=== PATIENT | male | born 1935 | race Caucasian/White ===

== ENCOUNTER 2016-06-28 10:37 | Inpatient (IN) ==
[2016-06-28] MEDS ORDERED: IPRATROPIUM/ALBUTEROL 3 ML AMPUL.NEB NEB ONE ×2 (10:41→11:07)
--- NOTE | 2016-06-28 10:53 | Emergency Department Note ---
General Adult HPI - General Chief complaint: Fever Stated complaint: sob, fever Time Seen by Provider: 06/28/16 10:50 Source: patient Mode of arrival: ambulatory Limitations: no limitations - History of Present Illness HPI Narrative: This patient has had fever and cough last 2 days. He feels short of breath. This morning he started coughing up some blood. O2 sats were quite low. No chest pain nausea vomiting. Onset (ago): day(s) Location: chest - Related Data Home Medications Medication Instructions Recorded Confirmed Allopurinol [Zyloprim] 100 mg PO DAILY 03/16/15 06/14/16 Metoprolol Succinate [Toprol Xl] 50 mg PO DAILY 03/16/15 06/14/16 Oxazepam 15 mg PO BID 03/16/15 06/14/16 Prazosin [Minipress] 5 mg PO BID 03/16/15 06/14/16 Warfarin [Coumadin] 3 mg PO DAILY 03/16/15 06/14/16 omeprazole 20 mg capsule,delayed 20 mg PO QDAY cap 05/10/15 06/14/16 release vit C-vit O-[id number]-[id number]-omega 1 cap PO .QD 05/10/15 06/14/16 3 100 mg-15 unit-2 mg-100 mg capsule potassium chloride ER 10 mEq 10 meq PO DAILY tab 10/13/15 06/14/16 tablet,extended release(part/cryst) Previous Rx's Medication Instructions Recorded amlodipine 10 mg tablet 5 mg PO QHS #60 tab 09/15/15 furosemide 40 mg tablet 20 mg PO BID #90 tab 01/18/16 spironolactone 25 mg tablet 25 mg PO QDAY #90 tab 04/03/16 Allergies Allergy/AdvReac Type Severity Reaction Status Date / Time No Known Drug Allergies Allergy Verified 06/28/16 10:44 Review of Systems Constitutional: Reports: fever, chills Eyes: Denies: eye pain ENT ED: Denies: ear pain Cardiovascular: Denies: chest pain, palpitations Respiratory: Reports: cough, dyspnea Gastrointestinal: Denies: abdominal pain, nausea, vomiting Genitourinary: Denies: urgency, dysuria Musculoskeletal: Denies: back pain Integumentary: Denies: rash Neurological: Denies: headache Past Medical History - Past Medical History Medical history: Reports: atrial fibrillation, coronary artery disease, diabetes , GERD, hyperlipidemia, hypertension, renal disease, other (gout) Surgical history ED: Reports: cataract, knee replacement, tonsillectomy Psychiatric history: Reports: anxiety - Social History Alcohol use: Reports: None, Rarely Physical Exam - General Limitations: no limitations General appearance: alert, in no apparent distress - Head Head exam: atraumatic - Eye Eye exam: Present: normal appearance - ENT ENT exam: normal exam - Neck Neck exam: Present: normal inspection - Chest Chest inspection: Present: normal inspection - Respiratory Respiratory exam: Present: other (scattered rales and rhonchi) - Cardiovascular Cardiovascular exam: Present: irregular rhythm, normal heart sounds - Abdominal Exam Abdominal exam: Present: soft. Absent: distention, tenderness - Neurological Exam Neurological exam: Present: alert, oriented X3 - Psychiatric Psychiatric exam: Present: normal affect, normal mood - Skin Skin exam: Present: warm, dry Course Vital Signs Temperature 101.4 F H 06/28/16 10:39 Pulse Rate 99 H 06/28/16 10:39 Respiratory Rate 32 H 06/28/16 10:39 Blood Pressure 150/75 06/28/16 10:39 Pulse Oximetry (%) 89 L 06/28/16 10:39 Temperature 101.4 F H 06/28/16 10:39 Pulse Rate 74 06/28/16 11:52 Respiratory Rate 28 H 06/28/16 11:52 Blood Pressure 131/66 06/28/16 11:52 Pulse Oximetry (%) 90 06/28/16 11:52 Medical Decision Making - [facility] Narrative Medical decision making narrative: This patient has pneumonia with worrisome signs for sepsis. He has been cultured and given antibiotics including Levaquin and Rocephin. He'll be admitted the ICU by Dr. Williamson - Lab Data Lab results reviewed: Yes I reviewed the patient's lab results. Result diagrams: 06/28/16 10:35 06/28/16 10:35 Lab Results 06/28/16 06/28/16 06/28/16 Range/Units 10:35 10:35 10:35 WBC 25.4 H (4.5-11.0) K/mcL RBC 4.64 (4.50-5.90) M/mcL Hgb 15.2 (13.5-16.5) g/dL Hct 46.6 (41.0-55.0) % MCV 100.5 H (80.0-100.0) fL MCH 32.8 (26.0-34.0) pg MCHC 32.6 (31.0-36.0) g/dL RDW 14.5 (11.5-14.5) % Plt Count 77 L (140-440) K/mcL MPV 8.0 (7.4-10.4) fL Gran % 59.7 (38.0-78.0) % Lymph % (Auto) 23.8 (15.5-49.0) % [place] % (Auto) 16.0 H (1.0-12.0) % Eos % (Auto) 0.2 (0.0-7.0) % Baso % (Auto) 0.3 (0.0-2.0) % Gran # 15.2 H (1.8-8.0) K/mcL Lymph # 6.1 H (1.5-4.8) K/mcL [place] # 4.1 H (0.1-0.9) K/mcL Eos # 0.1 (0.0-0.7) K/mcL Baso # 0.1 (0.0-0.3) K/mcL VBG Lactic Acid 3.1 H (0.5-2.2) mmol/L Sodium 140 (133-145) mmol/L Potassium 4.2 (3.3-5.1) mmol/L Chloride 95 L (96-108) mmol/L Carbon Dioxide 22 (22-30) mmol/L Anion Gap 23.0 H (8-16) BUN 28 H (8-23) mg/dl Creatinine 1.5 H (0.7-1.2) mg/dl GFR Calculation 44 Glucose 145 H (70-105) mg/dL Calcium 9.1 (8.6-10.4) mg/dl Total Bilirubin 2.2 H (0.0-1.0) mg/dL AST 20 (0-37) U/l ALT 20 (0-40) U/l Alkaline Phosphatase 79 (39-117) U/L Troponin T (0-0.03) ng/ml Total Protein 7.6 (5.9-8.4) gm/dL Albumin 4.5 (3.2-5.2) gm/dL Globulin 3.1 (2.2-3.7) gm/dL Albumin/Globulin Ratio 1.5 (1.0-2.3) 06/28/16 Range/Units 10:43 WBC (4.5-11.0) K/mcL RBC (4.50-5.90) M/mcL Hgb (13.5-16.5) g/dL Hct (41.0-55.0) % MCV (80.0-100.0) fL MCH (26.0-34.0) pg MCHC (31.0-36.0) g/dL RDW (11.5-14.5) % Plt Count (140-440) K/mcL MPV (7.4-10.4) fL Gran % (38.0-78.0) % Lymph % (Auto) (15.5-49.0) % [place] % (Auto) (1.0-12.0) % Eos % (Auto) (0.0-7.0) % Baso % (Auto) (0.0-2.0) % Gran # (1.8-8.0) K/mcL Lymph # (1.5-4.8) K/mcL [place] # (0.1-0.9) K/mcL Eos # (0.0-0.7) K/mcL Baso # (0.0-0.3) K/mcL VBG Lactic Acid (0.5-2.2) mmol/L Sodium (133-145) mmol/L Potassium (3.3-5.1) mmol/L Chloride (96-108) mmol/L Carbon Dioxide (22-30) mmol/L Anion Gap (8-16) BUN (8-23) mg/dl Creatinine (0.7-1.2) mg/dl GFR Calculation Glucose (70-105) mg/dL Calcium (8.6-10.4) mg/dl Total Bilirubin (0.0-1.0) mg/dL AST (0-37) U/l ALT (0-40) U/l Alkaline Phosphatase (39-117) U/L Troponin T < 0.01 (0-0.03) ng/ml Total Protein (5.9-8.4) gm/dL Albumin (3.2-5.2) gm/dL Globulin (2.2-3.7) gm/dL Albumin/Globulin Ratio (1.0-2.3) - Radiology Data Radiology results reviewed: Yes I reviewed the patient's radiology results. ( chest x-ray is read as showing a right lower lobe infiltrate.) Disposition Clinical Impression: Community acquired pneumonia Disposition: Xfer As Inpt ([facility]) Condition: Fair Referrals: Suma Parker MD [Primary Care Provider] - Time of Disposition: 12:09
[2016-06-28] MEDS ORDERED: 0.9 % SODIUM CHLORIDE 1,000 ML IV SCH ×2 (11:00→13:27)
--- NOTE | 2016-06-28 11:07 | XRay Report ---
HISTORY: Reason for Exam:shortness of breath and cough FINDINGS: The heart is moderately enlarged and has increased in size since 07/14/14. There is no congestive heart failure or pleural effusion. A small alveolar infiltrate is developing medially in the right lung base. The lungs are otherwise clear. There may be a subpulmonic pleural effusion on the right side.. IMPRESSION: Right lower lobe pneumonia Worsening cardiomegaly Interpreted and Authenticated by: Victor Hugo Lee 06/28/16
[2016-06-28 11:12] LABS: Basophils # (Auto) 0.1 K/mcL (0.0-0.3); Basophils % (Auto) 0.3 % (0.0-2.0); Eosinophils # (Auto) 0.1 K/mcL (0.0-0.7); Eosinophils % (Auto) 0.2 % (0.0-7.0); Granulocytes % (Auto) 59.7 % (38.0-78.0); Lymphocytes # (Auto) 6.1 K/mcL (1.5-4.8); Lymphocytes % (Auto) 23.8 % (15.5-49.0); Mean Cell Volume 100.5 fL (80.0-100.0); Mean Corpuscular HGB Conc 32.6 g/dL (31.0-36.0); Mean Corpuscular Hemoglobin 32.8 pg (26.0-34.0); Monocytes # (Auto) 4.1 K/mcL (0.1-0.9); Platelet Count 77 K/mcL (140-440); RBC 4.64 M/mcL (4.50-5.90); Red Cell Distribution Width 14.5 % (11.5-14.5)
[2016-06-28] MEDS ORDERED: cefTRIAXone 1 GM in DEXTROSE 5% IN WATER 50 ML IV ONE (11:22)
[2016-06-28] MEDS ORDERED: LEVOFLOXACIN 500 MG/100 ML BAG IV ONE (11:22)
[2016-06-28] MEDS ORDERED: ACETAMINOPHEN 325 MG TABLET PO ONE (12:14)
--- NOTE | 2016-06-28 13:13 | Internal Med History&Physical ---
Medical - H&P: HPI Patient information: Note initiated : 06/28/16 at 1:09 pm Service Date, if different from initiated Date: [] Patient: Colt Flores 81 y/o M admitted on for SOB, Fever. Chief Complaint: [] History of present illness: Mr. Flores is a 81 year old male w3ho lives with his , presented to the ER after 1 day of cough, and hemoptysis. The patient last night had a bout of cough. He notes he is chr feeling weak, tired and fatigued. His cough came on yesterday evening. This AM when he woke up he started to have hemoptysis, He coughed up bloody sputum He denies any mixing of any other color with the sputum. He notes his cough is more deep now than before. He admits to feeling sick and may be feverish, but did not take a temperature. he presented to the ER with the above complaints. In the ER he was noted to be hypoxic, tachypenic and febrile. He had an x ray done which showed right basilar pneumonia. his wbc was 25K, elevated lactate, and needing 6L oxygen to maintain oxygen at 90% he was admitted to the hosptial for further management at bedside who also provided some history Review of systems: CONSTITUTIONAL: No weight loss, fever present , chr weakness and fatigue. HEENT: Eyes: No visual loss, blurred vision, double vision or yellow sclerae. Ears, Nose, Throat: No hearing loss, sneezing, congestion, runny nose or sore throat. SKIN: No rash or itching. CARDIOVASCULAR: No chest pain, chest pressure or chest discomfort. No palpitations or edema. RESPIRATORY: Present sob, cough and hemoptysis.. GASTROINTESTINAL: No nausea, vomiting or diarrhea or constipation. No abdominal pain or blood in stools No Trini. GENITOURINARY: Denies Burning on urination. Blood in urine, or foul smelling urine. Takes lasix for diuresis. NEUROLOGICAL: No headache, dizziness, syncope, paralysis, tremors, numbness or tingling in the extremities. No change in bowel or bladder control. MUSCULOSKELETAL: No muscle, back pain, joint pain or stiffness. HEMATOLOGIC: No bleeding or bruising. No enlarged nodes PSYCHIATRIC: No depression or anxiety. ENDOCRINOLOGIC: No reports of sweating, cold or heat intolerance. No polyuria or polydipsia. ALLERGIES: No hives, eczema or rhinitis. 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, stage II (mild) (Chronic) Melena (Chronic) Mixed hyperlipidemia (Chronic) Skin cancer (Chronic) Gout (Chronic) Myocardial infarction (Chronic) CAD (coronary artery disease) (Chronic) Diabetes mellitus, type II (Chronic) Hypercholesterolemia (Chronic) Anxiety (Chronic) Hypertension (Acute) Atrial fibrillation (Chronic) Proteinuria (Chronic) Epistaxis (Chronic) Encounter for removal of nasal packing (Chronic) Surgical history: Past Surgical History S/P tonsillectomy (Chronic) Family history: reviewed and not pertinent Medical - H&P: Meds Home Medications Medication Instructions Recorded Confirmed Type Allopurinol [Zyloprim] 100 mg PO DAILY 06/28/16 06/28/16 History Atorvastatin [Lipitor] 10 mg PO DAILY 06/28/16 06/28/16 History Furosemide [Lasix] 40 mg PO DAILY 06/28/16 06/28/16 History Hydrochlorothiazide [Oretic] 25 mg PO DAILY 06/28/16 06/28/16 History Losartan [Cozaar] 50 mg PO BID 06/28/16 06/28/16 History Metoprolol Succinate [Toprol Xl] 50 mg PO DAILY 06/28/16 06/28/16 History Metoprolol Tartrate [Lopressor] 50 mg PO DAILY 06/28/16 06/28/16 History Omeprazole 20 mg PO DAILY 06/28/16 06/28/16 History Oxazepam 15 mg PO BID 06/28/16 06/28/16 History Prazosin [Minipress] 5 mg PO BID 06/28/16 06/28/16 History Spironolactone, Micronized 25 mg PO DAILY 06/28/16 06/28/16 History [Spironolactone] Warfarin [Coumadin] 3 mg PO DAILY 06/28/16 06/28/16 History amLODIPine [Norvasc] 5 mg PO HS 06/28/16 06/28/16 History Allergies Allergy/AdvReac Type Severity Reaction Status Date / Time No Known Drug Allergies Allergy Verified 06/28/16 10:44 Medical - H&P: Exam - Constitutional Vitals: Temp Pulse Resp BP Pulse Ox 99.8 F H 84 18 136/76 90 06/28/16 12:23 06/28/16 12:26 06/28/16 12:26 06/28/16 12:26 06/28/16 12:26 Exam: GENERAL: The patient is a well-developed, well-nourished in no apparent distress. Is alert and oriented x3. obese VITAL SIGNS: Reviewed and as noted elsewhere. HEENT: Head is normocephalic and atraumatic. Extraocular muscles are intact. Pupils are equal, round, and reactive to light. Nares appeared normal. Mouth appears any without lesions. Mucous membranes are moist NECK: Normal to inspection, Supple, No lymphadenopathy or thyromegaly. LUNGS: Air entry equal on both sides, no wheezing but proloned exp phase noted, no crackles or rhonchi noted. No accessory muscles of respiration, but pt is tachypenic. HEART: Regular rate and rhythm irregular, S1 and S2 heard, no Gallop, S3 or Rub Noted, systolic ejection murmur lsbb ABDOMEN: Soft, nontender, and chronically distended. Positive bowel sounds. No hepatosplenomegaly was noted. EXTREMITIES: No cyanosis, clubbing, rash, lesions or edema. NEUROLOGIC: Cranial nerves II through XII are grossly intact. Motor and Sensory System Grossly Intact PSYCHIATRIC: Normal affect, Normal Mood. Appropriate Behavior. SKIN: No ulceration or wounds noted, No jaundice, No rash noted. Medical - H&P: Reslt - Labs CBC & Chem 7: 06/28/16 10:35 06/28/16 10:35 Labs: Short CBC 06/28/16 Range/Units 10:35 WBC 25.4 H (4.5-11.0) K/mcL Hgb 15.2 (13.5-16.5) g/dL Hct 46.6 (41.0-55.0) % Plt Count 77 L (140-440) K/mcL BMP 06/28/16 10:35 Sodium 140 Potassium 4.2 Chloride 95 L Carbon Dioxide 22 BUN 28 H Creatinine 1.5 H Glucose 145 H Calcium 9.1 Cardiac Enzymes 06/28/16 Range/Units 10:43 Troponin T < 0.01 (0-0.03) ng/ml Liver Function 06/28/16 Range/Units 10:35 Total Bilirubin 2.2 H (0.0-1.0) mg/dL AST 20 (0-37) U/l ALT 20 (0-40) U/l Alkaline Phosphatase 79 (39-117) U/L Albumin 4.5 (3.2-5.2) gm/dL - ABG Interpretation -: ABG interpreted by me Additional comments: hypoxia, on ABG, normal blood gas - EKG Data -: EKG Reviewed by Myself - EKG Data Prior EKG available for review: no EKG comments: 06/28/16 13:19 atrial fibrillation poor voltage poor r wave progression Old ant wall IN non specific st changes in ant lateral leads. 06/28/16 13:28 - Imaging and Cardiology Chest x-ray Status: image reviewed by me (Cardiomegaly, right basilar infiltrate. ) Medical - H&P: A/P - Narrative A/P Narrative: Community Acquired Pneumonia: Start on IV rocephin, IV zithromax, cultures sent , check influenza. Severe sepsis: elevated lactate, tachyphemia, borderline elevated HR. Hypoxia, Admit to ICU for close monitoring. SOFA score of 8, KAKE 16, mortality risk of 22%. IV hydration for now, recheck lactate in PM. Pericardial Effusion/ Cardiomegaly: Echo in past showed effusion, LVH, will repeat Echo today to evaluate effusion change. EKG suggestive of low voltate. Acute Hypoxic Respiratory failure: On Oxygen 6 L at present, Duonebs for now, Hiflo nasal canula for oxygenation. consider Bipap vs ventilation, pt is full code. Hemoptysis: Noted this am, bright red blood, likely from pna, check inr stat, hold coumadin for now, CT chest Thrombocytopenia: seems chr in nature. Atrial fibrillation: Rate controlled, resume home meds check INR HTN: Resume home medications, BP stable at this time. CAD: EKG shows old ant mi, no cp at this time, trop neg, monitor. DVT : Hep SQ, monitor INR Diet: cardiac diet. Code. Full code. Social History - Social History marital status: occupational status: retired - Tobacco smoking status: Never smoker - Alcohol alcohol intake frequency: 2+ drinks per day
[2016-06-28] MEDS ORDERED: DEXTROSE 50% 50 ML VIAL IV PRN (13:27)
[2016-06-28] MEDS ORDERED: HYDROmorphone 2 MG/ML SYRINGE IV PRN (13:27)
[2016-06-28] MEDS ORDERED: ONDANSETRON 4 MG/2 ML VIAL IV PRN (13:27)
[2016-06-28] MEDS ORDERED: NALOXONE HCL 0.4 MG/ML VIAL IV PRN (13:27)
[2016-06-28] MEDS ORDERED: AZITHROMYCIN 500 MG in DEXTROSE 5% IN WATER 250 ML IV ONE (13:27)
[2016-06-28] MEDS ORDERED: ACETAMINOPHEN 325 MG TABLET PO PRN (13:27)
[2016-06-28] MEDS: 0.9 % SODIUM CHLORIDE 1,000 ML IV SCH ×2 (13:35→20:19)
[2016-06-28] MEDS: cefTRIAXone 2 GM in DEXTROSE 5% IN WATER 50 ML IV SCH ×2 (13:51→14:41)
[2016-06-28] MEDS: 0.9 % SODIUM CHLORIDE 10 ML SYRINGE IV SCH ×2 (13:54→20:54)
[2016-06-28] MEDS: IPRATROPIUM 2.5 ML AMPUL.NEB NEB SCH ×2 (15:45→19:59)
--- NOTE | 2016-06-28 15:58 | Cat Scan Report ---
CLINICAL INFORMATION: Fever and right lower lobe infiltrate COMPARISON: None TECHNIQUE: 2.5 mm axial slices were obtained from the lung apices through the bases without intravenous contrast. Sagittal, coronal and axial reformatted images were processed and reviewed at bone, lung and soft tissue windows. 7 mm axial MIP images were also reconstructed. FINDINGS: There is a large densely consolidating alveolar infiltrate in the right lower lobe. There is a smaller infiltrate posteriorly medially in the left lower lobe. Multiple air bronchograms are present. There is no apparent endobronchial lesion. Subtle patchy alveolar opacities are present medially in the right middle lobe and above the minor fissure anteriorly in the right upper lobe. The lingula and left upper lobe are clear. There is a small layering right-sided pleural effusion. No left-sided effusion is present. There are few small scattered calcified pleural plaques, most apparent in the right lower thorax. Moderate size pericardial effusion is present. The underlying heart is upper limits of normal in size. There are densely calcified plaques in the coronary arteries. Few reactive lymph nodes are present in the mediastinum. IMPRESSION: Bilateral pneumonia with the greatest consolidation in the right lower lobe Moderate-sized pericardial effusion and small layering right-sided pleural effusion Interpreted and Authenticated by: Victor Hugo Lee 06/28/16
[2016-06-28] MEDS ORDERED: 0.9 % SODIUM CHLORIDE 10 ML SYRINGE IV PRN (16:03)
[2016-06-28] MEDS: INSULIN LISPRO 1 UNIT/0.01 ML UNIT SQ SCH ×2 (17:54→20:53)
--- NOTE | 2016-06-28 20:29 | Transfer of Care Summary ---
Transition of Care Summary Patient information: Note initiated : 06/28/16 at 8:28 pm Service Date, if different from initiated Date: [] Patient: Colt Flores 81 y/o M admitted on 06/28/16 for SOB, Fever. Chief Complaint: [] Hospital course: Mr. Flores is a 81 year old male who lives with his , presented to the ER after 1 day of cough, and hemoptysis. was at bedside who presented some of the history. The patient last night had a bout of cough. He notes he is chr feeling weak, tired and fatigued. His cough came on yesterday evening. This AM when he woke up he started to have hemoptysis, He coughed up bloody sputum. He notes his cough is more deep and productive today now than before. He admits to feeling sick and may be feverish, but did not take a temperature. he presented to the ER with the above complaints. In the ER he was noted to be hypoxic, tachypneic and febrile. He had an x ray done which showed right basilar pneumonia. his wbc was 25K, elevated lactate, and needing 6L oxygen to maintain oxygen at 90% he was admitted to the hospital for further management. INR checked was 2.3, Pt was started on rocepin and azithromycin for CAP management. PICC line placed. CT chest done for hemoptysis shows that he has humble pna, right > left, pericardial effusion. Patients X ray showed that his cardiomegaly had increased since his previous x rays. On further review the patient had pericardial effusions in the past. A Repeat Echocardiography was ordered to evaluate worsening cardiomegaly. The patients echo revealed that the patient has moderate to severe pericardial effusion with probable tamponade. I reviewed the findings with the paving rammer who agreed transfer to a higher center would be needed. Patient was discussed with Dr Rodriguez at [facility] , who reviewed the case and accepted the transfer, Pt will be transferred to hospitalist service under Dr Burrell. The plan of care was reviewed with patient and his daughter who was at bedside. - Pending Results Pending labs and procedures: [facility] 06/28/16 16:59: VBG Lactic Acid 1.6 06/28/16 16:38: Influenza A (Rapid) Presumed negative, Influenza B (Rapid) Presumed negative
--- NOTE | 2016-06-28 20:47 | Transfer Summary ---
Transfer Discharge Sum: Prov Patient information: Note initiated : 06/28/16 at 8:44 pm Service Date, if different from initiated Date: [] Patient: Colt Flores 81 y/o M admitted on 06/28/16 for SOB, Fever. Chief Complaint: [] Date of admission: 06/28/16 13:23 Discharge Date: 06/28/16 Primary care physician: [f_Reg Prim Care Provider] Attending physician on admission: Jus Williamson Receiving physician/facility: Dr Ashanti Bowling. Cardiology. Transfer Discharge Sum: Diag - Discharge Diagnosis (1) Nontraumatic cardiac tamponade Status: Acute (2) Pericardial effusion Status: Acute (3) Community acquired pneumonia Status: Acute Transfer Discharge Sum: Med - Medications Active and Home Medications: Home Medications Allopurinol [Zyloprim] 100 mg PO DAILY 06/28/16 [History Confirmed 06/28/16] Furosemide [Lasix] 40 mg PO DAILY 06/28/16 [History Confirmed 06/28/16] Metoprolol Succinate [Toprol Xl] 50 mg PO DAILY 06/28/16 [History Confirmed 08/09] Omeprazole 20 mg PO DAILY 06/28/16 [History Confirmed 06/28/16] Oxazepam 15 mg PO BID 06/28/16 [History Confirmed 06/28/16] Potassium Chloride [Klor-Con 10] 1 tab PO DAILY 06/28/16 [History Confirmed 08/09] Prazosin [Minipress] 5 mg PO BID 06/28/16 [History Confirmed 06/28/16] Spironolactone, Micronized [Spironolactone] 25 mg PO QHS 06/28/16 [History Confirmed 06/28/16] Vit A,C & E/Lutein/Minerals [Ocuvite] 1 tab PO DAILY 06/28/16 [History Confirmed 06/28/16] Warfarin [Coumadin] 3 mg PO DAILY 06/28/16 [History Confirmed 06/28/16] amLODIPine BESYLATE [Amlodipine Besylate] 5 mg PO QHS 06/28/16 [History Confirmed 06/28/16] Active Medications Acetaminophen (Tylenol) 650 mg PO Q4-6HP PRN PRN Reason: PAIN/FEVER > 101 Allopurinol (Zyloprim) 100 mg PO DAILY REFUGIO Atorvastatin Calcium (Lipitor) 10 mg PO DAILY [facility] Dextrose (Dextrose 50%) 0 ml IV UD PRN PRN Reason: Hypoglycemia Diagnostic Test (Pha) (Accu-Chek) 1 each FS ACHS [facility] Last Admin: 06/28/16 17:53 Dose: 1 each Heparin Sodium (Porcine) (Heparin Flush) 2 ml IV Q12 [facility] Hydromorphone HCl (Dilaudid) 0.5 mg IV Q2HP PRN PRN Reason: Pain Azithromycin 250 mg/ Dextrose 250 mls @ 250 mls/hr IV Q24H [facility] Stop: 07/02/16 09:59 Sodium Chloride (Sodium Chloride 0.9%) 1,000 mls @ 150 mls/hr IV .Q6H40M [facility] Stop: 06/29/16 09:26 Last Admin: 06/28/16 20:19 Dose: 150 mls/hr Ceftriaxone Sodium 2 gm/ (Dextrose) 50 mls @ 100 mls/hr IV DAILY [facility] Last Infusion: 06/28/16 14:41 Dose: Infused Insulin Human Lispro (Humalog) 0 unit SQ [facility] PRN Reason: Protocol Last Admin: 06/28/16 17:54 Dose: 1 unit Ipratropium [place] (Atrovent) 2.5 ml NEB Q4HRT [facility] Last Admin: 06/28/16 19:59 Dose: 2.5 ml Multivit/Ca Carb/B Cmplx/FA/Prenat (Diatx) 1 tab PO HS [facility] Naloxone HCl (Narcan) 0.1 mg IV Q2MIN PRN PRN Reason: Opiate Reversal Ondansetron HCl (Zofran) 4 mg IV Q4-6HP PRN PRN Reason: Nausea And Vomiting Oxazepam (Oxazepam) 15 mg PO BID [facility] Pantoprazole Sodium (Protonix) 40 mg PO QAMAC [facility] Sodium Chloride (Saline Flush) 10 ml IV Q8 [facility] Last Admin: 06/28/16 13:54 Dose: 10 ml Sodium Chloride (Saline Flush) 10 ml IV UD PRN PRN Reason: FLUSH Thiamine HCl (Vitamin B1) 100 mg PO HS [facility] Transfer Discharge Sum: Hosp Hospital course: Mr. Flores is a 81 year old male who lives with his , presented to the ER after 1 day of cough, and hemoptysis. was at bedside who presented some of the history. The patient last night had a bout of cough. He notes he is chr feeling weak, tired and fatigued. His cough came on yesterday evening. This AM when he woke up he started to have hemoptysis, He coughed up bloody sputum. He notes his cough is more deep and productive today now than before. He admits to feeling sick and may be feverish, but did not take a temperature. he presented to the ER with the above complaints. In the ER he was noted to be hypoxic, tachypneic and febrile. He had an x ray done which showed right basilar pneumonia. his wbc was 25K, elevated lactate, and needing 6L oxygen to maintain oxygen at 90% he was admitted to the hospital for further management. INR checked was 2.3, Pt was started on rocepin and azithromycin for CAP management. PICC line placed. CT chest done for hemoptysis shows that he has humble pna, right > left, pericardial effusion. Patients X ray showed that his cardiomegaly had increased since his previous x rays. On further review the patient had pericardial effusions in the past. A Repeat Echocardiography was ordered to evaluate worsening cardiomegaly. The patients echo revealed that the patient has moderate to severe pericardial effusion with probable tamponade. I reviewed the findings with the reporting consultant who agreed transfer to a higher center would be needed. Patient was discussed with Dr Rodriguez at [facility] , who reviewed the case and accepted the transfer, Pt will be transferred to hospitalist service under Dr Burrell. The plan of care was reviewed with patient and his daughter who was at bedside. - Time Spent with Patient Total time spent providing and/or coordinating transfer services: Greater than 30 minutes Transfer Discharge Sum: Exam - Constitutional Vitals: Vital Signs Temp Pulse Pulse Resp BP BP BP 06/28/16 20:22 06/28/16 20:12 71 20 06/28/16 20:00 99.5 F 22 123/71 06/28/16 19:00 22 113/59 06/28/16 18:28 20 06/28/16 18:00 25 H 118/73 06/28/16 17:00 88 22 116/72 06/28/16 16:00 98.9 F 23 114/76 06/28/16 15:25 06/28/16 15:15 87 26 H 06/28/16 15:00 22 111/67 06/28/16 14:00 24 109/68 06/28/16 13:34 99.3 F 20 119/71 06/28/16 13:27 99.8 F H 84 18 150/75 Pulse Ox 06/28/16 20:22 94 06/28/16 20:12 06/28/16 20:00 100 06/28/16 19:00 95 06/28/16 18:28 95 06/28/16 18:00 95 06/28/16 17:00 95 06/28/16 16:00 95 06/28/16 15:25 94 06/28/16 15:15 95 06/28/16 15:00 95 06/28/16 14:00 94 06/28/16 13:34 90 06/28/16 13:27 90 Intake and Output 06/28/16 06/28/16 06/28/16 05:59 13:59 21:59 Intake Total 1100 / 1100 1300 / 1300 Output Total 250 / 250 Balance 1100 / 1100 1050 / 1050 Intake: IV 1100 / 1100 1300 / 1300 Sodium Chloride 0.9% 1, 1000 / 1000 1000 / 1000 000 ml @ 150 mls/hr IV . Q6H40M [facility] Rx#:[id number] Zithromax 500 mg In 250 / 250 Dextrose 5% in Water 250 ml @ 250 mls/hr IV ONCE ONE Rx#:[id number] Rocephin 2 gm In Dextrose 50 / 50 5% in Water 50 ml @ 100 mls/hr IV DAILY [facility] Rx#: [id number] Oral 0 / 0 0 / 0 Output: Void Amount 250 / 250 Other: # Voids 0 # Bowel Movements 0 Weight 220 lb 220 lb 11.2 oz Patient Weight 06/29/16 05:59 Weight 220 lb 11.2 oz Additional comments: Constitutional; Afebrile, cooperative, alert, not in distress. Eyes- No icterus, , No periorbital swelling Ears- Ext ear normal, hearing normal to conversation. Neck- Midline trachea, supple Respiratory system: Air Entry decreased right base, no wheezing noted. CVS- Rate rhythm irregular, S1,S2 heard, no gallop, + pedal edema. Abdomen- Soft nontender abdomen, no organomegaly, no tenderness, no guarding or rigidity, obese abdomen ENDS DOWN CHECKER- AOOx3, moving all extremities, no gross focal deficit noted. Transfer Discharge Sum: Data Procedures and tests throughout hospitalization: Pending Orders 06/28/16 16:03 Heat Therapy Device Management DAILY Wound Care/Dressings PRN Wound Care/Dressings Q7D XR chest 1V portable Stat 0.9 % Sodium Chloride [Saline Flush] 10 ml IV UD PRN 06/28/16 21:00 Folic Acid/Vitamin B Comp W-C [Diatx] 1 tab PO HS Heparin Flush 2 ml IV Q12 Thiamine [Vitamin B1] 100 mg PO HS 06/29/16 04:00 Complete Blood Count DAILY Inpatient Panel DAILY Prothrombin Time INR DAILY 06/29/16 16:03 Wound Care/Dressings ONCE 06/30/16 04:00 Complete Blood Count DAILY Inpatient Panel DAILY Prothrombin Time INR DAILY 07/01/16 04:00 Complete Blood Count DAILY Inpatient Panel DAILY Prothrombin Time INR DAILY 07/02/16 04:00 Complete Blood Count DAILY Inpatient Panel DAILY Prothrombin Time INR DAILY 07/03/16 04:00 Complete Blood Count DAILY Inpatient Panel DAILY Prothrombin Time INR DAILY 07/04/16 04:00 Complete Blood Count DAILY Inpatient Panel DAILY Prothrombin Time INR DAILY 07/05/16 04:00 Complete Blood Count DAILY Inpatient Panel DAILY Prothrombin Time INR DAILY Transfer Discharge Sum: A/P - Problem Maintenance (1) Nontraumatic cardiac tamponade Status: Acute (2) Pericardial effusion Status: Acute (3) Community acquired pneumonia Status: Acute - Plan Overall status at transfer: patient is not back to baseline Disposition: [facility] Quality Measure Queries - VTE Deep Vein Thrombosis/Pulmonary Embolism Present on Admission: No
[2016-06-28] MEDS ORDERED: FOLIC ACID/VITAMIN B COMP W-C 1 TAB TABLET PO SCH (21:00)
[2016-06-28] MEDS ORDERED: amLODIPine 5 MG TABLET PO SCH (21:00)
[2016-06-28] MEDS ORDERED: HEPARIN 5,000 UNIT/ML VIAL SQ SCH (21:00)
[2016-06-28] MEDS ORDERED: THIAMINE 100 MG TABLET PO SCH (21:00)
[2016-06-28] MEDS ORDERED: OXAZEPAM 15 MG CAPSULE PO SCH (21:00)
[2016-06-28] MEDS ORDERED: LOSARTAN 50 MG TABLET PO SCH (21:00)
[2016-06-28] MEDS ORDERED: PRAZOSIN 1 MG CAPSULE PO SCH (21:00)
--- NOTE | 2016-06-29 06:57 | Echocardiogram Report ---
ECHOCARDIOGRAM: 2-D and M-mode echocardiography with cardiac Doppler and color flow imaging were performed with a [employer] Aplio MX. Indication is cardiomegaly and history of pericardial effusion. Both atria appeared moderately to severely enlarged. RV and LV cavity size appeared normal. LV wall thickness appeared moderately increased. Systolic performance appeared normal to vigorous. Estimated ejection fraction is 70%. Aortic root diameter appeared normal. The ascending aorta appeared mildly dilated, 3.9 cm diameter. The aortic valve appeared trileaflet and normal for age. There was no evidence for aortic stenosis or aortic regurgitation by Doppler interrogation. The mitral and tricuspid valves appeared unremarkable. Calcification involving the mitral annulus and aortic-mitral intervalvular fibrosa was appreciated. Doppler interrogation of LV inflow disclosed a monophasic spectrum dispersion pattern related to absent AV synchrony. Mitral regurgitation, probably mild (1+), was noted. Pulmonary venous interrogation disclosed ''d'' wave dominance indicating elevated pulmonary wedge pressure. The pulmonic valve showed absent ''a'' wave in the absence of AV synchrony. Pulmonary artery acceleration time was difficult to measure. There was no evidence for pulmonic stenosis. Pulmonic regurgitation and tricuspid regurgitation, both probably mild (1+), were noted. A circumferential echo free space was present. The space was moderate to large posteriorly, large laterally, small to moderate apically, small anteriorly, and moderate adjacent to the RA free wall. Presence of RV free wall presystolic indentation, early diastolic indentation and RA free wall presystolic indentation were difficult to assess due to absent AV synchrony. The IVC was dilated and did not vary with the respiratory cycle indicating raised CVP. Atrial fibrillation with a moderate to rapid response was present. CONCLUSION:Mild ascending aortic dilatation. Moderate concentric LVH with vigorous systolic performance. Focal calcification, mitral annulus and aortic-mitral intervalvular fibrosa, with mitral regurgitation, probably mild (1+), and moderate to severe LA enlargement. Moderate to severe RA enlargement. Moderate to large circumferential pericardial effusion/raised CVP. It is noted that presence of a moderate pericardial effusion was described in 12/08; today's findings are suggestive of tamponade, largely due to the size of the effusion. Findings were discussed with Hospitalist, Jus Williamson MD 06/28/16, 7:30 p.m. (See accompanying M-mode and Doppler reports for quantitation.) ECHOCARDIOGRAPHY M-MODE CALCULATIONS: HT: 65'' WT: 220 BSA: 2.06 m2 NORMALS AORTA: AORTIC ROOT 3.5-3.9 2.0-3.7 cm LEFT ATRIUM 4.3 1.9-4.0 cm MITRAL VALVE: EXCURSION 2.2 1.9-2.7 cm EPSS 0.4 <0.5 cm LT VENTRICLE: LVID (ED) 4.3 3.5-5.7 cm LVID (ES) 2.0 SEPTAL THICKNESS 1.4 0.6-1.1 cm SEPTAL EXCURSION 0.5 0.3-0.8 cm LVPW THICKNESS 1.2 0.6-1.1 cm LVPW EXCURSION 1.3 0.9-1.4 cm MINOR AXIS FS 5.3 25%-40% RT VENTRICLE: RVID (ED) 1.7 0.9-2.6 cm(up to 3cm if LLD) QUALITATIVE DOPPLER FLOW STUDIES MITRAL VALVE MR, probably mild (1+) AORTIC VALVE -- TRICUSPID VALVE TR, probably mild (1+) PULMONIC VALVE ID, probably mild (1+) QUANTITATIVE DOPPLER FLOW STUDIES SAMPLE SITES VELOCITIES PEAK PRESSURE VALVE AREA and/or VALVE WINDOW (PEAK,M/SEC) DROP (GRADIENT) PRESSURE HALF-TIME MV (Diastole) 1.8 -- -- MV (Systole) 5.0 -- -- AO (Diastole) -- -- -- AO (Systole) 1.7 -- -- TV (Systole) 2.8 -- -- PV (Systole) 1.0 -- -- PV (Diastole) 1.8 LWG:grace Job ID: [id number] Doc ID: [id number] Danial Crain MD
[2016-06-29] MEDS ORDERED: PANTOPRAZOLE 40 MG TABLET PO SCH (07:30)
--- NOTE | 2016-06-29 07:59 | XRay Report ---
HISTORY: Reason for Exam:PICC PLACEMENT FINDINGS: The PICC line has been placed to the right arm with the tip in the superior vena cava. There is no pneumothorax or widening of the mediastinum. There is a moderate size consolidating infiltrate in the right lower lobe and a subtle infiltrate behind the left heart border. The cardiac silhouette is enlarged. This is largely due to a pericardial effusion which is demonstrated on the preceding chest CT. A small subpulmonic pleural effusion remain stable. IMPRESSION: Well-positioned PICC line Right lower lobe pneumonia ICU was called with results Interpreted and Authenticated by: Victor Hugo Lee 06/29/16
[2016-06-29] MEDS ORDERED: AZITHROMYCIN 250 MG in DEXTROSE 5% IN WATER 250 ML IV SCH (09:00)
[2016-06-29] MEDS ORDERED: NON FORMULARY MEDICATION 1 DOSE MISCELL (Omeprazole [Omeprazole] 20 MG) PO SCH (09:00)
[2016-06-29] MEDS ORDERED: ALLOPURINOL 100 MG TABLET PO SCH (09:00)
[2016-06-29] MEDS ORDERED: METOPROLOL SUCCINATE 50 MG TAB.XL.24H PO SCH (09:00)
[2016-06-29] MEDS ORDERED: SPIRONOLACTONE 25 MG TABLET PO SCH (09:00)
[2016-06-29] MEDS ORDERED: ATORVASTATIN 20 MG TABLET PO SCH (09:00)
== END 2016-06-28 21:11 | disposition short-term general hospital (02) | DRG 871 ==
LOC: ED 10:37 → ICU 13:23
PROVIDERS: ADMIT Internal Medicine; ATTEND Internal Medicine

== ENCOUNTER 2018-04-19 07:57 | Inpatient (IN) ==
[2018-04-19] MEDS ORDERED: IOPAMIDOL 100 ML BOTTLE IV ONE (07:58)
--- NOTE | 2018-04-19 08:15 | Emergency Department Note ---
Neuro HPI - General Source: EMS Mode of arrival: EMS Limitations: no limitations - History of Present Illness On Anticoagulants: No <Artur Hamilton - Last Filed: 04/19/18 09:02> <Doug Herrera - Last Filed: 04/19/18 13:08> - General Chief Complaint: Neuro Symptoms/Deficit Stated Complaint: Fall, no injury. poss left sided weakness Time Seen by Provider: 04/19/18 08:13 - History of Present Illness HPI Narrative: 82 year old male last seen normal at 9pm last night presenting after sustaining reported mechanical fall, upon arrival, EMS personnel noticed left sided facial droop, upon arrival NIHSS of 4, with LUE weakness, left facial droop present. No expressive nor receptive aphasia. No areas of pain, no other symptoms present. (Artur Hamilton) - Related Data Home Medications: Home Medications Medication Instructions Recorded Confirmed Allopurinol [Zyloprim] 100 mg PO DAILY 06/28/16 02/05/18 Oxazepam 15 mg PO BID 06/28/16 02/05/18 Prazosin [Minipress] 5 mg PO BID 06/28/16 02/05/18 metoprolol succinate ER 50 mg 100 mg PO DAILY tab 06/26/17 02/05/18 tablet,extended release 24 hr cholecalciferol (vitamin D3) 1,000 4,000 unit PO QDAY cap 07/12/17 02/05/18 unit capsule potassium chloride ER 20 mEq 20 meq PO BID 07/12/17 02/05/18 tablet,extended release omeprazole 20 mg capsule,delayed 20 mg PO QDAY 02/05/18 02/05/18 release Previous Rx's Medication Instructions Recorded Cpap machine and accessories #1 ea 07/02/17 Heated Tubing for cpap machine #1 ea 07/02/17 furosemide 80 mg tablet 80 mg PO QDAY #90 tab 07/12/17 spironolactone 25 mg tablet 12.5 mg PO QAM #45 tab 03/25/18 Allergies/Adverse Reactions: Allergies Allergy/AdvReac Type Severity Reaction Status Date / Time No Known Drug Allergies Allergy Verified 04/19/18 07:59 Review of Systems All systems ED: reviewed and negative except as stated. <Artur Hamilton - Last Filed: 04/19/18 09:02> Past Medical History - Past Medical History Medical history: Reports: atrial fibrillation, coronary artery disease, DM, GERD, hyperlipidemia, hypertension, renal disease, other Psychiatric history: Reports: anxiety Surgical history ED: Reports: cataract, knee replacement, tonsillectomy - Social History smoking status: Former smoker Alcohol use: Reports: None, Rarely <Artur Hamilton - Last Filed: 04/19/18 09:02> Physical Exam Limitations: no limitations <Artur Hamilton - Last Filed: 04/19/18 09:02> Vital Signs Temperature 98.0 F 04/19/18 08:00 Pulse Rate 58 L 04/19/18 08:00 Respiratory Rate 18 04/19/18 08:00 Blood Pressure 175/89 04/19/18 08:00 Pulse Oximetry (%) 92 04/19/18 08:00 Temperature 98.0 F 04/19/18 08:00 Pulse Rate 50 L 04/19/18 12:09 Respiratory Rate 19 04/19/18 12:09 Blood Pressure 146/81 04/19/18 12:09 Pulse Oximetry (%) 97 04/19/18 12:09 Neuro Symptoms/Deficit - Lab Data Result diagrams: 04/19/18 08:19 04/19/18 08:19 - EKG Data EKG attestation: Yes I reviewed and interpreted this EKG. Rate: bradycardia Rhythm: A.Fib [place]/QRS: RBBB <Artur Hamilton - Last Filed: 04/19/18 09:02> - Lab Data Result diagrams: 04/19/18 08:19 04/19/18 08:19 <Doug Herrera - Last Filed: 04/19/18 13:08> - MDM Narrative Medical decision making narrative: CT and CTA were performed by Dr. Hamilton. MRI performed and shows a right 1 x 3 cm parietal CVA . stroke center called consulted felt no TPA because of the timing that he awoke with the symptoms. HE felt that we should give aspirin and a statin.. We did give hIM 325 ASA and a statin.. [place] neurologist contacted Dr. Luevano. [place] that if the carotid studies were okay that the patient could be kept at [facility]. He did recommend putting him on Plavix for the next 21 days dR BARRIENTOS Consulted and patient to be admitted to telemetry. (Doug Herrera) - Lab Data Lab Results 04/19/18 04/19/18 04/19/18 Range/Units 08:19 08:19 08:19 WBC 12.3 H (4.5-11.0) K/mcL RBC 3.86 L (4.50-5.90) M/mcL Hgb 13.0 L (13.5-16.5) g/dL Hct 38.9 L (41.0-55.0) % POC Hct 39.0 L (41.0-55.0) % MCV 100.6 H (80.0-100.0) fL MCH 33.8 (26.0-34.0) pg MCHC 33.6 (31.0-36.0) g/dL RDW 14.5 (11.5-14.5) % Plt Count 44 L* (140-440) K/mcL MPV 8.6 (7.4-10.4) fL Gran % 16.5 L (38.0-78.0) % Lymph % (Auto) 73.9 H (15.5-49.0) % [place] % (Auto) 9.3 (1.0-12.0) % Eos % (Auto) 0.1 (0.0-7.0) % Baso % (Auto) 0.2 (0.0-2.0) % Gran # 2.0 (1.8-8.0) K/mcL Lymph # (Auto) 9.1 H (1.5-4.8) K/mcL [place] # (Auto) 1.1 H (0.1-0.9) K/mcL Eos # (Auto) 0 (0.0-0.7) K/mcL Baso # (Auto) 0 (0.0-0.3) K/mcL POC PT 12.3 (11.9-14.5) sec POC INR 1.0 (0.9-1.2) APTT TNP VBG Lactic Acid (0.5-2.0) mmol/L POC Sodium 140 (133-145) mmol/L Sodium 140 (133-145) mmol/L POC Potassium 3.6 (3.3-5.1) mmol/L Potassium 3.7 (3.3-5.1) mmol/L POC Chloride 97 (96-108) mmol/L Chloride 97 (96-108) mmol/L Carbon Dioxide 28 (22-30) mmol/L POC Total CO2 28 (22-30) mmol/L Anion Gap 15.0 (8-16) POC BUN 29 H (8-23) mg/dl BUN 29 H (8-23) mg/dl Creatinine 1.3 H (0.7-1.2) mg/dl POC Creatinine 1.3 H (0.7-1.2) mg/dl GFR Calculation 52 Glucose 147 H (70-105) mg/dL POC Glucose 147 H (70-105) mg/dL Calcium 9.5 (8.6-10.4) mg/dl POC WB Ioniz Calcium 1.17 (1.16-1.32) mmol/L Total Bilirubin 1.5 H (0.0-1.0) mg/dL AST 20 (0-37) U/l ALT 24 (0-40) U/l Alkaline Phosphatase 77 (39-117) U/L Troponin T (0-0.03) ng/ml Total Protein 6.9 (5.9-8.4) gm/dL Albumin 4.3 (3.2-5.2) gm/dL Globulin 2.6 (2.2-3.7) gm/dL Albumin/Globulin Ratio 1.7 (1.0-2.3) Procalcitonin (<0.10) ng/mL Urine Color Urine Appearance Urine pH (5.0-9.0) Ur Specific [place] (1.000-1.035) Urine Protein (NEG) mg/dL Urine Glucose (UA) (NEG) mg/dL Urine Ketones (NEG) mg/dL Urine Occult Blood (<0.03) mg/dL Urine Nitrate (NEG) Urine Bilirubin (NEG) mg/dL Urine Urobilinogen (NEG) mg/dL Ur Leukocyte Esterase (NEG) /uL Urine RBC (0-1) /hpf Urine WBC (0-4) /hpf Ur Squamous Epith Cells (0-4) /hpf Urine Bacteria (0) /hpf Hyaline Casts (0-2) /lpf Ur Culture Indicated? 04/19/18 04/19/18 04/19/18 Range/Units 08:19 09:27 10:11 WBC (4.5-11.0) K/mcL RBC (4.50-5.90) M/mcL Hgb (13.5-16.5) g/dL Hct (41.0-55.0) % POC Hct (41.0-55.0) % MCV (80.0-100.0) fL MCH (26.0-34.0) pg MCHC (31.0-36.0) g/dL RDW (11.5-14.5) % Plt Count (140-440) K/mcL MPV (7.4-10.4) fL Gran % (38.0-78.0) % Lymph % (Auto) (15.5-49.0) % [place] % (Auto) (1.0-12.0) % Eos % (Auto) (0.0-7.0) % Baso % (Auto) (0.0-2.0) % Gran # (1.8-8.0) K/mcL Lymph # (Auto) (1.5-4.8) K/mcL [place] # (Auto) (0.1-0.9) K/mcL Eos # (Auto) (0.0-0.7) K/mcL Baso # (Auto) (0.0-0.3) K/mcL POC PT (11.9-14.5) sec POC INR (0.9-1.2) APTT 34 VBG Lactic Acid (0.5-2.0) mmol/L POC Sodium (133-145) mmol/L Sodium (133-145) mmol/L POC Potassium (3.3-5.1) mmol/L Potassium (3.3-5.1) mmol/L POC Chloride (96-108) mmol/L Chloride (96-108) mmol/L Carbon Dioxide (22-30) mmol/L POC Total CO2 (22-30) mmol/L Anion Gap (8-16) POC BUN (8-23) mg/dl BUN (8-23) mg/dl Creatinine (0.7-1.2) mg/dl POC Creatinine (0.7-1.2) mg/dl GFR Calculation Glucose (70-105) mg/dL POC Glucose (70-105) mg/dL Calcium (8.6-10.4) mg/dl POC WB Ioniz Calcium (1.16-1.32) mmol/L Total Bilirubin (0.0-1.0) mg/dL AST (0-37) U/l ALT (0-40) U/l Alkaline Phosphatase (39-117) U/L Troponin T 0.01 (0-0.03) ng/ml Total Protein (5.9-8.4) gm/dL Albumin (3.2-5.2) gm/dL Globulin (2.2-3.7) gm/dL Albumin/Globulin Ratio (1.0-2.3) Procalcitonin (<0.10) ng/mL Urine Color Yellow Urine Appearance Clear Urine pH 5.0 (5.0-9.0) Ur Specific [place] 1.044 H (1.000-1.035) Urine Protein 30 A (NEG) mg/dL Urine Glucose (UA) Negative (NEG) mg/dL Urine Ketones Neg (NEG) mg/dL Urine Occult Blood 0.03 A (<0.03) mg/dL Urine Nitrate Neg (NEG) Urine Bilirubin Neg (NEG) mg/dL Urine Urobilinogen 4.0 A (NEG) mg/dL Ur Leukocyte Esterase Neg (NEG) /uL Urine RBC 1 (0-1) /hpf Urine WBC 1 (0-4) /hpf Ur Squamous Epith Cells < 1 (0-4) /hpf Urine Bacteria 0 (0) /hpf Hyaline Casts 2 (0-2) /lpf Ur Culture Indicated? No 04/19/18 04/19/18 Range/Units 10:29 10:31 WBC (4.5-11.0) K/mcL RBC (4.50-5.90) M/mcL Hgb (13.5-16.5) g/dL Hct (41.0-55.0) % POC Hct (41.0-55.0) % MCV (80.0-100.0) fL MCH (26.0-34.0) pg MCHC (31.0-36.0) g/dL RDW (11.5-14.5) % Plt Count (140-440) K/mcL MPV (7.4-10.4) fL Gran % (38.0-78.0) % Lymph % (Auto) (15.5-49.0) % [place] % (Auto) (1.0-12.0) % Eos % (Auto) (0.0-7.0) % Baso % (Auto) (0.0-2.0) % Gran # (1.8-8.0) K/mcL Lymph # (Auto) (1.5-4.8) K/mcL [place] # (Auto) (0.1-0.9) K/mcL Eos # (Auto) (0.0-0.7) K/mcL Baso # (Auto) (0.0-0.3) K/mcL POC PT (11.9-14.5) sec POC INR (0.9-1.2) APTT VBG Lactic Acid 1.4 (0.5-2.0) mmol/L POC Sodium (133-145) mmol/L Sodium (133-145) mmol/L POC Potassium (3.3-5.1) mmol/L Potassium (3.3-5.1) mmol/L POC Chloride (96-108) mmol/L Chloride (96-108) mmol/L Carbon Dioxide (22-30) mmol/L POC Total CO2 (22-30) mmol/L Anion Gap (8-16) POC BUN (8-23) mg/dl BUN (8-23) mg/dl Creatinine (0.7-1.2) mg/dl POC Creatinine (0.7-1.2) mg/dl GFR Calculation Glucose (70-105) mg/dL POC Glucose (70-105) mg/dL Calcium (8.6-10.4) mg/dl POC WB Ioniz Calcium (1.16-1.32) mmol/L Total Bilirubin (0.0-1.0) mg/dL AST (0-37) U/l ALT (0-40) U/l Alkaline Phosphatase (39-117) U/L Troponin T (0-0.03) ng/ml Total Protein (5.9-8.4) gm/dL Albumin (3.2-5.2) gm/dL Globulin (2.2-3.7) gm/dL Albumin/Globulin Ratio (1.0-2.3) Procalcitonin < 0.05 (<0.10) ng/mL Urine Color Urine Appearance Urine pH (5.0-9.0) Ur Specific [place] (1.000-1.035) Urine Protein (NEG) mg/dL Urine Glucose (UA) (NEG) mg/dL Urine Ketones (NEG) mg/dL Urine Occult Blood (<0.03) mg/dL Urine Nitrate (NEG) Urine Bilirubin (NEG) mg/dL Urine Urobilinogen (NEG) mg/dL Ur Leukocyte Esterase (NEG) /uL Urine RBC (0-1) /hpf Urine WBC (0-4) /hpf Ur Squamous Epith Cells (0-4) /hpf Urine Bacteria (0) /hpf Hyaline Casts (0-2) /lpf Ur Culture Indicated? Disposition Pt seen by COVERAGE SPECIALIST RN/PA only: No <Artur Hamilton - Last Filed: 04/19/18 09:02> <Doug Herrera - Last Filed: 04/19/18 13:08> Clinical Impression: CVA (cerebral vascular accident) Qualifiers: Laterality of affected vessel: right Disposition: Xfer As Inpt ([facility]) Condition: Fair Referrals: Suma Parker MD [Primary Care Provider] -
--- NOTE | 2018-04-19 08:46 | Cat Scan Report ---
History: Acute stroke symptoms with left-sided weakness TECHNIQUE: The brain was imaged without contrast at 2.5 mm intervals. Radiation exposure was limited using dose reduction technology. FINDINGS: There is moderately severe diffuse white matter disease with patchy areas of decreased attenuation throughout the frontal and parietal lobes. No acute infarct is detected. There is no hemorrhage or mass effect. Patient has generalized cerebral atrophy above and below the tentorium with the greatest involvement around the sylvian fissures. The ventricles are prominent but proportionate to the atrophy. There is no abnormal extra-axial fluid collection. Mild bilateral ethmoid sinusitis is noted. IMPRESSION: Moderately severe diffuse white matter ischemia or degeneration predominantly involving the frontal and parietal lobes. No acute infarct is detected. Dr. Hamilton was called with the results Interpreted and Authenticated by: Victor Hugo Lee 04/19/18
[2018-04-19 09:12] LABS: Basophils # (Auto) 0 K/mcL (0.0-0.3); Basophils % (Auto) 0.2 % (0.0-2.0); Eosinophils # (Auto) 0 K/mcL (0.0-0.7); Eosinophils % (Auto) 0.1 % (0.0-7.0); Granulocytes % (Auto) 16.5 % (38.0-78.0); Lymphocytes # (Auto) 9.1 K/mcL (1.5-4.8); Lymphocytes % (Auto) 73.9 % (15.5-49.0); Mean Cell Volume 100.6 fL (80.0-100.0); Mean Corpuscular HGB Conc 33.6 g/dL (31.0-36.0); Monocytes # (Auto) 1.1 K/mcL (0.1-0.9); Monocytes % (Auto) 9.3 % (1.0-12.0); Platelet Count 44 K/mcL (140-440); RBC 3.86 M/mcL (4.50-5.90); Red Cell Distribution Width 14.5 % (11.5-14.5)
[2018-04-19 09:21] LABS: ALT/SGPT 24 U/l (0-40); Albumin 4.3 gm/dL (3.2-5.2); Albumin/Globulin Ratio 1.7 (1.0-2.3); Alkaline Phosphatase 77 U/L (39-117); Blood Urea Nitrogen 29 mg/dl (8-23)
--- NOTE | 2018-04-19 09:38 | Cat Scan Report ---
History: Acute stroke symptoms with left-sided weakness and recent fall TECHNIQUE: Intravenous nonionic contrast was injected. Arterial phase images were acquired from the root of the aorta to the top of the head. Sagittal, coronal and 3-D volume images were created of the head and neck. Radiation exposure was limited using dose reduction technology. FINDINGS: Only the top of the heart is within the field of view. There appears to be a moderate-sized pericardial effusion. Small layering right-sided pleural effusion is present. I have no prior study for comparison. Small amount of calcified plaque is present along the wall of the aortic arch. The great vessels arising from the aorta are normal in caliber. There is small amount of eccentric calcified plaque at the carotid bifurcations bilaterally. These are causing less than 20% stenoses. The internal and external carotids are otherwise normal. The vertebral arteries are normal and symmetric. There is moderate amount of calcified plaque in the cavernous portions of both internal carotids. At the level of the anterior clinoids are approximately 60% stenoses bilaterally. The supraclinoid internal carotids are normal. The anterior and middle cerebral arteries are normal. Posterior fossa circulation is normal. There are small patent anterior and posterior communicating arteries. No intracranial arterial occlusion is present. There is no aneurysm or vascular malformation. IMPRESSION: 60% stenoses in the distal cavernous portions of both internal carotids due to calcified plaque nonhemodynamically significant stenoses at the carotid bifurcations bilaterally Moderate size pericardial effusion Dr. Herrera was called with the results Interpreted and Authenticated by: Victor Hugo Lee 04/19/18
[2018-04-19 11:03] LABS: Appearance,Urine CLEAR; Bacteria,Urine 0 /hpf (0); Bilirubin,Urine NEG (NEG); Color,Urine YELLOW; Glucose,Urine (UA) NEGATIVE (NEG); Leukocyte Esterase,Urine NEG /uL (NEG); Protein,Urine 30 mg/dL (NEG); Specific Gravity,Urine 1.044 (1.000-1.035); Urine Blood 0.03 mg/dL (<0.03); Urine Hyaline Cast 2 /lpf (0-2); Urine RBC 1 /hpf (0-1); Urine Squamous Epithelial Cell < 1 /hpf (0-4); Urine WBC 1 /hpf (0-4)
--- NOTE | 2018-04-19 11:07 | Magnetic Resonance Report ---
CLINICAL INFORMATION: Acute stroke symptoms with left-sided weakness COMPARISON: Head CT on 04/19/18 TECHNIQUE: Stroke protocol was performed with sagittal T1, axial T2 and axial diffusion-weighted images. FINDINGS: There is an acute nonhemorrhagic infarct in the cortex and subcortical white matter in the right parietal lobe extending upward from the posterior aspect of the right sylvian fissure. It measures approximately 1.3 x 3.2 cm in size. There is no associated edema or mass effect. No other infarct is detected.. There is severe diffuse white matter disease seen throughout the centrum semiovale and salvador radiata throughout the frontal parietal occipital and posterior temporal lobes. No hemorrhage or mass are present. IMPRESSION: New nonhemorrhagic infarct in the right parietal lobe Dr. Herrera was called with results Interpreted and Authenticated by: Victor Hugo Lee 04/19/18
[2018-04-19] MEDS ORDERED: ASPIRIN 325 MG ENTERIC COATED TABLET PO ONE (11:23)
[2018-04-19] MEDS ORDERED: ATORVASTATIN 40 MG TABLET PO ONE (11:28)
[2018-04-19] MEDS ORDERED: ASPIRIN 81 MG TAB.CHEW CHEWED ONE (11:33)
[2018-04-19] MEDS ORDERED: CLOPIDOGREL 75 MG TABLET PO ONE (11:51)
--- NOTE | 2018-04-19 13:03 | Ultrasound Report ---
CLINICAL INFORMATION: Stroke COMPARISON: None. TECHNIQUE: Carotid arteries were imaged in sagittal and transverse planes using 5 mHz linear probe: Doppler, color, and 2D. FINDINGS: See worksheet by the technologist for velocities in PACS Please correlate with CTA CT Angiography or MRA MR Angiography if surgery is contemplated. Intimal thickening is present in both common carotids. There is some mixed plaque at the carotid bifurcations extending into the proximal internal and external carotids. Normal flow velocities are present throughout the common, internal and external carotids. There is antegrade flow in both vertebral arteries. IMPRESSION: Atherosclerotic disease in the carotid bifurcation bilaterally but without evidence of stenosis Interpreted and Authenticated by: Victor Hugo Lee 04/19/18
[2018-04-19] MEDS ORDERED: ONDANSETRON 4 MG/2 ML VIAL IV PRN ×3 (13:09→16:15)
[2018-04-19] MEDS ORDERED: 0.9 % SODIUM CHLORIDE 1,000 ML IV SCH (13:15)
--- NOTE | 2018-04-19 15:06 | Internal Med History&Physical ---
Medical - H&P: [facility] Patient information: Note initiated : 04/19/18 at 3:04 pm Service Date, if different from initiated Date: [] Patient: Colt Flores 82 y/o M admitted on for Fall, No Injury, Possible Left Sided Weakness. Chief Complaint: [] History of present illness: Mr. Flores is a 82 year old M presents to the hospital after becoming very weak and unsteady on his feet. When found by EMS he was found to have left facial droop and left upper extremity weakness by EMS. Patient was last seen n ormal last night at 9 PM. Patient reports that when he is getting up out of bed he had a hard time his arm was not working he was able to get up eventually but was unsteady on his feet and says went down, he says he did not fall he just felt very weak and was able to sort support himself as he was going down. 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 He has not been on any aspirin. He also had left facial droop and some subsequent slurring. No aphasia. He had CTA head/neck and subsequent MRI which showed a right parietal infarct 1x3 cm. Case was discussed with [place] neurologist who recommended carotid ultrasound and if that was unremarkable then to treat the patient medically locally. The ultrasound did not show any significant stenosis. Other recommendations from the neurologist were to start aspirin/statin and give Plavix for 21 days. EKG shows A. fib, chronic. Blood pressure elevated initially but has come down some on its own. Review of Systems: Pertinent positives as above. Denies headache/fever/ chills/nausea/vomiting/chest or abdominal pain/cough/dyspnea/diarrhea. Remaining 10 point review of systems reviewed negative Medical - H&P: [facility] Medical history: Medical History (Last Reviewed 02/05/18 @ 14:37 by Mauircio Foster MD) Pulmonary HTN (Chronic) COPD (chronic obstructive pulmonary disease) (Chronic) CKD (chronic kidney disease) stage 3, GFR 30-59 ml/min (Chronic) Benign hypertension with CKD (chronic kidney disease) stage III (Chronic) Secondary hyperparathyroidism of renal origin (Chronic) Localized edema due to fluid overload (Chronic) PATITO (obstructive sleep apnea) (Chronic) Hypoxemia (Chronic) Chronic anticoagulation (Chronic) Chronic idiopathic thrombocytopenic purpura (Chronic) Hypoxia (Chronic) Community acquired pneumonia (Acute) Nontraumatic cardiac tamponade (Acute) Pericardial effusion (Acute) Encounter for removal of nasal packing (Acute) Macular degeneration of right eye (Acute) Macular hemorrhage of right eye (Acute) Epistaxis (Chronic) Encounter for removal of nasal packing (Chronic) Hypertension (Acute) Anxiety (Chronic) Atrial fibrillation (Chronic) CAD (coronary artery disease) (Chronic) Diabetes mellitus, type II (Chronic) Gout (Chronic) Hypercholesterolemia (Chronic) Melena (Chronic) Mixed hyperlipidemia (Chronic) Myocardial infarction (Chronic) Proteinuria (Chronic) Skin cancer (Chronic) Sleep apnea (Chronic) Past Surgical History (Last Reviewed 02/05/18 @ 14:37 by Mauricio Foster MD) History of right knee surgery (Chronic ~12/2013) S/P tonsillectomy (Chronic) cataract, Family History (Last Reviewed 02/05/18 @ 14:37 by Mauricio Foster MD) Father Cerebral hemorrhage Mother Hypertension Brother Malignant neoplasm Sister Hypertension Social History (Last Updated 02/12/18 @ 11:12 by Kelsie Melton MD) -quit smoking 40yrs ago -nightly toddy -lives at home with Medical - H&P: Meds Home Medications Medication Instructions Recorded Confirmed Type Allopurinol [Zyloprim] 100 mg PO DAILY 06/28/16 04/19/18 History Oxazepam 15 mg PO BID 06/28/16 04/19/18 History Prazosin [Minipress] 5 mg PO BID 06/28/16 04/19/18 History metoprolol succinate ER 50 mg 100 mg PO DAILY tab 06/26/17 04/19/18 History tablet,extended release 24 hr Cpap machine and accessories #1 ea 07/02/17 01/16/18 Rx Heated Tubing for cpap machine #1 ea 07/02/17 01/16/18 Rx furosemide 80 mg tablet 80 mg PO QDAY #90 tab 07/12/17 04/19/18 Rx potassium chloride ER 20 mEq 20 meq PO BID 07/12/17 04/19/18 History tablet,extended release omeprazole 20 mg capsule,delayed 20 mg PO QDAY 02/05/18 04/19/18 History release spironolactone 25 mg tablet 12.5 mg PO QAM #45 tab 03/25/18 04/19/18 Rx Cholecalciferol (Vitamin D3) 2 cap PO DAILY 04/19/18 04/19/18 History [Vitamin D] Allergies Allergy/AdvReac Type Severity Reaction Status Date / Time No Known Drug Allergies Allergy Verified 04/19/18 07:59 Medical - H&P: Exam - Constitutional Vitals: Temp Pulse Resp BP Pulse Ox 98.0 F 46 L 16 146/78 97 04/19/18 08:00 04/19/18 14:57 04/19/18 14:57 04/19/18 14:47 04/19/18 14:57 Exam: General: Alert, Awake, No acute Distress Eyes/N/T: EOMI, PEERL, MM Head/Neck: neck supple, normocephalic atraumatic CV: , No murmurs, normal s1/s2 Pulm: Clear b/l, no wheezing/rhonchi/rales Abd: soft, nontender, +BS x4 Ext: no clubbing/cyanosis/edema Neuro: Alert, Skin: warm/dry Medical - H&P: Reslt - Labs CBC & Chem 7: 04/19/18 08:19 04/19/18 08:19 Labs: Short CBC 04/19/18 Range/Units 08:19 WBC 12.3 H (4.5-11.0) K/mcL Hgb 13.0 L (13.5-16.5) g/dL Hct 38.9 L (41.0-55.0) % Plt Count 44 L* (140-440) K/mcL BMP 04/19/18 08:19 Sodium 140 Potassium 3.7 Chloride 97 Carbon Dioxide 28 BUN 29 H Creatinine 1.3 H Glucose 147 H Calcium 9.5 Cardiac Enzymes 04/19/18 Range/Units 08:19 Troponin T 0.01 (0-0.03) ng/ml Liver Function 04/19/18 Range/Units 08:19 Total Bilirubin 1.5 H (0.0-1.0) mg/dL AST 20 (0-37) U/l ALT 24 (0-40) U/l Alkaline Phosphatase 77 (39-117) U/L Albumin 4.3 (3.2-5.2) gm/dL Urine 04/19/18 Range/Units 10:11 Urine Color Yellow Urine Appearance Clear Urine pH 5.0 (5.0-9.0) Ur Specific [place] 1.044 H (1.000-1.035) Urine Protein 30 A (NEG) mg/dL Urine Glucose (UA) Negative (NEG) mg/dL - Impressions MRI with right parietal infarct 1 x 3 cm. 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 Molina *DM: *CKD III (base Cr~1.3-1.4): *COPD (2L during day & 7.5@night) *PATITO on CPAP: *GERD *Anxiety * P: -IVF's -echo pending -case already also discussed with [facility] who recommended treating with aspirin and also Plavix for 21 days; but was not aware of the afib and ITP. Called back for recs and he deferred to Hematology for antiplatelet/anticoagulant therapy. Called Dr. Molina who recommended starting on aspirin and the patient may need anticoagulation but will need to treat the ITP first. Recommended high-dose dexamethasone 40mg daily for 4 days and then will follow up with Dr. Molina for possible Rituxan therapy. -Statin -permissive HTN -lipid panel -pt/ot/ST - -ppx: SCD(anticoag held for PLTS<50k)/pepcid
[2018-04-19] MEDS ORDERED: ACETAMINOPHEN 325 MG TABLET PO PRN (16:15)
[2018-04-19] MEDS ORDERED: METOCLOPRAMIDE 10 MG/2 ML VIAL IV PRN (16:15)
[2018-04-19] MEDS ORDERED: POTASSIUM CHLORIDE 40 MEQ in DEXTROSE 5% IN WATER 500 ML IV PRN (16:15)
[2018-04-19] MEDS ORDERED: DEXTROSE 50% 50 ML VIAL IV PRN (16:15)
[2018-04-19] MEDS ORDERED: MAGNESIUM SULFATE 2 GM/50 ML BAG IV PRN (16:15)
[2018-04-19] MEDS ORDERED: DEXTROSE 31 GM ORAL.SUSP PO PRN (16:15)
[2018-04-19] MEDS ORDERED: IPRATROPIUM/ALBUTEROL 3 ML AMPUL.NEB NEB PRN (16:15)
[2018-04-19] MEDS ORDERED: SENNOSIDES 1 TABLET PO PRN (16:15)
[2018-04-19] MEDS ORDERED: METOPROLOL TARTRATE 5 MG/5 ML VIAL IV PRN (16:15)
[2018-04-19] MEDS ORDERED: POTASSIUM CHLORIDE 20 MEQ TABLET PO PRN ×2 (16:15)
[2018-04-19] MEDS: POTASSIUM CHLORIDE 20 MEQ TABLET PO SCH (17:21)
[2018-04-19] MEDS: DEXAMETHASONE 4 MG TABLET PO SCH (17:22)
[2018-04-19 17:33] LABS: HDL Cholesterol 30 mg/dl (>40); LDL Cholesterol,Calculated 44 mg/dl (SEE CHART)
[2018-04-19] MEDS: INSULIN LISPRO 1 UNIT/0.01 ML UNIT SQ SCH ×2 (17:35→20:49)
[2018-04-19 18:12] LABS: Vitamin B12 1850 pg/ml (232-1245)
[2018-04-19] MEDS: ATORVASTATIN 20 MG TABLET PO SCH (20:49)
[2018-04-19] MEDS: DOCUSATE SODIUM 100 MG CAPSULE PO SCH (20:50)
[2018-04-19] MEDS: PRAZOSIN 1 MG CAPSULE PO SCH (20:50)
[2018-04-19] MEDS: 0.9 % SODIUM CHLORIDE 10 ML SYRINGE IV SCH (20:50)
[2018-04-19] MEDS: FAMOTIDINE 20 MG TABLET PO SCH (20:50)
[2018-04-19] MEDS ORDERED: OXAZEPAM 15 MG CAPSULE PO SCH (21:00)
[2018-04-20 05:40] LABS: ALT/SGPT 19 U/l (0-40); Albumin 3.9 gm/dL (3.2-5.2); Albumin/Globulin Ratio 1.6 (1.0-2.3); Alkaline Phosphatase 70 U/L (39-117); Bilirubin,Direct 0.5 mg/dL (0.0-0.3); Blood Urea Nitrogen 24 mg/dl (8-23); Gamma Glutamyl Transpeptidase 79 U/L (8-61); Uric Acid 7.4 mg/dL (2.5-8.0)
[2018-04-20] MEDS: 0.9 % SODIUM CHLORIDE 10 ML SYRINGE IV SCH ×3 (05:41→20:14)
[2018-04-20 05:55] LABS: Basophils # (Auto) 0 K/mcL (0.0-0.3); Basophils % (Auto) 0.2 % (0.0-2.0); Eosinophils # (Auto) 0.1 K/mcL (0.0-0.7); Eosinophils % (Auto) 0.3 % (0.0-7.0); Granulocytes % (Auto) 31.5 % (38.0-78.0); Lymphocytes # (Auto) 14.4 K/mcL (1.5-4.8); Lymphocytes % (Auto) 65.6 % (15.5-49.0); Mean Cell Volume 102.1 fL (80.0-100.0); Mean Corpuscular HGB Conc 34.5 g/dL (31.0-36.0); Monocytes # (Auto) 0.5 K/mcL (0.1-0.9); Monocytes % (Auto) 2.4 % (1.0-12.0); Platelet Count 42 K/mcL (140-440); RBC 3.65 M/mcL (4.50-5.90); Red Cell Distribution Width 15.1 % (11.5-14.5)
[2018-04-20] MEDS ORDERED: VANCOMYCIN PER PHARMACY IV SCH (07:28)
--- NOTE | 2018-04-20 07:31 | Internal Med Progress Note ---
Medical - PN: Subj Patient information: Note initiated : 04/20/18 at 7:23 am Service Date, if different from initiated Date: [] Patient: Colt Flores 82 y/o M admitted on 04/19/18 for Fall, No Injury, Possible Left Sided Weakness. Chief Complaint: [] Interval history: Mr. Flores is a 82 year old M presents to the hospital after becoming very weak and unsteady on his feet. When found by EMS he was found to have left facial droop and left upper extremity weakness by EMS. Patient was last seen no rmal last night at 9 PM. Patient reports that when he is getting up out of bed he had a hard time his arm was not working he was able to get up eventually but was unsteady on his feet and says went down, he says he did not fall he just felt very weak and was able to sort support himself as he was going down. 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 He has not been on any aspirin. He also had left facial droop and some subsequent slurring. No aphasia. He had CTA head/neck and subsequent MRI which showed a right parietal infarct 1x3 cm. Case was discussed with [place] neurologist who recommended carotid ultrasound and if that was unremarkable then to treat the patient medically locally. The ultrasound did not show any significant stenosis. Other recommendations from the neurologist were to start aspirin/statin and give Plavix for 21 days. EKG shows A. fib, chronic. Blood pressure elevated initially but has come down some on its own. 04/20 Got home CPAP and is able to sleep better. But no improvement in motor weakness of left upper extremity. In fact left upper extremity is weaker today, decreased sensations. Good left lower extremity function. Still has left facial droop. Seen by speech therapy and put on dysphagia diet. Does have baseline mild short shortness of breath. Review of Systems: denies headache/fever/chills/nausea/vomiting/chest or abdominal pain/cough/diarrhea. Otherwise see above. - Constitutional Vitals: Vital Signs Temp Pulse Resp BP Pulse Ox 98.0 F 86 18 143/82 93 04/20/18 04:01 04/19/18 15:31 04/20/18 04:01 04/20/18 04:01 04/20/18 04:45 Period Temp Pulse Resp BP Sys/Coreas Pulse Ox Last 24 Hr 98.0 F-99.2 F 40-86 15-23 123-185/59-109 90-100 Intake and Output 04/19/18 04/20/18 04/20/18 21:59 05:59 13:59 Intake Total 170 60 Output Total 400 Balance 170 -340 Weight 101.236 kg Intake & Output: Intake & Output 04/19/18 04/20/18 04/20/18 21:59 05:59 13:59 Intake Total 170 60 Output Total 400 Balance 170 -340 Weight 101.236 kg Intake: IV 170 Sodium Chloride 0.9% 1,000 ml @ 170 100 mls/hr IV .Q10H REFUGIO Rx#: [id number] Oral 60 Output: Urine Catheter Amount 400 Other: Urine Appearance Uretheral (Cervantes) Clear Urine Color Blood Tinged Light Xenia Uretheral (Cervantes) Dark Yellow Urine Odor Normal Stool Size Moderate Stool Color Brown Stool Consistency Soft # Bowel Movements 1 Exam: General: Alert, Awake, No acute Distress Eyes/N/T: EOMI, Head/Neck: neck supple, CV: irreg irreg, No murmurs, Pulm: Clear b/l, no wheezing/rhonchi/rales Abd: soft, nontender, +BS x4 Ext: no clubbing/cyanosis/edema Neuro: Alert, LUE monoparesis, decreased sensations to left hand, left facial droop with slurring Medical - PN: Obj Da - Labs CBC & Chem 7: 04/20/18 04:00 04/20/18 04:00 Labs: Abnormal Lab Results 04/20/18 04/20/18 04/19/18 04:00 04:00 16:34 WBC 22.0 H RBC 3.65 L Hgb 12.9 L Hct 37.3 L POC Hct MCV 102.1 H MCH 35.3 H RDW 15.1 H Plt Count 42 L* Gran % 31.5 L Lymph % (Auto) 65.6 H Lymph # (Auto) 14.4 H [place] # (Auto) POC BUN BUN 24 H Creatinine POC Creatinine Glucose 174 H POC Glucose Total Bilirubin 2.0 H Direct Bilirubin 0.5 H GGT 79 H HDL Cholesterol 30 L Vitamin B12 1850 H Ur Specific [place] Urine Protein Urine Occult Blood Urine Urobilinogen 04/19/18 04/19/18 04/19/18 10:11 08:19 08:19 WBC 12.3 H RBC 3.86 L Hgb 13.0 L Hct 38.9 L POC Hct 39.0 L MCV 100.6 H MCH RDW Plt Count 44 L* Gran % 16.5 L Lymph % (Auto) 73.9 H Lymph # (Auto) 9.1 H [place] # (Auto) 1.1 H POC BUN 29 H BUN 29 H Creatinine 1.3 H POC Creatinine 1.3 H Glucose 147 H POC Glucose 147 H Total Bilirubin 1.5 H Direct Bilirubin GGT HDL Cholesterol Vitamin B12 Ur Specific [place] 1.044 H Urine Protein 30 A Urine Occult Blood 0.03 A Urine Urobilinogen 4.0 A Meds: Medications Acetaminophen (Tylenol) 650 mg PO Q6HP PRN PRN Reason: PAIN/FEVER > 101 Albuterol/Ipratropium (Duoneb) 3 ml NEB Q4HP PRN PRN Reason: Shortness Of Breath Allopurinol (Zyloprim) 100 mg PO DAILY [facility] Aspirin (Aspirin) 81 mg PO DAILY [facility] Atorvastatin Calcium (Lipitor) 80 mg PO HS [facility] Last Admin: 04/19/18 20:49 Dose: 80 mg Documented by: Dexamethasone (Decadron) 40 mg PO DAILY [facility] Stop: 04/22/18 09:01 Last Admin: 04/19/18 17:22 Dose: 40 mg Documented by: Dextrose (Dextrose 50%) 0 ml IV UD PRN PRN Reason: Hypoglycemia Diagnostic Test (Pha) (Accu-Chek) 1 each FS ACHS [facility] Last Admin: 04/19/18 20:49 Dose: 1 each Documented by: Docusate Sodium (Colace) 100 mg PO BID [facility] Last Admin: 04/19/18 20:50 Dose: 100 mg Documented by: Famotidine (Pepcid) 20 mg PO BID [facility] Last Admin: 04/19/18 20:50 Dose: 20 mg Documented by: Furosemide (Lasix) 80 mg PO QDAY [facility] Glucose (Insta-Glucose) 15 gm PO PRN PRN PRN Reason: Hypoglycemia Potassium Chloride 40 meq/ (Dextrose) 520 mls @ 130 mls/hr IV ONCE PRN PRN Reason: Potassium < 3 Magnesium Sulfate (Magnesium Sulfate) 2 gm in 50 mls @ 50 mls/hr IV ONCE PRN PRN Reason: Magnesium </= 1.6 Insulin Human Lispro (Humalog) 0 unit SQ ACHS [facility]; Protocol Last Admin: 04/19/18 20:49 Dose: 2 unit Documented by: Metoclopramide HCl (Reglan) 10 mg IV Q6HP PRN PRN Reason: Nausea And Vomiting Metoprolol Succinate (Toprol Xl) 50 mg PO DAILY [facility] Metoprolol Tartrate (Lopressor) 5 mg IV Q2HP PRN PRN Reason: Tachyarrhythmias HR>110 Ondansetron HCl (Zofran) 4 mg IV Q4HP PRN PRN Reason: Nausea And Vomiting Oxazepam (Oxazepam) 15 mg PO BID [facility] Last Admin: 04/19/18 20:50 Dose: Not Given Documented by: Polyethylene Glycol (Miralax) 17 gm PO DAILYP PRN PRN Reason: Constipation [facility] Admin: 04/19/18 17:21 Dose: 20 meq Documented by: Potassium Chloride (Kdur) 40 meq PO ONCE PRN PRN Reason: Potssium is 3-3.5 Potassium Chloride (Kdur) 40 meq PO ONCE PRN PRN Reason: Potassium < 3 Prazosin HCl (Minipress) 5 mg PO BID [facility] Last Admin: 04/19/18 20:50 Dose: 5 mg Documented by: Senna (Senokot) 2 tab PO HSP PRN PRN Reason: Constipation Sodium Chloride (Saline Flush) 10 ml IV Q8 [facility] Last Admin: 04/20/18 05:41 Dose: 10 ml Documented by: Medical - PN: A/P - Time Spent With Patient Total time spent is greater than 50% in coordination of care (as documented) at patient's floor/unit and/or counseling patient: - Narrative A/P Narrative: A: *Acute CVA (right parietal lobe): w/LUE monoparesis/numbness/left facial droop *Chronic Afib: on BB, but has not been on ASA or Warfarin (was on in past, no bleeding events) because of ITP platelets of 40k) *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 Molina -42<44 *Leukocytosis: from high-dose steroids, PCT low/afebrile, no ba *HTN: home meds lasix 80 and toprol 100 *DM: *CKD III (base Cr~1.3-1.4): *COPD (2L during day & 7.5@night) *PATITO on CPAP: *GERD *Anxiety *GPC 03/29 bottles: likely contaminate, but awaiting final cx P: -neurochecks -echo pending -case already also discussed with [facility] who recommended treating with aspirin and also Plavix for 21 days; but was not aware of the afib and ITP. Called back for recs and he deferred to Hematology for a ntiplatelet/anticoagulant therapy. Called Dr. Molina who recommended ASA alone and the patient may need anticoagulation but will need to treat the ITP first. Recommended high-dose dexamethasone 40mg daily for 4 days and then will follow up with Dr. Molina for possible Rituxan therapy. -Statin -permissive HTN first 24hrs, restart home BB in AM -pt/ot/ST -vanco until return -ppx: SCD(anticoag held for PLTS<50k)/pepcid Medical - PN: Qual - Stroke Symptom Onset Unknown: No - VTE Deep Vein Thrombosis/Pulmonary Embolism Present on Admission: No
[2018-04-20] MEDS: INSULIN LISPRO 1 UNIT/0.01 ML UNIT SQ SCH ×4 (08:49→20:28)
[2018-04-20] MEDS: PRAZOSIN 1 MG CAPSULE PO SCH ×2 (08:51→20:15)
[2018-04-20] MEDS: ALLOPURINOL 100 MG TABLET PO SCH (08:52)
[2018-04-20] MEDS: FAMOTIDINE 20 MG TABLET PO SCH ×2 (08:52→20:15)
[2018-04-20] MEDS: FUROSEMIDE 80 MG TABLET PO SCH (08:52)
[2018-04-20] MEDS: DEXAMETHASONE 4 MG TABLET PO SCH (08:52)
[2018-04-20] MEDS: DOCUSATE SODIUM 100 MG CAPSULE PO SCH ×2 (08:52→20:15)
[2018-04-20] MEDS: ASPIRIN 81 MG TAB.CHEW PO SCH (08:52)
[2018-04-20] MEDS: POTASSIUM CHLORIDE 20 MEQ TABLET PO SCH ×2 (08:52→17:45)
[2018-04-20] MEDS: VANCOMYCIN 1,500 MG in 0.9 % SODIUM CHLORIDE 500 ML IV SCH ×2 (08:54→20:13)
[2018-04-20] MEDS ORDERED: OXAZEPAM 15 MG CAPSULE PO SCH (09:00)
[2018-04-20] MEDS ORDERED: METOPROLOL SUCCINATE 50 MG TAB.XL.24H PO SCH (09:00)
[2018-04-20] MEDS ORDERED: ATORVASTATIN 40 MG TABLET PO SCH (09:00)
[2018-04-20] MEDS: OXAZEPAM 15 MG CAPSULE PO SCH ×2 (09:44→20:23)
[2018-04-20 11:06] LABS: Anisocytosis 1+ (NONE SEEN); Lymphocytes % 70 % (15-49); Macrocytosis 1+ (NONE SEEN); Monocytes % (Manual) 4 % (1-12); Platelet Estimate MK DECR (NORMAL); RBC Morphology ABNORM (NORMAL); Segmented Neutrophils % 26 % (38-78); Smudge Cells 1+ (NONE SEEN)
[2018-04-20] MEDS ORDERED: ATORVASTATIN 40 MG TABLET PO ONE (11:28)
[2018-04-20] MEDS: ATORVASTATIN 20 MG TABLET PO SCH (20:15)
[2018-04-21] MEDS: 0.9 % SODIUM CHLORIDE 10 ML SYRINGE IV SCH ×3 (05:00→21:04)
[2018-04-21 05:36] LABS: Basophils # (Auto) 0.1 K/mcL (0.0-0.3); Basophils % (Auto) 0.2 % (0.0-2.0); Eosinophils # (Auto) 0 K/mcL (0.0-0.7); Eosinophils % (Auto) 0 % (0.0-7.0); Lymphocytes # (Auto) 16.9 K/mcL (1.5-4.8); Lymphocytes % (Auto) 47.1 % (15.5-49.0); Mean Corpuscular HGB Conc 33.9 g/dL (31.0-36.0); Monocytes # (Auto) 0.6 K/mcL (0.1-0.9); Monocytes % (Auto) 1.7 % (1.0-12.0); Platelet Count 53 K/mcL (140-440); RBC 3.67 M/mcL (4.50-5.90); Red Cell Distribution Width 15.6 % (11.5-14.5)
[2018-04-21 05:38] LABS: Blood Urea Nitrogen 25 mg/dl (8-23)
[2018-04-21] MEDS ORDERED: 0.9 % SODIUM CHLORIDE 1,000 ML IV SCH (07:15)
--- NOTE | 2018-04-21 07:17 | Internal Med Progress Note ---
Medical - PN: Subj Patient information: Note initiated : 04/21/18 at 7:02 am Service Date, if different from initiated Date: [] Patient: Colt Flores 82 y/o M admitted on 04/19/18 for Fall, No Injury, Possible Left Sided Weakness. Chief Complaint: [] Interval history: Mr. Flores is a 82 year old M presents to the hospital after becoming very weak and unsteady on his feet. When found by EMS he was found to have left facial droop and left upper extremity weakness by EMS. Patient was last seen no rmal last night at 9 PM. Patient reports that when he is getting up out of bed he had a hard time his arm was not working he was able to get up eventually but was unsteady on his feet and says went down, he says he did not fall he just felt very weak and was able to sort support himself as he was going down. 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 He has not been on any aspirin. He also had left facial droop and some subsequent slurring. No aphasia. He had CTA head/neck and subsequent MRI which showed a right parietal infarct 1x3 cm. Case was discussed with [facility] neurologist who recommended carotid ultrasound and if that was unremarkable then to treat the patient medically locally. The ultrasound did not show any significant stenosis. Other recommendations from the neurologist were to start aspirin/statin and give Plavix for 21 days. EKG shows A. fib, chronic. Blood pressure elevated initially but has come down some on its own. 04/20 Got home CPAP and is able to sleep better. But no improvement in motor weakness of left upper extremity. In fact left upper extremity is weaker today, decreased sensations. Good left lower extremity function. Still has left facial droop. Seen by speech therapy and put on dysphagia diet. Does have baseline mild short shortness of breath. 04/21 No overnight events, still significantly weak on the left side, no improvement in weakness. Patient with family in the room today and he seems to be in good spirits. No complaints of chest pain or shortness of breath, or cough. numbness left hand Review of Systems: denies headache/fever/chills/nausea/vomiting/chest or abdominal pain/cough/diarrhea. Otherwise see above. - Constitutional Vitals: Vital Signs Temp Pulse Resp BP Pulse Ox 99.8 F H 86 22 125/86 95 04/21/18 04:01 04/19/18 15:31 04/21/18 04:01 04/21/18 04:01 04/21/18 04:01 Period Temp Pulse Resp BP Sys/Coreas Pulse Ox Last 24 Hr 98.0 F-100.1 F 16-24 113-165/63-86 88-98 Intake and Output 04/20/18 04/21/18 04/21/18 21:59 05:59 13:59 Intake Total 110 Output Total 500 1600 Balance -390 -1600 Weight 101.015 kg Intake & Output: Intake & Output 04/20/18 04/21/18 04/21/18 21:59 05:59 13:59 Intake Total 110 Output Total 500 1600 Balance -390 -1600 Weight 101.015 kg Intake: Oral 110 Output: Urine Catheter Amount 1600 Void Amount 500 Other: Meal Lunch Percent of Meal Consumed 100% Feeding Ability Independent Urine Appearance Uretheral (Cervantes) Clear Urine Color Uretheral (Cervantes) Light Xenia Exam: General: Alert, Awake, No acute Distress Eyes/N/T: EOMI, Head/Neck: neck supple, CV: irreg irreg, No murmurs, Pulm: mildly diminished left side, no wheezing/rhonchi/rales Abd: soft, nontender, +BS x4 Ext: no clubbing/cyanosis/edema Neuro: Alert, left hemiparesis Arm>Leg, decreased sensations to left hand but improved from yesterday, left facial droop with slurring Medical - PN: Obj Da - Labs CBC & Chem 7: 04/21/18 04:00 04/21/18 04:00 Labs: Abnormal Lab Results 04/21/18 04/21/18 04/20/18 04:00 04:00 04:00 WBC 35.8 H* RBC 3.67 L Hgb 12.8 L Hct 37.8 L POC Hct MCV 103.0 H MCH 34.9 H RDW 15.6 H Plt Count 53 L Gran % Lymph % (Auto) Gran # 18.3 H Lymph # (Auto) 16.9 H Andrew # (Auto) Seg Neutrophils % 26 L Lymphocytes % 70 H WBC Morphology Abnorm A Smudge Cells 1+ A Platelet Estimate Mk decr A RBC Morphology Abnorm A Polychromasia Few A Anisocytosis 1+ A Macrocytosis 1+ A POC BUN BUN 25 H Creatinine 1.4 H POC Creatinine Glucose 175 H POC Glucose Total Bilirubin Direct Bilirubin GGT HDL Cholesterol Vitamin B12 Ur Specific Rush Urine Protein Urine Occult Blood Urine Urobilinogen 04/20/18 04/20/18 04/19/18 04:00 04:00 16:34 WBC 22.0 H RBC 3.65 L Hgb 12.9 L Hct 37.3 L POC Hct MCV 102.1 H MCH 35.3 H RDW 15.1 H Plt Count 42 L* Gran % 31.5 L Lymph % (Auto) 65.6 H Gran # Lymph # (Auto) 14.4 H Andrew # (Auto) Seg Neutrophils % Lymphocytes % WBC Morphology Smudge Cells Platelet Estimate RBC Morphology Polychromasia Anisocytosis Macrocytosis POC BUN BUN 24 H Creatinine POC Creatinine Glucose 174 H POC Glucose Total Bilirubin 2.0 H Direct Bilirubin 0.5 H GGT 79 H HDL Cholesterol 30 L Vitamin B12 1850 H Ur Specific Rush Urine Protein Urine Occult Blood Urine Urobilinogen 04/19/18 04/19/18 04/19/18 10:11 08:19 08:19 WBC 12.3 H RBC 3.86 L Hgb 13.0 L Hct 38.9 L POC Hct 39.0 L MCV 100.6 H MCH RDW Plt Count 44 L* Gran % 16.5 L Lymph % (Auto) 73.9 H Gran # Lymph # (Auto) 9.1 H Andrew # (Auto) 1.1 H Seg Neutrophils % Lymphocytes % WBC Morphology Smudge Cells Platelet Estimate RBC Morphology Polychromasia Anisocytosis Macrocytosis POC BUN 29 H BUN 29 H Creatinine 1.3 H POC Creatinine 1.3 H Glucose 147 H POC Glucose 147 H Total Bilirubin 1.5 H Direct Bilirubin GGT HDL Cholesterol Vitamin B12 Ur Specific Rush 1.044 H Urine Protein 30 A Urine Occult Blood 0.03 A Urine Urobilinogen 4.0 A Meds: Medications Acetaminophen (Tylenol) 650 mg PO Q6HP PRN PRN Reason: PAIN/FEVER > 101 Albuterol/Ipratropium (Duoneb) 3 ml NEB Q4HP PRN PRN Reason: Shortness Of Breath Allopurinol (Zyloprim) 100 mg PO DAILY REFUGIO Last Admin: 04/20/18 08:52 Dose: 100 mg Documented by: Aspirin (Aspirin) 81 mg PO DAILY [facility] Last Admin: 04/20/18 08:52 Dose: 81 mg Documented by: Atorvastatin Calcium (Lipitor) 80 mg PO HS [facility] Last Admin: 04/20/18 20:15 Dose: 80 mg Documented by: Dexamethasone (Decadron) 40 mg PO DAILY [facility] Stop: 04/22/18 09:01 Last Admin: 04/20/18 08:52 Dose: 40 mg Documented by: Dextrose (Dextrose 50%) 0 ml IV UD PRN PRN Reason: Hypoglycemia Diagnostic Test (Pha) (Accu-Chek) 1 each FS ACHS [facility] Last Admin: 04/20/18 20:16 Dose: 1 each Documented by: Docusate Sodium (Colace) 100 mg PO BID [facility] Last Admin: 04/20/18 20:15 Dose: 100 mg Documented by: Famotidine (Pepcid) 20 mg PO BID [facility] Last Admin: 04/20/18 20:15 Dose: 20 mg Documented by: Furosemide (Lasix) 80 mg PO QDAY [facility] Last Admin: 04/20/18 08:52 Dose: 80 mg Documented by: Glucose (Insta-Glucose) 15 gm PO PRN PRN PRN Reason: Hypoglycemia Potassium Chloride 40 meq/ (Dextrose) 520 mls @ 130 mls/hr IV ONCE PRN PRN Reason: Potassium < 3 Magnesium Sulfate (Magnesium Sulfate) 2 gm in 50 mls @ 50 mls/hr IV ONCE PRN PRN Reason: Magnesium </= 1.6 Vancomycin HCl 1,500 mg/ (Sodium Chloride) 500 mls @ 333.3 mls/hr IV Q12H [facility] Last Admin: 04/20/18 20:13 Dose: 333 mls/hr Documented by: Insulin Human Lispro (Humalog) 0 unit SQ ACHS [facility]; Protocol Last Admin: 04/20/18 20:28 Dose: 4 unit Documented by: Metoclopramide HCl (Reglan) 10 mg IV Q6HP PRN PRN Reason: Nausea And Vomiting Metoprolol Succinate (Toprol Xl) 50 mg PO DAILY [facility] Metoprolol Tartrate (Lopressor) 5 mg IV Q2HP PRN PRN Reason: Tachyarrhythmias HR>110 Ondansetron HCl (Zofran) 4 mg IV Q4HP PRN PRN Reason: Nausea And Vomiting Oxazepam 15 Mg (Capsule) 1 dose PO BID [facility] Last Admin: 04/20/18 20:23 Dose: 1 dose Documented by: Polyethylene Glycol (Miralax) 17 gm PO DAILYP PRN PRN Reason: Constipation Potassium Chloride (Kdur) 20 meq PO BIDCC [facility] Last Admin: 04/20/18 17:45 Dose: 20 meq Documented by: Potassium Chloride (Kdur) 40 meq PO ONCE PRN PRN Reason: Potssium is 3-3.5 Potassium Chloride (Kdur) 40 meq PO ONCE PRN PRN Reason: Potassium < 3 Prazosin HCl (Minipress) 5 mg PO BID [facility] Last Admin: 04/20/18 20:15 Dose: 5 mg Documented by: Senewa (Senokot) 2 tab PO HSP PRN PRN Reason: Constipation Sodium Chloride (Saline Flush) 10 ml IV Q8 [facility] Last Admin: 04/21/18 05:00 Dose: 10 ml Documented by: Vancomycin HCl (Vancomycin Per Pharmacy) 1 order IV [facility] [place] Medical - PN: A/P - Time Spent With Patient Total time spent is greater than 50% in coordination of care (as documented) at patient's floor/unit and/or counseling patient: - Narrative A/P Narrative: A: *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 Molina -53<42<44 *Leukocytosis: from high-dose steroids, PCT low/afebrile, no bandemia. But increasing and now Tmax 100.1, obtain CXR and recheck PCT -diff did show smudge cells, pending smear *HTN: home meds lasix 80 and toprol 100 *DM: *CKD III (base Cr~1.3-1.4): *COPD (2L during day & 7.5@night): *PATITO on CPAP: *GERD *Anxiety *GPC 03/29 bottles: likely contaminate, but awaiting final cx *Oropharyngeal dysphagia, Moderate P: -neurochecks -case discussed with [facility] who recommended treating with aspirin and also Plavix for 21 days; but was not aware of the afib and ITP. Called back for recs and he deferred to Hematology for antiplatelet/anticoagulant therapy. Called Dr. Molina who recommended ASA alone and the patient may need anticoagulation but will need to treat the ITP first. Recommended high-dose dexamethasone 40mg daily for 4 days and then will follow up with Dr. Molina for possible Rituxan therapy. -pending peripheral smear -f/u CT -urine lytes -Statin -permissive HTN first 24hrs, restart home BB in AM -pt/ot -ST eval and dysphagia diet -vanco until BC return -SSI -f/u echo outpt to monitor pericardial effusion -ppx: SCD(anticoag held for PLTS<50k)/pepcid Medical - PN: Qual - Stroke Symptom Onset Unknown: No - VTE Deep Vein Thrombosis/Pulmonary Embolism Present on Admission: No
[2018-04-21] MEDS: POTASSIUM CHLORIDE 20 MEQ TABLET PO SCH ×2 (07:50→17:16)
[2018-04-21] MEDS: INSULIN LISPRO 1 UNIT/0.01 ML UNIT SQ SCH ×4 (07:50→21:11)
[2018-04-21] MEDS: OXAZEPAM 15 MG CAPSULE PO SCH ×2 (08:21→21:02)
[2018-04-21] MEDS: ALLOPURINOL 100 MG TABLET PO SCH (08:21)
[2018-04-21] MEDS: FUROSEMIDE 80 MG TABLET PO SCH (08:21)
[2018-04-21] MEDS: FAMOTIDINE 20 MG TABLET PO SCH ×2 (08:21→21:03)
[2018-04-21] MEDS: DEXAMETHASONE 4 MG TABLET PO SCH (08:22)
[2018-04-21] MEDS: ASPIRIN 81 MG TAB.CHEW PO SCH (08:22)
[2018-04-21] MEDS: DOCUSATE SODIUM 100 MG CAPSULE PO SCH ×2 (08:22→21:03)
[2018-04-21] MEDS: PRAZOSIN 1 MG CAPSULE PO SCH ×2 (08:42→21:03)
[2018-04-21] MEDS ORDERED: METOPROLOL SUCCINATE 50 MG TAB.XL.24H PO SCH ×2 (09:00)
--- NOTE | 2018-04-21 09:59 | XRay Report ---
HISTORY: Fell, fever and possible aspiration FINDINGS: There is a subtle alveolar opacity along the right heart border. This is a chronic or recurrent finding which was also present on 04/23/2017 and 09/13/2017. A thin linear band of discoid atelectasis is seen above the left upper heart border. No new region of pulmonary consolidation are developed. The heart remains moderate to severely enlarged. There is no pleural effusion. No rib lesion is seen. IMPRESSION: Small chronic or recurrent vague opacity medially at the right lung base. This is unlikely due to pulmonary contusion. This could be chronic inflammation or recurrent pneumonia. This is less likely an asymmetric distribution of mild congestive heart failure. Interpreted and Authenticated by: Victor Hugo Lee 04/21/18
[2018-04-21 10:01] LABS: Appearance,Urine CLEAR; Bacteria,Urine 0 /hpf (0); Bilirubin,Urine NEG (NEG); Color,Urine YELLOW; Glucose,Urine (UA) NEGATIVE (NEG); Leukocyte Esterase,Urine 75 /uL (NEG); Mucus,Urine FEW /hpf (0); Protein,Urine 30 mg/dL (NEG); Specific Gravity,Urine 1.019 (1.000-1.035); Urine Amorphous Crystals FEW /hpf (0); Urine Blood >=1.0 mg/dL (<0.03); Urine Hyaline Cast 12 /lpf (0-2); Urine RBC 63 /hpf (0-1); Urine Squamous Epithelial Cell < 1 /hpf (0-4); Urine Transitional Epi Cells < 1 /hpf (0-2); Urine WBC 11 /hpf (0-4)
--- NOTE | 2018-04-21 10:06 | Cat Scan Report ---
History: Worsening stroke symptoms TECHNIQUE: The brain was imaged without contrast at 2.5 mm intervals. The radiation exposure was limited using dose reduction technology. FINDINGS: The infarct in the right frontoparietal boundary is evolving and has lower attenuation now than it did on the prior CT done on 04/19/18. There is no significant edema or mass effect. It measures approximately 2 x 3 cm in size. There is no associated hemorrhage. No new infarct is detected. Patient has underlying generalized white matter ischemia or degeneration throughout the frontal and parietal lobes. There is cerebral atrophy and mild ventricular dilatation due to loss of brain parenchyma. No subdural or epidural fluid collection have developed. IMPRESSION: Evolving infarct at the right frontoparietal boundary Interpreted and Authenticated by: Victor Hugo Lee 04/21/18
[2018-04-21] MEDS: VANCOMYCIN 1,500 MG in 0.9 % SODIUM CHLORIDE 500 ML IV SCH ×2 (10:22→20:51)
[2018-04-21] MEDS: cefTRIAXone 1 GM VIAL IV SCH (11:09)
--- NOTE | 2018-04-21 13:50 | Ultrasound Report ---
History: Acute superimposed upon chronic kidney disease. FINDINGS: The right kidney measures 5.2 x 5.4 x 11.8 cm and the left measures 5.6 x 5.8 x 11.8 cm. The parenchyma both kidneys is echogenic due to chronic medical renal disease. Laterally in the middle third of the right kidney there is a cortical lesion. Is hypoechoic and measures 1.4 x 1.6 x 1.6 cm. Has indistinct borders and there is faint disc shadowing. Doppler shows no blood flow. No corresponding abnormality was seen on the prior ultrasound done on 05/10/17. No mass or cyst are seen in the left kidney. There is no kidney stone or hydronephrosis in either kidney. The urinary bladder is decompressed by Cervantes catheter. Therefore we are unable to evaluate for flow of urine through either ureter into the bladder. IMPRESSION: Echogenic kidneys bilaterally due to chronic medical renal disease. There is no evidence of urinary tract obstruction. Hypoechoic mass in the middle third of the right kidney. This has developed since one year ago. This could be a complex cyst or solid neoplasm. Since the patient has kidney disease and should not receive intravenous iodinated contrast, and upper abdominal MRI without contrast is recommended for further evaluation. Interpreted and Authenticated by: Victor Hugo Lee 04/21/18
[2018-04-21] MEDS ORDERED: [UNRECOGNIZED DRUG - OTHER] SCH (16:00)
[2018-04-21] MEDS ORDERED: [UNRECOGNIZED DRUG - OTHER] SCH (16:00)
[2018-04-21] MEDS: ATORVASTATIN 20 MG TABLET PO SCH (21:03)
[2018-04-21] MEDS: POLYETHYLENE GLYCOL 3350 17 GM PACKET PO PRN (22:10)
[2018-04-22 05:40] LABS: Mean Cell Volume 104.2 fL (80.0-100.0); Mean Corpuscular HGB Conc 33.5 g/dL (31.0-36.0); Platelet Count 57 K/mcL (140-440); RBC 3.59 M/mcL (4.50-5.90); Red Cell Distribution Width 15.5 % (11.5-14.5)
[2018-04-22] MEDS: 0.9 % SODIUM CHLORIDE 10 ML SYRINGE IV SCH ×3 (05:53→13:15)
[2018-04-22 05:55] LABS: ALT/SGPT 16 U/l (0-40); Albumin 3.8 gm/dL (3.2-5.2); Albumin/Globulin Ratio 1.6 (1.0-2.3); Alkaline Phosphatase 62 U/L (39-117); Bilirubin,Direct 0.4 mg/dL (0.0-0.3); Blood Urea Nitrogen 28 mg/dl (8-23); Gamma Glutamyl Transpeptidase 74 U/L (8-61); Uric Acid 8.1 mg/dL (2.5-8.0)
[2018-04-22 06:44] LABS: Lymphocytes % 59 % (15-49); Macrocytosis 1+ (NONE SEEN); Monocytes % (Manual) 1 % (1-12); Platelet Estimate DECREASED (NORMAL); RBC Morphology ABNORM (NORMAL); Segmented Neutrophils % 40 % (38-78); Smudge Cells 1+ (NONE SEEN)
[2018-04-22] MEDS ORDERED: 0.9 % SODIUM CHLORIDE 250 ML IV STA (07:07)
[2018-04-22] MEDS ORDERED: ENOXAPARIN 40 MG/0.4 ML SYRINGE SQ ONE (07:09)
--- NOTE | 2018-04-22 07:10 | Internal Med Progress Note ---
Medical - PN: Subj Patient information: Note initiated : 04/22/18 at 7:01 am Service Date, if different from initiated Date: [] Patient: Colt Flores 82 y/o M admitted on 04/19/18 for Fall, No Injury, Possible Left Sided Weakness. Chief Complaint: [] Interval history: Mr. Flores is a 82 year old M presents to the hospital after becoming very weak and unsteady on his feet. When found by EMS he was found to have left facial droop and left upper extremity weakness by EMS. Patient was last seen no rmal last night at 9 PM. Patient reports that when he is getting up out of bed he had a hard time his arm was not working he was able to get up eventually but was unsteady on his feet and says went down, he says he did not fall he just felt very weak and was able to sort support himself as he was going down. 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 He has not been on any aspirin. He also had left facial droop and some subsequent slurring. No aphasia. He had CTA head/neck and subsequent MRI which showed a right parietal infarct 1x3 cm. Case was discussed with [place] neurologist who recommended carotid ultrasound and if that was unremarkable then to treat the patient medically locally. The ultrasound did not show any significant stenosis. Other recommendations from the neurologist were to start aspirin/statin and give Plavix for 21 days. EKG shows A. fib, chronic. Blood pressure elevated initially but has come down some on its own. 04/20 Got home CPAP and is able to sleep better. But no improvement in motor weakness of left upper extremity. In fact left upper extremity is weaker today, decreased sensations. Good left lower extremity function. Still has left facial droop. Seen by speech therapy and put on dysphagia diet. Does have baseline mild short shortness of breath. 04/21 No overnight events, still significantly weak on the left side, no improvement in weakness. Patient with family in the room today and he seems to be in good spirits. No complaints of chest pain or shortness of breath, or cough. numbness left hand 04/22 Still very weak left leg left arm, decreased sensations in the left arm about the same as yesterday. He does feel like his appetite is improving. He did cough after dinner last night. Review of Systems: denies headache/fever/chills/nausea/vomiting/chest or abdominal pain/cough/diarrhea. Otherwise see above. - Constitutional Vitals: Vital Signs Temp Pulse Resp BP Pulse Ox 98.8 F 69 20 140/83 94 04/22/18 04:01 04/21/18 19:55 04/22/18 04:01 04/22/18 04:01 04/22/18 04:01 Period Temp Pulse Resp BP Sys/Coreas Pulse Ox Last 24 Hr 98.8 F-99.8 F 69 18-24 132-175/66-131 93-98 Intake and Output 04/21/18 04/22/18 04/22/18 21:59 05:59 13:59 Intake Total 240 200 Output Total 1050 1975 Balance -810 -1775 Weight 100.698 kg Intake & Output: Intake & Output 04/21/18 04/22/18 04/22/18 21:59 05:59 13:59 Intake Total 240 200 Output Total 1050 1975 Balance -810 -1775 Weight 100.698 kg Intake: Oral 240 200 Output: Urine Catheter Amount 1050 1974 Other: Meal Dinner Percent of Meal Consumed 75% Feeding Ability Assist with Tray Set Up Urine Appearance Clear Uretheral (Cervantes) Clear Urine Color Light Xenia Uretheral (Cervantes) Light Xenia Urine Odor Normal Exam: General: Alert, Awake, No acute Distress Eyes/N/T: EOMI, Head/Neck: neck supple, CV: irreg irreg, No murmurs, Pulm: mildly diminished left side, no wheezing/rhonchi/rales Abd: soft, nontender, +BS x4 Ext: no clubbing/cyanosis/edema Neuro: Alert, left hemiparesis Arm>Leg, decreased sensations to left hand similar to yesterday, left facial droop with slurring Medical - PN: Obj Da - Labs CBC & Chem 7: 04/22/18 04:00 04/22/18 04:00 Labs: Abnormal Lab Results 04/22/18 04/22/18 04/21/18 04:00 04:00 08:59 WBC 33.7 H* RBC 3.59 L Hgb 12.5 L Hct 37.4 L POC Hct MCV 104.2 H MCH 34.9 H RDW 15.5 H Plt Count 57 L Gran % Lymph % (Auto) Gran # Lymph # (Auto) [place] # (Auto) Seg Neutrophils % Lymphocytes % 59 H WBC Morphology Abnorm A Smudge Cells 1+ A Platelet Estimate Decreased A RBC Morphology Abnorm A Polychromasia 1+ A Anisocytosis Macrocytosis 1+ A PT INR POC BUN BUN 28 H Creatinine POC Creatinine Glucose 170 H POC Glucose Uric Acid 8.1 H Calcium 8.5 L Total Bilirubin 1.3 H Direct Bilirubin 0.4 H GGT 74 H HDL Cholesterol Vitamin B12 Ur Specific [place] Urine Protein 30 A Urine Occult Blood >=1.0 A Urine Urobilinogen 2.0 A Ur Leukocyte Esterase 75 A Urine RBC 63 H Urine WBC 11 H Amorphous Crystals Few A Hyaline Casts 12 H 04/21/18 04/21/18 04/21/18 07:51 04:00 04:00 WBC 35.8 H* RBC 3.67 L Hgb 12.8 L Hct 37.8 L POC Hct MCV 103.0 H MCH 34.9 H RDW 15.6 H Plt Count 53 L Gran % Lymph % (Auto) Gran # 18.3 H Lymph # (Auto) 16.9 H [place] # (Auto) Seg Neutrophils % Lymphocytes % WBC Morphology Smudge Cells Platelet Estimate RBC Morphology Polychromasia Anisocytosis Macrocytosis PT 16.2 H INR 1.3 H POC BUN BUN 25 H Creatinine 1.4 H POC Creatinine Glucose 175 H POC Glucose Uric Acid Calcium Total Bilirubin Direct Bilirubin GGT HDL Cholesterol Vitamin B12 Ur Specific [place] Urine Protein Urine Occult Blood Urine Urobilinogen Ur Leukocyte Esterase Urine RBC Urine WBC Amorphous Crystals Hyaline Casts 04/20/18 04/20/18 04/20/18 04:00 04:00 04:00 WBC 22.0 H RBC 3.65 L Hgb 12.9 L Hct 37.3 L POC Hct MCV 102.1 H MCH 35.3 H RDW 15.1 H Plt Count 42 L* Gran % 31.5 L Lymph % (Auto) 65.6 H Gran # Lymph # (Auto) 14.4 H [place] # (Auto) Seg Neutrophils % 26 L Lymphocytes % 70 H WBC Morphology Abnorm A Smudge Cells 1+ A Platelet Estimate Mk decr A RBC Morphology Abnorm A Polychromasia Few A Anisocytosis 1+ A Macrocytosis 1+ A PT INR POC BUN BUN 24 H Creatinine POC Creatinine Glucose 174 H POC Glucose Uric Acid Calcium Total Bilirubin 2.0 H Direct Bilirubin 0.5 H GGT 79 H HDL Cholesterol Vitamin B12 Ur Specific [place] Urine Protein Urine Occult Blood Urine Urobilinogen Ur Leukocyte Esterase Urine RBC Urine WBC Amorphous Crystals Hyaline Casts 04/19/18 04/19/18 04/19/18 16:34 10:11 08:19 WBC RBC Hgb Hct POC Hct 39.0 L MCV MCH RDW Plt Count Gran % Lymph % (Auto) Gran # Lymph # (Auto) [place] # (Auto) Seg Neutrophils % Lymphocytes % WBC Morphology Smudge Cells Platelet Estimate RBC Morphology Polychromasia Anisocytosis Macrocytosis PT INR POC BUN 29 H BUN 29 H Creatinine 1.3 H POC Creatinine 1.3 H Glucose 147 H POC Glucose 147 H Uric Acid Calcium Total Bilirubin 1.5 H Direct Bilirubin GGT HDL Cholesterol 30 L Vitamin B12 1850 H Ur Specific [place] 1.044 H Urine Protein 30 A Urine Occult Blood 0.03 A Urine Urobilinogen 4.0 A Ur Leukocyte Esterase Urine RBC Urine WBC Amorphous Crystals Hyaline Casts 04/19/18 08:19 WBC 12.3 H RBC 3.86 L Hgb 13.0 L Hct 38.9 L POC Hct MCV 100.6 H MCH RDW Plt Count 44 L* Gran % 16.5 L Lymph % (Auto) 73.9 H Gran # Lymph # (Auto) 9.1 H [place] # (Auto) 1.1 H Seg Neutrophils % Lymphocytes % WBC Morphology Smudge Cells Platelet Estimate RBC Morphology Polychromasia Anisocytosis Macrocytosis PT INR POC BUN BUN Creatinine POC Creatinine Glucose POC Glucose Uric Acid Calcium Total Bilirubin Direct Bilirubin GGT HDL Cholesterol Vitamin B12 Ur Specific [place] Urine Protein Urine Occult Blood Urine Urobilinogen Ur Leukocyte Esterase Urine RBC Urine WBC Amorphous Crystals Hyaline Casts Meds: Medications Acetaminophen (Tylenol) 650 mg PO Q6HP PRN PRN Reason: PAIN/FEVER > 101 Albuterol/Ipratropium (Duoneb) 3 ml NEB Q4HP PRN PRN Reason: Shortness Of Breath Allopurinol (Zyloprim) 100 mg PO DAILY [facility] Last Admin: 04/21/18 08:21 Dose: 100 mg Documented by: Aspirin (Aspirin) 81 mg PO DAILY [facility] Last Admin: 04/21/18 08:22 Dose: 81 mg Documented by: Atorvastatin Calcium (Lipitor) 80 mg PO HS [facility] Last Admin: 04/21/18 21:03 Dose: 80 mg Documented by: Ceftriaxone Sodium (Rocephin) 1 gm IV DAILY [facility] Last Admin: 04/21/18 11:09 Dose: 1 gm Documented by: Dexamethasone (Decadron) 40 mg PO DAILY [facility] Stop: 04/22/18 09:01 Last Admin: 04/21/18 08:22 Dose: 40 mg Documented by: Dextrose (Dextrose 50%) 0 ml IV UD PRN PRN Reason: Hypoglycemia Diagnostic Test (Pha) (Accu-Chek) 1 each FS ACHS [facility] Last Admin: 04/21/18 21:05 Dose: 1 each Documented by: Docusate Sodium (Colace) 100 mg PO BID [facility] Last Admin: 04/21/18 21:03 Dose: 100 mg Documented by: Famotidine (Pepcid) 20 mg PO BID [facility] Last Admin: 04/21/18 21:03 Dose: 20 mg Documented by: Furosemide (Lasix) 80 mg PO QDAY [facility] Last Admin: 04/21/18 08:21 Dose: 80 mg Documented by: Glucose (Insta-Glucose) 15 gm PO PRN PRN PRN Reason: Hypoglycemia Potassium Chloride 40 meq/ (Dextrose) 520 mls @ 130 mls/hr IV ONCE PRN PRN Reason: Potassium < 3 Magnesium Sulfate (Magnesium Sulfate) 2 gm in 50 mls @ 50 mls/hr IV ONCE PRN PRN Reason: Magnesium </= 1.6 Vancomycin HCl 1,500 mg/ (Sodium Chloride) 500 mls @ 333.3 mls/hr IV Q12H [facility] Last Admin: 04/21/18 20:51 Dose: 333 mls/hr Documented by: Insulin Human Lispro (Humalog) 0 unit SQ ACHS [facility]; Protocol Last Admin: 04/21/18 21:11 Dose: 4 unit Documented by: Metoclopramide HCl (Reglan) 10 mg IV Q6HP PRN PRN Reason: Nausea And Vomiting Metoprolol Succinate (Toprol Xl) 50 mg PO DAILY [facility] Metoprolol Tartrate (Lopressor) 5 mg IV Q2HP PRN PRN Reason: Tachyarrhythmias HR>110 Ondansetron HCl (Zofran) 4 mg IV Q4HP PRN PRN Reason: Nausea And Vomiting Oxazepam 15 Mg (Capsule) 1 dose PO BID [facility] Last Admin: 04/21/18 21:02 Dose: 1 dose Documented by: Polyethylene Glycol (Miralax) 17 gm PO DAILYP PRN PRN Reason: Constipation Last Admin: 04/21/18 22:10 Dose: 17 gm Documented by: Potassium Chloride (Kdur) 20 meq PO BIDCC [facility] Last Admin: 04/21/18 17:16 Dose: 20 meq Documented by: Potassium Chloride (Kdur) 40 meq PO ONCE PRN PRN Reason: Potssium is 3-3.5 Potassium Chloride (Kdur) 40 meq PO ONCE PRN PRN Reason: Potassium < 3 Prazosin HCl (Minipress) 5 mg PO BID [facility] Last Admin: 04/21/18 21:03 Dose: 5 mg Documented by: Senna (Senokot) 2 tab PO HSP PRN PRN Reason: Constipation Sodium Chloride (Saline Flush) 10 ml IV Q8 [facility] Last Admin: 04/22/18 05:53 Dose: 10 ml Documented by: Vancomycin HCl (Vancomycin Per Pharmacy) 1 order IV UD [facility] Vitamin D (Vitamin D3) 4,000 unit PO DAILY [facility] Medical - PN: A/P - Time Spent With Patient Total time spent is greater than 50% in coordination of care (as documented) at patient's floor/unit and/or counseling patient: - Narrative A/P Narrative: A: *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 Molina -57<53<42<44 *Leukocytosis: from high-dose steroids, PCT low/afebrile, no bandemia. -diff did show smudge cells but not on peripheral smear *h/o CHF: stable *HTN: home meds lasix 80 and toprol 100 *DM: *CKD III (base Cr~1.3-1.4): *COPD (2L during day & 7.5@night): *PATITO on CPAP: *GERD *Anxiety *GPC 03/29 bottles: likely contaminate, but awaiting final cx *Oropharyngeal dysphagia, Moderate: P: -neurochecks -case discussed with [facility] neurologist who recommended treating with aspirin and also Plavix for 21 days; but was not aware of the afib and ITP. Called back for recs and he deferred to Hematology for antiplatelet/anticoagulant therapy. Called Dr. Molina who recommended ASA alone and the patient may need anticoagulation but will need to treat the ITP first. Recommended high-dose dexamethasone 40mg daily for 4 days and then will follow up with Dr. Molina for possible Rituxan therapy. -pending peripheral smear -Statin -permissive HTN first 24hrs, restart home BB at lower dose and increase, home lasix held today -pt/ot -ST eval and dysphagia diet -vanco until BC return -SSI -f/u echo outpt regarding pericardial effusion -ppx: SCD(anticoag held for PLTS<50k, lovenox x1 today 40mg)/pepcid Medical - PN: Qual - Stroke Symptom Onset Unknown: No - VTE Deep Vein Thrombosis/Pulmonary Embolism Present on Admission: No
[2018-04-22] MEDS: INSULIN LISPRO 1 UNIT/0.01 ML UNIT SQ SCH ×4 (07:49→21:19)
[2018-04-22] MEDS: POTASSIUM CHLORIDE 20 MEQ TABLET PO SCH ×2 (07:49→17:03)
[2018-04-22] MEDS: PRAZOSIN 1 MG CAPSULE PO SCH ×2 (08:44→20:50)
[2018-04-22] MEDS: OXAZEPAM 15 MG CAPSULE PO SCH ×2 (08:44→20:49)
[2018-04-22] MEDS: cefTRIAXone 1 GM VIAL IV SCH (08:44)
[2018-04-22] MEDS: FAMOTIDINE 20 MG TABLET PO SCH ×2 (08:45→20:50)
[2018-04-22] MEDS: DOCUSATE SODIUM 100 MG CAPSULE PO SCH ×2 (08:45→20:50)
[2018-04-22] MEDS: ASPIRIN 81 MG TAB.CHEW PO SCH (08:45)
[2018-04-22] MEDS: VITAMIN D3 1,000 UNIT TABLET PO SCH (08:45)
[2018-04-22] MEDS: METOPROLOL SUCCINATE 50 MG TAB.XL.24H PO SCH (08:46)
[2018-04-22] MEDS: ALLOPURINOL 100 MG TABLET PO SCH (08:46)
[2018-04-22] MEDS: DEXAMETHASONE 4 MG TABLET PO SCH (08:53)
[2018-04-22] MEDS: POLYETHYLENE GLYCOL 3350 17 GM PACKET PO PRN (09:29)
[2018-04-22] MEDS: ATORVASTATIN 20 MG TABLET PO SCH (20:50)
[2018-04-23] MEDS: 0.9 % SODIUM CHLORIDE 10 ML SYRINGE IV SCH ×4 (00:08→20:42)
[2018-04-23 06:02] LABS: Basophils # (Auto) 0 K/mcL (0.0-0.3); Basophils % (Auto) 0.1 % (0.0-2.0); Eosinophils # (Auto) 0 K/mcL (0.0-0.7); Eosinophils % (Auto) 0 % (0.0-7.0); Lymphocytes # (Auto) 16.7 K/mcL (1.5-4.8); Lymphocytes % (Auto) 63.2 % (15.5-49.0); Mean Cell Volume 103.5 fL (80.0-100.0); Mean Corpuscular HGB Conc 33.3 g/dL (31.0-36.0); Monocytes # (Auto) 0.7 K/mcL (0.1-0.9); Monocytes % (Auto) 2.7 % (1.0-12.0); Platelet Count 53 K/mcL (140-440); RBC 3.36 M/mcL (4.50-5.90); Red Cell Distribution Width 15.1 % (11.5-14.5)
[2018-04-23 06:10] LABS: Vancomycin,Random 13.7 ug/mL
[2018-04-23 06:11] LABS: Blood Urea Nitrogen 33 mg/dl (8-23)
[2018-04-23] MEDS: INSULIN LISPRO 1 UNIT/0.01 ML UNIT SQ SCH ×4 (06:54→20:44)
[2018-04-23] MEDS: DOCUSATE SODIUM 100 MG CAPSULE PO SCH ×2 (08:32→20:40)
[2018-04-23] MEDS: FAMOTIDINE 20 MG TABLET PO SCH ×2 (08:32→20:40)
[2018-04-23] MEDS: ASPIRIN 81 MG TAB.CHEW PO SCH (08:32)
[2018-04-23] MEDS: VITAMIN D3 1,000 UNIT TABLET PO SCH (08:32)
[2018-04-23] MEDS: POTASSIUM CHLORIDE 20 MEQ TABLET PO SCH ×2 (08:32→16:58)
[2018-04-23] MEDS: cefTRIAXone 1 GM VIAL IV SCH (08:32)
[2018-04-23] MEDS: ALLOPURINOL 100 MG TABLET PO SCH (08:32)
[2018-04-23] MEDS: FUROSEMIDE 80 MG TABLET PO SCH (08:32)
[2018-04-23] MEDS: METOPROLOL SUCCINATE 50 MG TAB.XL.24H PO SCH (08:42)
[2018-04-23] MEDS: OXAZEPAM 15 MG CAPSULE PO SCH ×2 (08:44→20:40)
[2018-04-23] MEDS: VANCOMYCIN 1,500 MG in 0.9 % SODIUM CHLORIDE 500 ML IV SCH (08:45)
[2018-04-23] MEDS: PRAZOSIN 1 MG CAPSULE PO SCH ×2 (10:01→20:39)
--- NOTE | 2018-04-23 11:48 | Internal Med Progress Note ---
Medical - PN: Subj Patient information: Note initiated : 04/23/18 at 11:44 am Service Date, if different from initiated Date: [] Patient: Colt Flores 82 y/o M admitted on 04/19/18 for Fall, No Injury, Possible Left Sided Weakness. Chief Complaint: [] Interval history: Mr. Flores is a 82 year old M presents to the hospital after becoming very weak and unsteady on his feet. When found by EMS he was found to have left facial droop and left upper extremity weakness by EMS. Patient was last seen n ormal last night at 9 PM. Patient reports that when he is getting up out of bed he had a hard time his arm was not working he was able to get up eventually but was unsteady on his feet and says went down, he says he did not fall he just felt very weak and was able to sort support himself as he was going down. 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 He has not been on any aspirin. He also had left facial droop and some subsequent slurring. No aphasia. He had CTA head/neck and subsequent MRI which showed a right parietal infarct 1x3 cm. Case was discussed with [place] neurologist who recommended carotid ultrasound and if that was unremarkable then to treat the patient medically locally. The ultrasound did not show any significant stenosis. Other recommendations from the neurologist were to start aspirin/statin and give Plavix for 21 days. EKG shows A. fib, chronic. Blood pressure elevated initially but has come down some on its own. 04/20 Got home CPAP and is able to sleep better. But no improvement in motor weakness of left upper extremity. In fact left upper extremity is weaker today, decreased sensations. Good left lower extremity function. Still has left facial droop. Seen by speech therapy and put on dysphagia diet. Does have baseline mild short shortness of breath. 04/21 No overnight events, still significantly weak on the left side, no improvement in weakness. Patient with family in the room today and he seems to be in good spirits. No complaints of chest pain or shortness of breath, or cough. numbness left hand 04/22 Still very weak left leg left arm, decreased sensations in the left arm about the same as yesterday. He does feel like his appetite is improving. He did cough after dinner last night. 04/23-patient doing well. Overnight bradycardia with heart rate in mid 20s. No additional concerns per staff. No fever or chills. Minimal improvement in left lower extremity plantar and dorsiflexion grade 2 strength with grade 0 strength left upper extremity. Persistent facial droop. Ongoing rehab. Systolics around 160. Possible transfer to SNF in 24 hours. Lower metoprolol dose to 12.5 twice daily due to bradycardia . - Constitutional Vitals: Vital Signs Temp Pulse Resp BP Pulse Ox 98.4 F 69 20 164/111 98 04/23/18 08:01 04/21/18 19:55 04/23/18 00:01 04/23/18 08:01 04/23/18 08:22 Period Temp Pulse Resp BP Sys/Coreas Pulse Ox Last 24 Hr 98.4 F-100.0 F 16-20 107-164/57-111 93-100 Intake and Output 04/22/18 04/23/18 04/23/18 21:59 05:59 13:59 Intake Total 200 100 Output Total 475 600 Balance -275 -500 Weight 223 lb 6.4 oz Intake & Output: Intake & Output 04/22/18 04/23/18 04/23/18 21:59 05:59 13:59 Intake Total 200 100 Output Total 475 600 Balance -275 -500 Weight 223 lb 6.4 oz Intake: Oral 200 100 Output: Urine Catheter Amount 475 600 Other: Meal Lunch Percent of Meal Consumed 50% Urine Appearance Clear Uretheral (Cervantes) Clear Clear Urine Color Bright Yellow Uretheral (Cervantes) Dark [place] Light [place] Urine Odor Normal General appearance: no acute distress Exam: Persistent left hemiparesis with grade 2 strength left lower extremity, grade 0 left upper extremity No anxiety Telemetry bradycardia in the 20s overnight Nonlabored breathing Nondistended abdomen Medical - PN: Obj Da - Labs CBC & Chem 7: 04/23/18 04:45 04/23/18 04:45 Labs: Abnormal Lab Results 04/23/18 04/23/18 04/22/18 04:45 04:45 07:57 WBC 26.5 H RBC 3.36 L Hgb 11.6 L Hct 34.8 L MCV 103.5 H MCH 34.5 H RDW 15.1 H Plt Count 53 L Gran % 34.0 L Lymph % (Auto) 63.2 H Gran # 9.0 H Lymph # (Auto) 16.7 H Lymphocytes % WBC Morphology Smudge Cells Platelet Estimate RBC Morphology Polychromasia Macrocytosis PT INR Sodium 149 H Chloride 110 H BUN 33 H Creatinine Glucose 151 H Uric Acid Calcium 7.9 L Total Bilirubin Direct Bilirubin GGT Urine Protein Urine Occult Blood Urine Urobilinogen Ur Leukocyte Esterase Urine RBC Urine WBC Amorphous Crystals Hyaline Casts Vancomycin Trough 28.9 H* 04/22/18 04/22/18 04/21/18 04:00 04:00 08:59 WBC 33.7 H* RBC 3.59 L Hgb 12.5 L Hct 37.4 L MCV 104.2 H MCH 34.9 H RDW 15.5 H Plt Count 57 L Gran % Lymph % (Auto) Gran # Lymph # (Auto) Lymphocytes % 59 H WBC Morphology Abnorm A Smudge Cells 1+ A Platelet Estimate Decreased A RBC Morphology Abnorm A Polychromasia 1+ A Macrocytosis 1+ A PT INR Sodium Chloride BUN 28 H Creatinine Glucose 170 H Uric Acid 8.1 H Calcium 8.5 L Total Bilirubin 1.3 H Direct Bilirubin 0.4 H GGT 74 H Urine Protein 30 A Urine Occult Blood >=1.0 A Urine Urobilinogen 2.0 A Ur Leukocyte Esterase 75 A Urine RBC 63 H Urine WBC 11 H Amorphous Crystals Few A Hyaline Casts 12 H Vancomycin Trough 04/21/18 04/21/18 04/21/18 07:51 04:00 04:00 WBC 35.8 H* RBC 3.67 L Hgb 12.8 L Hct 37.8 L MCV 103.0 H MCH 34.9 H RDW 15.6 H Plt Count 53 L Gran % Lymph % (Auto) Gran # 18.3 H Lymph # (Auto) 16.9 H Lymphocytes % WBC Morphology Smudge Cells Platelet Estimate RBC Morphology Polychromasia Macrocytosis PT 16.2 H INR 1.3 H Sodium Chloride BUN 25 H Creatinine 1.4 H Glucose 175 H Uric Acid Calcium Total Bilirubin Direct Bilirubin GGT Urine Protein Urine Occult Blood Urine Urobilinogen Ur Leukocyte Esterase Urine RBC Urine WBC Amorphous Crystals Hyaline Casts Vancomycin Trough Meds: Medications Acetaminophen (Tylenol) 650 mg PO Q6HP PRN PRN Reason: PAIN/FEVER > 101 Albuterol/Ipratropium (Duoneb) 3 ml NEB Q4HP PRN PRN Reason: Shortness Of Breath Allopurinol (Zyloprim) 100 mg PO DAILY [facility] Last Admin: 04/23/18 08:32 Dose: 100 mg Documented by: Aspirin (Aspirin) 81 mg PO DAILY [facility] Last Admin: 04/23/18 08:32 Dose: 81 mg Documented by: Atorvastatin Calcium (Lipitor) 80 mg PO HS [facility] Last Admin: 04/22/18 20:50 Dose: 80 mg Documented by: Ceftriaxone Sodium (Rocephin) 1 gm IV DAILY [facility] Last Admin: 04/23/18 08:32 Dose: 1 gm Documented by: Dextrose (Dextrose 50%) 0 ml IV UD PRN PRN Reason: Hypoglycemia Diagnostic Test (Pha) (Accu-Chek) 1 each FS ACHS [facility] Last Admin: 04/23/18 11:42 Dose: 1 each Documented by: Docusate Sodium (Colace) 100 mg PO BID [facility] Last Admin: 04/23/18 08:32 Dose: 100 mg Documented by: Famotidine (Pepcid) 20 mg PO BID [facility] Last Admin: 04/23/18 08:32 Dose: 20 mg Documented by: Furosemide (Lasix) 80 mg PO QDAY [facility] Last Admin: 04/23/18 08:32 Dose: 80 mg Documented by: Glucose (Insta-Glucose) 15 gm PO PRN PRN PRN Reason: Hypoglycemia Potassium Chloride 40 meq/ (Dextrose) 520 mls @ 130 mls/hr IV ONCE PRN PRN Reason: Potassium < 3 Magnesium Sulfate (Magnesium Sulfate) 2 gm in 50 mls @ 50 mls/hr IV ONCE PRN PRN Reason: Magnesium </= 1.6 Vancomycin HCl 1,500 mg/ (Sodium Chloride) 500 mls @ 333.3 mls/hr IV Q24H [facility] Last Admin: 04/23/18 08:45 Dose: 333.3 mls/hr Documented by: Insulin Human Lispro (Humalog) 0 unit SQ ACHS [facility]; Protocol Last Admin: 04/23/18 06:54 Dose: Not Given Documented by: Metoclopramide HCl (Reglan) 10 mg IV Q6HP PRN PRN Reason: Nausea And Vomiting Metoprolol Succinate (Toprol Xl) 50 mg PO DAILY [facility] Last Admin: 04/23/18 08:42 Dose: Not Given Documented by: Metoprolol Tartrate (Lopressor) 5 mg IV Q2HP PRN PRN Reason: Tachyarrhythmias HR>110 Ondansetron HCl (Zofran) 4 mg IV Q4HP PRN PRN Reason: Nausea And Vomiting Oxazepam 15 Mg (Capsule) 1 dose PO BID [facility] Last Admin: 04/23/18 08:44 Dose: 1 dose Documented by: Polyethylene Glycol (Miralax) 17 gm PO DAILYP PRN PRN Reason: Constipation Last Admin: 04/22/18 09:29 Dose: 17 gm Documented by: Potassium Chloride (Kdur) 20 meq PO BIDCC [facility] Last Admin: 04/23/18 08:32 Dose: 20 meq Documented by: Potassium Chloride (Kdur) 40 meq PO ONCE PRN PRN Reason: Potssium is 3-3.5 Potassium Chloride (Kdur) 40 meq PO ONCE PRN PRN Reason: Potassium < 3 Prazosin HCl (Minipress) 5 mg PO BID [facility] Last Admin: 04/23/18 10:01 Dose: 5 mg Documented by: Senna (Senokot) 2 tab PO HSP PRN PRN Reason: Constipation Sodium Chloride (Saline Flush) 10 ml IV Q8 [facility] Last Admin: 04/23/18 05:35 Dose: 10 ml Documented by: Vancomycin HCl (Vancomycin Per Pharmacy) 1 order IV UD [facility] Vitamin D (Vitamin D3) 4,000 unit PO DAILY [facility] Last Admin: 04/23/18 08:32 Dose: 4,000 unit Documented by: Medical - PN: A/P - Time Spent With Patient Total time spent is greater than 50% in coordination of care (as documented) at patient's floor/unit and/or counseling patient: 25 - 35 minutes (1) CVA (cerebral vascular accident) Status: Acute Assessment and plan: * 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 Echo unremarkable, no thrombus * Chronic atrial fibrillation continue beta-mary at lower dose due to bradycardia overnight. Has not been on anticoagulation or aspirin due to thrombocytopenia and high risk bleeding * History of ITP platelets around baseline~50 * History of CHF currently stable * History of hypertension continue low-dose metoprolol due to bradycardia * CKD stage III at baseline * History of COPD on 2 L oxygen day/7 at night * History of gout on allopurinol * History of hypertension continue prazosin/spironolactone/metoprolol * Full code * Prophylaxis SCDs Plan * Lower beta-mary dose in light of bradycardia * continue aggressive post stroke rehab * Pre-existing medical condition management as above * Discharge planning likely SNF in 24 hours Current Visit: Yes Medical - PN: Qual - Stroke Symptom Onset Unknown: No - VTE Deep Vein Thrombosis/Pulmonary Embolism Present on Admission: No
[2018-04-23] MEDS: ATORVASTATIN 20 MG TABLET PO SCH (20:39)
[2018-04-23] MEDS: METOPROLOL TARTRATE 25 MG TABLET PO SCH (23:39)
[2018-04-24 05:49] LABS: ALT/SGPT 36 U/l (0-40); Albumin 3.5 gm/dL (3.2-5.2); Albumin/Globulin Ratio 1.6 (1.0-2.3); Alkaline Phosphatase 57 U/L (39-117); Bilirubin,Direct 0.3 mg/dL (0.0-0.3); Blood Urea Nitrogen 31 mg/dl (8-23); Gamma Glutamyl Transpeptidase 73 U/L (8-61); Uric Acid 7.7 mg/dL (2.5-8.0)
[2018-04-24 06:11] LABS: Basophils # (Auto) 0 K/mcL (0.0-0.3); Basophils % (Auto) 0.2 % (0.0-2.0); Eosinophils # (Auto) 0 K/mcL (0.0-0.7); Eosinophils % (Auto) 0.1 % (0.0-7.0); Granulocytes % (Auto) 30.1 % (38.0-78.0); Lymphocytes # (Auto) 13.7 K/mcL (1.5-4.8); Lymphocytes % (Auto) 61.7 % (15.5-49.0); Mean Cell Volume 104.6 fL (80.0-100.0); Mean Corpuscular HGB Conc 34.9 g/dL (31.0-36.0); Monocytes # (Auto) 1.7 K/mcL (0.1-0.9); Monocytes % (Auto) 7.9 % (1.0-12.0); Platelet Count 47 K/mcL (140-440); RBC 3.47 M/mcL (4.50-5.90); Red Cell Distribution Width 15.2 % (11.5-14.5)
[2018-04-24] MEDS: 0.9 % SODIUM CHLORIDE 10 ML SYRINGE IV SCH (06:47)
[2018-04-24] MEDS ORDERED: OMEPRAZOLE 20 MG CAPSULE PO SCH (07:30)
[2018-04-24] MEDS ORDERED: SPIRONOLACTONE 25 MG TABLET PO SCH (09:00)
[2018-04-24] MEDS: INSULIN LISPRO 1 UNIT/0.01 ML UNIT SQ SCH ×2 (09:13→12:04)
[2018-04-24] MEDS: VITAMIN D3 1,000 UNIT TABLET PO SCH (09:14)
[2018-04-24] MEDS: METOPROLOL TARTRATE 25 MG TABLET PO SCH (09:16)
[2018-04-24] MEDS: DOCUSATE SODIUM 100 MG CAPSULE PO SCH (09:16)
[2018-04-24] MEDS: ASPIRIN 81 MG TAB.CHEW PO SCH (09:17)
[2018-04-24] MEDS: FUROSEMIDE 80 MG TABLET PO SCH (09:17)
[2018-04-24] MEDS: ALLOPURINOL 100 MG TABLET PO SCH (09:18)
[2018-04-24] MEDS: POTASSIUM CHLORIDE 20 MEQ TABLET PO SCH (09:18)
[2018-04-24] MEDS: FAMOTIDINE 20 MG TABLET PO SCH (09:18)
[2018-04-24] MEDS: PRAZOSIN 1 MG CAPSULE PO SCH (09:19)
[2018-04-24] MEDS: cefTRIAXone 1 GM VIAL IV SCH (09:19)
[2018-04-24] MEDS: VANCOMYCIN 1,500 MG in 0.9 % SODIUM CHLORIDE 500 ML IV SCH (09:20)
[2018-04-24] MEDS: OXAZEPAM 15 MG CAPSULE PO SCH (09:25)
--- NOTE | 2018-04-24 09:25 | Discharge Summary ---
Medical - DS: Prov Patient information: Note initiated : 04/24/18 at 9:22 am Service Date, if different from initiated Date: [] Patient: Colt Flores 82 y/o M admitted on 04/19/18 for Fall, No Injury, Possible Left Sided Weakness. Chief Complaint: [] Date of admission: 04/19/18 15:01 Discharge date: 04/24/18 Primary care physician: Suma Parker Consults: 04/19/18 Consult to Physician [CONS] Stat Comment: Consulting Provider: Gary Burrell Reason For Exam: Physician to Consult Medical - DS: Meds - Discharge Medications Prescriptions: Aspirin 81 mg PO DAILY #60 tab.chew Atorvastatin [Lipitor] 80 mg PO HS #60 tablet Active and Home Medications: Home Medications Allopurinol [Zyloprim] 100 mg PO DAILY 06/28/16 [History Confirmed 04/19/18 Last Taken Unknown] Oxazepam 15 mg PO BID 06/28/16 [History Confirmed 04/19/18 Last Taken Unknown] Prazosin [Minipress] 5 mg PO BID 06/28/16 [History Confirmed 04/19/18 Last Taken Unknown] metoprolol succinate ER 50 mg tablet,extended release 24 hr 50 mg PO DAILY tab 06/26/17 [History Confirmed 04/23/18 Last Taken Unknown] furosemide 80 mg tablet 80 mg PO QDAY #90 tab 07/12/17 [Rx Confirmed 04/19/18 Last Taken Unknown] potassium chloride ER 20 mEq tablet,extended release 20 meq PO DAILY 07/12/17 [History Confirmed 04/23/18 Last Taken Unknown] omeprazole 20 mg capsule,delayed release 20 mg PO QDAY 02/05/18 [History Confirmed 04/19/18 Last Taken Unknown] spironolactone 25 mg tablet 12.5 mg PO QAM #45 tab 03/25/18 [Rx Confirmed 04/19/18 Last Taken Unknown] Cholecalciferol (Vitamin D3) [Vitamin D3] 2 cap PO DAILY 04/19/18 [History Confirmed 04/19/18 Last Taken Unknown] Aspirin 81 mg PO DAILY #60 tab.chew 04/24/18 [Rx Last Taken Unknown] Atorvastatin [Lipitor] 80 mg PO HS #60 tablet 04/24/18 [Rx Last Taken Unknown] Medical - DS: Hosp Hospital course: Discharge diagnosis * 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 Echo unremarkable, no thrombus. Continue aspirin 81/statin 80 as per hematology recommendation in light of history of ITP and high risk bleed. Follow-up with neurology in 1 week * Chronic atrial fibrillation continue beta-mary at lower dose due to bradycardia overnight. 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 Follow-up with Dr. Sandhu in 1 week * History of CHF currently stable * History of hypertension continue low-dose metoprolol due to bradycardia * CKD stage III at baseline * History of COPD on 2 L oxygen day/7 at night * History of gout on allopurinol * History of hypertension continue prazosin/spironolactone/metoprolol Brief hospital course Mr. Flores is a 82 year old M presents to the hospital after becoming very weak and unsteady on his feet. When found by EMS he was found to have left facial droop and left upper extremity weakness by EMS. Patient was last seen normal last night at 9 PM. Patient reports that when he is getting up out of bed he had a hard time his arm was not working he was able to get up eventually but was unsteady on his feet an d says went down, he says he did not fall he just felt very weak and was able to sort support himself as he was going down. 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 He has not been on any aspirin. He also had left facial droop and some subsequent slurring. No aphasia. He had CTA head/neck and subsequent MRI which showed a right parietal infarct 1x3 cm. Case was discussed with [place] neurologist who recommended carotid ultrasound and if that was unremarkable then to treat the patient medically locally. The ultrasound did not show any significant stenosis. Other recommendations from the neurologist were to start aspirin/statin and give Plavix for 21 days. EKG shows A. fib, chronic. Blood pressure elevated initially but has come down some on its own. 04/20 Got home CPAP and is able to sleep better. But no improvement in motor weakness of left upper extremity. In fact left upper extremity is weaker today, decreased sensations. Good left lower extremity function. Still has left facial droop. Seen by speech therapy and put on dysphagia diet. Does have baseline mild short shortness of breath. 04/21 No overnight events, still significantly weak on the left side, no improvement in weakness. Patient with family in the room today and he seems to be in good spirits. No complaints of chest pain or shortness of breath, or cough. numbness left hand 04/22 Still very weak left leg left arm, decreased sensations in the left arm about the same as yesterday. He does feel like his appetite is improving. He did cough after dinner last night. 04/23-patient doing well. Overnight bradycardia with heart rate in mid 20s. No additional concerns per staff. No fever or chills. Minimal improvement in left lower extremity plantar and dorsiflexion grade 2 strength with grade 0 strength left upper extremity. Persistent facial droop. Ongoing rehab. Systolics around 160. Possible transfer to SNF in 24 hours. Lower metoprolol dose to 12.5 twice daily due to bradycardia . 04/24-patient transferring to SNF for continued post stroke rehab. Continue aspirin 81 mg/statin as per hematology recommendations in light of ITP. Patient will follow up with Dr. Robison hematology in 1 week along with neurology in 1 week. Continue aggressive post stroke rehab/PT OT [facility]. Reviewed the side effects of antiplatelet treatment including life-threatening bleeds. Detailed discharge instructions as below Discharge diagnosis: . - Time Spent with Patient Total time spent providing and/or coordinating discharge services: Greater than 30 minutes Medical - DS: Exam - Constitutional Vitals: Vital Signs Temp Pulse Resp BP Pulse Ox 04/24/18 05:03 91 04/24/18 04:01 98.6 F 107/69 99 04/24/18 00:47 148/69 100 04/24/18 00:06 161/94 100 04/24/18 00:01 167/80 100 04/23/18 21:25 98 04/23/18 21:23 98 04/23/18 20:01 98.8 F 18 153/81 98 04/23/18 18:23 150/86 04/23/18 16:01 99.0 F 18 137/70 93 04/23/18 16:00 99.4 F H 41 L 18 137/70 98 04/23/18 12:07 97 04/23/18 12:01 97.8 F 16 134/74 97 Intake and Output 04/23/18 04/24/18 04/24/18 21:59 05:59 13:59 Intake Total 460 200 240 Output Total 1747 1450 350 Balance -1465 -1250 -110 Intake: Oral 460 200 240 Output: Urine Catheter Amount 9990 1456 350 Other: Meal Dinner Breakfast Percent of Meal Consumed 75% 90% Feeding Ability Assist with Tray Set Up Urine Appearance Clear Uretheral (Cervantes) Clear Urine Color Bright Yellow Uretheral (Cervantes) Light Xenia Urine Odor Normal Weight 221 lb 12.8 oz Medical - DS: Data Labs on day of discharge: Labs from last 24 hours 04/24/18 04/24/18 03:50 03:50 WBC 22.2 H RBC 3.47 L Hgb 12.6 L Hct 36.3 L MCV 104.6 H MCH 36.5 H MCHC 34.9 RDW 15.2 H Plt Count 47 L* MPV 9.0 Gran % 30.1 L Lymph % (Auto) 61.7 H [place] % (Auto) 7.9 Eos % (Auto) 0.1 Baso % (Auto) 0.2 Gran # 6.7 Lymph # (Auto) 13.7 H [place] # (Auto) 1.7 H Eos # (Auto) 0 Baso # (Auto) 0 Sodium 148 H Potassium 4.0 Chloride 103 Carbon Dioxide 33 H Anion Gap 12.0 BUN 31 H Creatinine 1.2 GFR Calculation 57 Glucose 112 H Uric Acid 7.7 Calcium 8.6 Phosphorus 3.8 Magnesium 2.1 Total Bilirubin 1.3 H Direct Bilirubin 0.3 GGT 73 H AST 31 ALT 36 Alkaline Phosphatase 57 Lactate Dehydrogenase 243 Total Protein 5.7 L Albumin 3.5 Globulin 2.2 Albumin/Globulin Ratio 1.6 Triglycerides 78 Preliminary micro results at discharge 04/21/18 04:10 Blood Culture - Preliminary Blood 04/21/18 04:00 Blood Culture - Preliminary Blood 04/19/18 10:24 Blood Culture - Preliminary Blood 04/19/18 10:17 Blood Culture - Preliminary Blood Gram positive cocci Medical - DS: A/P - Patient/Caregiver Discharge Instructions Activity: as per physical therapy, increase activity as tolerated Diet: Consistent Carbohydrate Additional Instructions: follow up with Dr. Molina for possible Rituxan therapy F/u Neurology in 1 week continue ASA and statin Follow-up PCP in 5 days I recommend SNF physician to check CBC BMP as a posthospital follow-up in 1 week. Continue aggressive bowel regimen to prevent constipation Continue fall precautions Continue aggressive PT OT evaluation and treatment at SNF. ST eval and treatment if indicated All meals on chair sitting upright at 90 degrees to prevent aspiration Return to ER if worsening fever chills shortness of breath, bleeding, neuro changes Review risk and side effect profile of medications including ASA. Side effect may include mild to severe reaction including life threatning bleed and even which can be prevented by close follow-up with PCP and monitoring for side effects Continue CC diet and activity as advised Discussed importance of medication adherence Please review medication list with patient prior to discharge Please schedule follow-up with PCP/Providers prior to discharge and provide printouts Portions of this chart may have been created with [employer] voice recognition software. Occasional wrong-word or ?sound-like? substitutions may have occurred due to the inherent limitations of voice recognition software. Please read the chart carefully and recognize, using context, where the substitutions have occurred. CC- PCP Prescriptions: Aspirin 81 mg PO DAILY #60 tab.chew Atorvastatin [Lipitor] 80 mg PO HS #60 tablet - Follow up Plan Follow up with: Suma Parker MD [Primary Care Provider] - Disposition: Xfer SNF Prognosis: Fair Rehab Potential: Fair I certify that the patient requires SNF services: Yes Overall status at discharge: patient is not back to baseline Medical - DS: Qual - VTE Deep Vein Thrombosis/Pulmonary Embolism Present on Admission: No
== END 2018-04-24 14:15 | DRG 65 ==
LOC: ED 07:57 → ICU 15:01
PROVIDERS: ADMIT Internal Medicine; ATTEND Internal Medicine

== ENCOUNTER 2018-07-02 13:18 | Inpatient (IN) ==
[2018-07-02] MEDS ORDERED: IPRATROPIUM/ALBUTEROL 3 ML AMPUL.NEB NEB ONE (13:38)
[2018-07-02] MEDS ORDERED: ALBUTEROL SULFATE 2.5 MG/3 ML NEBULIZER NEB ONE (13:39)
[2018-07-02] MEDS ORDERED: MAGNESIUM SULFATE 2 GM/50 ML BAG IV ONE (13:58)
[2018-07-02] MEDS ORDERED: FUROSEMIDE 40 MG/4 ML VIAL IV ONE (13:58)
[2018-07-02] MEDS ORDERED: methylPREDNISolone SOD SUCC 125 MG/2 ML VIAL IV ONE (13:59)
[2018-07-02] MEDS ORDERED: PIPERACILLIN SODIUM/TAZOBACTAM 3.375 GM in DEXTROSE 5% IN WATER 50 ML IV ONE (14:02)
[2018-07-02 14:48] LABS: ALT/SGPT 16 U/l (0-40); Albumin 3.9 gm/dL (3.2-5.2); Albumin/Globulin Ratio 1.8 (1.0-2.3); Alkaline Phosphatase 105 U/L (39-117); Blood Urea Nitrogen 41 mg/dl (8-23)
--- NOTE | 2018-07-02 15:03 | XRay Report ---
CLINICAL INFORMATION: dyspnea COMPARISON: 04/21/2018 FINDINGS: Moderate cardiomegaly is unchanged. Mediastinum is unremarkable. Pulmonary vessels are slightly distended but there is no edema. Small right basilar infiltrate superimposed on scarring has developed IMPRESSION: Borderline CHF or volume overload Small right basilar infiltrate Interpreted and Authenticated by: Artur Price 07/02/18
--- NOTE | 2018-07-02 15:25 | Emergency Department Note ---
SOB HPI - General Chief Complaint: Shortness of Breath/Dyspnea Stated Complaint: shortness of breath Time Seen by Provider: 07/02/18 13:46 Source: patient Mode of arrival: wheelchair Limitations: no limitations - History of Present Illness 83-year-old male was brought in for difficulty breathing over at [facility]. Apparently he has had a stroke earlier this year and so was sent to [facility] after his hospital stay. He also has had a recent episode of bronchitis and has been on antibiotics. He denies fever but has been on 2 L of oxygen [id number]. No nausea or vomiting just worsening trouble breathing. He is on a CPAP for obstructive sleep apnea He has known CHF with preserved systolic function but pulmonary hypertension and right-sided heart failure. Echocardiogram 04/20/2018 - Related Data Home Medications Medication Instructions Recorded Confirmed Allopurinol [Zyloprim] 100 mg PO DAILY 06/28/16 07/02/18 Oxazepam 15 mg PO BID 06/28/16 07/02/18 Prazosin [Minipress] 2 mg PO BID 06/28/16 07/02/18 metoprolol succinate ER 50 mg 50 mg PO DAILY tab 06/26/17 07/02/18 tablet,extended release 24 hr potassium chloride ER 20 mEq 20 meq PO DAILY 07/12/17 07/02/18 tablet,extended release omeprazole 20 mg capsule,delayed 20 mg PO QDAY 02/05/18 07/02/18 release Cholecalciferol (Vitamin D3) 2 cap PO DAILY 04/19/18 07/02/18 [Vitamin D3] Atorvastatin [Lipitor] 40 mg PO HS 07/02/18 07/02/18 Bisacodyl [Dulcolax] 10 mg NM DAILYP PRN 07/02/18 07/02/18 Insulin Aspart [Novolog] See Protocol SQ PRN PRN 07/02/18 07/02/18 Ipratropium/Albuterol [Duoneb] 3 ml NEB Q4HP PRN 07/02/18 07/02/18 Oseltamivir Phosphate [Tamiflu] 75 mg PO DAILY 07/02/18 07/02/18 Previous Rx's Medication Instructions Recorded furosemide 80 mg tablet 80 mg PO QDAY #90 tab 07/12/17 spironolactone 25 mg tablet 12.5 mg PO QAM #45 tab 03/25/18 Aspirin 81 mg PO DAILY #60 tab.chew 04/24/18 Allergies Allergy/AdvReac Type Severity Reaction Status Date / Time No Known Drug Allergies Allergy Verified 07/02/18 13:21 Review of Systems All systems ED: reviewed and negative except as stated. Past Medical History - Past Medical History Attestation: Yes: The following information was validated with the patient. Medical history: Reports: atrial fibrillation, CHF, coronary artery disease, DM, GERD, hyperlipidemia, hypertension, renal disease, other (Obstructive sleep apnea) Psychiatric history: Reports: anxiety Surgical history ED: Reports: cataract, knee replacement, tonsillectomy - Social History smoking status: Former smoker Alcohol use: Reports: None, Rarely Physical Exam Normocephalic atraumatic. Conjunctive are clear sclerae nonicteric. No nasal discharge or congestion but he is wearing nasal cannula oxygen. Oropharynx is with dry buccal mucosa. Posterior pharynx is clear. Neck is supple without lymphadenopathy thyromegaly or carotid bruit. Heart is somewhat bradycardic without murmur. Lungs with audible wheezing even without a stethoscope. He is got rhonchi wheezing in all lung mcneill on auscultation with some significant pursed lip breathing. Significant increased work of breathing. Abdomen is soft nontender nondistended. He is wearing CARYN hose bilaterally for pedal edema. Alert oriented able to answer questions Limitations: no limitations Course Vital Signs Respiratory Rate 21 07/02/18 13:42 Blood Pressure 115/67 07/02/18 13:42 Temperature 98.1 F 07/03/18 04:01 Pulse Rate 36 L 07/03/18 04:01 Respiratory Rate 18 07/03/18 04:01 Blood Pressure 119/71 07/03/18 04:01 Pulse Oximetry (%) 98 07/03/18 04:01 Shortness of Breath/Dyspnea - Lab Data Lab results reviewed: Yes I reviewed the patient's lab results. Result diagrams: 07/03/18 04:02 07/03/18 04:02 Lab Results 07/02/18 07/02/18 07/02/18 Range/Units 13:53 13:53 13:54 WBC TNP RBC TNP Hgb TNP Hct TNP MCV TNP MCH TNP MCHC TNP RDW TNP Plt Count TNP MPV TNP Gran % (38.0-78.0) % Lymph % (Auto) (15.5-49.0) % [place] % (Auto) (1.0-12.0) % Eos % (Auto) (0.0-7.0) % Baso % (Auto) (0.0-2.0) % Gran # (1.8-8.0) K/mcL Lymph # (Auto) (1.5-4.8) K/mcL [place] # (Auto) (0.1-0.9) K/mcL Eos # (Auto) (0.0-0.7) K/mcL Baso # (Auto) (0.0-0.3) K/mcL VBG Lactic Acid 1.3 (0.5-2.0) mmol/L Sodium 141 (133-145) mmol/L Potassium 4.1 (3.3-5.1) mmol/L Chloride 98 (96-108) mmol/L Carbon Dioxide 32 H (22-30) mmol/L Anion Gap 11.0 (8-16) BUN 41 H (8-23) mg/dl Creatinine 1.2 (0.7-1.2) mg/dl GFR Calculation 56 Glucose 191 H (70-105) mg/dL Calcium 8.9 (8.6-10.4) mg/dl Total Bilirubin 1.4 H (0.0-1.0) mg/dL AST 14 (0-37) U/l ALT 16 (0-40) U/l Alkaline Phosphatase 105 (39-117) U/L Troponin T (0-0.03) ng/ml NT-Pro-B Natriuret Pep (0-450) pg/ml Total Protein 6.1 (5.9-8.4) gm/dL Albumin 3.9 (3.2-5.2) gm/dL Globulin 2.2 (2.2-3.7) gm/dL Albumin/Globulin Ratio 1.8 (1.0-2.3) 07/02/18 07/02/18 07/02/18 Range/Units 13:54 14:01 14:41 WBC 23.1 H RBC 3.18 L Hgb 11.2 L Hct 33.0 L MCV 103.6 H MCH 35.3 H MCHC 34.1 RDW 15.1 H Plt Count 51 L MPV 10.1 Gran % 32.5 L (38.0-78.0) % Lymph % (Auto) 59.0 H (15.5-49.0) % [place] % (Auto) 8.2 (1.0-12.0) % Eos % (Auto) 0.1 (0.0-7.0) % Baso % (Auto) 0.2 (0.0-2.0) % Gran # 7.5 (1.8-8.0) K/mcL Lymph # (Auto) 13.6 H (1.5-4.8) K/mcL [place] # (Auto) 1.9 H (0.1-0.9) K/mcL Eos # (Auto) 0 (0.0-0.7) K/mcL Baso # (Auto) 0 (0.0-0.3) K/mcL VBG Lactic Acid (0.5-2.0) mmol/L Sodium (133-145) mmol/L Potassium (3.3-5.1) mmol/L Chloride (96-108) mmol/L Carbon Dioxide (22-30) mmol/L Anion Gap (8-16) BUN (8-23) mg/dl Creatinine (0.7-1.2) mg/dl GFR Calculation Glucose (70-105) mg/dL Calcium (8.6-10.4) mg/dl Total Bilirubin (0.0-1.0) mg/dL AST (0-37) U/l ALT (0-40) U/l Alkaline Phosphatase (39-117) U/L Troponin T < 0.01 (0-0.03) ng/ml NT-Pro-B Natriuret Pep 1993.0 H (0-450) pg/ml Total Protein (5.9-8.4) gm/dL Albumin (3.2-5.2) gm/dL Globulin (2.2-3.7) gm/dL Albumin/Globulin Ratio (1.0-2.3) Normal urine [id number] dipstick with specific gravity 1.005 - Radiology Data Radiology results reviewed: Yes I reviewed the patient's radiology results. Chest x-ray shows right lower lobe pneumonia - EKG Data EKG attestation: Yes I reviewed and interpreted this EKG. EKG results narrative: EKG shows sinus rhythm bradycardia with a rate of 43 right bundle branch block with 1 PVC otherwise no change when compared with 04/19/2018 Disposition Pt seen by TECHNICIAN [employer]/PA only: No Clinical Impression: Congestive heart failure Qualifiers: Heart failure type: unspecified Heart failure chronicity: acute on chronic Qualified Code(s): I50.9 - Heart failure, unspecified Right lower lobe pneumonia Qualifiers: Pneumonia type: due to unspecified organism Qualified Code(s): J18.1 - Lobar pneumonia, unspecified organism Summary: After initial interview and exam labs are ordered. Patient is given an albuterol treatment without significant relief. Chest x-ray shows right lower lobe pneumonia so blood cultures done and start on Zosyn. Also seen is evidence of CHF so we will give him some Lasix as well. He also has history of COPD so Solu-Medrol as well He continued to have trouble breathing was given a dose of magnesium as well to hopefully relax the smooth muscles around his lungs. It was felt that he continued to have increased work of breathing that he would need to be admitted. So I discussed case with Dr. Braga our hospitalist. He agreed to bring the patient in for further care and evaluation Disposition: Xfer As Inpt ([facility]) Condition: Serious
[2018-07-02 16:07] LABS: Basophils # (Auto) 0 K/mcL (0.0-0.3); Basophils % (Auto) 0.2 % (0.0-2.0); Eosinophils # (Auto) 0 K/mcL (0.0-0.7); Eosinophils % (Auto) 0.1 % (0.0-7.0); Granulocytes % (Auto) 32.5 % (38.0-78.0); Lymphocytes # (Auto) 13.6 K/mcL (1.5-4.8); Mean Cell Volume 103.6 fL (80.0-100.0); Mean Corpuscular HGB Conc 34.1 g/dL (31.0-36.0); Monocytes # (Auto) 1.9 K/mcL (0.1-0.9); Monocytes % (Auto) 8.2 % (1.0-12.0); Platelet Count 51 K/mcL (140-440); RBC 3.18 M/mcL (4.50-5.90); Red Cell Distribution Width 15.1 % (11.5-14.5)
--- NOTE | 2018-07-02 16:54 | Internal Med History&Physical ---
Medical - H&P: [facility] Patient information: Note initiated : 07/02/18 at 4:47 pm Service Date, if different from initiated Date: [] Patient: Colt Flores 83 y/o M admitted on for SOB . Chief Complaint: [] Chief complaint: sob History of present illness: Mr. Flores is a 83 year old M with history of ITP and recent right parietal CVA undergoing rehabilitation at SNF who presents with worsening shortness of breath that has progressed overthe last 5 days. Symptoms have dramatically worsened in the last 24 hours. Patient has become extremely labored, wheezing unable to perform activities of daily living. He was subsequently referred to [facility] ER. He presents along with his . He endorses to associated yellow productive sputum. He endorses loss of appetite and also endorses to orthopnea. Initial workup was consistent with COPD exacerbation secondary to right basilar pneumonia along with CHF on chest imaging. Hospitalist service was consulted At the time of evaluation patient is accompanied with his . He was able to answer most of the questions. He denies fevers shaking chills, drenching sweats, headache photophobia, diarrhea dysuria. Patient has been exposed to sick contact at the care center however is up-to-date on vaccines status Review of systems 10 point review of system was performed and is negative except for discussed above Medical - H&P: PMH Medical history: Pulmonary HTN (Chronic) COPD (chronic obstructive pulmonary disease) (Chronic) CKD (chronic kidney disease) stage 3, GFR 30-59 ml/min (Chronic) Benign hypertension with CKD (chronic kidney disease) stage III (Chronic) Secondary hyperparathyroidism of renal origin (Chronic) Localized edema due to fluid overload (Chronic) PATITO (obstructive sleep apnea) (Chronic) Hypoxemia (Chronic) Chronic anticoagulation (Chronic) Chronic idiopathic thrombocytopenic purpura (Chronic) Hypoxia (Chronic) Community acquired pneumonia (Acute) Nontraumatic cardiac tamponade (Acute) Pericardial effusion (Acute) Encounter for removal of nasal packing (Acute) Macular degeneration of right eye (Acute) Macular hemorrhage of right eye (Acute) Epistaxis (Chronic) Encounter for removal of nasal packing (Chronic) Hypertension (Acute) Anxiety (Chronic) Atrial fibrillation (Chronic) CAD (coronary artery disease) (Chronic) Diabetes mellitus, type II (Chronic) Gout (Chronic) Hypercholesterolemia (Chronic) Melena (Chronic) Mixed hyperlipidemia (Chronic) Myocardial infarction (Chronic) Proteinuria (Chronic) Skin cancer (Chronic) Sleep apnea (Chronic) Past Surgical History History of right knee surgery (Chronic ~12/2013) S/P tonsillectomy (Chronic) cataract, Family History Father Cerebral hemorrhage Mother Hypertension Brother Malignant neoplasm Sister Hypertension Social History -quit smoking 40yrs ago -nightly toddy -lives at home with Medical - H&P: Meds Home Medications Medication Instructions Recorded Confirmed Type Allopurinol [Zyloprim] 100 mg PO DAILY 06/28/16 07/02/18 History Oxazepam 15 mg PO BID 06/28/16 07/02/18 History Prazosin [Minipress] 2 mg PO BID 06/28/16 07/02/18 History metoprolol succinate ER 50 mg 50 mg PO DAILY tab 06/26/17 07/02/18 History tablet,extended release 24 hr furosemide 80 mg tablet 80 mg PO QDAY #90 tab 07/12/17 07/02/18 Rx potassium chloride ER 20 mEq 20 meq PO QAMCC 07/12/17 07/03/18 History tablet,extended release omeprazole 20 mg capsule,delayed 20 mg PO QDAY 02/05/18 07/02/18 History release spironolactone 25 mg tablet 12.5 mg PO QAM #45 tab 03/25/18 07/02/18 Rx Cholecalciferol (Vitamin D3) 4,000 units PO DAILY 04/19/18 07/03/18 History [Vitamin D3] Atorvastatin [Lipitor] 40 mg PO HS 07/02/18 07/02/18 History Bisacodyl [Dulcolax] 10 mg MI DAILYP PRN 07/02/18 07/02/18 History Insulin Aspart [Novolog] See Protocol SQ PRN PRN 07/02/18 07/02/18 History Ipratropium/Albuterol [Duoneb] 3 ml NEB Q4HP PRN 07/02/18 07/02/18 History Oseltamivir Phosphate [Tamiflu] 75 mg PO DAILY 07/02/18 07/02/18 History Aspirin 81 mg PO Q48@0900 07/03/18 07/03/18 History Ketorolac Tromethamine [Acular] 1 drp OU DAILY 07/03/18 07/03/18 History Allergies Allergy/AdvReac Type Severity Reaction Status Date / Time No Known Drug Allergies Allergy Verified 07/02/18 13:21 Medical - H&P: Exam - Constitutional Vitals: Pulse Resp BP Pulse Ox 55 L 19 137/65 95 07/02/18 16:31 07/02/18 16:16 07/02/18 16:31 07/02/18 16:31 General appearance: no acute distress Exam: Alert and oriented eye movements symmetric Oral cavity dry No eardischarge No lymphadenopathy S1-S2 irregular rhythm Diminished breath sounds bases Abdomen soft nontender Lower extremity no cyanosis clubbing or joint swelling Skin no suspicious lesion Psych alert cooperative but anxious Neuro left-sided persistent weakness with grade 0 strength left upper extremity Medical - H&P: Reslt - Labs CBC & Chem 7: 07/03/18 04:02 07/03/18 04:02 Labs: Short CBC 07/02/18 07/02/18 Range/Units 13:54 14:41 WBC TNP 23.1 H Hgb TNP 11.2 L Hct TNP 33.0 L Plt Count TNP 51 L BMP 07/02/18 13:53 Sodium 141 Potassium 4.1 Chloride 98 Carbon Dioxide 32 H BUN 41 H Creatinine 1.2 Glucose 191 H Calcium 8.9 Cardiac Enzymes 07/02/18 Range/Units 13:54 Troponin T < 0.01 (0-0.03) ng/ml Liver Function 07/02/18 Range/Units 13:53 Total Bilirubin 1.4 H (0.0-1.0) mg/dL AST 14 (0-37) U/l ALT 16 (0-40) U/l Alkaline Phosphatase 105 (39-117) U/L Albumin 3.9 (3.2-5.2) gm/dL Medical - H&P: A/P (1) Right lower lobe pneumonia Current visit: Yes Status: Acute * Right lower lobe pneumonia on imaging-antibiotic coverage/interval chest imaging/strep pneumo/mycoplasma serology. * COPD exacerbation secondary to above-noninvasive ventilation if indicated. Continue bronchodilators/steroids/pulmonary toilet * Hypoxic respiratory failure continue supplemental oxygen * Acute congestive heart failure-start diuresis. Reviewed echocardiogram from March with normal LVEF but moderate pulmonary hypertension. Patient follows up with Dr. Mehta at [facility]. 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 Residual deficits. Continue aspirin/statin/rehabilitation * Chronic atrial fibrillation -continue beta-mary. * History of ITP platelets remains around baseline~50 * Leukocytosis-secondary pneumonia versus chronic elevation. Continue monitoring * History of hypertension -on metoprolol/prazosin/spironolactone * CKD stage III at baseline. Creatinine 1.2 * History of PATITO on CPAP * History of gout on allopurinol * History of hypertension continue prazosin/spironolactone/metoprolol * Full code Plan * Antibiotic coverage * Inpatient admission in light of pneumonia severity index or 100 * COPD exacerbation management per guidelines * Aggressive PT OT/dietary support * Noninvasive ventilation if worsening shortness of breath * Pre-existing medical condition management on home meds
[2018-07-02] MEDS ORDERED: ACETAMINOPHEN 1,000 MG/100 ML BOTTLE IV PRN (17:43)
[2018-07-02] MEDS ORDERED: POTASSIUM CHLORIDE 20 MEQ PACKET PO PRN (17:43)
[2018-07-02] MEDS ORDERED: MAGNESIUM HYDROXIDE 30 ML ORAL.SUSP PO PRN (17:43)
[2018-07-02] MEDS ORDERED: ONDANSETRON 4 MG/2 ML VIAL IV PRN (17:43)
[2018-07-02] MEDS ORDERED: MAGNESIUM SULFATE 2 GM/50 ML BAG IV PRN (17:43)
[2018-07-02] MEDS ORDERED: ACETAMINOPHEN 325 MG TABLET PO PRN (17:43)
[2018-07-02] MEDS: LEVOFLOXACIN 750 MG/150 ML BAG IV SCH (18:11)
[2018-07-02] MEDS: cefTRIAXone 2 GM in DEXTROSE 5% IN WATER 50 ML IV SCH (18:11)
[2018-07-02 19:07] LABS: C-Reactive Protein < 0.3 mg/dl (0.0-0.8)
[2018-07-02] MEDS: IPRATROPIUM/ALBUTEROL 3 ML AMPUL.NEB NEB SCH ×2 (19:07→22:48)
[2018-07-02] MEDS ORDERED: DEXTROSE 50% 50 ML VIAL IV PRN (20:16)
[2018-07-02] MEDS ORDERED: DEXTROSE 31 GM ORAL.SUSP PO PRN (20:16)
[2018-07-02] MEDS ORDERED: OXAZEPAM 15 MG CAPSULE PO SCH (21:00)
[2018-07-02] MEDS ORDERED: HEPARIN 5,000 UNIT/ML VIAL SQ SCH (21:00)
[2018-07-02] MEDS: methylPREDNISolone SOD SUCC 125 MG/2 ML VIAL IV SCH (21:20)
[2018-07-02] MEDS: 0.9 % SODIUM CHLORIDE 10 ML SYRINGE IV SCH (21:20)
[2018-07-02] MEDS: DOCUSATE SODIUM 100 MG CAPSULE PO SCH (21:22)
[2018-07-02] MEDS: SENNOSIDES/DOCUSATE SODIUM 1 TAB TABLET PO SCH (21:22)
[2018-07-02] MEDS: INSULIN LISPRO 1 UNIT/0.01 ML UNIT SQ SCH (21:36)
[2018-07-02] MEDS: LORazepam 0.5 MG TABLET PO SCH (21:54)
[2018-07-03] MEDS: IPRATROPIUM/ALBUTEROL 3 ML AMPUL.NEB NEB SCH ×4 (03:10→19:33)
[2018-07-03] MEDS: 0.9 % SODIUM CHLORIDE 10 ML SYRINGE IV SCH ×3 (05:09→20:34)
[2018-07-03 06:21] LABS: Mean Cell Volume 105.6 fL (80.0-100.0); Mean Corpuscular HGB Conc 34.6 g/dL (31.0-36.0); Platelet Count 52 K/mcL (140-440); RBC 2.92 M/mcL (4.50-5.90); Red Cell Distribution Width 14.8 % (11.5-14.5)
[2018-07-03 06:59] LABS: Band Neutrophils % 1 % (0-10); Lymphocytes % 55 % (15-49); Macrocytosis 2+ (NONE SEEN); Platelet Estimate DECREASED (NORMAL); RBC Morphology ABNORM (NORMAL); Segmented Neutrophils % 44 % (38-78); Smudge Cells FEW (NONE SEEN)
[2018-07-03 07:24] LABS: ALT/SGPT 17 U/l (0-40); Albumin 3.4 gm/dL (3.2-5.2); Albumin/Globulin Ratio 1.4 (1.0-2.3); Alkaline Phosphatase 100 U/L (39-117); Bilirubin,Direct 0.3 mg/dL (0.0-0.3); Blood Urea Nitrogen 42 mg/dl (8-23); Gamma Glutamyl Transpeptidase 37 U/L (8-61); Uric Acid 7.1 mg/dL (2.5-8.0)
[2018-07-03] MEDS ORDERED: FUROSEMIDE 40 MG/4 ML VIAL IV SCH (08:00)
[2018-07-03] MEDS: INSULIN LISPRO 1 UNIT/0.01 ML UNIT SQ SCH ×4 (08:02→20:54)
[2018-07-03] MEDS ORDERED: IPRATROPIUM/ALBUTEROL 3 ML AMPUL.NEB NEB PRN (08:18)
[2018-07-03] MEDS ORDERED: BISACODYL 10 MG SUPP.RECT PR PRN (08:18)
[2018-07-03] MEDS: LORazepam 0.5 MG TABLET PO SCH ×2 (08:37→20:25)
[2018-07-03] MEDS: DOCUSATE SODIUM 100 MG CAPSULE PO SCH ×2 (08:38→20:35)
[2018-07-03] MEDS: METOPROLOL SUCCINATE 50 MG TAB.XL.24H PO SCH (08:38)
[2018-07-03] MEDS: MULTIVIT,THER IRON,CA,FA & MIN 1 TABLET PO SCH (08:38)
[2018-07-03] MEDS: SPIRONOLACTONE 25 MG TABLET PO SCH (08:38)
[2018-07-03] MEDS: ALLOPURINOL 100 MG TABLET PO SCH (08:38)
[2018-07-03] MEDS: ASPIRIN 81 MG TAB.CHEW PO SCH (08:38)
[2018-07-03] MEDS: VITAMIN D3 1,000 UNIT TABLET PO SCH (08:41)
[2018-07-03] MEDS: methylPREDNISolone SOD SUCC 125 MG/2 ML VIAL IV SCH ×2 (08:42→20:33)
[2018-07-03] MEDS: PRAZOSIN 1 MG CAPSULE PO SCH ×2 (08:42→20:23)
[2018-07-03] MEDS: OSELTAMIVIR PHOSPHATE 75 MG CAPSULE PO SCH (08:42)
[2018-07-03] MEDS: FUROSEMIDE 80 MG TABLET PO SCH (10:34)
[2018-07-03] MEDS: OMEPRAZOLE 20 MG CAPSULE PO SCH (10:34)
--- NOTE | 2018-07-03 10:35 | Internal Med Progress Note ---
Medical - PN: Subj Patient information: Note initiated : 07/03/18 at 10:33 am Service Date, if different from initiated Date: [] Patient: Colt Flores 83 y/o M admitted on 07/02/18 for SOB . Chief Complaint: [] Interval history: Mr. Flores is a 83 year old M with history of ITP and recent right kate etal CVA undergoing rehabilitation at SNF who presents with worsening shortness of breath that has progressed overthe last 5 days. Symptoms have dramatically worsened in the last 24 hours. Patient has become extremely labored, wheezing unable to perform activities of daily living. He was subsequently referred to [facility]. He presents along with his . He endorses to associated yellow productive sputum. He endorses loss of appetite and also endorses to orthopnea. Initial workup was consistent with COPD exacerbation secondary to right basilar pneumonia along with CHF on chest imaging. Hospitalist service was consulted At the time of evaluation patient is accompanied with his . He was able to answer most of the questions. He denies fevers shaking chills, drenching sweats, headache photophobia, diarrhea dysuria. Patient has been exposed to sick contact at the care center however is up-to-date on vaccines status 07/03-patient doing better this morning. Improved wheezing. Overnight every 8 hours and BiPAP. Currently on 2 L oxygen. White count 25,000 with lymphocyte predominance. Platelets at 52. Pro-calcitonin negative. DC Rocephin. Continue pulmonary toilet/rehabilitation - Constitutional Vitals: Vital Signs Temp Pulse Resp BP Pulse Ox 98.1 F 55 L 20 119/71 94 07/03/18 04:01 07/03/18 07:49 07/03/18 07:49 07/03/18 04:01 07/03/18 07:49 Period Temp Pulse Resp BP Sys/Coreas Pulse Ox Last 24 Hr 97.7 F-98.9 F 25-114 16-25 105-160/50-81 91-100 Intake and Output 07/02/18 07/03/18 07/03/18 21:59 05:59 13:59 Intake Total 540 360 Output Total 2400 825 Balance -1860 -465 Weight 205 lb 4.8 oz Intake & Output: Intake & Output 07/02/18 07/03/18 07/03/18 21:59 05:59 13:59 Intake Total 540 360 Output Total 2400 825 Balance -1860 -465 Weight 205 lb 4.8 oz Intake: IV 300 Zosyn 3.375 gm In Dextrose 5% 50 in Water 50 ml @ 100 mls/hr IV ONCE ONE Rx#:[id number] Rocephin 2 gm In Dextrose 5% in 50 Water 50 ml @ 100 mls/hr IV Q24H [facility] Rx#:[id number] Oral 240 360 Output: Urine Catheter Amount 2400 825 Other: Meal Dinner Percent of Meal Consumed 100% Feeding Ability Assist with Tray Set Up Urine Appearance Uretheral (Cervantes) Clear Urine Color Straw Uretheral (Cervantes) Pale Urine Odor Normal General appearance: no acute distress Exam: Alert oriented Expiratory rhonchi but minimally labored breathing improved since previous day Atrial fibrillation irregular rhythm Nondistended abdomen Medical - PN: Obj Da - Labs CBC & Chem 7: 07/03/18 04:02 07/03/18 04:02 Labs: Abnormal Lab Results 07/03/18 07/03/18 07/02/18 04:02 04:02 14:41 WBC 25.4 H 23.1 H RBC 2.92 L 3.18 L Hgb 10.7 L 11.2 L Hct 30.8 L 33.0 L MCV 105.6 H 103.6 H MCH 36.6 H 35.3 H RDW 14.8 H 15.1 H Plt Count 52 L 51 L Gran % 32.5 L Lymph % (Auto) 59.0 H Lymph # (Auto) 13.6 H [place] # (Auto) 1.9 H Lymphocytes % 55 H Nucleated RBCs 1 H WBC Morphology Abnorm A Smudge Cells Few A Platelet Estimate Decreased A RBC Morphology Abnorm A Macrocytosis 2+ A Carbon Dioxide BUN 42 H Glucose 249 H Calcium 8.5 L Total Bilirubin 1.2 H NT-Pro-B Natriuret Pep Total Protein 5.8 L 07/02/18 07/02/18 14:01 13:53 WBC RBC Hgb Hct MCV MCH RDW Plt Count Gran % Lymph % (Auto) Lymph # (Auto) [place] # (Auto) Lymphocytes % Nucleated RBCs WBC Morphology Smudge Cells Platelet Estimate RBC Morphology Macrocytosis Carbon Dioxide 32 H BUN 41 H Glucose 191 H Calcium Total Bilirubin 1.4 H NT-Pro-B Natriuret Pep 1993.0 H Total Protein Meds: Medications Acetaminophen (Tylenol) 650 mg PO Q4-6HP PRN PRN Reason: PAIN/FEVER > 101 Albuterol/Ipratropium (Duoneb) 3 ml NEB Q4HRT [facility] Last Admin: 07/03/18 07:26 Dose: 3 ml Documented by: Albuterol/Ipratropium (Duoneb) 3 ml NEB Q4HP PRN PRN Reason: Bronchospasm Allopurinol (Zyloprim) 100 mg PO DAILY [facility] Last Admin: 07/03/18 08:38 Dose: 100 mg Documented by: Aspirin (Aspirin) 81 mg PO DAILY [facility] Last Admin: 07/03/18 08:38 Dose: 81 mg Documented by: Atorvastatin Calcium (Lipitor) 40 mg PO HS [facility] Bisacodyl (Dulcolax) 10 mg LA DAILYP PRN PRN Reason: Constipation Dextrose (Dextrose 50%) 0 ml IV UD PRN PRN Reason: Hypoglycemia Diagnostic Test (Pha) (Accu-Chek) 1 each FS ACHS [facility] Last Admin: 07/03/18 08:01 Dose: 1 each Documented by: Docusate Sodium (Colace) 100 mg PO BID [facility] Last Admin: 07/03/18 08:38 Dose: 100 mg Documented by: Furosemide (Lasix) 40 mg IV BIDD [facility] Last Admin: 07/03/18 08:04 Dose: 40 mg Documented by: Furosemide (Lasix) 80 mg PO QDAY [facility] Glucose (Insta-Glucose) 15 gm PO PRN PRN PRN Reason: Hypoglycemia Ceftriaxone Sodium 2 gm/ (Dextrose) 50 mls @ 100 mls/hr IV Q24H [facility] Last Infusion: 07/02/18 18:59 Dose: Infused Documented by: Levofloxacin (Levaquin) 750 mg in 150 mls @ 100 mls/hr IV Q24H [facility] Last Infusion: 07/02/18 19:41 Dose: Infused Documented by: Magnesium Sulfate (Magnesium Sulfate) 2 gm in 50 mls @ 50 mls/hr IV UD PRN PRN Reason: MG = or < 1.7 Acetaminophen (Ofirmev) 1,000 mg in 100 mls @ 200 mls/hr IV Q6HP PRN PRN Reason: PAIN/FEVER > 101 Insulin Human Lispro (Humalog) 0 unit SQ [facility]; Protocol Last Admin: 07/03/18 08:02 Dose: 6 unit Documented by: Iron Carb/Multivit/Nautical Instrument Mechanic/Folic Acid (Multivitamin W/Minerals) 1 tab PO DAILY [facility] Last Admin: 07/03/18 08:38 Dose: 1 tab Documented by: Lorazepam (Ativan) 0.5 mg PO BID [facility] Last Admin: 07/03/18 08:37 Dose: 0.5 mg Documented by: Magnesium Hydroxide (Milk Of Magnesia) 30 ml PO HSP PRN PRN Reason: Constipation Methylprednisolone Sodium Succinate (Solu-Medrol) 60 mg IV Q12 [facility] Last Admin: 07/03/18 08:42 Dose: 60 mg Documented by: Metoprolol Succinate (Toprol Xl) 50 mg PO DAILY [facility] Last Admin: 07/03/18 08:38 Dose: 50 mg Documented by: Mupirocin (Bactroban Oint 2%) 1 dose NARES BID REFUGIO Omeprazole (Prilosec) 20 mg PO QAMAC [facility] Ondansetron HCl (Zofran) 4 mg IV Q4-6HP PRN PRN Reason: Nausea And Vomiting Oseltamivir Phosphate (Tamiflu) 75 mg PO DAILY [facility] Last Admin: 07/03/18 08:42 Dose: 75 mg Documented by: Oxazepam (Oxazepam) 15 mg PO BID [facility] Potassium Chloride (Klor-Con) 40 meq PO DAILYP PRN PRN Reason: K+ < 3.5 Potassium Chloride (Kdur) 20 meq PO QAMCC [facility] Prazosin HCl (Minipress) 2 mg PO BID [facility] Last Admin: 07/03/18 08:42 Dose: 2 mg Documented by: Senna/Docusate Sodium (Senna Plus Tablet) 1 tab PO HS [facility] Last Admin: 07/02/18 21:22 Dose: Not Given Documented by: Sodium Chloride (Saline Flush) 10 ml IV Q8 [facility] Last Admin: 07/03/18 05:09 Dose: 10 ml Documented by: Spironolactone (Aldactone) 12.5 mg PO QAM [facility] Last Admin: 07/03/18 08:38 Dose: 12.5 mg Documented by: Vitamin D (Vitamin D3) 2,000 unit PO DAILY [facility] Last Admin: 07/03/18 08:41 Dose: 2,000 unit Documented by: Medical - PN: A/P - Time Spent With Patient Total time spent is greater than 50% in coordination of care (as documented) at patient's floor/unit and/or counseling patient: 25 - 35 minutes (1) Right lower lobe pneumonia Status: Acute Assessment and plan: * COPD exacerbation secondary to above-clinically improved on steroids. Co ntinue bronchodilators and pulmonary toilet. * Hypoxic respiratory failure -clinically improved on noninvasive ventilation. Anticipate middle oxygen * Right lower lobe pneumonia on imaging-however pro-calcitonin negative. Normal white count. DC Rocephin. Negative mycoplasma serology * History of CHF-continue diuresis. Reviewed echocardiogram from March with normal LVEF but moderate pulmonary hypertension. Patient follows up with Dr. Mehta at [facility]. 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 Residual deficits. Continue aspirin/statin/rehabilitation * Chronic atrial fibrillation -continue beta-mary. * History of ITP platelets remains around baseline~50 * Leukocytosis-secondary pneumonia versus chronic elevation. Continue monitoring * History of hypertension -on metoprolol/prazosin/spironolactone * CKD stage III at baseline. Creatinine 1.2 * History of PATITO on CPAP * History of gout on allopurinol * History of hypertension continue prazosin/spironolactone/metoprolol * Full code Plan * DC Rocephin * Continue bronchodilators/steroids and transition to oral steroids in 24 hour * Noninvasive ventilation * PT OT/nutrition support * Pre-existing medical condition management on home meds * Discharge planning to SNF likely in 24-72 hours Current Visit: Yes Medical - PN: Qual - Stroke Symptom Onset Unknown: No - VTE Deep Vein Thrombosis/Pulmonary Embolism Present on Admission: No
[2018-07-03] MEDS: LEVOFLOXACIN 750 MG/150 ML BAG IV SCH (10:37)
[2018-07-03] MEDS: POTASSIUM CHLORIDE 20 MEQ TABLET PO SCH (10:39)
[2018-07-03] MEDS: MUPIROCIN OINT 2% 22GM NARES SCH ×2 (10:40→20:29)
[2018-07-03] MEDS: OXAZEPAM 15 MG CAPSULE PO SCH ×2 (10:40→20:35)
[2018-07-03] MEDS: cefTRIAXone 2 GM in DEXTROSE 5% IN WATER 50 ML IV SCH (11:11)
[2018-07-03] MEDS: SENNOSIDES/DOCUSATE SODIUM 1 TAB TABLET PO SCH (20:34)
[2018-07-03] MEDS ORDERED: ATORVASTATIN 20 MG TABLET PO SCH (21:00)
[2018-07-04] MEDS: IPRATROPIUM/ALBUTEROL 3 ML AMPUL.NEB NEB SCH ×4 (00:14→19:46)
[2018-07-04 05:43] LABS: ALT/SGPT 16 U/l (0-40); Albumin 3.4 gm/dL (3.2-5.2); Albumin/Globulin Ratio 1.5 (1.0-2.3); Alkaline Phosphatase 93 U/L (39-117); Bilirubin,Direct 0.4 mg/dL (0.0-0.3); Blood Urea Nitrogen 44 mg/dl (8-23); Gamma Glutamyl Transpeptidase 35 U/L (8-61); Uric Acid 7.4 mg/dL (2.5-8.0)
[2018-07-04 05:51] LABS: Mean Cell Volume 106.8 fL (80.0-100.0); Mean Corpuscular HGB Conc 34.7 g/dL (31.0-36.0); Platelet Count 61 K/mcL (140-440); RBC 2.94 M/mcL (4.50-5.90)
[2018-07-04] MEDS: 0.9 % SODIUM CHLORIDE 10 ML SYRINGE IV SCH ×4 (06:41→21:20)
[2018-07-04 06:55] LABS: Band Neutrophils % 1 % (0-10); Lymphocytes % 62 % (15-49); Macrocytosis 2+ (NONE SEEN); Platelet Estimate DECREASED (NORMAL); RBC Morphology ABNORM (NORMAL); Segmented Neutrophils % 37 % (38-78)
[2018-07-04] MEDS: OMEPRAZOLE 20 MG CAPSULE PO SCH (07:26)
[2018-07-04] MEDS: INSULIN LISPRO 1 UNIT/0.01 ML UNIT SQ SCH ×4 (08:40→21:16)
[2018-07-04] MEDS ORDERED: LEVOFLOXACIN 750 MG/150 ML BAG IV SCH (09:00)
[2018-07-04] MEDS: methylPREDNISolone SOD SUCC 125 MG/2 ML VIAL IV SCH (09:02)
[2018-07-04] MEDS: POTASSIUM CHLORIDE 20 MEQ TABLET PO SCH (09:02)
[2018-07-04] MEDS: PRAZOSIN 1 MG CAPSULE PO SCH (09:03)
[2018-07-04] MEDS: METOPROLOL SUCCINATE 50 MG TAB.XL.24H PO SCH (09:03)
[2018-07-04] MEDS: VITAMIN D3 1,000 UNIT TABLET PO SCH (09:03)
[2018-07-04] MEDS: MUPIROCIN OINT 2% 22GM NARES SCH ×2 (09:03→21:15)
[2018-07-04] MEDS: SPIRONOLACTONE 25 MG TABLET PO SCH (09:03)
[2018-07-04] MEDS: OSELTAMIVIR PHOSPHATE 75 MG CAPSULE PO SCH (09:04)
[2018-07-04] MEDS: ASPIRIN 81 MG TAB.CHEW PO SCH (09:04)
[2018-07-04] MEDS: FUROSEMIDE 80 MG TABLET PO SCH (09:04)
[2018-07-04] MEDS: OXAZEPAM 15 MG CAPSULE PO SCH ×2 (09:04→21:17)
[2018-07-04] MEDS: ALLOPURINOL 100 MG TABLET PO SCH (09:04)
[2018-07-04] MEDS: MULTIVIT,THER IRON,CA,FA & MIN 1 TABLET PO SCH (09:04)
[2018-07-04] MEDS: DOCUSATE SODIUM 100 MG CAPSULE PO SCH ×2 (09:04→21:15)
[2018-07-04] MEDS: LORazepam 0.5 MG TABLET PO SCH ×2 (09:04→21:15)
[2018-07-04] MEDS ORDERED: IPRATROPIUM/ALBUTEROL 3 ML AMPUL.NEB NEB PRN (09:44)
[2018-07-04] MEDS ORDERED: MAGNESIUM HYDROXIDE 30 ML ORAL.SUSP PO PRN (09:44)
[2018-07-04] MEDS ORDERED: ACETAMINOPHEN 1,000 MG/100 ML BOTTLE IV PRN (09:44)
[2018-07-04] MEDS ORDERED: ONDANSETRON 4 MG/2 ML VIAL IV PRN (09:44)
[2018-07-04] MEDS ORDERED: DEXTROSE 31 GM ORAL.SUSP PO PRN (09:44)
[2018-07-04] MEDS ORDERED: DEXTROSE 50% 50 ML VIAL IV PRN (09:44)
[2018-07-04] MEDS ORDERED: ACETAMINOPHEN 325 MG TABLET PO PRN (09:44)
[2018-07-04] MEDS ORDERED: MAGNESIUM SULFATE 2 GM/50 ML BAG IV PRN (09:44)
[2018-07-04] MEDS ORDERED: BISACODYL 10 MG SUPP.RECT PR PRN (09:44)
[2018-07-04] MEDS ORDERED: POTASSIUM CHLORIDE 20 MEQ PACKET PO PRN (09:44)
--- NOTE | 2018-07-04 10:41 | Internal Med Progress Note ---
Medical - PN: Subj Patient information: Note initiated : 07/04/18 at 10:38 am Service Date, if different from initiated Date: [] Patient: Colt Flores 83 y/o M admitted on 07/02/18 for SOB . Chief Complaint: [] Interval history: Mr. Flores is a 83 year old M with history of ITP and recent right kate etal CVA undergoing rehabilitation at SNF who presents with worsening shortness of breath that has progressed overthe last 5 days. Symptoms have dramatically worsened in the last 24 hours. Patient has become extremely labored, wheezing unable to perform activities of daily living. He was subsequently referred to [facility]. He presents along with his . He endorses to associated yellow productive sputum. He endorses loss of appetite and also endorses to orthopnea. Initial workup was consistent with COPD exacerbation secondary to right basilar pneumonia along with CHF on chest imaging. Hospitalist service was consulted At the time of evaluation patient is accompanied with his . He was able to answer most of the questions. He denies fevers shaking chills, drenching sweats, headache photophobia, diarrhea dysuria. Patient has been exposed to sick contact at the care center however is up-to-date on vaccines status 07/03-patient doing better this morning. Improved wheezing. Overnight every 8 hours and BiPAP. Currently on 2 L oxygen. White count 25,000 with lymphocyte predominance. Platelets at 52. Pro-calcitonin negative. DC Rocephin. Continue pulmonary toilet/rehabilitation 07/04- doing well. Improved dyspnea. Transition to oral steroids. Possible discharge in 24 hours on an additional 5 days steroids. Ongoing PT OT. Using CPAP at night. - Constitutional Vitals: Vital Signs Temp Pulse Resp BP Pulse Ox 98.9 F 58 L 18 135/74 96 07/04/18 07:45 07/04/18 07:56 07/04/18 07:56 07/04/18 07:45 07/04/18 07:45 Period Temp Pulse Resp BP Sys/Coreas Pulse Ox Last 24 Hr 97.9 F-99.0 F 48-82 18-20 112-135/55-77 92-100 Intake and Output 07/03/18 07/04/18 07/04/18 21:59 05:59 13:59 Intake Total 220 360 Output Total 1450 1050 225 Balance -1230 -690 -225 Weight 204 lb 9.6 oz Intake & Output: Intake & Output 07/03/18 07/04/18 07/04/18 21:59 05:59 13:59 Intake Total 220 360 Output Total 1450 1050 225 Balance -1230 -690 -225 Weight 204 lb 9.6 oz Intake: Oral 220 360 Output: Urine Catheter Amount 1450 1050 225 Other: Meal Dinner Percent of Meal Consumed 100% Feeding Ability Assist with Tray Set Up Urine Appearance Uretheral (Cervantes) Clear Urine Color Dark Xenia Light Xenia Uretheral (Cervantes) Dark Yellow General appearance: no acute distress, obese Exam: Alert oriented Nonlabored breathing Nondistended abdomen No telemetry events No anxiety Medical - PN: Obj Da - Labs CBC & Chem 7: 07/04/18 04:15 07/04/18 04:15 Labs: Abnormal Lab Results 07/04/18 07/04/18 07/03/18 04:15 04:15 04:02 WBC 25.0 H RBC 2.94 L Hgb 10.9 L Hct 31.4 L MCV 106.8 H MCH 37.1 H RDW 15.0 H Plt Count 61 L Gran % Lymph % (Auto) Lymph # (Auto) [place] # (Auto) Seg Neutrophils % 37 L Lymphocytes % 62 H Nucleated RBCs 1 H WBC Morphology Smudge Cells Platelet Estimate Decreased A RBC Morphology Abnorm A Macrocytosis 2+ A Carbon Dioxide BUN 44 H 42 H Glucose 243 H 249 H Calcium 8.5 L Total Bilirubin 1.5 H 1.2 H Direct Bilirubin 0.4 H NT-Pro-B Natriuret Pep Total Protein 5.7 L 5.8 L 07/03/18 07/02/18 07/02/18 04:02 14:41 14:01 WBC 25.4 H 23.1 H RBC 2.92 L 3.18 L Hgb 10.7 L 11.2 L Hct 30.8 L 33.0 L MCV 105.6 H 103.6 H MCH 36.6 H 35.3 H RDW 14.8 H 15.1 H Plt Count 52 L 51 L Gran % 32.5 L Lymph % (Auto) 59.0 H Lymph # (Auto) 13.6 H [place] # (Auto) 1.9 H Seg Neutrophils % Lymphocytes % 55 H Nucleated RBCs 1 H WBC Morphology Abnorm A Smudge Cells Few A Platelet Estimate Decreased A RBC Morphology Abnorm A Macrocytosis 2+ A Carbon Dioxide BUN Glucose Calcium Total Bilirubin Direct Bilirubin NT-Pro-B Natriuret Pep 1993.0 H Total Protein 07/02/18 13:53 WBC RBC Hgb Hct MCV MCH RDW Plt Count Gran % Lymph % (Auto) Lymph # (Auto) [place] # (Auto) Seg Neutrophils % Lymphocytes % Nucleated RBCs WBC Morphology Smudge Cells Platelet Estimate RBC Morphology Macrocytosis Carbon Dioxide 32 H BUN 41 H Glucose 191 H Calcium Total Bilirubin 1.4 H Direct Bilirubin NT-Pro-B Natriuret Pep Total Protein Meds: Medications Acetaminophen (Tylenol) 650 mg PO Q4-6HP PRN PRN Reason: PAIN/FEVER > 101 Albuterol/Ipratropium (Duoneb) 3 ml NEB Q4HP PRN PRN Reason: Bronchospasm Albuterol/Ipratropium (Duoneb) 3 ml NEB Q6HRT [facility] Allopurinol (Zyloprim) 100 mg PO DAILY [facility] Aspirin (Aspirin) 81 mg PO DAILY [facility] Atorvastatin Calcium (Lipitor) 40 mg PO HS [facility] Bisacodyl (Dulcolax) 10 mg DE DAILYP PRN PRN Reason: Constipation Dextrose (Dextrose 50%) 0 ml IV UD PRN PRN Reason: Hypoglycemia Diagnostic Test (Pha) (Accu-Chek) 1 each FS ACHS [facility] Docusate Sodium (Colace) 100 mg PO BID [facility] Furosemide (Lasix) 80 mg PO QDAY [facility] Glucose (Insta-Glucose) 15 gm PO PRN PRN PRN Reason: Hypoglycemia Levofloxacin (Levaquin) 750 mg in 150 mls @ 100 mls/hr IV Q24H [facility] Magnesium Sulfate (Magnesium Sulfate) 2 gm in 50 mls @ 50 mls/hr IV UD PRN PRN Reason: MG = or < 1.7 Acetaminophen (Ofirmev) 1,000 mg in 100 mls @ 200 mls/hr IV Q6HP PRN PRN Reason: PAIN/FEVER > 101 Insulin Human Lispro (Humalog) 0 unit SQ ACHS [facility]; Protocol Iron Carb/Multivit/[place]/Folic Acid (Multivitamin W/Minerals) 1 tab PO DAILY [facility] Lorazepam (Ativan) 0.5 mg PO BID [facility] Magnesium Hydroxide (Milk Of Magnesia) 30 ml PO HSP PRN PRN Reason: Constipation Metoprolol Succinate (Toprol Xl) [address] [facility] Mupirocin (Bactroban Oint 2%) [address] [facility] Omeprazole (Prilosec) [address] [facility] Ondansetron HCl (Zofran) 4 mg IV Q4-6HP PRN PRN Reason: Nausea And Vomiting Oseltamivir Phosphate (Tamiflu) [address] [facility] Stop: 07/06/18 09:01 Oxazepam (Oxazepam) [address] [facility] Potassium Chloride (Klor-Con) 40 meq PO DAILYP PRN PRN Reason: K+ < 3.5 Potassium Ch[facility] ([facility]ur) [facility] Prazosin HCl (Minipress) [address] [facility] Prednisone (Prednisone) [facility] Senna/Docusate Sodium (Senna Plus Tablet) [address] [facility] Sodium Chloride (Saline Flush) [address] [facility] Spironolactone (Aldactone) 12.[address] [facility] Vitamin D (Vitamin D3) 2,[address] [facility] Medical - PN: A/P - Time Spent With Patient Total time spent is greater than 50% in coordination of care (as documented) at patient's floor/unit and/or counseling patient: 25 - 35 minutes (1) Right lower lobe pneumonia Status: Acute Assessment and plan: * COPD exacerbation secondary to above-clinically improved on steroids/bronchodilators. Transition to oral steroid * Hypoxic respiratory failure - Continue supplemental oxygen * Right lower lobe pneumonia on imaging-however pro-calcitonin negative. Normal white count. DC Rocephin. Negative mycoplasma serology. Continue atypical coverage * History of CHF-currently well compensated. Continue diuresis/metoprolol/spironolactone. Reviewed echocardiogram from March with normal LVEF but moderate pulmonary hypertension. Patient follows up with Dr. Mehta at [place] [facility]. 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 Residual deficits. Continue aspirin/statin/rehabilitation * Chronic atrial fibrillation -continue beta-mary. * History of ITP platelets remains around baseline~50 * Leukocytosis-secondary pneumonia versus chronic elevation. Continue monitoring * History of hypertension -on metoprolol/prazosin/spironolactone * CKD stage III at baseline. Creatinine 1.2 * History of PATITO on CPAP * History of gout on allopurinol * History of hypertension continue prazosin/spironolactone/metoprolol * Full code Plan * Switch to oral steroids * PT OT/nutrition support * CPAP/supplemental oxygen * Pre-existing medical condition management on home meds * Possible discharge in 24 hours Current Visit: Yes Medical - PN: Qual - Stroke Symptom Onset Unknown: No - VTE Deep Vein Thrombosis/Pulmonary Embolism Present on Admission: No
--- NOTE | 2018-07-04 16:41 | XRay Report ---
HISTORY: Stroke and aspiration FINDINGS: Swallowing function study was performed with patient sitting upright, scanning in a lateral projection. The patient performed multiple sequential swallows of thin liquid barium. There is normal oral and pharyngeal motility without evidence of aspiration. There is no pooling in the vallecula nor piriform sinuses. The patient was given a cracker containing barium paste. There was a delayed oral phase involving chewing and swallowing the cracker. This required a spoonful of barium coated applesauce to propel the cracker into the throat. Two minutes and 27 seconds of fluoroscopy time was used. IMPRESSION: Normal exam Interpreted and Authenticated by: Victor Hugo Lee 07/04/18
[2018-07-04] MEDS: SENNOSIDES/DOCUSATE SODIUM 1 TAB TABLET PO SCH (21:14)
[2018-07-04] MEDS: ATORVASTATIN 20 MG TABLET PO SCH (21:15)
[2018-07-05] MEDS: PRAZOSIN 1 MG CAPSULE PO SCH ×2 (00:36→09:11)
[2018-07-05] MEDS: IPRATROPIUM/ALBUTEROL 3 ML AMPUL.NEB NEB SCH ×4 (01:10→19:36)
[2018-07-05] MEDS: 0.9 % SODIUM CHLORIDE 10 ML SYRINGE IV SCH ×3 (05:58→21:20)
[2018-07-05 06:45] LABS: ALT/SGPT 16 U/l (0-40); Albumin 3.3 gm/dL (3.2-5.2); Albumin/Globulin Ratio 1.4 (1.0-2.3); Alkaline Phosphatase 86 U/L (39-117); Bilirubin,Direct 0.3 mg/dL (0.0-0.3); Blood Urea Nitrogen 47 mg/dl (8-23); Gamma Glutamyl Transpeptidase 32 U/L (8-61); Mean Cell Volume 107.4 fL (80.0-100.0); Mean Corpuscular HGB Conc 34.3 g/dL (31.0-36.0); Platelet Count 71 K/mcL (140-440); RBC 3.01 M/mcL (4.50-5.90); Red Cell Distribution Width 14.9 % (11.5-14.5); Uric Acid 8.6 mg/dL (2.5-8.0)
[2018-07-05] MEDS: OMEPRAZOLE 20 MG CAPSULE PO SCH (07:10)
[2018-07-05] MEDS: INSULIN LISPRO 1 UNIT/0.01 ML UNIT SQ SCH ×4 (07:38→21:20)
[2018-07-05 08:23] LABS: Lymphocytes % 58 % (15-49); Macrocytosis 2+ (NONE SEEN); Monocytes % (Manual) 7 % (1-12); Platelet Estimate DECREASED (NORMAL); RBC Morphology ABNORM (NORMAL); Segmented Neutrophils % 35 % (38-78); Smudge Cells FEW (NONE SEEN)
[2018-07-05] MEDS ORDERED: LEVOFLOXACIN 750 MG/150 ML BAG IV SCH (09:00)
[2018-07-05] MEDS: METOPROLOL SUCCINATE 50 MG TAB.XL.24H PO SCH (09:08)
[2018-07-05] MEDS: DOCUSATE SODIUM 100 MG CAPSULE PO SCH ×2 (09:09→21:00)
[2018-07-05] MEDS: SPIRONOLACTONE 25 MG TABLET PO SCH (09:09)
[2018-07-05] MEDS: MULTIVIT,THER IRON,CA,FA & MIN 1 TABLET PO SCH (09:09)
[2018-07-05] MEDS: FUROSEMIDE 80 MG TABLET PO SCH (09:10)
[2018-07-05] MEDS: POTASSIUM CHLORIDE 20 MEQ TABLET PO SCH (09:12)
[2018-07-05] MEDS: ASPIRIN 81 MG TAB.CHEW PO SCH (09:12)
[2018-07-05] MEDS: VITAMIN D3 1,000 UNIT TABLET PO SCH (09:13)
[2018-07-05] MEDS: ALLOPURINOL 100 MG TABLET PO SCH (09:13)
[2018-07-05] MEDS: predniSONE 20 MG TABLET PO SCH (09:13)
[2018-07-05] MEDS: OSELTAMIVIR PHOSPHATE 75 MG CAPSULE PO SCH (09:14)
[2018-07-05] MEDS: LORazepam 0.5 MG TABLET PO SCH ×2 (09:14→20:59)
[2018-07-05] MEDS: MUPIROCIN OINT 2% 22GM NARES SCH ×2 (09:14→21:21)
[2018-07-05] MEDS: OXAZEPAM 15 MG CAPSULE PO SCH ×2 (09:17→21:26)
--- NOTE | 2018-07-05 10:45 | Internal Med Progress Note ---
Medical - PN: Subj Patient information: Note initiated : 07/05/18 at 10:42 am Service Date, if different from initiated Date: [] Patient: Colt Flores 83 y/o M admitted on 07/02/18 for SOB . Chief Complaint: [] Interval history: Mr. Flores is a 83 year old M with history of ITP and recent right kate etal CVA undergoing rehabilitation at SNF who presents with worsening shortness of breath that has progressed overthe last 5 days. Symptoms have dramatically worsened in the last 24 hours. Patient has become extremely labored, wheezing unable to perform activities of daily living. He was subsequently referred to [facility]. He presents along with his . He endorses to associated yellow productive sputum. He endorses loss of appetite and also endorses to orthopnea. Initial workup was consistent with COPD exacerbation secondary to right basilar pneumonia along with CHF on chest imaging. Hospitalist service was consulted At the time of evaluation patient is accompanied with his . He was able to answer most of the questions. He denies fevers shaking chills, drenching sweats, headache photophobia, diarrhea dysuria. Patient has been exposed to sick contact at the care center however is up-to-date on vaccines status 07/03-patient doing better this morning. Improved wheezing. Overnight every 8 hours and BiPAP. Currently on 2 L oxygen. White count 25,000 with lymphocyte predominance. Platelets at 52. Pro-calcitonin negative. DC Rocephin. Continue pulmonary toilet/rehabilitation 07/04- doing well. Improved dyspnea. Transition to oral steroids. Possible discharge in 24 hours on an additional 5 days steroids. Ongoing PT OT. Using CPAP at night. 07/05- Patient diuresing well. However still feels short of breath. Anticipate discharge in 24 hours if continues to improve. No overnight fever chills nausea vomiting. Ongoing physical therapy for recent CVA/deconditioning. - Constitutional Vitals: Vital Signs Temp Pulse Resp BP Pulse Ox 97 F 57 L 1 L 132/64 96 07/05/18 07:00 07/05/18 07:30 07/05/18 07:30 07/05/18 07:00 07/05/18 07:00 Period Temp Pulse Resp BP Sys/Coreas Pulse Ox Last 24 Hr 97 F-98.4 F 51-60 1-24 113-132/46-67 94-98 Intake and Output 07/04/18 07/05/18 07/05/18 21:59 05:59 13:59 Intake Total 150 450 880 Output Total 1050 450 Balance -900 0 880 Weight 203 lb 6.4 oz Intake & Output: Intake & Output 07/04/18 07/05/18 07/05/18 21:59 05:59 13:59 Intake Total 150 450 880 Output Total 1050 450 Balance -900 0 880 Weight 203 lb 6.4 oz Intake: Oral 150 450 880 Output: Urine Catheter Amount 1050 450 Other: Meal Dinner Breakfast Percent of Meal Consumed 75% 100% Feeding Ability Assist with Tray Set Up Assist with Tray Set Up Urine Appearance Uretheral (Cervantes) Clear Urine Color Light Xenia Uretheral (Cervantes) Light Xenia Urine Odor Normal Uretheral (Cervantes) Normal General appearance: no acute distress Exam: On nasal cannula oxygen Foleys draining clear urine Diminished breath sounds bases with crackles improved since previous day No lymphedema Anxiety Irregular rhythm Medical - PN: Obj Da - Labs CBC & Chem 7: 07/06/18 04:43 07/06/18 04:43 Labs: Abnormal Lab Results 07/05/18 07/05/18 07/04/18 04:41 04:41 04:15 WBC 20.2 H RBC 3.01 L Hgb 11.1 L Hct 32.3 L MCV 107.4 H MCH 36.8 H RDW 14.9 H Plt Count 71 L Gran % Lymph % (Auto) Lymph # (Auto) [place] # (Auto) Seg Neutrophils % 35 L Lymphocytes % 58 H Nucleated RBCs WBC Morphology Abnorm A Smudge Cells Few A Platelet Estimate Decreased A RBC Morphology Abnorm A Macrocytosis 2+ A Carbon Dioxide BUN 47 H 44 H Glucose 164 H 243 H Uric Acid 8.6 H Calcium Total Bilirubin 1.6 H 1.5 H Direct Bilirubin 0.4 H NT-Pro-B Natriuret Pep Total Protein 5.7 L 5.7 L 07/04/18 07/03/18 07/03/18 04:15 04:02 04:02 WBC 25.0 H 25.4 H RBC 2.94 L 2.92 L Hgb 10.9 L 10.7 L Hct 31.4 L 30.8 L MCV 106.8 H 105.6 H MCH 37.1 H 36.6 H RDW 15.0 H 14.8 H Plt Count 61 L 52 L Gran % Lymph % (Auto) Lymph # (Auto) [place] # (Auto) Seg Neutrophils % 37 L Lymphocytes % 62 H 55 H Nucleated RBCs 1 H 1 H WBC Morphology Abnorm A Smudge Cells Few A Platelet Estimate Decreased A Decreased A RBC Morphology Abnorm A Abnorm A Macrocytosis 2+ A 2+ A Carbon Dioxide BUN 42 H Glucose 249 H Uric Acid Calcium 8.5 L Total Bilirubin 1.2 H Direct Bilirubin NT-Pro-B Natriuret Pep Total Protein 5.8 L 07/02/18 07/02/18 07/02/18 14:41 14:01 13:53 WBC 23.1 H RBC 3.18 L Hgb 11.2 L Hct 33.0 L MCV 103.6 H MCH 35.3 H RDW 15.1 H Plt Count 51 L Gran % 32.5 L Lymph % (Auto) 59.0 H Lymph # (Auto) 13.6 H [place] # (Auto) 1.9 H Seg Neutrophils % Lymphocytes % Nucleated RBCs WBC Morphology Smudge Cells Platelet Estimate RBC Morphology Macrocytosis Carbon Dioxide 32 H BUN 41 H Glucose 191 H Uric Acid Calcium Total Bilirubin 1.4 H Direct Bilirubin NT-Pro-B Natriuret Pep 1993.0 H Total Protein Meds: Medications Acetaminophen (Tylenol) 650 mg PO Q4-6HP PRN PRN Reason: PAIN/FEVER > 101 Albuterol/Ipratropium (Duoneb) 3 ml NEB Q4HP PRN PRN Reason: Bronchospasm Albuterol/Ipratropium (Duoneb) 3 ml NEB Q6HRT [facility] Last Admin: 07/05/18 07:30 Dose: 3 ml Documented by: Allopurinol (Zyloprim) 100 mg PO DAILY [facility] Last Admin: 07/05/18 09:13 Dose: 100 mg Documented by: Aspirin (Aspirin) 81 mg PO DAILY [facility] Last Admin: 07/05/18 09:12 Dose: 81 mg Documented by: Atorvastatin Calcium (Lipitor) 40 mg PO HS [facility] Last Admin: 07/04/18 21:15 Dose: 40 mg Documented by: Bisacodyl (Dulcolax) 10 mg SC DAILYP PRN PRN Reason: Constipation Dextrose (Dextrose 50%) 0 ml IV UD PRN PRN Reason: Hypoglycemia Diagnostic Test (Pha) (Accu-Chek) 1 each FS ACHS [facility] Last Admin: 07/05/18 07:11 Dose: 1 each Documented by: Docusate Sodium (Colace) 100 mg PO BID [facility] Last Admin: 07/05/18 09:09 Dose: 100 mg Documented by: Furosemide (Lasix) 80 mg PO QDAY [facility] Last Admin: 07/05/18 09:10 Dose: 80 mg Documented by: Glucose (Insta-Glucose) 15 gm PO PRN PRN PRN Reason: Hypoglycemia Levofloxacin (Levaquin) 750 mg in 150 mls @ 100 mls/hr IV Q24H [facility] Last Admin: 07/05/18 09:15 Dose: 100 mls/hr Documented by: Magnesium Sulfate (Magnesium Sulfate) 2 gm in 50 mls @ 50 mls/hr IV UD PRN PRN Reason: MG = or < 1.7 Acetaminophen (Ofirmev) 1,000 mg in 100 mls @ 200 mls/hr IV Q6HP PRN PRN Reason: PAIN/FEVER > 101 Insulin Human Lispro (Humalog) 0 unit SQ [facility]; Protocol Last Admin: 07/05/18 07:38 Dose: 2 units Documented by: Iron Carb/Multivit/Pump Installation [employer] Servicer/Folic Acid (Multivitamin W/Minerals) 1 tab PO DAILY [facility] Last Admin: 07/05/18 09:09 Dose: 1 tab Documented by: Lorazepam (Ativan) 0.5 mg PO BID [facility] Last Admin: 07/05/18 09:14 Dose: 0.5 mg Documented by: Magnesium Hydroxide (Milk Of Magnesia) 30 ml PO HSP PRN PRN Reason: Constipation Metoprolol Succinate (Toprol Xl) 50 mg PO DAILY [facility] Last Admin: 07/05/18 09:08 Dose: 50 mg Documented by: Mupirocin (Bactroban Oint 2%) 1 dose NARES BID [facility] Last Admin: 07/05/18 09:14 Dose: 1 dose Documented by: Omeprazole (Prilosec) 20 mg PO QAMAC [facility] Last Admin: 07/05/18 07:10 Dose: 20 mg Documented by: Ondansetron HCl (Zofran) 4 mg IV Q4-6HP PRN PRN Reason: Nausea And Vomiting Oseltamivir Phosphate (Tamiflu) 75 mg PO DAILY [facility] Stop: 07/06/18 09:01 Last Admin: 07/05/18 09:14 Dose: 75 mg Documented by: Oxazepam (Oxazepam) 15 mg PO BID [facility] Last Admin: 07/05/18 09:17 Dose: Not Given Documented by: Potassium Chloride (Klor-Con) 40 meq PO DAILYP PRN PRN Reason: K+ < 3.5 Potassium Chloride (Kdur) 20 meq PO [facility] Last Admin: 07/05/18 09:12 Dose: 20 meq Documented by: Prazosin HCl (Minipress) 2 mg PO BID [facility] Last Admin: 07/05/18 09:11 Dose: 2 mg Documented by: Prednisone (Prednisone) 40 mg PO [facility] Last Admin: 07/05/18 09:13 Dose: 40 mg Documented by: Senna/Docusate Sodium (Senna Plus Tablet) 1 tab PO HS [facility] Last Admin: 07/04/18 21:14 Dose: 1 tab Documented by: Sodium Chloride (Saline Flush) 10 ml IV Q8 [facility] Last Admin: 07/05/18 05:58 Dose: Not Given Documented by: Spironolactone (Aldactone) 12.5 mg PO QAM [facility] Last Admin: 07/05/18 09:09 Dose: 12.5 mg Documented by: Vitamin D (Vitamin D3) 2,000 unit PO DAILY [facility] Last Admin: 07/05/18 09:13 Dose: 2,000 unit Documented by: Medical - PN: A/P - Time Spent With Patient Total time spent is greater than 50% in coordination of care (as documented) at patient's floor/unit and/or counseling patient: 25 - 35 minutes (1) Right lower lobe pneumonia Status: Acute Assessment and plan: * Right lower lobe pneumonia on imaging-Staph aureus on culture, clinical improvement noted. Continue Vancomycin /levaquin for atypical coverage * Diastolic heart failure now resolved on imaging. Continue metoprolol/spironolactone. Reviewed echocardiogram from March with normal LVEF but moderate pulmonary hypertension. Patient follows up with Dr. Mehta at [place] [facility]. * COPD exacerbation secondary to above-clinically resolved on steroids/bronchodilators. Continue prednisone for additional 3 days * Hypoxic respiratory failure -secondary to combination of pneumonia/CHF/COPD exacerbation. 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 Residual deficits. Continue aspirin/statin/rehabilitation. ST eval/barium swallow ongoing * Chronic atrial fibrillation -continue beta-mary. Not a candidate for full dose anticoagulation in light of thrombocytopenia. On aspirin 81 * History of ITP platelets remains around baseline~50 * Leukocytosis-lymphocytic predominance , follows up with oncology. Question CLL/MDS(chronic elevation ) * History of hypertension -on metoprolol/prazosin/spironolactone * CKD stage III at baseline. Creatinine baseline 1.2 * History of PATITO on CPAP * History of gout on allopurinol * History of hypertension continue prazosin/spironolactone/metoprolol * Full code Plan * Continue prednisone for additional 3 days * Antibiotics for additional 4 days * PT OT/nutrition support * CPAP at night * Pre-existing medical condition management on home meds * Anticipate discharge Sunday to SNF Current Visit: Yes Medical - PN: Qual - Stroke Symptom Onset Unknown: No - VTE Deep Vein Thrombosis/Pulmonary Embolism Present on Admission: No
[2018-07-05] MEDS ORDERED: VANCOMYCIN PER PHARMACY IV SCH (13:14)
[2018-07-05] MEDS: VANCOMYCIN 1,500 MG in 0.9 % SODIUM CHLORIDE 500 ML IV SCH (14:48)
[2018-07-05] MEDS: ATORVASTATIN 20 MG TABLET PO SCH (21:00)
[2018-07-05] MEDS: SENNOSIDES/DOCUSATE SODIUM 1 TAB TABLET PO SCH (21:00)
[2018-07-06] MEDS: IPRATROPIUM/ALBUTEROL 3 ML AMPUL.NEB NEB SCH ×4 (01:11→19:54)
[2018-07-06] MEDS: PRAZOSIN 1 MG CAPSULE PO SCH ×3 (01:12→21:29)
[2018-07-06] MEDS: 0.9 % SODIUM CHLORIDE 10 ML SYRINGE IV SCH ×2 (04:30→12:11)
[2018-07-06 05:57] LABS: Mean Cell Volume 106.5 fL (80.0-100.0); Mean Corpuscular HGB Conc 34.3 g/dL (31.0-36.0); Platelet Count 65 K/mcL (140-440); RBC 3.08 M/mcL (4.50-5.90); Red Cell Distribution Width 15.1 % (11.5-14.5)
[2018-07-06 06:11] LABS: ALT/SGPT 18 U/l (0-40); Albumin 3.4 gm/dL (3.2-5.2); Albumin/Globulin Ratio 1.5 (1.0-2.3); Alkaline Phosphatase 83 U/L (39-117); Bilirubin,Direct 0.4 mg/dL (0.0-0.3); Blood Urea Nitrogen 44 mg/dl (8-23); Gamma Glutamyl Transpeptidase 34 U/L (8-61); Uric Acid 8.2 mg/dL (2.5-8.0)
[2018-07-06 06:44] LABS: Anisocytosis FEW (NONE SEEN); Lymphocytes % 56 % (15-49); Macrocytosis 2+ (NONE SEEN); Monocytes % (Manual) 9 % (1-12); Platelet Estimate DECREASED (NORMAL); RBC Morphology ABNORM (NORMAL); Segmented Neutrophils % 35 % (38-78); Smudge Cells FEW (NONE SEEN)
[2018-07-06] MEDS: INSULIN LISPRO 1 UNIT/0.01 ML UNIT SQ SCH ×4 (07:16→21:31)
[2018-07-06] MEDS: SPIRONOLACTONE 25 MG TABLET PO SCH (08:26)
[2018-07-06] MEDS: DOCUSATE SODIUM 100 MG CAPSULE PO SCH ×2 (08:27→21:30)
[2018-07-06] MEDS: predniSONE 20 MG TABLET PO SCH (08:27)
[2018-07-06] MEDS: ALLOPURINOL 100 MG TABLET PO SCH (08:27)
[2018-07-06] MEDS: OMEPRAZOLE 20 MG CAPSULE PO SCH (08:27)
[2018-07-06] MEDS: FUROSEMIDE 80 MG TABLET PO SCH (08:27)
[2018-07-06] MEDS: METOPROLOL SUCCINATE 50 MG TAB.XL.24H PO SCH (08:27)
[2018-07-06] MEDS: VITAMIN D3 1,000 UNIT TABLET PO SCH (08:27)
[2018-07-06] MEDS: OSELTAMIVIR PHOSPHATE 75 MG CAPSULE PO SCH (08:27)
[2018-07-06] MEDS: ASPIRIN 81 MG TAB.CHEW PO SCH (08:28)
[2018-07-06] MEDS: MULTIVIT,THER IRON,CA,FA & MIN 1 TABLET PO SCH (08:28)
[2018-07-06] MEDS: OXAZEPAM 15 MG CAPSULE PO SCH (08:28)
[2018-07-06] MEDS: POTASSIUM CHLORIDE 20 MEQ TABLET PO SCH (08:28)
[2018-07-06] MEDS: MUPIROCIN OINT 2% 22GM NARES SCH (08:28)
[2018-07-06] MEDS: LORazepam 0.5 MG TABLET PO SCH ×2 (08:28→21:30)
[2018-07-06] MEDS: VANCOMYCIN 1,500 MG in 0.9 % SODIUM CHLORIDE 500 ML IV SCH (08:28)
[2018-07-06] MEDS: LEVOFLOXACIN 750 MG/150 ML BAG IV SCH (10:39)
--- NOTE | 2018-07-06 12:33 | Internal Med Progress Note ---
Medical - PN: Subj Patient information: Note initiated : 07/06/18 at 12:31 pm Service Date, if different from initiated Date: [] Patient: Colt Flores 83 y/o M admitted on 07/02/18 for SOB . Chief Complaint: [] Interval history: Mr. Flores is a 83 year old M with history of ITP and recent right kate etal CVA undergoing rehabilitation at SNF who presents with worsening shortness of breath that has progressed overthe last 5 days. Symptoms have dramatically worsened in the last 24 hours. Patient has become extremely labored, wheezing unable to perform activities of daily living. He was subsequently referred to [facility]. He presents along with his . He endorses to associated yellow productive sputum. He endorses loss of appetite and also endorses to orthopnea. Initial workup was consistent with COPD exacerbation secondary to right basilar pneumonia along with CHF on chest imaging. Hospitalist service was consulted At the time of evaluation patient is accompanied with his . He was able to answer most of the questions. He denies fevers shaking chills, drenching sweats, headache photophobia, diarrhea dysuria. Patient has been exposed to sick contact at the care center however is up-to-date on vaccines status 07/03-patient doing better this morning. Improved wheezing. Overnight every 8 hours and BiPAP. Currently on 2 L oxygen. White count 25,000 with lymphocyte predominance. Platelets at 52. Pro-calcitonin negative. DC Rocephin. Continue pulmonary toilet/rehabilitation 07/04- doing well. Improved dyspnea. Transition to oral steroids. Possible discharge in 24 hours on an additional 5 days steroids. Ongoing PT OT. Using CPAP at night. 07/05- Patient diuresing well. However still feels short of breath. Anticipate discharge in 24 hours if continues to improve. No overnight fever chills nausea vomiting. Ongoing physical therapy for recent CVA/deconditioning. 07/07 - Constitutional Vitals: Vital Signs Temp Pulse Resp BP Pulse Ox 97.7 F 55 L 16 112/60 96 07/06/18 06:54 07/06/18 07:28 07/06/18 07:28 07/06/18 06:54 07/06/18 07:27 Period Temp Pulse Resp BP Sys/Coreas Pulse Ox Last 24 Hr 96.9 F-98.2 F 48-81 16-20 112-138/60-73 94-98 Intake and Output 07/05/18 07/06/18 07/06/18 21:59 05:59 13:59 Intake Total 600 300 480 Output Total 306 500 Balance 294 300 -20 Weight 93.44 kg Intake & Output: Intake & Output 07/05/18 07/06/18 07/06/18 21:59 05:59 13:59 Intake Total 600 300 480 Output Total 306 500 Balance 294 300 -20 Weight 93.44 kg Intake: IV 500 Vancomycin 1,500 mg In Sodium 500 Chloride 0.9% 500 ml @ 333.3 mls/hr IV DAILY [facility] Rx#: [id number] Oral 100 300 480 Output: Void Amount 300 500 # of times incontinent of urine 6 Other: Meal Lunch Percent of Meal Consumed 75% Feeding Ability Assist with Tray Set Up Urine Appearance Clear Clear Urine Color Pale Pale Dark Yellow Urine Odor Normal Normal Strong # Voids 2 1 # Bowel Movements 0 # of times incontinent of 2 Bowels Exam: General: Alert, Awake, No acute Distress Eyes/N/T: EOMI, Head/Neck: neck supple, CV: RRR, No murmurs, Pulm: Abd: soft, nontender, +BS x4 Ext: no clubbing/cyanosis/edema Neuro: Alert, no focal deficits, moves all extremities, Skin: warm/dry Medical - PN: Obj Da - Labs CBC & Chem 7: 07/06/18 04:43 07/06/18 04:43 Labs: Abnormal Lab Results 07/06/18 07/06/18 07/05/18 04:43 04:43 04:41 WBC 17.5 H RBC 3.08 L Hgb 11.3 L Hct 32.8 L MCV 106.5 H MCH 36.6 H RDW 15.1 H Plt Count 65 L Seg Neutrophils % 35 L Lymphocytes % 56 H Nucleated RBCs WBC Morphology Abnorm A Smudge Cells Few A Platelet Estimate Decreased A RBC Morphology Abnorm A Polychromasia Few A Anisocytosis Few A Macrocytosis 2+ A Carbon Dioxide 31 H BUN 44 H 47 H Creatinine 1.3 H Glucose 171 H 164 H Uric Acid 8.2 H 8.6 H Total Bilirubin 1.9 H 1.6 H Direct Bilirubin 0.4 H Total Protein 5.7 L 5.7 L 0407/04/18 07/04/18 04:41 04:15 04:15 WBC 20.2 H 25.0 H RBC 3.01 L 2.94 L Hgb 11.1 L 10.9 L Hct 32.3 L 31.4 L MCV 107.4 H 106.8 H MCH 36.8 H 37.1 H RDW 14.9 H 15.0 H Plt Count 71 L 61 L Seg Neutrophils % 35 L 37 L Lymphocytes % 58 H 62 H Nucleated RBCs 1 H WBC Morphology Abnorm A Smudge Cells Few A Platelet Estimate Decreased A Decreased A RBC Morphology Abnorm A Abnorm A Polychromasia Anisocytosis Macrocytosis 2+ A 2+ A Carbon Dioxide BUN 44 H Creatinine Glucose 243 H Uric Acid Total Bilirubin 1.5 H Direct Bilirubin 0.4 H Total Protein 5.7 L Meds: Medications Acetaminophen (Tylenol) 650 mg PO Q4-6HP PRN PRN Reason: PAIN/FEVER > 101 Albuterol/Ipratropium (Duoneb) 3 ml NEB Q4HP PRN PRN Reason: Bronchospasm Albuterol/Ipratropium (Duoneb) 3 ml NEB Q6HRT [facility] Last Admin: 07/06/18 07:16 Dose: 3 ml Documented by: Allopurinol (Zyloprim) 100 mg PO DAILY [facility] Last Admin: 07/06/18 08:27 Dose: 100 mg Documented by: Aspirin (Aspirin) 81 mg PO DAILY [facility] Last Admin: 07/06/18 08:28 Dose: 81 mg Documented by: Atorvastatin Calcium (Lipitor) 40 mg PO HS [facility] Last Admin: 07/05/18 21:00 Dose: 40 mg Documented by: Bisacodyl (Dulcolax) 10 mg MA DAILYP PRN PRN Reason: Constipation Dextrose (Dextrose 50%) 0 ml IV UD PRN PRN Reason: Hypoglycemia Diagnostic Test (Pha) (Accu-Chek) 1 each FS ACHS [facility] Last Admin: 07/06/18 11:28 Dose: 1 each Documented by: Docusate Sodium (Colace) 100 mg PO BID [facility] Last Admin: 07/06/18 08:27 Dose: 100 mg Documented by: Furosemide (Lasix) 80 mg PO QDAY [facility] Last Admin: 07/06/18 08:27 Dose: 80 mg Documented by: Glucose (Insta-Glucose) 15 gm PO PRN PRN PRN Reason: Hypoglycemia Magnesium Sulfate (Magnesium Sulfate) 2 gm in 50 mls @ 50 mls/hr IV UD PRN PRN Reason: MG = or < 1.7 Acetaminophen (Ofirmev) 1,000 mg in 100 mls @ 200 mls/hr IV Q6HP PRN PRN Reason: PAIN/FEVER > 101 Vancomycin HCl 1,500 mg/ (Sodium Chloride) 500 mls @ 333.3 mls/hr IV DAILY [facility] Last Admin: 07/06/18 08:28 Dose: 333.3 mls/hr Documented by: Levofloxacin (Levaquin) 750 mg in 150 mls @ 100 mls/hr IV Q24H [facility] Last Admin: 07/06/18 10:39 Dose: 100 mls/hr Documented by: Insulin Human Lispro (Humalog) 0 unit SQ ACHS [facility]; Protocol Last Admin: 07/06/18 11:35 Dose: 6 units Documented by: Iron Carb/Multivit/[place]/Folic Acid (Multivitamin W/Minerals) 1 tab PO DAILY [facility] Last Admin: 07/06/18 08:28 Dose: 1 tab Documented by: Lorazepam (Ativan) 0.5 mg PO BID [facility] Last Admin: 07/06/18 08:28 Dose: 0.5 mg Documented by: Magnesium Hydroxide (Milk Of Magnesia) 30 ml PO HSP PRN PRN Reason: Constipation Metoprolol Succinate (Toprol Xl) 50 mg PO DAILY [facility] Last Admin: 07/06/18 08:27 Dose: 50 mg Documented by: Mupirocin (Bactroban Oint 2%) 1 dose NARES BID [facility] Last Admin: 07/06/18 08:28 Dose: 1 dose Documented by: Omeprazole (Prilosec) 20 mg PO QAMAC [facility] Last Admin: 07/06/18 08:27 Dose: 20 mg Documented by: Ondansetron HCl (Zofran) 4 mg IV Q4-6HP PRN PRN Reason: Nausea And Vomiting Oxazepam (Oxazepam) 15 mg PO BID [facility] Last Admin: 07/06/18 08:28 Dose: Not Given Documented by: Potassium Chloride (Klor-Con) 40 meq PO DAILYP PRN PRN Reason: K+ < 3.5 Potassium Chloride (Kdur) 20 meq PO QAMCC [facility] Last Admin: 07/06/18 08:28 Dose: 20 meq Documented by: Prazosin HCl (Minipress) 2 mg PO BID [facility] Last Admin: 07/06/18 08:27 Dose: 2 mg Documented by: Prednisone (Prednisone) 40 mg PO [facility] Last Admin: 07/06/18 08:27 Dose: 40 mg Documented by: Senna/Docusate Sodium (Senna Plus Tablet) 1 tab PO HS [facility] Last Admin: 07/05/18 21:00 Dose: 1 tab Documented by: Sodium Chloride (Saline Flush) 10 ml IV Q8 [facility] Last Admin: 07/06/18 12:11 Dose: 10 ml Documented by: Spironolactone (Aldactone) 12.5 mg PO QAM [facility] Last Admin: 07/06/18 08:26 Dose: 12.5 mg Documented by: Vancomycin HCl (Vancomycin Per Pharmacy) 1 order IV UD [facility]; Protocol Vitamin D (Vitamin D3) 2,000 unit PO DAILY [facility] Last Admin: 07/06/18 08:27 Dose: 2,000 unit Documented by: Medical - PN: A/P - Time Spent With Patient Total time spent is greater than 50% in coordination of care (as documented) at patient's floor/unit and/or counseling patient: - Narrative A/P Narrative: A: *RLL PNA: *Diastolic CHF: Resolving. -Reviewed echocardiogram from March with normal LVEF but moderate pulmonary hypertension. -Patient follows up with Dr. Mehta at [place] [facility]. *AECOPD: secondary to above-clinically resolved on steroids/bronchodilators. *Hypoxic respiratory failure: secondary to combination of pneumonia/CHF/COPD exacerbation. - *Recent Rt parietal lobe ischemic CVA w/Left hemiparesis residual deficits: *Oropharyngeal dysphagia, Moderate: *Chronic atrial fibrillation: *History of ITP platelets remains around baseline~50: follows with Dr. Molina *Leukocytosis: lymphocytic predominance , follows up with oncology. Question CLL/MDS(chronic elevation ) *HTN: -on metoprolol/prazosin/spironolactone *CKD III: at baseline. *History of PATITO on CPAP *History of gout on allopurinol *DM *GERD Plan: -Vanco/Zosyn -Continue prednisone for additional 3 days -Antibiotics for additional 4 days -Continue metoprolol/spironolactone -Continue supplemental oxygen/pulmonary toilet and breathing treatments -Continue aspirin/statin/rehabilitation. - ST eval/barium swallow ongoing -continue BB, Not a candidate for full dose anticoagulation in light of thrombocytopenia. On aspirin 81 -PT OT/nutrition support -CPAP at night -f/u with hematology -Anticipate discharge Sunday to SNF -ppx: SCD Full code Medical - PN: Qual - Stroke Symptom Onset Unknown: No - VTE Deep Vein Thrombosis/Pulmonary Embolism Present on Admission: No
--- NOTE | 2018-07-06 19:56 | Internal Med Progress Note ---
Medical - PN: Subj Patient information: Note initiated : 07/06/18 at 7:53 pm Service Date, if different from initiated Date: [] Patient: Colt Flores 83 y/o M admitted on 07/02/18 for SOB . Chief Complaint: [] Interval history: Mr. Flores is a 83 year old M with history of ITP and recent right parie manuel CVA undergoing rehabilitation at SNF who presents with worsening shortness of breath that has progressed overthe last 5 days. Symptoms have dramatically worsened in the last 24 hours. Patient has become extremely labored, wheezing unable to perform activities of daily living. He was subsequently referred to [facility]. He presents along with his . He endorses to associated yellow productive sputum. He endorses loss of appetite and also endorses to orthopnea. Initial workup was consistent with COPD exacerbation secondary to right basilar pneumonia along with CHF on chest imaging. Hospitalist service was consulted At the time of evaluation patient is accompanied with his . He was able to answer most of the questions. He denies fevers shaking chills, drenching sweats, headache photophobia, diarrhea dysuria. Patient has been exposed to sick contact at the care center however is up-to-date on vaccines status 07/03-patient doing better this morning. Improved wheezing. Overnight every 8 hours and BiPAP. Currently on 2 L oxygen. White count 25,000 with lymphocyte predominance. Platelets at 52. Pro-calcitonin negative. DC Rocephin. Continue pulmonary toilet/rehabilitation 07/04- doing well. Improved dyspnea. Transition to oral steroids. Possible discharge in 24 hours on an additional 5 days steroids. Ongoing PT OT. Using CPAP at night. 07/05- Patient diuresing well. However still feels short of breath. Anticipate discharge in 24 hours if continues to improve. No overnight fever chills nausea vomiting. Ongoing physical therapy for recent CVA/deconditioning. 07/06- Pt doing well, On Vanco for MRSA PNA. Anticipate discharge to SNF in 48-72 hours, Afebrile. On 2 L O2. Continuing PT/OT. - Constitutional Vitals: Vital Signs Temp Pulse Resp BP Pulse Ox 98.6 F 56 L 20 111/56 93 07/06/18 15:22 07/06/18 13:17 07/06/18 15:22 07/06/18 15:22 07/06/18 15:22 Period Temp Pulse Resp BP Sys/Coreas Pulse Ox Last 24 Hr 97.2 F-98.6 F 48-81 16-20 111-134/56-73 93-98 Intake and Output 07/06/18 07/06/18 07/06/18 05:59 13:59 21:59 Intake Total 300 480 400 Output Total 501 476 Balance Intake & Output: Intake & Output 07/06/18 07/06/18 07/06/18 05:59 13:59 21:59 Intake Total 300 480 400 Output Total 501 476 Balance 300 Intake: Oral 300 480 400 Output: Void Amount 500 475 # of times incontinent of urine 1 1 Other: Meal Lunch Percent of Meal Consumed 75% Feeding Ability Assist with Tray Set Up Urine Appearance Clear Urine Color Pale Dark Yellow Urine Odor Normal Strong # Voids 1 1 # Bowel Movements 0 # of times incontinent of 2 Bowels General appearance: no acute distress Exam: Alert and oriented Non laored breathing Diminished BS bases Abd Soft Medical - PN: Obj Da - Labs CBC & Chem 7: 07/06/18 04:43 07/06/18 04:43 Labs: Abnormal Lab Results 07/06/18 07/06/18 07/05/18 04:43 04:43 04:41 WBC 17.5 H RBC 3.08 L Hgb 11.3 L Hct 32.8 L MCV 106.5 H MCH 36.6 H RDW 15.1 H Plt Count 65 L Seg Neutrophils % 35 L Lymphocytes % 56 H Nucleated RBCs WBC Morphology Abnorm A Smudge Cells Few A Platelet Estimate Decreased A RBC Morphology Abnorm A Polychromasia Few A Anisocytosis Few A Macrocytosis 2+ A Carbon Dioxide 31 H BUN 44 H 47 H Creatinine 1.3 H Glucose 171 H 164 H Uric Acid 8.2 H 8.6 H Total Bilirubin 1.9 H 1.6 H Direct Bilirubin 0.4 H Total Protein 5.7 L 5.7 L 07/05/18 07/04/18 07/04/18 04:41 04:15 04:15 WBC 20.2 H 25.0 H RBC 3.01 L 2.94 L Hgb 11.1 L 10.9 L Hct 32.3 L 31.4 L MCV 107.4 H 106.8 H MCH 36.8 H 37.1 H RDW 14.9 H 15.0 H Plt Count 71 L 61 L Seg Neutrophils % 35 L 37 L Lymphocytes % 58 H 62 H Nucleated RBCs 1 H WBC Morphology Abnorm A Smudge Cells Few A Platelet Estimate Decreased A Decreased A RBC Morphology Abnorm A Abnorm A Polychromasia Anisocytosis Macrocytosis 2+ A 2+ A Carbon Dioxide BUN 44 H Creatinine Glucose 243 H Uric Acid Total Bilirubin 1.5 H Direct Bilirubin 0.4 H Total Protein 5.7 L Meds: Medications Acetaminophen (Tylenol) 650 mg PO Q4-6HP PRN PRN Reason: PAIN/FEVER > 101 Albuterol/Ipratropium (Duoneb) 3 ml NEB Q4HP PRN PRN Reason: Bronchospasm Albuterol/Ipratropium (Duoneb) 3 ml NEB Q6HRT [facility] Last Admin: 07/06/18 13:17 Dose: 3 ml Documented by: Allopurinol (Zyloprim) 100 mg PO DAILY [facility] Last Admin: 07/06/18 08:27 Dose: 100 mg Documented by: Aspirin (Aspirin) 81 mg PO DAILY [facility] Last Admin: 07/06/18 08:28 Dose: 81 mg Documented by: Atorvastatin Calcium (Lipitor) 40 mg PO HS [facility] Last Admin: 07/05/18 21:00 Dose: 40 mg Documented by: Bisacodyl (Dulcolax) 10 mg CO DAILYP PRN PRN Reason: Constipation Dextrose (Dextrose 50%) 0 ml IV UD PRN PRN Reason: Hypoglycemia Diagnostic Test (Pha) (Accu-Chek) 1 each FS ACHS [facility] Last Admin: 07/06/18 16:58 Dose: 1 each Documented by: Docusate Sodium (Colace) 100 mg PO BID [facility] Last Admin: 07/06/18 08:27 Dose: 100 mg Documented by: Furosemide (Lasix) 80 mg PO QDAY [facility] Last Admin: 07/06/18 08:27 Dose: 80 mg Documented by: Glucose (Insta-Glucose) 15 gm PO PRN PRN PRN Reason: Hypoglycemia Magnesium Sulfate (Magnesium Sulfate) 2 gm in 50 mls @ 50 mls/hr IV UD PRN PRN Reason: MG = or < 1.7 Acetaminophen (Ofirmev) 1,000 mg in 100 mls @ 200 mls/hr IV Q6HP PRN PRN Reason: PAIN/FEVER > 101 Vancomycin HCl 1,500 mg/ (Sodium Chloride) 500 mls @ 333.3 mls/hr IV DAILY [facility] Last Admin: 07/06/18 08:28 Dose: 333.3 mls/hr Documented by: Levofloxacin (Levaquin) 750 mg in 150 mls @ 100 mls/hr IV Q24H [facility] Last Admin: 07/06/18 10:39 Dose: 100 mls/hr Documented by: Insulin Human Lispro (Humalog) 0 unit SQ ACHS [facility]; Protocol Last Admin: 07/06/18 16:59 Dose: 6 units Documented by: Iron Carb/Multivit/[place]/Folic Acid (Multivitamin W/Minerals) 1 tab PO DAILY [facility] Last Admin: 07/06/18 08:28 Dose: 1 tab Documented by: Lorazepam (Ativan) 0.5 mg PO BID [facility] Last Admin: 07/06/18 08:28 Dose: 0.5 mg Documented by: Magnesium Hydroxide (Milk Of Magnesia) 30 ml PO HSP PRN PRN Reason: Constipation Metoprolol Succinate (Toprol Xl) 50 mg PO DAILY [facility] Last Admin: 07/06/18 08:27 Dose: 50 mg Documented by: Mupirocin (Bactroban Oint 2%) 1 dose NARES BID [facility] Last Admin: 07/06/18 08:28 Dose: 1 dose Documented by: [facility]) [facility] Admin: 07/06/18 08:27 Dose: 20 mg Documented by: Ondansetron HCl (Zofran) 4 mg IV Q4-6HP PRN PRN Reason: Nausea And Vomiting Oxazepam (Oxazepam) 15 mg PO BID [facility] Last Admin: 07/06/18 08:28 Dose: Not Given Documented by: Potassium Chloride (Klor-Con) 40 meq PO DAILYP PRN PRN Reason: K+ < 3.5 Potassium Chloride (Kdur) 20 meq PO [facility] Last Admin: 07/06/18 08:28 Dose: 20 meq Documented by: Prazosin HCl (Minipress) 2 mg PO BID [facility] Last Admin: 07/06/18 08:27 Dose: 2 mg Documented by: Prednisone (Prednisone) 40 mg PO [facility] Last Admin: 07/06/18 08:27 Dose: 40 mg Documented by: Senna/Docusate Sodium (Senna Plus Tablet) 1 tab PO HS [facility] Last Admin: 07/05/18 21:00 Dose: 1 tab Documented by: Sodium Chloride (Saline Flush) 10 ml IV Q8 [facility] Last Admin: 07/06/18 12:11 Dose: 10 ml Documented by: Spironolactone (Aldactone) 12.5 mg PO QAM [facility] Last Admin: 07/06/18 08:26 Dose: 12.5 mg Documented by: Vancomycin HCl (Vancomycin Per Pharmacy) 1 order IV UD [facility]; Protocol Vitamin D (Vitamin D3) 2,000 unit PO DAILY [facility] Last Admin: 07/06/18 08:27 Dose: 2,000 unit Documented by: Medical - PN: A/P - Time Spent With Patient Total time spent is greater than 50% in coordination of care (as documented) at patient's floor/unit and/or counseling patient: 25 - 35 minutes (1) Right lower lobe pneumonia Status: Acute Assessment and plan: * Right lower lobe pneumonia MRSA on culture- clinical improvement noted. Continue Vancomycin /levaquin for atypical coverage * Diastolic heart failure now resolved on imaging. Continue metoprolol/spironol actone. Reviewed echocardiogram from March with normal LVEF but moderate pulmonary hypertension. Patient follows up with Dr. Mehta at [place] [facility]. * COPD exacerbation secondary to above-clinically resolved on steroids/bronchodilators. Continue prednisone for additional 2 days * Hypoxic respiratory failure -secondary to combination of pneumonia/CHF/COPD exacerbation. 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 Residual deficits. Continue aspirin/statin/rehabilitation. ST eval/barium swallow carley oing * Chronic atrial fibrillation -continue beta-mary. Not a candidate for full dose anticoagulation in light of thrombocytopenia. On aspirin 81 * History of ITP platelets remains around baseline~50 * Leukocytosis-lymphocytic predominance , follows up with oncology. Question CLL/MDS(chronic elevation ) * History of hypertension -on metoprolol/prazosin/spironolactone * CKD stage III at baseline. 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
[2018-07-06] MEDS: ATORVASTATIN 20 MG TABLET PO SCH (21:29)
[2018-07-06] MEDS: SENNOSIDES/DOCUSATE SODIUM 1 TAB TABLET PO SCH (21:30)
[2018-07-07] MEDS: IPRATROPIUM/ALBUTEROL 3 ML AMPUL.NEB NEB SCH ×4 (01:19→18:56)
[2018-07-07] MEDS: MUPIROCIN OINT 2% 22GM NARES SCH ×3 (01:20→21:00)
[2018-07-07] MEDS: 0.9 % SODIUM CHLORIDE 10 ML SYRINGE IV SCH ×4 (01:20→21:06)
[2018-07-07] MEDS: OXAZEPAM 15 MG CAPSULE PO SCH ×3 (01:20→21:06)
[2018-07-07 06:27] LABS: Mean Cell Volume 106.9 fL (80.0-100.0); Mean Corpuscular HGB Conc 35.5 g/dL (31.0-36.0); Platelet Count 57 K/mcL (140-440); RBC 2.95 M/mcL (4.50-5.90); Red Cell Distribution Width 14.7 % (11.5-14.5)
[2018-07-07 06:45] LABS: ALT/SGPT 19 U/l (0-40); Albumin 3.4 gm/dL (3.2-5.2); Albumin/Globulin Ratio 1.6 (1.0-2.3); Alkaline Phosphatase 76 U/L (39-117); Bilirubin,Direct 0.3 mg/dL (0.0-0.3); Blood Urea Nitrogen 41 mg/dl (8-23); Gamma Glutamyl Transpeptidase 31 U/L (8-61); Uric Acid 7.4 mg/dL (2.5-8.0)
--- NOTE | 2018-07-07 07:15 | Internal Med Progress Note ---
Medical - PN: Subj Patient information: Note initiated : 07/07/18 at 7:10 am Service Date, if different from initiated Date: [] Patient: Colt Flores 83 y/o M admitted on 07/02/18 for SOB . Chief Complaint: [] Interval history: Mr. Flores is a 83 year old M with history of ITP and recent right parie manuel CVA undergoing rehabilitation at SNF who presents with worsening shortness of breath that has progressed overthe last 5 days. Symptoms have dramatically worsened in the last 24 hours. Patient has become extremely labored, wheezing unable to perform activities of daily living. He was subsequently referred to [facility]. He presents along with his . He endorses to associated yellow productive sputum. He endorses loss of appetite and also endorses to orthopnea. Initial workup was consistent with COPD exacerbation secondary to right basilar pneumonia along with CHF on chest imaging. Hospitalist service was consulted At the time of evaluation patient is accompanied with his . He was able to answer most of the questions. He denies fevers shaking chills, drenching sweats, headache photophobia, diarrhea dysuria. Patient has been exposed to sick contact at the care center however is up-to-date on vaccines status 07/03-patient doing better this morning. Improved wheezing. Overnight every 8 hours and BiPAP. Currently on 2 L oxygen. White count 25,000 with lymphocyte predominance. Platelets at 52. Pro-calcitonin negative. DC Rocephin. Continue pulmonary toilet/rehabilitation 07/04- doing well. Improved dyspnea. Transition to oral steroids. Possible discharge in 24 hours on an additional 5 days steroids. Ongoing PT OT. Using CPAP at night. 07/05- Patient diuresing well. However still feels short of breath. Anticipate discharge in 24 hours if continues to improve. No overnight fever chills nausea vomiting. Ongoing physical therapy for recent CVA/deconditioning. 07/07 Continues to diurese well. Denies any current shortness of breath. Feels much better than when he first came in. Does not complain of cough. No chest pain. On home level of oxygen and actually satting higher than he needs. Review of Systems: denies headache/fever/chills/nausea/vomiting/chest or abdominal pain/diarrhea. Otherwise see above. - Constitutional Vitals: Vital Signs Temp Pulse Resp BP Pulse Ox 97.5 F 59 L 16 134/73 98 07/07/18 04:00 07/07/18 07:01 07/07/18 07:01 07/07/18 04:00 07/07/18 07:01 Period Temp Pulse Resp BP Sys/Coreas Pulse Ox Last 24 Hr 96.4 F-98.6 F 52-65 16-20 100-134/56-73 93-99 Intake and Output 07/06/18 07/07/18 07/07/18 21:59 05:59 13:59 Intake Total 400 150 Output Total 476 351 Balance -76 -201 Weight 90.718 kg Intake & Output: Intake & Output 07/06/18 07/07/18 07/07/18 21:59 05:59 13:59 Intake Total 400 150 Output Total 476 351 Balance -76 -201 Weight 90.718 kg Intake: Oral 400 150 Output: Void Amount 475 350 # of times incontinent of urine 1 1 Other: Urine Appearance Clear Urine Color Bright Yellow Pale Urine Odor Normal Normal # Voids 1 Exam: General: Alert, Awake, No acute Distress Eyes/N/T: EOMI, Head/Neck: neck supple, CV: irreg, No murmurs, Pulm: Mild bilateral rhonchi, slightly diminished at bases, nonlabored Abd: soft, nontender, +BS x4 Ext: no clubbing/cyanosis/edema Neuro: Alert, residual left hemiparesis from previous stroke Skin: warm/dry Medical - PN: Obj Da - Labs CBC & Chem 7: 07/07/18 04:43 07/07/18 04:43 Labs: Abnormal Lab Results 07/07/18 07/07/18 07/06/18 04:43 04:43 04:43 WBC 14.8 H RBC 2.95 L Hgb 11.2 L Hct 31.5 L MCV 106.9 H MCH 37.9 H RDW 14.7 H Plt Count 57 L Seg Neutrophils % Lymphocytes % WBC Morphology Smudge Cells Platelet Estimate RBC Morphology Polychromasia Anisocytosis Macrocytosis Carbon Dioxide 31 H BUN 41 H 44 H Creatinine 1.3 H Glucose 160 H 171 H Uric Acid 8.2 H Calcium 8.5 L Total Bilirubin 1.7 H 1.9 H Direct Bilirubin 0.4 H Lactate Dehydrogenase 260 H Total Protein 5.5 L 5.7 L Globulin 2.1 L 07/06/18 07/05/18 07/05/18 04:43 04:41 04:41 WBC 17.5 H 20.2 H RBC 3.08 L 3.01 L Hgb 11.3 L 11.1 L Hct 32.8 L 32.3 L MCV 106.5 H 107.4 H MCH 36.6 H 36.8 H RDW 15.1 H 14.9 H Plt Count 65 L 71 L Seg Neutrophils % 35 L 35 L Lymphocytes % 56 H 58 H WBC Morphology Abnorm A Abnorm A Smudge Cells Few A Few A Platelet Estimate Decreased A Decreased A RBC Morphology Abnorm A Abnorm A Polychromasia Few A Anisocytosis Few A Macrocytosis 2+ A 2+ A Carbon Dioxide BUN 47 H Creatinine Glucose 164 H Uric Acid 8.6 H Calcium Total Bilirubin 1.6 H Direct Bilirubin Lactate Dehydrogenase Total Protein 5.7 L Globulin Meds: Medications Acetaminophen (Tylenol) 650 mg PO Q4-6HP PRN PRN Reason: PAIN/FEVER > 101 Albuterol/Ipratropium (Duoneb) 3 ml NEB Q4HP PRN PRN Reason: Bronchospasm Albuterol/Ipratropium (Duoneb) 3 ml NEB Q6HRT [facility] Last Admin: 07/07/18 06:51 Dose: 3 ml Documented by: Allopurinol (Zyloprim) 100 mg PO DAILY [facility] Last Admin: 07/06/18 08:27 Dose: 100 mg Documented by: Aspirin (Aspirin) 81 mg PO DAILY [facility] Last Admin: 07/06/18 08:28 Dose: 81 mg Documented by: Atorvastatin Calcium (Lipitor) 40 mg PO HS [facility] Last Admin: 07/06/18 21:29 Dose: 40 mg Documented by: Bisacodyl (Dulcolax) 10 mg AK DAILYP PRN PRN Reason: Constipation Dextrose (Dextrose 50%) 0 ml IV UD PRN PRN Reason: Hypoglycemia Diagnostic Test (Pha) (Accu-Chek) 1 each FS ACHS [facility] Last Admin: 07/06/18 21:30 Dose: 1 each Documented by: Docusate Sodium (Colace) 100 mg PO BID [facility] Last Admin: 07/06/18 21:30 Dose: 100 mg Documented by: Furosemide (Lasix) 80 mg PO QDAY [facility] Last Admin: 07/06/18 08:27 Dose: 80 mg Documented by: Glucose (Insta-Glucose) 15 gm PO PRN PRN PRN Reason: Hypoglycemia Magnesium Sulfate (Magnesium Sulfate) 2 gm in 50 mls @ 50 mls/hr IV UD PRN PRN Reason: MG = or < 1.7 Acetaminophen (Ofirmev) 1,000 mg in 100 mls @ 200 mls/hr IV Q6HP PRN PRN Reason: PAIN/FEVER > 101 Vancomycin HCl 1,500 mg/ (Sodium Chloride) 500 mls @ 333.3 mls/hr IV DAILY [facility] Last Admin: 07/06/18 08:28 Dose: 333.3 mls/hr Documented by: Levofloxacin (Levaquin) 750 mg in 150 mls @ 100 mls/hr IV Q24H [facility] Last Admin: 07/06/18 10:39 Dose: 100 mls/hr Documented by: Insulin Human Lispro (Humalog) 0 unit SQ ACHS [facility]; Protocol Last Admin: 07/06/18 21:31 Dose: 8 units Documented by: Iron Carb/Multivit/Manager Advanced/Folic Acid (Multivitamin W/Minerals) 1 tab PO DAILY [facility] Last Admin: 07/06/18 08:28 Dose: 1 tab Documented by: Lorazepam (Ativan) 0.5 mg PO BID [facility] Last Admin: 07/06/18 21:30 Dose: 0.5 mg Documented by: Magnesium Hydroxide (Milk Of Magnesia) 30 ml PO HSP PRN PRN Reason: Constipation Metoprolol Succinate (Toprol Xl) 50 mg PO DAILY [facility] Last Admin: 07/06/18 08:27 Dose: 50 mg Documented by: Mupirocin (Bactroban Oint 2%) 1 dose NARES BID [facility] Last Admin: 07/07/18 01:20 Dose: 1 dose Documented by: Omeprazole (Prilosec) 20 mg PO QAMAC [facility] Last Admin: 07/06/18 08:27 Dose: 20 mg Documented by: Ondansetron HCl (Zofran) 4 mg IV Q4-6HP PRN PRN Reason: Nausea And Vomiting Oxazepam (Oxazepam) 15 mg PO BID [facility] Last Admin: 07/07/18 01:20 Dose: Not Given Documented by: Potassium Chloride (Klor-Con) 40 meq PO DAILYP PRN PRN Reason: K+ < 3.5 [facility] Admin: 07/06/18 08:28 Dose: 20 meq Documented by: Prazosin HCl (Minipress) 2 mg PO BID [facility] Last Admin: 07/06/18 21:29 Dose: 2 mg Documented by: Prednisone (Prednisone) 40 mg PO [facility] Last Admin: 07/06/18 08:27 Dose: 40 mg Documented by: Senna/Docusate Sodium (Senna Plus Tablet) 1 tab PO HS [facility] Last Admin: 07/06/18 21:30 Dose: 1 tab Documented by: Sodium Chloride (Saline Flush) 10 ml IV Q8 [facility] Last Admin: 07/07/18 05:39 Dose: Not Given Documented by: [facility]) [facility] Last Admin: 07/06/18 08:26 Dose: 12.5 mg Documented by: Vancomycin HCl (Vancomycin Per Pharmacy) 1 order IV UD [facility]; Protocol Vitamin D (Vitamin D3) 2,000 unit PO DAILY [facility] Last Admin: 07/06/18 08:27 Dose: 2,000 unit Documented by: Medical - PN: A/P - Time Spent With Patient Total time spent is greater than 50% in coordination of care (as documented) at patient's floor/unit and/or counseling patient: - Narrative A/P Narrative: A: *RLL PNA (MRSA): *Diastolic CHF: Resolving -Reviewed echocardiogram from March with normal LVEF but moderate pulmonary hypertension. -Patient follows up with Dr. Mehta at [facility]. *AECOPD: secondary to above-clinically resolved on steroids/bronchodilators. *Hypoxic respiratory failure: secondary to combination of pneumonia/CHF/COPD exacerbation. -now on home O2 requirement, but actually satting higher than he needs to be, will decrease O2 *Recent Rt parietal lobe ischemic CVA w/Left hemiparesis residual deficits: *Oropharyngeal dysphagia, Moderate: *Chronic atrial fibrillation: *History of ITP platelets remains around baseline~50: follows with Dr. Molina *Leukocytosis: lymphocytic predominance , follows up with oncology. Question CLL/MDS(chronic elevation ) *HTN: -on metoprolol/prazosin/spironolactone *CKD III: at baseline. *History of PATITO on CPAP *History of gout on allopurinol *DM *GERD Plan: -Vanco/levaquin -home lasix and aldactone -Continue metoprolol, Not a candidate for full dose anticoagulation in light of thrombocytopenia. On aspirin 81 -Continue supplemental oxygen/pulmonary toilet and breathing treatments -Continue aspirin/statin/rehabilitation. - ST eval/barium swallow ongoing -PT OT/nutrition support -CPAP at night -f/u with hematology -Anticipate discharge Sunday to SNF -ppx: SCD Full code Medical - PN: Qual - Stroke Symptom Onset Unknown: No - VTE Deep Vein Thrombosis/Pulmonary Embolism Present on Admission: No
[2018-07-07] MEDS: INSULIN LISPRO 1 UNIT/0.01 ML UNIT SQ SCH ×4 (07:52→21:10)
[2018-07-07] MEDS: POTASSIUM CHLORIDE 20 MEQ TABLET PO SCH (07:53)
[2018-07-07] MEDS: ASPIRIN 81 MG TAB.CHEW PO SCH (07:53)
[2018-07-07] MEDS: PRAZOSIN 1 MG CAPSULE PO SCH ×2 (07:53→20:57)
[2018-07-07] MEDS: SPIRONOLACTONE 25 MG TABLET PO SCH (07:53)
[2018-07-07] MEDS: predniSONE 20 MG TABLET PO SCH (07:54)
[2018-07-07] MEDS: MULTIVIT,THER IRON,CA,FA & MIN 1 TABLET PO SCH (07:54)
[2018-07-07] MEDS: OMEPRAZOLE 20 MG CAPSULE PO SCH (07:54)
[2018-07-07] MEDS: DOCUSATE SODIUM 100 MG CAPSULE PO SCH ×2 (07:54→20:57)
[2018-07-07] MEDS: VITAMIN D3 1,000 UNIT TABLET PO SCH (07:54)
[2018-07-07] MEDS: LORazepam 0.5 MG TABLET PO SCH ×2 (07:54→20:57)
[2018-07-07] MEDS: METOPROLOL SUCCINATE 50 MG TAB.XL.24H PO SCH (07:54)
[2018-07-07] MEDS: FUROSEMIDE 80 MG TABLET PO SCH (07:54)
[2018-07-07] MEDS: ALLOPURINOL 100 MG TABLET PO SCH (07:54)
[2018-07-07 08:07] LABS: Lymphocytes % 53 % (15-49); Macrocytosis 2+ (NONE SEEN); Monocytes % (Manual) 7 % (1-12); Platelet Estimate DECREASED (NORMAL); RBC Morphology ABNORM (NORMAL); Segmented Neutrophils % 40 % (38-78); Smudge Cells FEW (NONE SEEN)
[2018-07-07] MEDS ORDERED: ENOXAPARIN 40 MG/0.4 ML SYRINGE SQ ONE (08:30)
[2018-07-07] MEDS: LEVOFLOXACIN 750 MG/150 ML BAG IV SCH (09:01)
[2018-07-07] MEDS: VANCOMYCIN 1,500 MG in 0.9 % SODIUM CHLORIDE 500 ML IV SCH (09:50)
--- NOTE | 2018-07-07 10:43 | Discharge Summary ---
Medical - DS: Prov Patient information: Note initiated : 07/07/18 at 10:35 am Service Date, if different from initiated Date: [] Patient: Colt Flores 83 y/o M admitted on 07/02/18 for SOB . Chief Complaint: [] Date of admission: 07/02/18 17:27 Discharge date: 07/08/18 Primary care physician: Agustin Jiménez Consults: 07/02/18 Consult to Physician [CONS] Stat Comment: Consulting Provider: Salinas Teran Reason For Exam: Physician to Consult Medical - DS: Meds - Discharge Medications Prescriptions: Linezolid [Zyvox] 600 mg PO Q12 #4 tab Active and Home Medications: Home Medications Allopurinol [Zyloprim] 100 mg PO DAILY 06/28/16 [History Confirmed 07/02/18 Last Taken Unknown] Oxazepam 15 mg PO BID 06/28/16 [History Confirmed 07/02/18 Last Taken Unknown] Prazosin [Minipress] 2 mg PO BID 06/28/16 [History Confirmed 07/02/18 Last Taken Unknown] metoprolol succinate ER 50 mg tablet,extended release 24 hr 50 mg PO DAILY tab 06/26/17 [History Confirmed 07/02/18 Last Taken Unknown] furosemide 80 mg tablet 80 mg PO QDAY #90 tab 07/12/17 [Rx Confirmed 07/02/18 Last Taken Unknown] potassium chloride ER 20 mEq tablet,extended release 20 meq PO QAMCC 07/12/17 [History Confirmed 07/03/18 Last Taken Unknown] omeprazole 20 mg capsule,delayed release 20 mg PO QDAY 02/05/18 [History Confirmed 07/02/18 Last Taken Unknown] spironolactone 25 mg tablet 12.5 mg PO QAM #45 tab 03/25/18 [Rx Confirmed 07/02/18 Last Taken Unknown] Cholecalciferol (Vitamin D3) [Vitamin D3] 4,000 units PO DAILY 04/19/18 [History Confirmed 07/03/18 Last Taken Unknown] Atorvastatin [Lipitor] 40 mg PO HS 07/02/18 [History Confirmed 07/02/18 Last Taken Unknown] Bisacodyl [Dulcolax] 10 mg AL DAILYP PRN 07/02/18 [History Confirmed 07/02/18 Last Taken Unknown] Insulin Aspart [Novolog] See Protocol SQ PRN PRN 07/02/18 [History Confirmed 07/02/18 Last Taken Unknown] Ipratropium/Albuterol [Duoneb] 3 ml NEB Q4HP PRN 07/02/18 [History Confirmed 12/12 Last Taken Unknown] Oseltamivir Phosphate [Tamiflu] 75 mg PO DAILY 07/02/18 [History Confirmed 07/02/18 Last Taken Unknown] Aspirin 81 mg PO Q48@0900 07/03/18 [History Confirmed 07/03/18 Last Taken Unknown] Ketorolac Tromethamine [Acular] 1 drp OU DAILY 07/03/18 [History Confirmed 07/03/18 Last Taken Unknown] Medical - DS: Hosp Hospital course: Mr. Flores is a 83 year old M Mr. Flores is a 83 year old M with history of ITP and recent right parietal CVA undergoing rehabilitation at [facility] who presents with worsening shortness of breath that has progressed overthe last 5 days. Symptoms have dramatically worsened in the last 24 hours. Patient has become extremely labored, wheezing unable to perform activities of daily living. He was subsequently referred to [facility]. He presents along with his . He endorses to associated yellow productive sputum. He endorses loss of appetite and also endorses to orthopnea. Initial workup was consistent with COPD exacerbation secondary to right basilar pneumonia along with CHF on chest imaging. Hospitalist service was consulted At the time of evaluation patient is accompanied with his . He was able to answer most of the questions. He denies fevers shaking chills, drenching sweats, headache photophobia, diarrhea dysuria. Patient has been exposed to sick contact at the care center however is up-to-date on vaccines status 07/03-patient doing better this morning. Improved wheezing. Overnight every 8 hours and BiPAP. Currently on 2 L oxygen. White count 25,000 with lymphocyte predominance. Platelets at 52. Pro-calcitonin negative. DC Rocephin. Continue pulmonary toilet/rehabilitation 07/04- doing well. Improved dyspnea. Transition to oral steroids. Possible discharge in 24 hours on an additional 5 days steroids. Ongoing PT OT. Using CPAP at night. 07/05- Patient diuresing well. However still feels short of breath. Anticipate discharge in 24 hours if continues to improve. No overnight fever chills nausea vomiting. Ongoing physical therapy for recent CVA/deconditioning. 07/07 Continues to diurese well. Denies any current shortness of breath. Feels much better than when he first came in. Does not complain of cough. No chest pain. On home level of oxygen and actually satting higher than he needs. 07/08 Needs to feel better. Stable for discharge Discharge diagnosis: MRSA pneumonia diastolic CHF COPD hypoxic respiratory failure Secondary discharge diagnosis: Chronic A. fib, ITP, leukocytosis, hypertension chronic kidney disease obstructive sleep apnea - Time Spent with Patient Total time spent providing and/or coordinating discharge services: Greater than 30 minutes Medical - DS: Exam - Constitutional Vitals: Vital Signs Temp Pulse Pulse Pulse Resp BP Pulse Ox 07/07/18 07:28 97.6 F 16 112/76 97 07/07/18 07:01 59 L 16 98 07/07/18 04:00 97.5 F 52 L 16 134/73 99 07/07/18 01:15 54 L 18 07/06/18 23:41 96.4 F L 58 L 20 100/58 96 07/06/18 20:00 97.7 F 65 16 113/67 95 07/06/18 19:55 62 18 07/06/18 15:22 98.6 F 20 111/56 93 07/06/18 13:17 56 L 18 07/06/18 12:00 98.0 F 16 115/69 97 Intake and Output 07/06/18 07/07/18 07/07/18 21:59 05:59 13:59 Intake Total 400 150 640 Output Total 476 351 226 Balance -76 -201 414 Intake: Oral 400 150 640 Output: Void Amount 475 350 225 # of times incontinent of urine 1 1 1 Other: Meal Breakfast Percent of Meal Consumed 100% Feeding Ability Assist with Tray Set Up Urine Appearance Clear Clear Urine Color Bright Yellow Pale Dark Yellow Urine Odor Normal Normal Normal # Voids 1 Weight 90.718 kg Medical - DS: Data Labs on day of discharge: Labs from last 24 hours 07/07/18 07/07/18 07/07/18 07:51 04:43 04:43 WBC 14.8 H RBC 2.95 L Hgb 11.2 L Hct 31.5 L MCV 106.9 H MCH 37.9 H MCHC 35.5 RDW 14.7 H Plt Count 57 L MPV 9.5 Total Counted 100 Seg Neutrophils % 40 Band Neutrophils % Not Reportable Lymphocytes % 53 H Monocytes % (Manual) 7 WBC Morphology Abnorm A Smudge Cells Few A Platelet Estimate Decreased A RBC Morphology Abnorm A Macrocytosis 2+ A Sodium 138 Potassium 3.8 Chloride 101 Carbon Dioxide 28 Anion Gap 9.0 BUN 41 H Creatinine 1.1 GFR Calculation 63 Glucose 160 H Uric Acid 7.4 Calcium 8.5 L Phosphorus 3.1 Magnesium 2.1 Total Bilirubin 1.7 H Direct Bilirubin 0.3 GGT 31 AST 17 ALT 19 Alkaline Phosphatase 76 Lactate Dehydrogenase 260 H Total Protein 5.5 L Albumin 3.4 Globulin 2.1 L Albumin/Globulin Ratio 1.6 Triglycerides 75 Vancomycin Trough 11.4 Preliminary micro results at discharge 07/02/18 14:41 Blood Culture - Preliminary Blood 07/02/18 14:22 Blood Culture - Preliminary Blood Medical - DS: A/P - Patient/Caregiver Discharge Instructions Activity: as per physical therapy Diet: Dysphagia Mech Alter Additional Instructions: Referral to see DR. MOLINA in 1-2 weeks for chronic leukocytosis, underlying ITP. Prescriptions: Linezolid [Zyvox] 600 mg PO Q12 #4 tab - Follow up Plan Follow up with: Agustin Jiménez MD [Primary Care Provider] - (Please call/schedule hospital follow up appointment.) Yandel Mehta [Physician] - (Call to re-schedule his appointment at Discharge) Chaz Molina MD [Physician] - Disposition: Xfer SNF Prognosis: Fair Rehab Potential: Fair I certify that the patient requires SNF services: Yes Overall status at discharge: patient is progressing back to baseline Medical - DS: Qual - VTE Deep Vein Thrombosis/Pulmonary Embolism Present on Admission: No
[2018-07-07] MEDS: SENNOSIDES/DOCUSATE SODIUM 1 TAB TABLET PO SCH (20:56)
[2018-07-07] MEDS: ATORVASTATIN 20 MG TABLET PO SCH (20:56)
[2018-07-08] MEDS: IPRATROPIUM/ALBUTEROL 3 ML AMPUL.NEB NEB SCH ×2 (02:47→07:15)
[2018-07-08] MEDS: 0.9 % SODIUM CHLORIDE 10 ML SYRINGE IV SCH (08:40)
[2018-07-08] MEDS: MUPIROCIN OINT 2% 22GM NARES SCH (08:40)
[2018-07-08] MEDS: INSULIN LISPRO 1 UNIT/0.01 ML UNIT SQ SCH ×2 (08:40→11:56)
[2018-07-08] MEDS: SPIRONOLACTONE 25 MG TABLET PO SCH (08:41)
[2018-07-08] MEDS: ALLOPURINOL 100 MG TABLET PO SCH (08:41)
[2018-07-08] MEDS: PRAZOSIN 1 MG CAPSULE PO SCH (08:42)
[2018-07-08] MEDS: predniSONE 20 MG TABLET PO SCH (08:42)
[2018-07-08] MEDS: POTASSIUM CHLORIDE 20 MEQ TABLET PO SCH (08:42)
[2018-07-08] MEDS: VITAMIN D3 1,000 UNIT TABLET PO SCH (08:42)
[2018-07-08] MEDS: OMEPRAZOLE 20 MG CAPSULE PO SCH (08:42)
[2018-07-08] MEDS: LORazepam 0.5 MG TABLET PO SCH (08:42)
[2018-07-08] MEDS: ASPIRIN 81 MG TAB.CHEW PO SCH (08:43)
[2018-07-08] MEDS: METOPROLOL SUCCINATE 50 MG TAB.XL.24H PO SCH (08:43)
[2018-07-08] MEDS: OXAZEPAM 15 MG CAPSULE PO SCH (08:43)
[2018-07-08] MEDS: LEVOFLOXACIN 750 MG/150 ML BAG IV SCH (08:43)
[2018-07-08] MEDS: FUROSEMIDE 80 MG TABLET PO SCH (08:43)
[2018-07-08] MEDS: DOCUSATE SODIUM 100 MG CAPSULE PO SCH (08:43)
[2018-07-08] MEDS: MULTIVIT,THER IRON,CA,FA & MIN 1 TABLET PO SCH (08:43)
[2018-07-08] MEDS: VANCOMYCIN 1,500 MG in 0.9 % SODIUM CHLORIDE 500 ML IV SCH (08:43)
[2018-07-08] MEDS ORDERED: LINEZOLID 600 MG TABLET PO SCH (09:00)
[2018-07-08] MEDS ORDERED: VANCOMYCIN 1,500 MG in 0.9 % SODIUM CHLORIDE 500 ML IV ONE (11:15)
== END 2018-07-08 13:10 | DRG 190 ==
LOC: ED 13:18 → ICU 17:27 → MEDSUR 07-04 11:45
PROVIDERS: ADMIT Internal Medicine; ATTEND Internal Medicine

== ENCOUNTER 2019-05-09 09:45 | Inpatient (IN) ==
[2019-05-09] MEDS ORDERED: 0.9 % SODIUM CHLORIDE 500 ML IV ONE ×2 (11:03→13:49)
[2019-05-09 11:04] LABS: Basophils # (Auto) 0.01 K/mcL (0.00-0.30); Basophils % (Auto) 0.1 % (0.0-2.0); Eosinophils # (Auto) 0 K/mcL (0.00-0.70); Eosinophils % (Auto) 0 % (0.0-7.0); Granulocytes % (Auto) 73.4 % (38.0-78.0); Hematocrit 34.4 % (40.1-51.0); Hemoglobin 11.9 g/dL (13.7-17.5); Lymphocytes # (Auto) 0.33 K/mcL (1.50-4.80); Lymphocytes % (Auto) 3.7 % (15.5-49.0); Mean Cell Volume 97.7 fL (80.0-100.0); Mean Corpuscular HGB Conc 34.6 g/dL (31.0-36.0); Mean Platelet Volume 11.5 fL (7.4-10.4); Monocytes # (Auto) 2.04 K/mcL (0.10-0.90); Monocytes % (Auto) 22.8 % (1.0-12.0); Platelet Count 28 K/mcL (140-440); RBC 3.52 M/mcL (4.63-6.08); Red Cell Distribution Width 14.7 % (11.5-14.5); WBC 8.9 K/mcL (4.50-11.00)
--- NOTE | 2019-05-09 11:05 | Emergency Department Note ---
Weakness HPI - General Chief complaint: Weakness Stated complaint: Weakness, fever Time Seen by Provider: 05/09/19 10:34 Source: EMS Mode of arrival: EMS Limitations: no limitations - History of Present Illness HPI Narrative: 83-year-old male patient brought into the emergency department via ambulance with chief complaint of feeling weak, unsteady, shaky, nauseated. Patient was seen in a local emergency department on 05/05 by a colleague and diagnosed both constipation and urinary retention. During that visit he was constipated and provided enema that allowed him to have a large loose stool. Unfortunate was unable to urinate so Cervantes catheter was placed. Patient was evaluated by urology SPORTS MEDICINE MASSEUR yesterday (05/09) and had the Cervantes catheter removed. He was diagnosed with urinary retention. He was noted to have an erosion to his meatus. He was started on doxycycline for UTI associated with urethritis and a history of MRSA. Since that visit he has been able to void scant amount of urine. He denies any gross hematuria with the exception of once they took the catheter out x1. He does not feel he is emptying his bladder completely. His urine stream has decreased. He was in the shower this morning and developed the other above-mentioned symptoms of unsteadiness and nausea. This is what prompted him to come into the emergency department for evaluation today. Upon arrival patient is afebrile but slightly tachypneic at a rate of 24 didier ths/min. He continues to complain of weakness and shakiness. He denies overt fever, sweats, chills. He denies shortness of breath. He denies retrosternal chest pain or palpitations. He denies considerable abdominal pain. He denies ongoing nausea, vomiting, diarrhea, or constipation. He denies dysuria. He denies hematemesis or hematochezia. 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 - Related Data Home Medications Medication Instructions Recorded Confirmed Allopurinol [Zyloprim] 100 mg PO DAILY 06/28/16 05/08/19 Oxazepam 15 mg PO BID 06/28/16 05/08/19 potassium chloride 20 mEq 20 meq PO QAMCC 07/12/17 05/08/19 tablet,extended release Cholecalciferol (Vitamin D3) 4,000 units PO DAILY 04/19/18 05/08/19 [Vitamin D3] Ketorolac Tromethamine [Acular] 1 drp OU DAILY 07/03/18 05/08/19 spironolactone 25 mg tablet 25 mg PO QAM tab 12/02/18 05/08/19 atorvastatin 20 mg tablet 20 mg PO QDAY 05/08/19 05/08/19 prazosin 5 mg capsule 5 mg PO BID cap 05/08/19 05/08/19 Previous Rx's Medication Instructions Recorded furosemide 80 mg tablet 80 mg PO QDAY #90 tab 07/12/17 Data download from cpap #1 ea 08/07/18 doxycycline hyclate 100 mg capsule 100 mg PO BID #28 cap 05/08/19 Allergies Allergy/AdvReac Type Severity Reaction Status Date / Time No Known Drug Allergies Allergy Verified 05/09/19 09:46 Review of Systems All systems ED: reviewed and negative except as stated. Past Medical History - Past Medical History Medical history: Reports: atrial fibrillation, CHF, CAD (coronary artery disease), DM, GERD, hyperlipidemia, hypertension, renal disease, other Psychiatric history: Reports: anxiety Surgical history ED: Reports: cataract, knee replacement, tonsillectomy - Social History smoking status: Former smoker Alcohol use: Reports: Rarely Drug use: Reports: none Physical Exam Limitations: no limitations General appearance: alert, in no apparent distress, other (Well-developed, well- nourished, chronically ill-appearing 83-year-old male patient laying supine on the emergency room gurney in obvious discomfort. He is tachypneic but afebrile with normal blood pressure and heart rate.) Head: atraumatic, normocephalic Eye: Present: normal appearance, PERRL, EOMI. Absent: scleral icterus, conjunctival injection ENT: Present: normal oropharynx, mucous membranes dry, other (Well healed, large skin defect to the tip of the nose where the skin cancer was removed.). Absent: nasal congestion Neck: Present: trachea midline. Absent: lymphadenopathy, thyromegaly Chest: Present: symmetric chest wall rise Respiratory: Present: respiratory distress (Tachypnea with a rate of 24 breaths/min.), decreased breath sounds. Absent: rales/crackles (Decreased breath sounds at the base of the mid chest bilateral), wheezes, stridor, accessory muscle use, prolonged expiratory phase Cardiovascular: Present: regular rate, irregular rhythm. Absent: systolic murmur, diastolic murmur Abdominal: Present: soft. Absent: distention, tenderness, guarding, rebound, r igidity, organomegaly, mass Rectal: Present: deferred (Patient unable to roll over position for the exam.) : Absent: normal inspection (Uncircumcised male patient had considerable difficulty trying to retract the foreskin. Was retracted I was able to see a erosion to the meatus with both purulent drainage as well as leakage of urine. Foul smell was noted on exam.), testicular tenderness, urethral discharge, circumcised Extremities: Present: normal inspection, normal capillary refill, pedal edema (Bilateral +2 pitting edema extending up to mid calf .). Absent: full ROM (No range of motion to the left upper and lower extremity secondary to CVA), tenderness Neurological: Present: alert, oriented X3 Psychiatric: Present: normal affect, normal mood Skin: Present: warm, dry, pallor Course Course Narrative: Patient was brought into the emergency department and a history and physical exam was performed. Saline lock was established and laboratory studies were drawn. Portable chest x-ray was ordered and reviewed. Urologist requested no catheter be performed on the the patient due to the erosion to his penis. Clean-catch urine sample will be ordered and reviewed. Normal saline was started at 500 mL bolus. A review of his laboratory studies show the following: RBC 3.52, hemoglobin 9.9, hematocrit 34.4, RDW 14.7, platelets 28, MPV 11.5. CMP chloride 95, glucose 23, total bilirubin 1.6, all others normal limits. Troponin 0.03 (this is within his reference range of the last year). Lactic acid 1.3. Urinalysis is pending. Upon reevaluation patient is sitting upright in the emergency room gurney still uncomfortable. He is complaining of worsening thirst. He was given sips of cool water to drink. Repeat normal saline 500 mL bolus was started. I discussed all the data with the patient and his family. At this time we are going to repeat his chemistry panel and his troponin in 2 hours. Repeat troponin decreased slightly to 0.02. Repeat chemistry panel showing hematocrit 32, creatinine 1.3, glucose 27, ionized calcium 1.09. During further evaluation patient became febrile at 101.5. This was rechecked 15 minutes later after uncovering him and it still remained at 101. With this in mind patient was given Tylenol 650 mg p.o. I reached out to the hospitalist (Dr. Braga) about the patient's need for admission. We discussed the case at length. At this time he recommended blood cultures and 2 g Rocephin IV. Due to complicated UTI, patient is going to be admitted to the hospital under the care of Dr. Braga. I discussed this with the family who is also in agreement. Patient was initially found to be hypotensive with blood pressure 96/21. The blood pressure cuff was re-situated and repeat blood pressure was obtained at 114/69. Normal saline was started at 1000 mL bolus. Patient maintained his mentation and with the low blood pressures. At this time his blood pressure stabilized. He is going to be admitted as mentioned to the hospital. Vital Signs Temperature 98.1 F 05/09/19 09:46 Pulse Rate 87 05/09/19 09:46 Respiratory Rate 16 05/09/19 09:46 Blood Pressure 151/80 05/09/19 09:46 Pulse Oximetry (%) 96 05/09/19 09:46 Temperature 101.1 F H 05/09/19 17:32 Pulse Rate 72 05/09/19 17:48 Respiratory Rate 22 05/09/19 17:48 Blood Pressure 114/69 05/09/19 17:48 Pulse Oximetry (%) 99 05/09/19 17:48 Weakness - Lab Data Lab results reviewed: Yes I reviewed the patient's lab results. Result diagrams: 05/09/19 10:23 05/09/19 10:23 Lab Results 05/09/19 05/09/19 05/09/19 Range/Units 10:23 10:23 10:23 WBC 8.9 (4.50-11.00) K/mcL RBC 3.52 L (4.63-6.08) M/mcL Hgb 11.9 L (13.7-17.5) g/dL Hct 34.4 L (40.1-51.0) % POC Hct (41.0-55.0) % MCV 97.7 (80.0-100.0) fL MCH 33.8 (26.0-34.0) pg MCHC 34.6 (31.0-36.0) g/dL RDW 14.7 H (11.5-14.5) % Plt Count 28 L* (140-440) K/mcL MPV 11.5 H (7.4-10.4) fL Gran % 73.4 (38.0-78.0) % Lymph % (Auto) 3.7 L (15.5-49.0) % [place] % (Auto) 22.8 H (1.0-12.0) % Eos % (Auto) 0 (0.0-7.0) % Baso % (Auto) 0.1 (0.0-2.0) % Gran # 6.55 (1.80-8.00) K/mcL Lymph # (Auto) 0.33 L (1.50-4.80) K/mcL [place] # (Auto) 2.04 H (0.10-0.90) K/mcL Eos # (Auto) 0 (0.00-0.70) K/mcL Baso # (Auto) 0.01 (0.00-0.30) K/mcL VBG Lactic Acid (0.5-2.0) mmol/L POC Sodium (133-145) mmol/L Sodium 137 (133-145) mmol/L POC Potassium (3.3-5.1) mmol/L Potassium 3.9 (3.3-5.1) mmol/L POC Chloride (96-108) mmol/L Chloride 95 L (96-108) mmol/L Carbon Dioxide 27 (22-30) mmol/L POC Total CO2 (22-30) mmol/L Anion Gap 15.0 (8-16) POC BUN (8-23) mg/dl BUN 21 (8-23) mg/dl Creatinine 1.2 (0.7-1.2) mg/dl POC Creatinine (0.7-1.2) mg/dl GFR Calculation 56 Glucose 183 H (70-105) mg/dL POC Glucose (70-105) mg/dL Calcium 8.9 (8.6-10.4) mg/dl POC WB Ioniz Calcium (1.16-1.32) mmol/L Total Bilirubin 1.6 H (0.0-1.0) mg/dL AST 12 (0-37) U/l ALT 9 (0-40) U/l Alkaline Phosphatase 114 (39-117) U/L Troponin T 0.03 (0-0.03) ng/ml Total Protein 6.1 (5.9-8.4) gm/dL Albumin 3.6 (3.2-5.2) gm/dL Globulin 2.5 (2.2-3.7) gm/dL Albumin/Globulin Ratio 1.4 (1.0-2.3) Urine Color Urine Appearance Urine pH (5.0-9.0) Ur Specific [place] (1.000-1.035) Urine Protein (NEG) mg/dL Urine Glucose (UA) (NEG) mg/dL Urine Ketones (NEG) mg/dL Urine Occult Blood (<0.03) mg/dL Urine Nitrate (NEG) Urine Bilirubin (NEG) mg/dL Urine Urobilinogen (NEG) mg/dL Ur Leukocyte Esterase (NEG) /uL Urine RBC (0-1) /hpf Urine WBC (0-4) /hpf Ur Squamous Epith Cells (0-4) /hpf Ur Transition Epith Cell (0-2) /hpf Urine Bacteria (0) /hpf Hyaline Casts (0-2) /lpf Urine Mucus (0) /hpf Ur Culture Indicated? 05/09/19 05/09/19 05/09/19 Range/Units 11:20 13:30 14:59 WBC (4.50-11.00) K/mcL RBC (4.63-6.08) M/mcL Hgb (13.7-17.5) g/dL Hct (40.1-51.0) % POC Hct (41.0-55.0) % MCV (80.0-100.0) fL MCH (26.0-34.0) pg MCHC (31.0-36.0) g/dL RDW (11.5-14.5) % Plt Count (140-440) K/mcL MPV (7.4-10.4) fL Gran % (38.0-78.0) % Lymph % (Auto) (15.5-49.0) % [place] % (Auto) (1.0-12.0) % Eos % (Auto) (0.0-7.0) % Baso % (Auto) (0.0-2.0) % Gran # (1.80-8.00) K/mcL Lymph # (Auto) (1.50-4.80) K/mcL [place] # (Auto) (0.10-0.90) K/mcL Eos # (Auto) (0.00-0.70) K/mcL Baso # (Auto) (0.00-0.30) K/mcL VBG Lactic Acid 1.3 (0.5-2.0) mmol/L POC Sodium (133-145) mmol/L Sodium (133-145) mmol/L POC Potassium (3.3-5.1) mmol/L Potassium (3.3-5.1) mmol/L POC Chloride (96-108) mmol/L Chloride (96-108) mmol/L Carbon Dioxide (22-30) mmol/L POC Total CO2 (22-30) mmol/L Anion Gap (8-16) POC BUN (8-23) mg/dl BUN (8-23) mg/dl Creatinine (0.7-1.2) mg/dl POC Creatinine (0.7-1.2) mg/dl GFR Calculation Glucose (70-105) mg/dL POC Glucose (70-105) mg/dL Calcium (8.6-10.4) mg/dl POC WB Ioniz Calcium (1.16-1.32) mmol/L Total Bilirubin (0.0-1.0) mg/dL AST (0-37) U/l ALT (0-40) U/l Alkaline Phosphatase (39-117) U/L Troponin T 0.02 (0-0.03) ng/ml Total Protein (5.9-8.4) gm/dL Albumin (3.2-5.2) gm/dL Globulin (2.2-3.7) gm/dL Albumin/Globulin Ratio (1.0-2.3) Urine Color Yellow Urine Appearance Cloudy Urine pH 6.0 (5.0-9.0) Ur Specific [place] 1.015 (1.000-1.035) Urine Protein 100 A (NEG) mg/dL Urine Glucose (UA) Negative (NEG) mg/dL Urine Ketones Neg (NEG) mg/dL Urine Occult Blood >=1.0 A (<0.03) mg/dL Urine Nitrate Neg (NEG) Urine Bilirubin Neg (NEG) mg/dL Urine Urobilinogen Neg (NEG) mg/dL Ur Leukocyte Esterase 500 A (NEG) /uL Urine RBC > 182 H (0-1) /hpf Urine WBC > 182 H (0-4) /hpf Ur Squamous Epith Cells 0 (0-4) /hpf Ur Transition Epith Cell 1 (0-2) /hpf Urine Bacteria 0 (0) /hpf Hyaline Casts 3 H (0-2) /lpf Urine Mucus Few (0) /hpf Ur Culture Indicated? Yes 05/09/19 Range/Units 14:59 WBC (4.50-11.00) K/mcL RBC (4.63-6.08) M/mcL Hgb (13.7-17.5) g/dL Hct (40.1-51.0) % POC Hct 32.0 L (41.0-55.0) % MCV (80.0-100.0) fL MCH (26.0-34.0) pg MCHC (31.0-36.0) g/dL RDW (11.5-14.5) % Plt Count (140-440) K/mcL MPV (7.4-10.4) fL Gran % (38.0-78.0) % Lymph % (Auto) (15.5-49.0) % [place] % (Auto) (1.0-12.0) % Eos % (Auto) (0.0-7.0) % Baso % (Auto) (0.0-2.0) % Gran # (1.80-8.00) K/mcL Lymph # (Auto) (1.50-4.80) K/mcL [place] # (Auto) (0.10-0.90) K/mcL Eos # (Auto) (0.00-0.70) K/mcL Baso # (Auto) (0.00-0.30) K/mcL VBG Lactic Acid (0.5-2.0) mmol/L POC Sodium 135 (133-145) mmol/L Sodium (133-145) mmol/L POC Potassium 3.7 (3.3-5.1) mmol/L Potassium (3.3-5.1) mmol/L POC Chloride 97 (96-108) mmol/L Chloride (96-108) mmol/L Carbon Dioxide (22-30) mmol/L POC Total CO2 27 (22-30) mmol/L Anion Gap (8-16) POC BUN 20 (8-23) mg/dl BUN (8-23) mg/dl Creatinine (0.7-1.2) mg/dl POC Creatinine 1.3 H (0.7-1.2) mg/dl GFR Calculation Glucose (70-105) mg/dL POC Glucose 187 H (70-105) mg/dL Calcium (8.6-10.4) mg/dl POC WB Ioniz Calcium 1.09 L (1.16-1.32) mmol/L Total Bilirubin (0.0-1.0) mg/dL AST (0-37) U/l ALT (0-40) U/l Alkaline Phosphatase (39-117) U/L Troponin T (0-0.03) ng/ml Total Protein (5.9-8.4) gm/dL Albumin (3.2-5.2) gm/dL Globulin (2.2-3.7) gm/dL Albumin/Globulin Ratio (1.0-2.3) Urine Color Urine Appearance Urine pH (5.0-9.0) Ur Specific [place] (1.000-1.035) Urine Protein (NEG) mg/dL Urine Glucose (UA) (NEG) mg/dL Urine Ketones (NEG) mg/dL Urine Occult Blood (<0.03) mg/dL Urine Nitrate (NEG) Urine Bilirubin (NEG) mg/dL Urine Urobilinogen (NEG) mg/dL Ur Leukocyte Esterase (NEG) /uL Urine RBC (0-1) /hpf Urine WBC (0-4) /hpf Ur Squamous Epith Cells (0-4) /hpf Ur Transition Epith Cell (0-2) /hpf Urine Bacteria (0) /hpf Hyaline Casts (0-2) /lpf Urine Mucus (0) /hpf Ur Culture Indicated? - Radiology Data Radiology results reviewed: Yes I reviewed the patient's radiology results. Ordering Physician: Jhonathan Hennessy PA-C Date of Service: 05/09/19 Procedure(s): XR chest 1V portable Accession Number(s): [id number] CLINICAL INFORMATION:Fever. Weakness. Dizziness. TECHNIQUE: AP portable semiupright chest x-ray COMPARISON: Previous chest x-rays dated 01/09/2019 and 12/31/2018 FINDINGS:Marked cardiomegaly. Patient has a history of pericardial effusion. Cardiomegaly is essentially unchanged since 01/09/2019. Pulmonary vascularity is within normal limits. No pulmonary edema or pulmonary congestion. No focal pulmonary parenchymal infiltrate or mass. IMPRESSION: 1. Cardiomegaly. No evidence for pulmonary congestion or pulmonary edema 2. No focal pulmonary infiltrate 3. No significant interval change Interpreted and Authenticated by: Artur Cole 05/09/19 - EKG Data EKG attestation: Yes I reviewed and interpreted this EKG., Yes There are no EKG findings of acute coronary syndrome Disposition Pt seen by SPORTS MEDICINE MASSEUR/PA only: Yes Clinical Impression: Complicated UTI (urinary tract infection), Ulcer of penis, Thrombocytopenia Disposition: Xfer As Inpt ([facility] Condition: Fair Additional Instructions: Patient is going to be admitted to the hospital under the care of the hospitalist (Dr. Braga). All further treatment decisions and modalities will be carried out by the hospitalist. Referrals: Suma Parker MD [Primary Care Provider] -
[2019-05-09 11:18] LABS: ALT/SGPT 9 U/l (0-40); AST/SGOT 12 U/l (0-37); Albumin 3.6 gm/dL (3.2-5.2); Albumin/Globulin Ratio 1.4 (1.0-2.3); Alkaline Phosphatase 114 U/L (39-117); Bilirubin,Total 1.6 mg/dL (0.0-1.0); Blood Urea Nitrogen 21 mg/dl (8-23); Calcium 8.9 mg/dl (8.6-10.4); Carbon Dioxide 27 mmol/L (22-30); Globulin 2.5 gm/dL (2.2-3.7); Glomerular Filtration Rate 56; Glucose 183 mg/dL (70-105)
[2019-05-09 11:19] LABS: Chloride 95 mmol/L (96-108)
--- NOTE | 2019-05-09 11:27 | XRay Report ---
CLINICAL INFORMATION:Fever. Weakness. Dizziness. TECHNIQUE: AP portable semiupright chest x-ray COMPARISON: Previous chest x-rays dated 01/09/2019 and 12/31/2018 FINDINGS:Marked cardiomegaly. Patient has a history of pericardial effusion. Cardiomegaly is essentially unchanged since 01/09/2019. Pulmonary vascularity is within normal limits. No pulmonary edema or pulmonary congestion. No focal pulmonary parenchymal infiltrate or mass. IMPRESSION: 1. Cardiomegaly. No evidence for pulmonary congestion or pulmonary edema 2. No focal pulmonary infiltrate 3. No significant interval change Interpreted and Authenticated by: Artur Cole 05/09/19
[2019-05-09 14:37] LABS: Appearance,Urine CLOUDY; Bacteria,Urine 0 /hpf (0); Bilirubin,Urine NEG (NEG); Color,Urine YELLOW; Culture Indicated,Urine YES; Glucose,Urine (UA) NEGATIVE (NEG); Ketones,Urine NEG (NEG); Leukocyte Esterase,Urine 500 /uL (NEG); Mucus,Urine FEW /hpf (0); Nitrate,Urine NEG (NEG); Protein,Urine 100 mg/dL (NEG); Specific Gravity,Urine 1.015 (1.000-1.035); Urine Blood >=1.0 mg/dL (<0.03); Urine Hyaline Cast 3 /lpf (0-2); Urine RBC > 182 /hpf (0-1); Urine Squamous Epithelial Cell 0 /hpf (0-4); Urine Transitional Epi Cells 1 /hpf (0-2); Urine WBC > 182 /hpf (0-4); Urobilinogen,Urine NEG (NEG)
[2019-05-09 15:13] LABS: POC Blood Urea Nitrogen 20 mg/dl (8-23); POC CO2 27 mmol/L (22-30); POC Calcium, Ionized 1.09 mmol/L (1.16-1.32); POC Chloride 97 mmol/L (96-108); POC Creatinine 1.3 mg/dl (0.7-1.2); POC Glucose, Random 187 mg/dL (70-105); POC Potassium 3.7 mmol/L (3.3-5.1); POC Sodium 135 mmol/L (133-145)
[2019-05-09] MEDS ORDERED: ACETAMINOPHEN 325 MG TABLET PO ONE (17:02)
[2019-05-09] MEDS ORDERED: 0.9 % SODIUM CHLORIDE 1,000 ML IV ONE ×2 (17:40→20:05)
[2019-05-09] MEDS ORDERED: cefTRIAXone 2 GM in DEXTROSE 5% IN WATER 50 ML IV ONE (17:41)
--- NOTE | 2019-05-09 18:22 | Internal Med History&Physical ---
Medical - H&P: [facility] Patient information: Note initiated : 05/09/19 at 6:16 pm Service Date, if different from initiated Date: [] Patient: Colt Flores 83 y/o M admitted on for Weakness, Fever. Chief Complaint: [] Chief complaint: Weakness History of present illness: Mr. Flores is a 83 year old M with a history of right parietal CVA with left hemiparesis who lives at home along with his . Patient presents to the ER after he became very unsteady and weak, became nauseated while at shower. Symptoms have been progressing over the last couple of days. He was recently at the hospital with constipation where he was found to have bladder obstruction causing retained urine and associated constipation. subsequently a catheter was placed that led to his improvement in bowel symptoms. Following discharge from the ER he was evaluated by urology and catheter was discontinued few days ago however over the last couple of days he has noted increasing weakness, fever and becoming unsteady and a gradual decline in functional status. With worsening symptoms he presents to the ER. Initial work-up was consistent with sepsis with hypotension. Cultures revealed Pseudomonas on urine. Patient was started antibiotics and subsequently hospital service was consulted At the time evaluation patient is alert and respond to commands. He was able to endorse history as above. He denies shaking chills but endorses to fever weakness myalgia nausea and being very unsteady. He has residual deficits from previous CVA and uses a pull at home along with motor scooter to get around. He also follows up with Dr. Mercado porcelain enamel sprayer for thrombocytopenia. Review of systems A 10 point review system was performed and is negative except was possible Medical - H&P: PMH Medical history: Pulmonary HTN (Chronic) COPD (chronic obstructive pulmonary disease) (Chronic) CKD (chronic kidney disease) stage 3, GFR 30-59 ml/min (Chronic) Benign hypertension with CKD (chronic kidney disease) stage III (Chronic) Secondary hyperparathyroidism of renal origin (Chronic) Localized edema due to fluid overload (Chronic) PATITO (obstructive sleep apnea) (Chronic) Hypoxemia (Chronic) Chronic anticoagulation (Chronic) Chronic idiopathic thrombocytopenic purpura (Chronic) Hypoxia (Chronic) Community acquired pneumonia (Acute) Nontraumatic cardiac tamponade (Acute) Pericardial effusion (Acute) Encounter for removal of nasal packing (Acute) Macular degeneration of right eye (Acute) Macular hemorrhage of right eye (Acute) Epistaxis (Chronic) Encounter for removal of nasal packing (Chronic) Hypertension (Acute) Anxiety (Chronic) Atrial fibrillation (Chronic) CAD (coronary artery disease) (Chronic) Diabetes mellitus, type II (Chronic) Gout (Chronic) Hypercholesterolemia (Chronic) Melena (Chronic) Mixed hyperlipidemia (Chronic) Myocardial infarction (Chronic) Proteinuria (Chronic) Skin cancer (Chronic) Sleep apnea (Chronic) Past Surgical History History of right knee surgery (Chronic ~12/2013) S/P tonsillectomy (Chronic) cataract, Family History Father Cerebral hemorrhage Mother Hypertension Brother Malignant neoplasm Sister Hypertension Social History -quit smoking 40yrs ago -nightly toddy -lives at home with Medical - H&P: Meds Home Medications Medication Instructions Recorded Confirmed Type Allopurinol [Zyloprim] 100 mg PO HS 06/28/16 05/09/19 History Oxazepam 15 mg PO QDAY 06/28/16 05/09/19 History furosemide 80 mg tablet 80 mg PO QDAY #90 tab 07/12/17 05/09/19 Rx potassium chloride 20 mEq 20 meq PO QAMCC 07/12/17 05/09/19 History tablet,extended release Cholecalciferol (Vitamin D3) 4,000 units PO DAILY 04/19/18 05/09/19 History [Vitamin D3] Ketorolac Tromethamine [Acular] 1 drp OU DAILY 07/03/18 05/09/19 History spironolactone 25 mg tablet 12.5 mg PO QAM tab 12/02/18 05/09/19 History doxycycline hyclate 100 mg capsule 100 mg PO BID #28 cap 05/08/19 05/09/19 Rx prazosin 5 mg capsule 5 mg PO BID cap 05/08/19 05/09/19 History Atorvastatin [Lipitor] 20 mg PO HS 05/09/19 05/09/19 History Ipratropium/Albuterol Sulfate 2 puff INH BID 05/09/19 05/09/19 History [Combivent] Allergies Allergy/AdvReac Type Severity Reaction Status Date / Time No Known Drug Allergies Allergy Verified 05/09/19 09:46 Medical - H&P: Exam - Constitutional Vitals: Temp Pulse Resp BP Pulse Ox 101.1 F H 72 22 114/69 99 05/09/19 17:32 05/09/19 17:48 05/09/19 17:48 05/09/19 17:48 05/09/19 17:48 General appearance: moderate distress Exam: Alert and respond to commands eye movements symmetric Asymmetric face with minimal left-sided droop Oral cavity dry No ear or nose discharge No JVD S1-S2 irregular rhythm, ESM grade 1 Diminished breath sounds bases Abdomen soft nontender Lower extremity no cyanosis clubbing or joint swelling, Skin no suspicious lesion Psych alert cooperative but anxious Neuro left-sided paresis with grade 0 strength left upper extremity Medical - H&P: Reslt - Labs CBC & Chem 7: 05/10/19 05:29 05/10/19 05:29 Labs: Short CBC 05/09/19 Range/Units 10:23 WBC 8.9 (4.50-11.00) K/mcL Hgb 11.9 L (13.7-17.5) g/dL Hct 34.4 L (40.1-51.0) % Plt Count 28 L* (140-440) K/mcL BMP 05/09/19 10:23 Sodium 137 Potassium 3.9 Chloride 95 L Carbon Dioxide 27 BUN 21 Creatinine 1.2 Glucose 183 H Calcium 8.9 Cardiac Enzymes 05/09/19 05/09/19 Range/Units 10:23 14:59 Troponin T 0.03 0.02 (0-0.03) ng/ml Liver Function 05/09/19 Range/Units 10:23 Total Bilirubin 1.6 H (0.0-1.0) mg/dL AST 12 (0-37) U/l ALT 9 (0-40) U/l Alkaline Phosphatase 114 (39-117) U/L Albumin 3.6 (3.2-5.2) gm/dL Urine 05/09/19 Range/Units 13:30 Urine Color Yellow Urine Appearance Cloudy Urine pH 6.0 (5.0-9.0) Ur Specific [place] 1.015 (1.000-1.035) Urine Protein 100 A (NEG) mg/dL Urine Glucose (UA) Negative (NEG) mg/dL Medical - H&P: A/P (1) Complicated UTI (urinary tract infection) Current visit: Yes Status: Acute * Complicated Pseudomonas UTI-antibiotic coverage/de-escalate based on sensi tivities. Rule out obstructive uropathy with renal ultrasound. Pancultures * Severe sepsis with hypotension continue crystalloid/antibiotics and management per guidelines. Initiate pressors if indicated * History of CHF-Echocardiogram 2019 normal EF with moderate PA HTN. Follows up with Dr. Mehta at [facility]. 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 Continue statin. Not on anticoagulation or antiplatelets due to thrombocytopenia. Continue physical therapy * Chronic atrial fibrillation -currently rate controlled . * History of ITP/thrombocytopenia chronic. Platelets 28 baseline around 50. Follows up with hematology at [place] * History of hypertension -on restart home meds once systolics improved and sepsis resolves * CKD stage III at baseline. GFR around 40 * History of PATITO continue CPAP at home settings * History of gout continue allopurinol * Full code * DVT prophylaxis SCDs Plan * Start antipseudomonal coverage * Inpatient admission in light of early sepsis/weakness and endorgan dysfunction * Renal ultrasound * Aggressive PT OT/dietary support * Pre-existing medical condition management on home meds
[2019-05-09] MEDS ORDERED: guaiFENesin/CODEINE 10 ML UDC PO PRN (19:13)
[2019-05-09] MEDS ORDERED: ACETAMINOPHEN 650 MG/65 ML BOTTLE IV PRN (19:13)
[2019-05-09] MEDS ORDERED: BISACODYL 10 MG SUPP.RECT PR PRN (19:13)
[2019-05-09] MEDS ORDERED: MAGNESIUM SULFATE 2 GM/50 ML BAG IV PRN (19:13)
[2019-05-09] MEDS ORDERED: POLYETHYLENE GLYCOL 3350 17 GM PACKET PO PRN (19:13)
[2019-05-09] MEDS ORDERED: ONDANSETRON 4 MG ODT TABLET SL PRN (19:13)
[2019-05-09] MEDS ORDERED: ACETAMINOPHEN 325 MG TABLET PO PRN (19:13)
[2019-05-09] MEDS ORDERED: POTASSIUM CHLORIDE 20 MEQ PACKET PO PRN (19:13)
[2019-05-09] MEDS ORDERED: ONDANSETRON 4 MG/2 ML VIAL IV PRN (19:13)
[2019-05-09] MEDS ORDERED: NOREPINEPHRINE BITARTRATE 4 MG/4 ML VIAL IV ONE (20:13)
[2019-05-09] MEDS: NOREPINEPHRINE BITARTRATE 16 MG in 0.9 % SODIUM CHLORIDE 234 ML IV SCH (20:46)
[2019-05-09] MEDS: 0.9 % SODIUM CHLORIDE 250 ML IV SCH (20:48)
[2019-05-09] MEDS ORDERED: MELATONIN 3 MG TABLET PO PRN (21:00)
[2019-05-09] MEDS: 0.9 % SODIUM CHLORIDE 1,000 ML IV SCH (21:03)
[2019-05-09] MEDS: DOCUSATE SODIUM 100 MG CAPSULE PO SCH (21:05)
[2019-05-09] MEDS: SENNOSIDES/DOCUSATE SODIUM 1 TAB TABLET PO SCH (21:05)
[2019-05-09] MEDS: 0.9 % SODIUM CHLORIDE 10 ML SYRINGE IV SCH (21:06)
[2019-05-10] MEDS: 0.9 % SODIUM CHLORIDE 10 ML SYRINGE IV SCH ×3 (05:56→20:57)
[2019-05-10 06:43] LABS: ALT/SGPT 9 U/l (0-40); AST/SGOT 12 U/l (0-37); Albumin 3.3 gm/dL (3.2-5.2); Albumin/Globulin Ratio 1.4 (1.0-2.3); Alkaline Phosphatase 111 U/L (39-117); Bilirubin,Direct 0.4 mg/dL (0.0-0.3); Bilirubin,Total 1.3 mg/dL (0.0-1.0); Blood Urea Nitrogen 20 mg/dl (8-23); Chloride 100 mmol/L (96-108); Globulin 2.3 gm/dL (2.2-3.7); Glomerular Filtration Rate 56; Glucose 221 mg/dL (70-105); Lactate Dehydrogenase 259 U/L (94-250); Phosphorous 3.6 mg/dL (2.7-4.5); Triglycerides 88 mg/dl (<150); Uric Acid 7.6 mg/dL (2.5-8.0)
[2019-05-10 06:44] LABS: Carbon Dioxide 19 mmol/L (22-30)
[2019-05-10 06:59] LABS: Lymphocytes % 1 % (15-49); Monocytes % (Manual) 16 % (1-12); Platelet Estimate MK DECR (NORMAL); RBC Morphology NORMAL (NORMAL); Segmented Neutrophils % 83 % (38-78)
[2019-05-10 07:02] LABS: Hematocrit 34.3 % (40.1-51.0); Hemoglobin 11.9 g/dL (13.7-17.5); Mean Corpuscular HGB Conc 34.7 g/dL (31.0-36.0); Platelet Count 39 K/mcL (140-440); Red Cell Distribution Width 15.1 % (11.5-14.5); WBC 43.9 K/mcL (4.50-11.00)
[2019-05-10] MEDS: 0.9 % SODIUM CHLORIDE 250 ML IV SCH ×2 (08:50→21:09)
[2019-05-10] MEDS: MUPIROCIN OINT 2% 22GM NARES SCH ×2 (08:50→20:56)
[2019-05-10] MEDS: MULTIVIT,THER IRON,CA,FA & MIN 1 TABLET PO SCH (08:51)
[2019-05-10] MEDS: DOCUSATE SODIUM 100 MG CAPSULE PO SCH ×2 (08:51→20:57)
[2019-05-10] MEDS ORDERED: cefTRIAXone 2 GM in DEXTROSE 5% IN WATER 50 ML IV SCH (09:00)
--- NOTE | 2019-05-10 10:03 | Internal Med Progress Note ---
Medical - PN: Subj Patient information: Note initiated : 05/10/19 at 9:59 am Service Date, if different from initiated Date: [] Patient: Colt Flores 83 y/o M admitted on 05/09/19 for Weakness, Fever. Chief Complaint: [] Interval history: Mr. Flores is a 83 year old M with a history of right parietal CVA with left hemiparesis who lives at home along with his . Patient presents to the ER after he became very unsteady and weak, became nauseated while at shower. Symptoms have been progressing over the last couple of days. He was recently at the hospital with constipation where he was found to have bladder obstruction causing retained urine and associated constipation. subsequently a catheter was placed that led to his improvement in bowel symptoms. Following discharge from the ER he was evaluated by urology and catheter was discontinued few days ago however over the last couple of days he has noted increasing weakness, fever and becoming unsteady and a gradual decline in functional status. With worsening symptoms he presents to the ER. Initial work-up was consistent with sepsis with hypotension. Cultures revealed Pseudomonas on urine. Patient was started antibiotics and subsequently hospital service was consulted At the time evaluation patient is alert and respond to commands. He was able to endorse history as above. He denies shaking chills but endorses to fever weakness myalgia nausea and being very unsteady. He has residual deficits from previous CVA and uses a pull at home along with motor scooter to get around. He also follows up with Dr. Mercado bar host/hostess for thrombocytopenia. 05/10-patient in septic shock. Continue vasopressors to keep map at goal. White count in excess of 40,000. Leukemoid reaction. High risk mortality. No family at bedside. Renal function stable with creatinine 1.2. Continue cefepime and de-escalate based on sensitivities. Map at goal. T-max 101.6. No other concerns expressed with nursing staff - Constitutional Vitals: Vital Signs Temp Pulse Resp BP Pulse Ox 98.9 F 81 13 109/76 98 05/10/19 08:02 05/10/19 09:29 05/10/19 09:29 05/10/19 09:02 05/10/19 09:29 Period Temp Pulse Resp BP Sys/Coreas Pulse Ox Last 24 Hr 98.9 F-101.6 F 59-149 13-40 54-140/21-107 90-100 Intake and Output 05/09/19 05/10/19 05/10/19 21:59 05:59 13:59 Intake Total 1002 2165 241 Output Total 97 Balance 1002 2068 241 Weight 200 lb 6.4 oz Intake & Output: Intake & Output 05/09/19 05/10/19 05/10/19 21:59 05:59 13:59 Intake Total 1002 2165 241 Output Total 97 Balance 1002 8 241 Weight 200 lb 6.4 [place] [address] 241 Sodium Chloride 0.9% 1,000 ml @ 2000 Wide Open IV [facility] Rx#: [id number] Sodium Chloride 0.9% 250 ml @ 241 20 mls/hr IV .[id number] [facility] Rx#: [id number] Sodium Chloride 0.9% 500 ml @ 1000 Wide Open IV [facility] Rx#: [id number] Levophed 16 mg In Sodium 2 50 Chloride 0.9% 234 ml @ 10 MCG/ MIN 9.375 mls/hr IV Q24H [facility] Rx #:[id number] Rocephin 2 gm In Dextrose 5% in 50 Water 50 ml @ 100 mls/hr IV ONCE ONE Rx#:[id number] Oral 0 Output: Void Amount 95 # of times incontinent of urine 2 Other: Urine Appearance Clear Urine Color Bright Yellow Dark Yellow Light Xenia General appearance: no acute distress Exam: Alert and respond to commands Nonlabored breathing Residual left-sided hemiparesis No anxiety Nondistended abdomen Medical - PN: Obj Da - Labs CBC & Chem 7: 05/10/19 05:29 05/10/19 05:29 Labs: Abnormal Lab Results 05/10/19 05/10/19 05/09/19 05:29 05:29 14:59 WBC 43.9 H* RBC 3.50 L Hgb 11.9 L Hct 34.3 L POC Hct 32.0 L RDW 15.1 H Plt Count 39 L* MPV 13.0 H Lymph % (Auto) Harper % (Auto) Lymph # (Auto) Harper # (Auto) Seg Neutrophils % 83 H Lymphocytes % 1 L Monocytes % (Manual) 16 H Platelet Estimate Mk decr A Chloride Carbon Dioxide 19 L Anion Gap 17.0 H POC Creatinine 1.3 H Glucose 221 H POC Glucose 187 H Calcium 8.0 L POC WB Ioniz Calcium 1.09 L Magnesium 1.4 L Total Bilirubin 1.3 H Direct Bilirubin 0.4 H Lactate Dehydrogenase 259 H Total Protein 5.6 L Urine Protein Urine Occult Blood Ur Leukocyte Esterase Urine RBC Urine WBC Hyaline Casts 05/09/19 05/09/19 05/09/19 13:30 10:23 10:23 WBC RBC 3.52 L Hgb 11.9 L Hct 34.4 L POC Hct RDW 14.7 H Plt Count 28 L* MPV 11.5 H Lymph % (Auto) 3.7 L Harper % (Auto) 22.8 H Lymph # (Auto) 0.33 L Harper # (Auto) 2.04 H Seg Neutrophils % Lymphocytes % Monocytes % (Manual) Platelet Estimate Chloride 95 L Carbon Dioxide Anion Gap POC Creatinine Glucose 183 H POC Glucose Calcium POC WB Ioniz Calcium Magnesium Total Bilirubin 1.6 H Direct Bilirubin Lactate Dehydrogenase Total Protein Urine Protein 100 A Urine Occult Blood >=1.0 A Ur Leukocyte Esterase 500 A Urine RBC > 182 H Urine WBC > 182 H Hyaline Casts 3 H Meds: Medications Acetaminophen (Tylenol) 650 mg PO Q4-6HP PRN; Protocol PRN Reason: Per Pain Protocol/Fever > 101 Bisacodyl (Dulcolax) 10 mg GA Q2-3DAYS PRN PRN Reason: Constipation Cefepime HCl (Maxipime) 2 gm IV Q12H [facility]; Protocol Docusate Sodium (Colace) 100 mg PO BID [facility] Last Admin: 05/10/19 08:51 Dose: 100 mg Documented by: Guaifenesin/Codeine Phosphate (Robitussin Ac) 10 ml PO Q4HP PRN PRN Reason: Cough Sodium Chloride (Sodium Chloride 0.9%) 1,000 mls @ 50 mls/hr IV .Q20H [facility] Stop: 05/12/19 07:12 Last Admin: 05/09/19 21:03 Dose: 50 mls/hr Documented by: Acetaminophen (Ofirmev) 650 mg in 65 mls @ 130 mls/hr IV Q6HP PRN; Protocol PRN Reason: Per Pain Protocol/Fever > 101 Last Infusion: 05/10/19 01:22 Dose: Infused Documented by: Magnesium Sulfate (Magnesium Sulfate) 2 gm in 50 mls @ 50 mls/hr IV UD PRN PRN Reason: MG = or < 1.7 Last Admin: 05/10/19 08:50 Dose: 50 mls/hr Documented by: Norepinephrine Bitartrate 16 (mg/ Sodium Chloride) 250 mls @ 9.375 mls/hr IV Q24H [facility]; Protocol Last Titration: 05/10/19 01:32 Dose: 10 mcg/min, 9.375 mls/hr Documented by: Sodium Chloride (Sodium Chloride 0.9%) 250 mls @ 20 mls/hr IV .[id number] [facility] Last Admin: 05/10/19 08:50 Dose: 20 mls/hr Documented by: Iron Carb/Multivit/[place]/Folic Acid (Multivitamin W/Minerals) 1 tab PO DAILY [facility] Last Admin: 05/10/19 08:51 Dose: 1 tab Documented by: Melatonin (Melatonin 3mg Tablet) 3 mg PO HSP PRN PRN Reason: Insomnia Mupirocin (Bactroban Oint 2%) 1 dose NARES BID [facility] Last Admin: 05/10/19 08:50 Dose: 1 dose Documented by: Ondansetron HCl (Zofran Odt) 4 mg SL Q4-6HP PRN; Protocol PRN Reason: Nausea And Vomiting Ondansetron HCl (Zofran) 4 mg IV Q4-6HP PRN; Protocol PRN Reason: Nausea And Vomiting Polyethylene Glycol (Miralax) 17 gm PO DAILYP PRN PRN Reason: Constipation Potassium Chloride (Klor-Con) 40 meq PO DAILYP PRN PRN Reason: K+ < 3.5 Senna/Docusate Sodium (Senna Plus Tablet) 1 tab PO HS [facility] Last Admin: 05/09/19 21:05 Dose: Not Given Documented by: Sodium Chloride (Saline Flush) 10 ml IV Q8 [facility] Last Admin: 05/10/19 05:56 Dose: 10 ml Documented by: Medical - PN: A/P - Time Spent With Patient Total time spent is greater than 50% in coordination of care (as documented) at patient's floor/unit and/or counseling patient: Greater than 35 minutes (Critical care time) (1) Complicated UTI (urinary tract infection) Status: Acute Assessment and plan: * Complicated Pseudomonas UTI-continue cefepime and de-escalate based on sensitivities. * Septic shock - continue vasopressors/crystalloids/antibiotics and management per guidelines. Initiate pressors if indicated * History of CHF-Echocardiogram 2018 normal EF with moderate PA HTN. Follows up with Dr. Mehta at [place] [facility]. 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 Continue statin. Not on anticoagulation or antiplatelets due to thrombocytopenia. Continue phy sical therapy * Chronic atrial fibrillation -currently rate controlled . * History of ITP/thrombocytopenia chronic. Platelets around baseline. Follows up with hematology at [place] * History of hypertension -medication on hold in light of septic shock * CKD stage III at baseline. GFR around 40. Continue monitoring for endorgan dysfunction * History of PATITO continue CPAP at home settings * History of gout continue allopurinol * Full code * DVT prophylaxis SCDs Plan * Continue antibiotic coverage and de-escalate based on sensitivities * Awaiting ultrasound * Aggressive PT OT * nutrition support * Continue ICU care, [place] 2 score 16 Current Visit: Yes Medical - PN: Qual - VTE Deep Vein Thrombosis/Pulmonary Embolism Present on Admission: No
[2019-05-10] MEDS: CEFEPIME 2 GM VIAL IV SCH ×2 (10:28→21:04)
[2019-05-10 10:33] LABS: Hematocrit 35.3 % (40.1-51.0); Hemoglobin 11.9 g/dL (13.7-17.5); Mean Cell Volume 97.2 fL (80.0-100.0); Mean Corpuscular HGB Conc 33.7 g/dL (31.0-36.0); Mean Platelet Volume 12.5 fL (7.4-10.4); Platelet Count 41 K/mcL (140-440); RBC 3.63 M/mcL (4.63-6.08); Red Cell Distribution Width 14.9 % (11.5-14.5); WBC 41.4 K/mcL (4.50-11.00)
[2019-05-10 10:36] LABS: Basophils # (Auto) 0.08 K/mcL (0.00-0.30); Basophils % (Auto) 0.2 % (0.0-2.0); Eosinophils # (Auto) 0 K/mcL (0.00-0.70); Eosinophils % (Auto) 0 % (0.0-7.0); Granulocytes % (Auto) 80.4 % (38.0-78.0); Lymphocytes # (Auto) 0.83 K/mcL (1.50-4.80); Monocytes % (Auto) 17.4 % (1.0-12.0)
--- NOTE | 2019-05-10 15:55 | Ultrasound Report ---
CLINICAL INFORMATION: Renal failure. Possible obstructive uropathy TECHNIQUE: Grayscale and color flow Doppler spectral imaging COMPARISON: Previous renal ultrasound dated 11/05/2018, 05/10/2017, 06/14/2015.. Previous MRI dated 05/08/2018 FINDINGS: Right kidney measures 11.8 x 5.8 x 5.5 cm. There is no hydronephrosis. No obstructing or nonobstructing calculi. Cortex is echogenic consistent with medical renal disease. There is a mid pole hypoechoic abnormality which measures 15 x 13 x 12 mm. This is not completely characterized. There appear to be septations. This has increased in size since 2016. MRI scan demonstrated a hypointense abnormality which measured 10 mm maximally. This may be a cyst but neoplasm is not excluded. Pre and post contrast enhanced CT scan or continued ultrasound follow-up recommended. Left kidney measures 11.9 x 5.9 x 5.2 cm. Left kidney is suboptimally evaluated. There is no hydronephrosis. No solid or cystic mass. No detectable calculi. Left renal cortex is echogenic. Bladder volume measured 266 mL. Patient was unable to void. Bilateral ureteral jets are present. Bladder wall appears trabeculated. IMPRESSION: 1. No hydronephrosis 2. Echogenic cortex bilaterally consistent with medical renal disease 3. 15 mm hypoechoic abnormality in the right kidney. This has increased in size since 2016. Etiology and significance are not certain. Follow-up ultrasound or renal CT scan recommended. Interpreted and Authenticated by: Artur Cole 05/10/19
[2019-05-10] MEDS: ATORVASTATIN 20 MG TABLET PO SCH (20:54)
[2019-05-10] MEDS: KETOROLAC TROMETHAMINE 3 ML DROPS OP SCH (20:55)
[2019-05-10] MEDS: SENNOSIDES/DOCUSATE SODIUM 1 TAB TABLET PO SCH (20:58)
[2019-05-10] MEDS: NOREPINEPHRINE BITARTRATE 16 MG in 0.9 % SODIUM CHLORIDE 234 ML IV SCH (20:58)
[2019-05-10] MEDS: IPRATROPIUM/ALBUTEROL SULFATE 1 PUFF INHALER INH SCH (20:58)
[2019-05-10] MEDS: ALLOPURINOL 100 MG TABLET PO SCH (20:58)
[2019-05-10] MEDS: OXAZEPAM 15 MG CAPSULE PO SCH (23:07)
[2019-05-10] MEDS: 0.9 % SODIUM CHLORIDE 1,000 ML IV SCH (23:07)
[2019-05-11] MEDS: 0.9 % SODIUM CHLORIDE 10 ML SYRINGE IV SCH ×3 (05:57→20:31)
[2019-05-11 06:50] LABS: Hematocrit 33.6 % (40.1-51.0); Hemoglobin 11.3 g/dL (13.7-17.5); Mean Cell Volume 100.3 fL (80.0-100.0); Mean Corpuscular HGB Conc 33.6 g/dL (31.0-36.0); Mean Platelet Volume 12.2 fL (7.4-10.4); Platelet Count 56 K/mcL (140-440); RBC 3.35 M/mcL (4.63-6.08); WBC 22.3 K/mcL (4.50-11.00)
[2019-05-11 07:07] LABS: ALT/SGPT 9 U/l (0-40); AST/SGOT 17 U/l (0-37); Albumin/Globulin Ratio 1.3 (1.0-2.3); Alkaline Phosphatase 97 U/L (39-117); Blood Urea Nitrogen 24 mg/dl (8-23); Calcium 8.2 mg/dl (8.6-10.4); Carbon Dioxide 21 mmol/L (22-30); Chloride 100 mmol/L (96-108); Globulin 2.4 gm/dL (2.2-3.7); Glomerular Filtration Rate 63; Glucose 174 mg/dL (70-105); Lactate Dehydrogenase 288 U/L (94-250); Triglycerides 98 mg/dl (<150); Uric Acid 7.3 mg/dL (2.5-8.0)
[2019-05-11 07:08] LABS: Bilirubin,Direct 0.2 mg/dL (0.0-0.3); Phosphorous 2.4 mg/dL (2.7-4.5)
[2019-05-11 08:04] LABS: Band Neutrophils % 1 % (0-10); Lymphocytes % 2 % (15-49); Monocytes % (Manual) 15 % (1-12); Myelocytes % 1 % (0-0); Platelet Estimate DECREASED (NORMAL); RBC Morphology NORMAL (NORMAL); Segmented Neutrophils % 81 % (38-78)
[2019-05-11] MEDS ORDERED: OXAZEPAM 15 MG CAPSULE PO SCH (09:00)
[2019-05-11] MEDS: KETOROLAC TROMETHAMINE 3 ML DROPS OP SCH (09:44)
[2019-05-11] MEDS: POTASSIUM CHLORIDE 20 MEQ TABLET PO SCH (09:44)
[2019-05-11] MEDS: CEFEPIME 2 GM VIAL IV SCH (09:44)
[2019-05-11] MEDS: MUPIROCIN OINT 2% 22GM NARES SCH ×2 (09:44→20:29)
[2019-05-11] MEDS: MULTIVIT,THER IRON,CA,FA & MIN 1 TABLET PO SCH (09:44)
[2019-05-11] MEDS: DOCUSATE SODIUM 100 MG CAPSULE PO SCH ×2 (09:44→20:30)
[2019-05-11] MEDS: IPRATROPIUM/ALBUTEROL SULFATE 1 PUFF INHALER INH SCH ×2 (09:58→20:30)
--- NOTE | 2019-05-11 10:54 | Internal Med Progress Note ---
Medical - PN: Subj Patient information: Note initiated : 05/11/19 at 10:52 am Service Date, if different from initiated Date: [] Patient: Colt Flores 83 y/o M admitted on 05/09/19 for Weakness, Fever. Chief Complaint: [] Interval history: Mr. Flores is a 83 year old M with a history of right parietal CVA with left hemiparesis who lives at home along with his . Patient presents to the ER after he became very unsteady and weak, became nauseated while at shower. Symptoms have been progressing over the last couple of days. He was recently at the hospital with constipation where he was found to have bladder obstruction causing retained urine and associated constipation. subsequently a catheter was placed that led to his improvement in bowel symptoms. Following discharge from the ER he was evaluated by urology and catheter was discontinued few days ago however over the last couple of days he has noted increasing weakness, fever and becoming unsteady and a gradual decline in functional status. With worsening symptoms he presents to the ER. Initial work-up was consistent with sepsis with hypotension. Cultures revealed Pseudomonas on urine. Patient was started antibiotics and subsequently hospital service was consulted At the time evaluation patient is alert and respond to commands. He was able to endorse history as above. He denies shaking chills but endorses to fever weakness myalgia nausea and being very unsteady. He has residual deficits from previous CVA and uses a pull at home along with motor scooter to get around. He also follows up with Dr. Mercado cellar worker for thrombocytopenia. 05/10-patient in septic shock. Continue vasopressors to keep map at goal. White count in excess of 40,000. Leukemoid reaction. High risk mortality. No family at bedside. Renal function stable with creatinine 1.2. Continue cefepime and de-escalate based on sensitivities. Map at goal. T-max 101.6. No other concerns expressed with nursing staff 05/11-patient clinically improving. White count down to 22,000. On vasopressors. Critically ill. T-max 101.6. Had a visit with family yesterday and discussed clinical findings/labs/prognosis. Attempting to wean pressors. Continue antibiotic coverage. Pansensitive Pseudomonas on culture. De-escalate to Levaquin today. Creatinine at 1.1. - Constitutional Vitals: Vital Signs Temp Pulse Resp BP Pulse Ox 98.6 F 77 27 H 105/93 99 05/11/19 00:01 05/11/19 06:01 05/11/19 04:01 05/11/19 06:01 05/11/19 06:01 Period Temp Pulse Resp BP Sys/Coreas Pulse Ox Last 24 Hr 98.4 F-98.7 F 57-95 16-30 64-164/34-137 93-100 Intake and Output 05/10/19 05/11/19 05/11/19 21:59 05:59 13:59 Intake Total 428 396 Output Total 6 2 Balance 422 394 Weight 201 lb 3.2 oz Intake & Output: Intake & Output 05/10/19 05/11/19 05/11/19 21:59 05:59 13:59 Intake Total 428 396 Output Total 6 2 Balance 422 394 Weight 201 lb 3.2 oz Intake: IV 428 76 Sodium Chloride 0.9% 250 ml @ 246 20 mls/hr IV .[id number] [facility] Rx#: [id number] Levophed 16 mg In Sodium 182 76 Chloride 0.9% 234 ml @ 10 MCG/ MIN 9.375 mls/hr IV Q24H [facility] Rx #:[id number] Oral 320 Output: # of times incontinent of urine 6 2 Other: # Bowel Movements 4 # of times incontinent of 4 Bowels General appearance: no acute distress Exam: Alert oriented Nonlabored breathing Left-sided No telemetry events Medical - PN: Obj Da - Labs CBC & Chem 7: 05/11/19 04:50 05/11/19 04:50 Labs: Abnormal Lab Results 05/11/19 05/11/19 05/10/19 04:50 04:50 09:50 WBC 22.3 H 41.4 H* RBC 3.35 L 3.63 L Hgb 11.3 L 11.9 L Hct 33.6 L 35.3 L POC Hct MCV 100.3 H RDW 15.0 H 14.9 H Plt Count 56 L 41 L* MPV 12.2 H 12.5 H Gran % 80.4 H Lymph % (Auto) 2.0 L Maries % (Auto) 17.4 H Gran # 33.28 H Lymph # (Auto) 0.83 L Maries # (Auto) 7.20 H Seg Neutrophils % 81 H Lymphocytes % 2 L Monocytes % (Manual) 15 H Myelocytes % 1 H Platelet Estimate Decreased A Chloride Carbon Dioxide 21 L Anion Gap BUN 24 H POC Creatinine Glucose 174 H POC Glucose Calcium 8.2 L POC WB Ioniz Calcium Phosphorus 2.4 L Magnesium Total Bilirubin Direct Bilirubin Lactate Dehydrogenase 288 H Total Protein 5.4 L Albumin 3.0 L Urine Protein Urine Occult Blood Ur Leukocyte Esterase Urine RBC Urine WBC Hyaline Casts 05/10/19 05/10/19 05/09/19 05:29 05:29 14:59 WBC 43.9 H* RBC 3.50 L Hgb 11.9 L Hct 34.3 L POC Hct 32.0 L MCV RDW 15.1 H Plt Count 39 L* MPV 13.0 H Gran % Lymph % (Auto) Maries % (Auto) Gran # Lymph # (Auto) Maries # (Auto) Seg Neutrophils % 83 H Lymphocytes % 1 L Monocytes % (Manual) 16 H Myelocytes % Platelet Estimate Mk decr A Chloride Carbon Dioxide 19 L Anion Gap 17.0 H BUN POC Creatinine 1.3 H Glucose 221 H POC Glucose 187 H Calcium 8.0 L POC WB Ioniz Calcium 1.09 L Phosphorus Magnesium 1.4 L Total Bilirubin 1.3 H Direct Bilirubin 0.4 H Lactate Dehydrogenase 259 H Total Protein 5.6 L Albumin Urine Protein Urine Occult Blood Ur Leukocyte Esterase Urine RBC Urine WBC Hyaline Casts 05/09/19 05/09/19 05/09/19 13:30 10:23 10:23 WBC RBC 3.52 L Hgb 11.9 L Hct 34.4 L POC Hct MCV RDW 14.7 H Plt Count 28 L* MPV 11.5 H Gran % Lymph % (Auto) 3.7 L Maries % (Auto) 22.8 H Gran # Lymph # (Auto) 0.33 L Maries # (Auto) 2.04 H Seg Neutrophils % Lymphocytes % Monocytes % (Manual) Myelocytes % Platelet Estimate Chloride 95 L Carbon Dioxide Anion Gap BUN POC Creatinine Glucose 183 H POC Glucose Calcium POC WB Ioniz Calcium Phosphorus Magnesium Total Bilirubin 1.6 H Direct Bilirubin Lactate Dehydrogenase Total Protein Albumin Urine Protein 100 A Urine Occult Blood >=1.0 A Ur Leukocyte Esterase 500 A Urine RBC > 182 H Urine WBC > 182 H Hyaline Casts 3 H Meds: Medications Acetaminophen (Tylenol) 650 mg PO Q4-6HP PRN; Protocol PRN Reason: Per Pain Protocol/Fever > 101 Albuterol/Ipratropium (Combivent) 2 puff INH BID [facility] Last Admin: 05/10/19 20:58 Dose: Not Given Documented by: Allopurinol (Zyloprim) 100 mg PO HS [facility] Last Admin: 05/10/19 20:58 Dose: 100 mg Documented by: Atorvastatin Calcium (Lipitor) 20 mg PO HS [facility] Last Admin: 05/10/19 20:54 Dose: 20 mg Documented by: Bisacodyl (Dulcolax) 10 mg AK Q2-3DAYS PRN PRN Reason: Constipation Cefepime HCl (Maxipime) 2 gm IV Q12H [facility]; Protocol Last Admin: 05/11/19 09:44 Dose: 2 gm Documented by: Docusate Sodium (Colace) 100 mg PO BID [facility] Last Admin: 05/11/19 09:44 Dose: Not Given Documented by: Guaifenesin/Codeine Phosphate (Robitussin Ac) 10 ml PO Q4HP PRN PRN Reason: Cough Acetaminophen (Ofirmev) 650 mg in 65 mls @ 130 mls/hr IV Q6HP PRN; Protocol PRN Reason: Per Pain Protocol/Fever > 101 Last Infusion: 05/10/19 01:22 Dose: Infused Documented by: Magnesium Sulfate (Magnesium Sulfate) 2 gm in 50 mls @ 50 mls/hr IV UD PRN PRN Reason: MG = or < 1.7 Last Infusion: 05/10/19 09:50 Dose: Infused Documented by: Norepinephrine Bitartrate 16 (mg/ Sodium Chloride) 250 mls @ 9.375 mls/hr IV Q24H [facility]; Protocol Last Titration: 05/11/19 05:03 Dose: 8 mcg/min, 7.5 mls/hr Documented by: Sodium Chloride (Sodium Chloride 0.9%) 250 mls @ 20 mls/hr IV .[id number] [facility] Last Admin: 05/10/19 21:09 Dose: 20 mls/hr Documented by: Iron Carb/Multivit/[employer]/Folic Acid (Multivitamin W/Minerals) 1 tab PO DAILY S Last Admin: 05/11/19 09:44 Dose: 1 tab Documented by: Ketorolac Tromethamine (Ketorolac Tromethamine) 1 ml OP BID [facility] Last Admin: 05/11/19 09:44 Dose: 1 ml Documented by: Melatonin (Melatonin 3mg Tablet) 3 mg PO HSP PRN PRN Reason: Insomnia Mupirocin (Bactroban Oint 2%) 1 dose NARES BID [facility] Last Admin: 05/11/19 09:44 Dose: 1 dose Documented by: Ondansetron HCl (Zofran Odt) 4 mg SL Q4-6HP PRN; Protocol PRN Reason: Nausea And Vomiting Ondansetron HCl (Zofran) 4 mg IV Q4-6HP PRN; Protocol PRN Reason: Nausea And Vomiting Oxazepam (Oxazepam) 15 mg PO QHS [facility] Last Admin: 05/10/19 23:07 Dose: 15 mg Documented by: Polyethylene Glycol (Miralax) 17 gm PO DAILYP PRN PRN Reason: Constipation Potassium Chloride (Klor-Con) 40 meq PO DAILYP PRN PRN Reason: K+ < 3.5 Pot[facility]ur) [facility] Last Admin: 05/11/19 09:44 Dose: 20 meq Documented by: Senna/Docusate Sodium (Senna Plus Tablet) 1 tab PO HS [facility] Last Admin: 05/10/19 20:58 Dose: Not Given Documented by: Sodium Chloride (Saline Flush) 10 ml IV Q8 [facility] Last Admin: 05/11/19 05:57 Dose: 10 ml Documented by: Medical - PN: A/P - Time Spent With Patient Total time spent is greater than 50% in coordination of care (as documented) at patient's floor/unit and/or counseling patient: Greater than 35 minutes (Critical care time) (1) Complicated UTI (urinary tract infection) Status: Acute Assessment and plan: * Complicated Pseudomonas LLZ-al-vesrxkyd to Levaquin based on sensitivities no evidence obstructive uropathy on abdominal ultrasound * Septic shock -on vasopressors/crystalloids/antibiotics and management per guidelines. White count down from 43,000-23K * Leukemoid reaction secondary to complicated UTI. White count down from 43K- 23K * History of CHF-Echocardiogram 2019 normal EF with moderate PA HTN. Follows up with Dr. Mehta at [place] [facility]. 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 Continue statin. Not on anticoagulation or antiplatelets due to thrombocytopenia. Continue physical therapy * Chronic atrial fibrillation -currently rate controlled . * History of ITP/thrombocytopenia chronic. Platelets around baseline. Follows up with hematology at [place] * History of hypertension -medication on hold in light of septic shock * CKD stage III at baseline. GFR around 40. Stable * History of PATITO continue CPAP at home settings * History of gout continue allopurinol * Full code * DVT prophylaxis SCDs Plan * Switch to Levaquin * Wean pressors as indicated * PT OT/nutrition support * Pre-existing medical condition management on home medications Current Visit: Yes Medical - PN: Qual - VTE Deep Vein Thrombosis/Pulmonary Embolism Present on Admission: No
[2019-05-11] MEDS ORDERED: LEVOFLOXACIN 750 MG/150 ML BAG IV SCH (11:00)
[2019-05-11] MEDS ORDERED: KETOROLAC TROMETHAMINE 3 ML DROPS OP PRN (11:00)
[2019-05-11] MEDS: 0.9 % SODIUM CHLORIDE 250 ML IV SCH (11:14)
[2019-05-11] MEDS: BENZONATATE 100 MG CAPSULE PO PRN (11:57)
[2019-05-11] MEDS: OXAZEPAM 15 MG CAPSULE PO SCH (20:30)
[2019-05-11] MEDS: SENNOSIDES/DOCUSATE SODIUM 1 TAB TABLET PO SCH (20:30)
[2019-05-11] MEDS: ATORVASTATIN 20 MG TABLET PO SCH (20:30)
[2019-05-11] MEDS: ALLOPURINOL 100 MG TABLET PO SCH (20:30)
[2019-05-11] MEDS: NOREPINEPHRINE BITARTRATE 16 MG in 0.9 % SODIUM CHLORIDE 234 ML IV SCH (20:31)
[2019-05-12] MEDS: 0.9 % SODIUM CHLORIDE 10 ML SYRINGE IV SCH ×3 (05:54→20:27)
[2019-05-12 06:51] LABS: Hemoglobin 9.9 g/dL (13.7-17.5); Mean Cell Volume 98.6 fL (80.0-100.0); Mean Corpuscular HGB Conc 34.1 g/dL (31.0-36.0); Mean Platelet Volume 11.4 fL (7.4-10.4); Platelet Count 42 K/mcL (140-440); RBC 2.94 M/mcL (4.63-6.08); WBC 7.3 K/mcL (4.50-11.00)
[2019-05-12 07:16] LABS: Band Neutrophils % 1 % (0-10); Lymphocytes % 10 % (15-49); Monocytes % (Manual) 27 % (1-12); Nucleated Red Blood Cells 2 % (0-0); Platelet Estimate DECREASED (NORMAL); RBC Morphology NORMAL (NORMAL); Reactive Lymphocytes 3 % (0-2); Segmented Neutrophils % 59 % (38-78)
[2019-05-12 07:23] LABS: ALT/SGPT 11 U/l (0-40); AST/SGOT 13 U/l (0-37); Albumin 2.8 gm/dL (3.2-5.2); Albumin/Globulin Ratio 1.3 (1.0-2.3); Alkaline Phosphatase 82 U/L (39-117); Bilirubin,Direct 0.2 mg/dL (0.0-0.3); Bilirubin,Total 0.8 mg/dL (0.0-1.0); Calcium 8.2 mg/dl (8.6-10.4); Carbon Dioxide 22 mmol/L (22-30); Chloride 102 mmol/L (96-108); Globulin 2.2 gm/dL (2.2-3.7); Glomerular Filtration Rate 51; Glucose 146 mg/dL (70-105); Lactate Dehydrogenase 230 U/L (94-250); Triglycerides 96 mg/dl (<150); Uric Acid 7.3 mg/dL (2.5-8.0)
[2019-05-12 07:24] LABS: Blood Urea Nitrogen 29 mg/dl (8-23)
[2019-05-12] MEDS: MUPIROCIN OINT 2% 22GM NARES SCH ×2 (08:39→20:27)
[2019-05-12] MEDS: KETOROLAC TROMETHAMINE 3 ML DROPS OP SCH (08:40)
[2019-05-12] MEDS: DOCUSATE SODIUM 100 MG CAPSULE PO SCH ×2 (08:41→20:27)
[2019-05-12] MEDS: MULTIVIT,THER IRON,CA,FA & MIN 1 TABLET PO SCH (08:41)
[2019-05-12] MEDS: IPRATROPIUM/ALBUTEROL SULFATE 1 PUFF INHALER INH SCH ×2 (08:41→20:27)
[2019-05-12] MEDS: POTASSIUM CHLORIDE 20 MEQ TABLET PO SCH (10:23)
[2019-05-12] MEDS: 0.9 % SODIUM CHLORIDE 250 ML IV SCH ×2 (12:53)
[2019-05-12] MEDS: NOREPINEPHRINE BITARTRATE 16 MG in 0.9 % SODIUM CHLORIDE 234 ML IV SCH ×2 (13:48→20:07)
[2019-05-12] MEDS: ALLOPURINOL 100 MG TABLET PO SCH (20:27)
[2019-05-12] MEDS: SENNOSIDES/DOCUSATE SODIUM 1 TAB TABLET PO SCH (20:27)
[2019-05-12] MEDS: OXAZEPAM 15 MG CAPSULE PO SCH (20:27)
[2019-05-12] MEDS: ATORVASTATIN 20 MG TABLET PO SCH (20:30)
[2019-05-13] MEDS: 0.9 % SODIUM CHLORIDE 250 ML IV SCH ×2 (01:22→16:03)
[2019-05-13] MEDS: 0.9 % SODIUM CHLORIDE 10 ML SYRINGE IV SCH ×3 (05:32→20:35)
[2019-05-13] MEDS ORDERED: LEVOFLOXACIN 750 MG/150 ML BAG IV SCH (09:00)
[2019-05-13] MEDS ORDERED: MAGNESIUM CITRATE 300 ML ORAL.SOL PO ONE (09:15)
[2019-05-13] MEDS: MULTIVIT,THER IRON,CA,FA & MIN 1 TABLET PO SCH (09:24)
[2019-05-13] MEDS: POTASSIUM CHLORIDE 20 MEQ TABLET PO SCH (09:24)
[2019-05-13] MEDS: MUPIROCIN OINT 2% 22GM NARES SCH ×2 (09:24→20:34)
[2019-05-13] MEDS: DOCUSATE SODIUM 100 MG CAPSULE PO SCH ×2 (09:24→20:34)
[2019-05-13] MEDS: IPRATROPIUM/ALBUTEROL SULFATE 1 PUFF INHALER INH SCH ×2 (09:24→20:34)
[2019-05-13] MEDS: SPIRONOLACTONE 25 MG TABLET PO SCH (09:25)
[2019-05-13] MEDS: FUROSEMIDE 80 MG TABLET PO SCH (09:25)
[2019-05-13 09:36] LABS: Hematocrit 30.5 % (40.1-51.0); Hemoglobin 10.5 g/dL (13.7-17.5); Mean Cell Volume 99.3 fL (80.0-100.0); Mean Corpuscular HGB Conc 34.4 g/dL (31.0-36.0); Mean Platelet Volume 11.3 fL (7.4-10.4); Platelet Count 50 K/mcL (140-440); RBC 3.07 M/mcL (4.63-6.08); Red Cell Distribution Width 15.1 % (11.5-14.5); WBC 6.3 K/mcL (4.50-11.00)
[2019-05-13 09:43] LABS: ALT/SGPT 11 U/l (0-40); AST/SGOT 13 U/l (0-37); Albumin 2.8 gm/dL (3.2-5.2); Albumin/Globulin Ratio 1.3 (1.0-2.3); Alkaline Phosphatase 89 U/L (39-117); Bilirubin,Total 0.9 mg/dL (0.0-1.0); Blood Urea Nitrogen 29 mg/dl (8-23); Calcium 8.5 mg/dl (8.6-10.4); Carbon Dioxide 21 mmol/L (22-30); Chloride 106 mmol/L (96-108); Globulin 2.2 gm/dL (2.2-3.7); Glucose 136 mg/dL (70-105); Lactate Dehydrogenase 245 U/L (94-250); Phosphorous 2.9 mg/dL (2.7-4.5); Triglycerides 124 mg/dl (<150); Uric Acid 6.8 mg/dL (2.5-8.0)
[2019-05-13 09:45] LABS: Bilirubin,Direct < 0.2 mg/dL (0.0-0.3); Glomerular Filtration Rate 70
--- NOTE | 2019-05-13 10:01 | Internal Med Progress Note ---
Medical - PN: Subj Patient information: Note initiated : 05/13/19 at 9:58 am Service Date, if different from initiated Date: [] Patient: Colt Flores 83 y/o M admitted on 05/09/19 for Weakness, Fever. Chief Complaint: [] - Constitutional Vitals: Vital Signs Temp Pulse Resp BP Pulse Ox 97.6 F 74 26 H 100/65 98 05/13/19 08:03 05/11/19 11:16 05/13/19 09:16 05/13/19 09:16 05/13/19 09:16 Period Temp Pulse Resp BP Sys/Coreas Pulse Ox Last 24 Hr 97.6 F-98.4 F 16-32 85-144/35-107 92-100 Intake and Output 05/12/19 05/13/19 05/13/19 21:59 05:59 13:59 Intake Total 610 Output Total 2 1 1 Balance -2 609 -1 Weight 210 lb 8 oz Intake & Output: Intake & Output 05/12/19 05/13/19 05/13/19 21:59 05:59 13:59 Intake Total 610 Output Total 2 1 1 Balance -2 609 -1 Weight 210 lb 8 oz Intake: IV 290 Sodium Chloride 0.9% 250 ml @ 250 20 mls/hr IV .[id number] [facility] Rx#: [id number] Levophed 16 mg In Sodium 40 Chloride 0.9% 234 ml @ 10 MCG/ MIN 9.375 mls/hr IV Q24H [facility] Rx #:[id number] Oral 320 Output: # of times incontinent of urine 2 1 1 Other: Meal Breakfast Percent of Meal Consumed 100% Stool Size Small Small Stool Color Brown Brown Stool Consistency Soft Soft # Bowel Movements 1 # of times incontinent of 1 1 Bowels General appearance: no acute distress Medical - PN: Obj Da - Labs CBC & Chem 7: 05/14/19 04:12 05/14/19 04:12 Labs: Abnormal Lab Results 05/13/19 05/13/19 05/12/19 05:08 05:08 04:32 WBC RBC 3.07 L Hgb 10.5 L Hct 30.5 L MCV MCH 34.2 H RDW 15.1 H Plt Count 50 L* MPV 11.3 H Gran % Lymph % (Auto) [place] % (Auto) Gran # Lymph # (Auto) [place] # (Auto) Seg Neutrophils % Lymphocytes % Monocytes % (Manual) Myelocytes % Nucleated RBCs Reactive Lymphocytes Platelet Estimate Carbon Dioxide 21 L BUN 29 H 29 H Creatinine 1.3 H Glucose 136 H 146 H Calcium 8.5 L 8.2 L Phosphorus Lactate Dehydrogenase Total Protein 5.0 L 5.0 L Albumin 2.8 L 2.8 L 05/12/19 05/11/19 05/11/19 04:32 04:50 04:50 WBC 22.3 H RBC 2.94 L 3.35 L Hgb 9.9 L 11.3 L Hct 29.0 L 33.6 L MCV 100.3 H MCH RDW 15.0 H 15.0 H Plt Count 42 L* 56 L MPV 11.4 H 12.2 H Gran % Lymph % (Auto) [place] % (Auto) Gran # Lymph # (Auto) [place] # (Auto) Seg Neutrophils % 81 H Lymphocytes % 10 L 2 L Monocytes % (Manual) 27 H 15 H Myelocytes % 1 H Nucleated RBCs 2 H Reactive Lymphocytes 3 H Platelet Estimate Decreased A Decreased A Carbon Dioxide 21 L BUN 24 H Creatinine Glucose 174 H Calcium 8.2 L Phosphorus 2.4 L Lactate Dehydrogenase 288 H Total Protein 5.4 L Albumin 3.0 L 05/10/19 09:50 WBC 41.4 H* RBC 3.63 L Hgb 11.9 L Hct 35.3 L MCV MCH RDW 14.9 H Plt Count 41 L* MPV 12.5 H Gran % 80.4 H Lymph % (Auto) 2.0 L [place] % (Auto) 17.4 H Gran # 33.28 H Lymph # (Auto) 0.83 L [place] # (Auto) 7.20 H Seg Neutrophils % Lymphocytes % Monocytes % (Manual) Myelocytes % Nucleated RBCs Reactive Lymphocytes Platelet Estimate Carbon Dioxide BUN Creatinine Glucose Calcium Phosphorus Lactate Dehydrogenase Total Protein Albumin Meds: Medications Acetaminophen (Tylenol) 650 mg PO Q4-6HP PRN; Protocol PRN Reason: Per Pain Protocol/Fever > 101 Albuterol/Ipratropium (Combivent) 2 puff INH BID [facility] Last Admin: 05/13/19 09:24 Dose: 2 puff Documented by: Allopurinol (Zyloprim) 100 mg PO HS [facility] Last Admin: 05/12/19 20:27 Dose: 100 mg Documented by: Atorvastatin Calcium (Lipitor) 20 mg PO HS [facility] Last Admin: 05/12/19 20:30 Dose: 20 mg Documented by: Benzonatate (Tessalon) 100 mg PO TIDP PRN PRN Reason: Cough Last Admin: 05/11/19 11:57 Dose: 100 mg Documented by: Bisacodyl (Dulcolax) 10 mg [place] Q2-3DAYS PRN PRN Reason: Constipation Docusate Sodium (Colace) 100 mg PO BID [facility] Last Admin: 05/13/19 09:24 Dose: 100 mg Documented by: Furosemide (Lasix) 80 mg PO QDAY [facility] Last Admin: 05/13/19 09:25 Dose: 80 mg Documented by: Guaifenesin/Codeine Phosphate (Robitussin Ac) 10 ml PO Q4HP PRN PRN Reason: Cough Acetaminophen (Ofirmev) 650 mg in 65 mls @ 130 mls/hr IV Q6HP PRN; Protocol PRN Reason: Per Pain Protocol/Fever > 101 Last Infusion: 05/10/19 01:22 Dose: Infused Documented by: Magnesium Sulfate (Magnesium Sulfate) 2 gm in 50 mls @ 50 mls/hr IV UD PRN PRN Reason: MG = or < 1.7 Last Infusion: 05/10/19 09:50 Dose: Infused Documented by: Norepinephrine Bitartrate 16 (mg/ Sodium Chloride) 250 mls @ 9.375 mls/hr IV Q24H [facility]; Protocol Last Titration: 05/13/19 05:30 Dose: 0 mcg/min, 0 mls/hr Documented by: Sodium Chloride (Sodium Chloride 0.9%) 250 mls @ 20 mls/hr IV .[id number] [facility] Last Admin: 05/13/19 01:22 Dose: 20 mls/hr Documented by: Levofloxacin (Levaquin) 750 mg in 150 mls @ 100 mls/hr IV Q48H [facility] Last Admin: 05/13/19 09:25 Dose: 100 mls/hr Documented by: Iron Carb/Multivit/[place]/Folic Acid (Multivitamin W/Minerals) 1 tab PO DAILY [facility] Last Admin: 05/13/19 09:24 Dose: 1 tab Documented by: Ketorolac Tromethamine (Ketorolac Tromethamine) 1 ml OP BIDP PRN PRN Reason: PAIN AND/OR INFLAMMATION Melatonin (Melatonin 3mg Tablet) 3 mg PO HSP PRN PRN Reason: Insomnia Mupirocin (Bactroban Oint 2%) 1 dose NARES BID [facility] Last Admin: 05/13/19 09:24 Dose: 1 dose Documented by: Ondansetron HCl (Zofran Odt) 4 mg SL Q4-6HP PRN; Protocol PRN Reason: Nausea And Vomiting Ondansetron HCl (Zofran) 4 mg IV Q4-6HP PRN; Protocol PRN Reason: Nausea And Vomiting Oxazepam (Oxazepam) 15 mg PO QHS [facility] Last Admin: 05/12/19 20:27 Dose: 15 mg Documented by: Polyethylene Glycol (Miralax) 17 gm PO DAILYP PRN PRN Reason: Constipation Last Admin: 05/12/19 08:41 Dose: 17 gm Documented by: Potassium Chloride (Klor-Con) 40 meq PO DAILYP PRN PRN Reason: K+ < 3.5 Last Admin: 05/12/19 08:40 Dose: 40 meq Documented by: Potassium Chloride (Kdur) 20 meq PO QAMCC [facility] Last Admin: 05/13/19 09:24 Dose: 20 meq Documented by: Senna/Docusate Sodium (Senna Plus Tablet) 1 tab PO HS [facility] Last Admin: 05/12/19 20:27 Dose: 1 tab Documented by: Sodium Chloride (Saline Flush) 10 ml IV Q8 [facility] Last Admin: 05/13/19 05:32 Dose: 10 ml Documented by: Spironolactone (Aldactone) 12.5 mg PO QAM [facility] Last Admin: 05/13/19 09:25 Dose: 12.5 mg Documented by: Medical - PN: A/P - Time Spent With Patient Total time spent is greater than 50% in coordination of care (as documented) at patient's floor/unit and/or counseling patient: (1) Complicated UTI (urinary tract infection) Status: Acute Current Visit: Yes Medical - PN: Qual - VTE Deep Vein Thrombosis/Pulmonary Embolism Present on Admission: No
[2019-05-13 10:05] LABS: Lymphocytes % 12 % (15-49); Monocytes % (Manual) 31 % (1-12); Platelet Estimate DECREASED (NORMAL); RBC Morphology NORMAL (NORMAL); Reactive Lymphocytes 3 % (0-2); Segmented Neutrophils % 54 % (38-78)
--- NOTE | 2019-05-13 10:07 | Internal Med Progress Note ---
Medical - PN: Subj Patient information: Note initiated : 05/13/19 at 10:04 am Service Date, if different from initiated Date: [] Patient: Colt Flores 83 y/o M admitted on 05/09/19 for Weakness, Fever. Chief Complaint: [] Interval history: Mr. Flores is a 83 year old M with a history of right parietal CVA with left hemiparesis who lives at home along with his . Patient presents to the ER after he became very unsteady and weak, became nauseated while at shower. Symptoms have been progressing over the last couple of days. He was recently at the hospital with constipation where he was found to have bladder obstruction causing retained urine and associated constipation. subsequently a catheter was placed that led to his improvement in bowel symptoms. Following discharge from the ER he was evaluated by urology and catheter was discontinued few days ago however over the last couple of days he has noted increasing weakness, fever and becoming unsteady and a gradual decline in functional status. With worsening symptoms he presents to the ER. Initial work-up was consistent with sepsis with hypotension. Cultures revealed Pseudomonas on urine. Patient was started antibiotics and subsequently hospital service was consulted At the time evaluation patient is alert and respond to commands. He was able to endorse history as above. He denies shaking chills but endorses to fever weakness myalgia nausea and being very unsteady. He has residual deficits from previous CVA and uses a pull at home along with motor scooter to get around. He also follows up with Dr. Mercado manager of digital for thrombocytopenia. 05/10-patient in septic shock. Continue vasopressors to keep map at goal. White count in excess of 40,000. Leukemoid reaction. High risk mortality. No family at bedside. Renal function stable with creatinine 1.2. Continue cefepime and de-escalate based on sensitivities. Map at goal. T-max 101.6. No other concerns expressed with nursing staff 05/11-patient clinically improving. White count down to 22,000. On vasopressors. Critically ill. T-max 101.6. Had a visit with family yesterday and discussed clinical findings/labs/prognosis. Attempting to wean pressors. Continue antibiotic coverage. Pansensitive Pseudomonas on culture. De-escalate to Levaquin today. Creatinine at 1.1. 05/12-patient doing better. Continuing to wean vasopressors down to 3 mics. Systolics around mid 90s. Incontinence incontinent complains of lack of bowel movements. Afebrile. No other concerns per nursing staff. Net 6 pounds over baseline weight since admission. However in light of septic shock and need of pressors diuresis will be held. No family at bedside. Patient alert and cooperative and feels much better than previous day. 05/13-patient doing remarkably better. Off pressors. Generalized swelling with significant dependent edema. Started on diuretics. No overnight fever. White count down to 6.3. Hemoglobin 10.5. Creatinine 1. Pseudomonas on culture. - Constitutional Vitals: Vital Signs Temp Pulse Resp BP Pulse Ox 97.6 F 74 26 H 100/65 98 05/13/19 08:03 05/11/19 11:16 05/13/19 09:16 05/13/19 09:16 05/13/19 09:16 Period Temp Pulse Resp BP Sys/Coreas Pulse Ox Last 24 Hr 97.6 F-98.4 F 16-32 85-144/35-107 92-100 Intake and Output 05/12/19 05/13/19 05/13/19 21:59 05:59 13:59 Intake Total 610 Output Total 2 1 1 Balance -2 609 -1 Weight 210 lb 8 oz Intake & Output: Intake & Output 05/12/19 05/13/19 05/13/19 21:59 05:59 13:59 Intake Total 610 Output Total 2 1 1 Balance -2 609 -1 Weight 210 lb 8 oz Intake: IV 290 Sodium Chloride 0.9% 250 ml @ 250 20 mls/hr IV .[id number] [facility] Rx#: [id number] Levophed 16 mg In Sodium 40 Chloride 0.9% 234 ml @ 10 MCG/ MIN 9.375 mls/hr IV Q24H [facility] Rx #:[id number] Oral 320 Output: # of times incontinent of urine 2 1 1 Other: Meal Breakfast Percent of Meal Consumed 100% Stool Size Small Small Stool Color Brown Brown Stool Consistency Soft Soft # Bowel Movements 1 # of times incontinent of 1 1 Bowels General appearance: no acute distress Exam: Alert oriented Minimally labored breathing Generalized edema concentrated more in dependent areas Diminished breath sounds bases Left hemiparesis Medical - PN: Obj Da - Labs CBC & Chem 7: 05/13/19 05:08 05/13/19 05:08 Labs: Abnormal Lab Results 05/13/19 05/13/19 05/12/19 05:08 05:08 04:32 WBC RBC 3.07 L Hgb 10.5 L Hct 30.5 L MCV MCH 34.2 H RDW 15.1 H Plt Count 50 L* MPV 11.3 H Gran % Lymph % (Auto) [place] % (Auto) Gran # Lymph # (Auto) [place] # (Auto) Seg Neutrophils % Lymphocytes % Monocytes % (Manual) Myelocytes % Nucleated RBCs Reactive Lymphocytes Platelet Estimate Carbon Dioxide 21 L BUN 29 H 29 H Creatinine 1.3 H Glucose 136 H 146 H Calcium 8.5 L 8.2 L Phosphorus Lactate Dehydrogenase Total Protein 5.0 L 5.0 L Albumin 2.8 L 2.8 L 05/12/19 05/11/19 05/11/19 04:32 04:50 04:50 WBC 22.3 H RBC 2.94 L 3.35 L Hgb 9.9 L 11.3 L Hct 29.0 L 33.6 L MCV 100.3 H MCH RDW 15.0 H 15.0 H Plt Count 42 L* 56 L MPV 11.4 H 12.2 H Gran % Lymph % (Auto) [place] % (Auto) Gran # Lymph # (Auto) [place] # (Auto) Seg Neutrophils % 81 H Lymphocytes % 10 L 2 L Monocytes % (Manual) 27 H 15 H Myelocytes % 1 H Nucleated RBCs 2 H Reactive Lymphocytes 3 H Platelet Estimate Decreased A Decreased A Carbon Dioxide 21 L BUN 24 H Creatinine Glucose 174 H Calcium 8.2 L Phosphorus 2.4 L Lactate Dehydrogenase 288 H Total Protein 5.4 L Albumin 3.0 L 05/10/19 09:50 WBC 41.4 H* RBC 3.63 L Hgb 11.9 L Hct 35.3 L MCV MCH RDW 14.9 H Plt Count 41 L* MPV 12.5 H Gran % 80.4 H Lymph % (Auto) 2.0 L [place] % (Auto) 17.4 H Gran # 33.28 H Lymph # (Auto) 0.83 L [place] # (Auto) 7.20 H Seg Neutrophils % Lymphocytes % Monocytes % (Manual) Myelocytes % Nucleated RBCs Reactive Lymphocytes Platelet Estimate Carbon Dioxide BUN Creatinine Glucose Calcium Phosphorus Lactate Dehydrogenase Total Protein Albumin Meds: Medications Acetaminophen (Tylenol) 650 mg PO Q4-6HP PRN; Protocol PRN Reason: Per Pain Protocol/Fever > 101 Albuterol/Ipratropium (Combivent) 2 puff INH BID [facility] Last Admin: 05/13/19 09:24 Dose: 2 puff Documented by: Allopurinol (Zyloprim) 100 mg PO HS [facility] Last Admin: 05/12/19 20:27 Dose: 100 mg Documented by: Atorvastatin Calcium (Lipitor) 20 mg PO HS [facility] Last Admin: 05/12/19 20:30 Dose: 20 mg Documented by: Benzonatate (Tessalon) 100 mg PO TIDP PRN PRN Reason: Cough Last Admin: 05/11/19 11:57 Dose: 100 mg Documented by: Bisacodyl (Dulcolax) 10 mg [place] Q2-3DAYS PRN PRN Reason: Constipation Docusate Sodium (Colace) 100 mg PO BID [facility] Last Admin: 05/13/19 09:24 Dose: 100 mg Documented by: Furosemide (Lasix) 80 mg PO QDAY [facility] Last Admin: 05/13/19 09:25 Dose: 80 mg Documented by: Guaifenesin/Codeine Phosphate (Robitussin Ac) 10 ml PO Q4HP PRN PRN Reason: Cough Acetaminophen (Ofirmev) 650 mg in 65 mls @ 130 mls/hr IV Q6HP PRN; Protocol PRN Reason: Per Pain Protocol/Fever > 101 Last Infusion: 05/10/19 01:22 Dose: Infused Documented by: Magnesium Sulfate (Magnesium Sulfate) 2 gm in 50 mls @ 50 mls/hr IV UD PRN PRN Reason: MG = or < 1.7 Last Infusion: 05/10/19 09:50 Dose: Infused Documented by: Norepinephrine Bitartrate 16 (mg/ Sodium Chloride) 250 mls @ 9.375 mls/hr IV Q24H [facility]; Protocol Last Titration: 05/13/19 05:30 Dose: 0 mcg/min, 0 mls/hr Documented by: Sodium Chloride (Sodium Chloride 0.9%) 250 mls @ 20 mls/hr IV .[id number] [facility] Last Admin: 05/13/19 01:22 Dose: 20 mls/hr Documented by: Levofloxacin (Levaquin) 750 mg in 150 mls @ 100 mls/hr IV Q48H [facility] Last Admin: 05/13/19 09:25 Dose: 100 mls/hr Documented by: Iron Carb/Multivit/[place]/Folic Acid (Multivitamin W/Minerals) 1 tab PO DAILY [facility] Last Admin: 05/13/19 09:24 Dose: 1 tab Documented by: Ketorolac Tromethamine (Ketorolac Tromethamine) 1 ml OP BIDP PRN PRN Reason: PAIN AND/OR INFLAMMATION Melatonin (Melatonin 3mg Tablet) 3 mg PO HSP PRN PRN Reason: Insomnia Mupirocin (Bactroban Oint 2%) 1 dose NARES BID [facility] Last Admin: 05/13/19 09:24 Dose: 1 dose Documented by: Ondansetron HCl (Zofran Odt) 4 mg SL Q4-6HP PRN; Protocol PRN Reason: Nausea And Vomiting Ondansetron HCl (Zofran) 4 mg IV Q4-6HP PRN; Protocol PRN Reason: Nausea And Vomiting Oxazepam (Oxazepam) 15 mg PO QHS [facility] Last Admin: 05/12/19 20:27 Dose: 15 mg Documented by: Polyethylene Glycol (Miralax) 17 gm PO DAILYP PRN PRN Reason: Constipation Last Admin: 05/12/19 08:41 Dose: 17 gm Documented by: Potassium Chloride (Klor-Con) 40 meq PO DAILYP PRN PRN Reason: K+ < 3.5 Last Admin: 05/12/19 08:40 Dose: 40 meq Documented by: Potassium Ch[facility] ([facility]ur) [facility] Last Admin: 05/13/19 09:24 Dose: 20 meq Documented by: Senna/Docusate Sodium (Senna Plus Tablet) 1 tab PO HS [facility] Last Admin: 05/12/19 20:27 Dose: 1 tab Documented by: Sodium Chloride (Saline Flush) 10 ml IV Q8 [facility] Last Admin: 05/13/19 05:32 Dose: 10 ml Documented by: Spironolactone (Aldactone) 12.5 mg PO QAM [facility] Last Admin: 05/13/19 09:25 Dose: 12.5 mg Documented by: Medical - PN: A/P - Time Spent With Patient Total time spent is greater than 50% in coordination of care (as documented) at patient's floor/unit and/or counseling patient: Greater than 35 minutes (1) Complicated UTI (urinary tract infection) Status: Acute Assessment and plan: * Complicated Pseudomonas UTI-continue Levaquin based on sensitivities. Being negative for obstructive uropathy. * Septic shock -clinically resolved. Off vasopressors. White count normalized. * Leukemoid reaction secondary to complicated UTI. Resolved * History of CHF-Echocardiogram 2018 normal EF with moderate PA HTN. Follows up with Dr. Mehta at [place] [facility]. Currently in volume overload state due to sepsis management and crystalloid administration. Start aggressive diuresis. 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 Continue statin. Not on anticoagulation or antiplatelets due to thrombocytopenia. Continue physical therapy * Chronic atrial fibrillation -rate controlled * History of ITP/thrombocytopenia chronic. Platelets at baseline. Follows up with hematology at [place] * History of hypertension -medications on hold in light of septic shock * CKD stage III at baseline. GFR around 40. Stable creatinine 1 * History of PATITO continue CPAP at home settings * History of gout continue allopurinol * Full code * DVT prophylaxis SCDs Plan * Continue antibiotic coverage * Start aggressive diuresis due to volume overload state * PT OT/nutrition support * Prior medical condition management as above * SNF transfer coordination Current Visit: Yes Medical - PN: Qual - VTE Deep Vein Thrombosis/Pulmonary Embolism Present on Admission: No
--- NOTE | 2019-05-13 10:10 | Internal Med Progress Note ---
Medical - PN: Subj Patient information: Note initiated : 05/12/19 at 11:18 am Service Date, if different from initiated Date: [] Patient: Colt Flores 83 y/o M admitted on 05/09/19 for Weakness, Fever. Chief Complaint: [] Interval history: Mr. Flores is a 83 year old M with a history of right parietal CVA with left hemiparesis who lives at home along with his . Patient presents to the ER after he became very unsteady and weak, became nauseated while at shower. Symptoms have been progressing over the last couple of days. He was recently at the hospital with constipation where he was found to have bladder obstruction causing retained urine and associated constipation. subsequently a catheter was placed that led to his improvement in bowel symptoms. Following discharge from the ER he was evaluated by urology and catheter was discontinued few days ago however over the last couple of days he has noted increasing weakness, fever and becoming unsteady and a gradual decline in functional status. With worsening symptoms he presents to the ER. Initial work-up was consistent with sepsis with hypotension. Cultures revealed Pseudomonas on urine. Patient was started antibiotics and subsequently hospital service was consulted At the time evaluation patient is alert and respond to commands. He was able to endorse history as above. He denies shaking chills but endorses to fever weakness myalgia nausea and being very unsteady. He has residual deficits from previous CVA and uses a pull at home along with motor scooter to get around. He also follows up with Dr. Mercado recruiter for thrombocytopenia. 05/10-patient in septic shock. Continue vasopressors to keep map at goal. White count in excess of 40,000. Leukemoid reaction. High risk mortality. No family at bedside. Renal function stable with creatinine 1.2. Continue cefepime and de-escalate based on sensitivities. Map at goal. T-max 101.6. No other concerns expressed with nursing staff 05/11-patient clinically improving. White count down to 22,000. On vasopressors. Critically ill. T-max 101.6. Had a visit with family yesterday and discussed clinical findings/labs/prognosis. Attempting to wean pressors. Continue antibiotic coverage. Pansensitive Pseudomonas on culture. De-escalate to Levaquin today. Creatinine at 1.1. 05/12-patient doing better. Continuing to wean vasopressors down to 3 mics. Systolics around mid 90s. Incontinence incontinent complains of lack of bowel movements. Afebrile. No other concerns per nursing staff. Net 6 pounds over baseline weight since admission. However in light of septic shock and need of pressors diuresis will be held. No family at bedside. Patient alert and cooperative and feels much better than previous day. - Constitutional Vitals: Vital Signs Temp Pulse Resp BP Pulse Ox 97.6 F 74 26 H 100/65 98 05/13/19 08:03 05/11/19 11:16 05/13/19 09:16 05/13/19 09:16 05/13/19 09:16 Period Temp Pulse Resp BP Sys/Coreas Pulse Ox Last 24 Hr 97.6 F-98.4 F 16-32 85-144/35-107 92-100 Intake and Output 05/12/19 05/13/19 05/13/19 21:59 05:59 13:59 Intake Total 610 Output Total 2 1 1 Balance -2 609 -1 Weight 210 lb 8 oz Intake & Output: Intake & Output 05/12/19 05/13/19 05/13/19 21:59 05:59 13:59 Intake Total 610 Output Total 2 1 1 Balance -2 609 -1 Weight 210 lb 8 oz Intake: IV 290 Sodium Chloride 0.9% 250 ml @ 250 20 mls/hr IV .[id number] [facility] Rx#: [id number] Levophed 16 mg In Sodium 40 Chloride 0.9% 234 ml @ 10 MCG/ MIN 9.375 mls/hr IV Q24H [facility] Rx #:[id number] Oral 320 Output: # of times incontinent of urine 2 1 1 Other: Meal Breakfast Percent of Meal Consumed 100% Stool Size Small Small Stool Color Brown Brown Stool Consistency Soft Soft # Bowel Movements 1 # of times incontinent of 1 1 Bowels General appearance: no acute distress Exam: Alert oriented Nonlabored breathing Left-sided persistent neurological deficit from previous CVA Incontinent of urine No telemetry events On pressors Medical - PN: Obj Da - Labs CBC & Chem 7: 05/13/19 05:08 05/13/19 05:08 Labs: Abnormal Lab Results 05/13/19 05/13/19 05/12/19 05:08 05:08 04:32 WBC RBC 3.07 L Hgb 10.5 L Hct 30.5 L MCV MCH 34.2 H RDW 15.1 H Plt Count 50 L* MPV 11.3 H Gran % Lymph % (Auto) [place] % (Auto) Gran # Lymph # (Auto) [place] # (Auto) Seg Neutrophils % Lymphocytes % 12 L Monocytes % (Manual) 31 H Myelocytes % Nucleated RBCs Reactive Lymphocytes 3 H Platelet Estimate Decreased A Carbon Dioxide 21 L BUN 29 H 29 H Creatinine 1.3 H Glucose 136 H 146 H Calcium 8.5 L 8.2 L Phosphorus Lactate Dehydrogenase Total Protein 5.0 L 5.0 L Albumin 2.8 L 2.8 L 05/12/19 05/11/19 05/11/19 04:32 04:50 04:50 WBC 22.3 H RBC 2.94 L 3.35 L Hgb 9.9 L 11.3 L Hct 29.0 L 33.6 L MCV 100.3 H MCH RDW 15.0 H 15.0 H Plt Count 42 L* 56 L MPV 11.4 H 12.2 H Gran % Lymph % (Auto) [place] % (Auto) Gran # Lymph # (Auto) [place] # (Auto) Seg Neutrophils % 81 H Lymphocytes % 10 L 2 L Monocytes % (Manual) 27 H 15 H Myelocytes % 1 H Nucleated RBCs 2 H Reactive Lymphocytes 3 H Platelet Estimate Decreased A Decreased A Carbon Dioxide 21 L BUN 24 H Creatinine Glucose 174 H Calcium 8.2 L Phosphorus 2.4 L Lactate Dehydrogenase 288 H Total Protein 5.4 L Albumin 3.0 L 05/10/19 09:50 WBC 41.4 H* RBC 3.63 L Hgb 11.9 L Hct 35.3 L MCV MCH RDW 14.9 H Plt Count 41 L* MPV 12.5 H Gran % 80.4 H Lymph % (Auto) 2.0 L [place] % (Auto) 17.4 H Gran # 33.28 H Lymph # (Auto) 0.83 L [place] # (Auto) 7.20 H Seg Neutrophils % Lymphocytes % Monocytes % (Manual) Myelocytes % Nucleated RBCs Reactive Lymphocytes Platelet Estimate Carbon Dioxide BUN Creatinine Glucose Calcium Phosphorus Lactate Dehydrogenase Total Protein Albumin Meds: Medications Acetaminophen (Tylenol) 650 mg PO Q4-6HP PRN; Protocol PRN Reason: Per Pain Protocol/Fever > 101 Albuterol/Ipratropium (Combivent) 2 puff INH BID [facility] Last Admin: 05/13/19 09:24 Dose: 2 puff Documented by: Allopurinol (Zyloprim) 100 mg PO HS [facility] Last Admin: 05/12/19 20:27 Dose: 100 mg Documented by: Atorvastatin Calcium (Lipitor) 20 mg PO HS [facility] Last Admin: 05/12/19 20:30 Dose: 20 mg Documented by: Benzonatate (Tessalon) 100 mg PO TIDP PRN PRN Reason: Cough Last Admin: 05/11/19 11:57 Dose: 100 mg Documented by: Bisacodyl (Dulcolax) 10 mg IN Q2-3DAYS PRN PRN Reason: Constipation Docusate Sodium (Colace) 100 mg PO BID [facility] Last Admin: 05/13/19 09:24 Dose: 100 mg Documented by: Furosemide (Lasix) 80 mg PO QDAY [facility] Last Admin: 05/13/19 09:25 Dose: 80 mg Documented by: Guaifenesin/Codeine Phosphate (Robitussin Ac) 10 ml PO Q4HP PRN PRN Reason: Cough Acetaminophen (Ofirmev) 650 mg in 65 mls @ 130 mls/hr IV Q6HP PRN; Protocol PRN Reason: Per Pain Protocol/Fever > 101 Last Infusion: 05/10/19 01:22 Dose: Infused Documented by: Magnesium Sulfate (Magnesium Sulfate) 2 gm in 50 mls @ 50 mls/hr IV UD PRN PRN Reason: MG = or < 1.7 Last Infusion: 05/10/19 09:50 Dose: Infused Documented by: Norepinephrine Bitartrate 16 (mg/ Sodium Chloride) 250 mls @ 9.375 mls/hr IV Q24H [facility]; Protocol Last Titration: 05/13/19 05:30 Dose: 0 mcg/min, 0 mls/hr Documented by: Sodium Chloride (Sodium Chloride 0.9%) 250 mls @ 20 mls/hr IV .[id number] [facility] Last Admin: 05/13/19 01:22 Dose: 20 mls/hr Documented by: Levofloxacin (Levaquin) 750 mg in 150 mls @ 100 mls/hr IV Q48H [facility] Last Admin: 05/13/19 09:25 Dose: 100 mls/hr Documented by: Iron Carb/Multivit/Dog Catcher/Folic Acid (Multivitamin W/Minerals) 1 tab PO DAILY [facility] Last Admin: 05/13/19 09:24 Dose: 1 tab Documented by: Ketorolac Tromethamine (Ketorolac Tromethamine) 1 ml OP BIDP PRN PRN Reason: PAIN AND/OR INFLAMMATION Melatonin (Melatonin 3mg Tablet) 3 mg PO HSP PRN PRN Reason: Insomnia Mupirocin (Bactroban Oint 2%) 1 dose NARES BID [facility] Last Admin: 05/13/19 09:24 Dose: 1 dose Documented by: Ondansetron HCl (Zofran Odt) 4 mg SL Q4-6HP PRN; Protocol PRN Reason: Nausea And Vomiting Ondansetron HCl (Zofran) 4 mg IV Q4-6HP PRN; Protocol PRN Reason: Nausea And Vomiting Oxazepam (Oxazepam) 15 mg PO QHS [facility] Last Admin: 05/12/19 20:27 Dose: 15 mg Documented by: Polyethylene Glycol (Miralax) 17 gm PO DAILYP PRN PRN Reason: Constipation Last Admin: 05/12/19 08:41 Dose: 17 gm Documented by: Potassium Chloride (Klor-Con) 40 meq PO DAILYP PRN PRN Reason: K+ < 3.5 Last Admin: 05/12/19 08:40 Dose: 40 meq Documented by: Potassium Chloride (Kdur) 20 meq PO QAMCC [facility] Last Admin: 05/13/19 09:24 Dose: 20 meq Documented by: Senna/Docusate Sodium (Senna Plus Tablet) 1 tab PO HS [facility] Last Admin: 05/12/19 20:27 Dose: 1 tab Documented by: Sodium Chloride (Saline Flush) 10 ml IV Q8 [facility] Last Admin: 05/13/19 05:32 Dose: 10 ml Documented by: Spironolactone (Aldactone) 12.5 mg PO QAM [facility] Last Admin: 05/13/19 09:25 Dose: 12.5 mg Documented by: Medical - PN: A/P - Time Spent With Patient Total time spent is greater than 50% in coordination of care (as documented) at patient's floor/unit and/or counseling patient: Greater than 35 minutes (Critical care time) (1) Complicated UTI (urinary tract infection) Status: Acute Assessment and plan: * Complicated Pseudomonas UTI-continue Levaquin based on sensitivities. No evidence of obstructive uropathy * Septic shock -on vasopressors/crystalloids/antibiotics and management per guidelines. White count downtrending from 43,000->7300. * Leukemoid reaction secondary to complicated UTI. Resolved * History of CHF-Echocardiogram 2019 normal EF with moderate PA HTN. Follows up with Dr. Mehta at [place] [facility]. 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 Continue statin. Not on anticoagulation or antiplatelets due to thrombocytopenia. Continue physical therapy * Chronic atrial fibrillation -currently rate controlled . * History of ITP/thrombocytopenia chronic. Platelets around baseline 50,000. Follows up with hematology at [place] * History of hypertension -medications on hold in light of septic shock * CKD stage III at baseline. GFR around 40. Stable creatinine 1 * History of PATITO continue CPAP at home settings * History of gout continue allopurinol * Full code * DVT prophylaxis SCDs Plan * Wean vasopressors as tolerated * Continue antibiotic coverage * Start diuresis once off pressors * PT OT/nutrition support * Continue pre-existing medical condition management on home medications * Case management coordinate SNF transfer planning Current Visit: Yes Medical - PN: Qual - VTE Deep Vein Thrombosis/Pulmonary Embolism Present on Admission: No
[2019-05-13] MEDS ORDERED: FUROSEMIDE 40 MG/4 ML VIAL IV ONE (16:14)
[2019-05-13] MEDS: NOREPINEPHRINE BITARTRATE 16 MG in 0.9 % SODIUM CHLORIDE 234 ML IV SCH (18:49)
[2019-05-13] MEDS: SENNOSIDES/DOCUSATE SODIUM 1 TAB TABLET PO SCH (20:34)
[2019-05-13] MEDS: ATORVASTATIN 20 MG TABLET PO SCH (20:34)
[2019-05-13] MEDS: ALLOPURINOL 100 MG TABLET PO SCH (20:34)
[2019-05-13] MEDS: OXAZEPAM 15 MG CAPSULE PO SCH (20:35)
[2019-05-14] MEDS: 0.9 % SODIUM CHLORIDE 250 ML IV SCH ×2 (01:52→17:35)
[2019-05-14] MEDS: 0.9 % SODIUM CHLORIDE 10 ML SYRINGE IV SCH ×3 (04:29→22:00)
[2019-05-14 07:25] LABS: Hematocrit 30.7 % (40.1-51.0); Hemoglobin 10.6 g/dL (13.7-17.5); Mean Corpuscular HGB Conc 34.5 g/dL (31.0-36.0); Mean Platelet Volume 11.8 fL (7.4-10.4); Platelet Count 47 K/mcL (140-440); WBC 4.5 K/mcL (4.50-11.00)
[2019-05-14] MEDS ORDERED: NOREPINEPHRINE BITARTRATE 16 MG in 0.9 % SODIUM CHLORIDE 234 ML IV PRN (07:30)
[2019-05-14 07:31] LABS: ALT/SGPT 11 U/l (0-40); AST/SGOT 12 U/l (0-37); Albumin/Globulin Ratio 1.6 (1.0-2.3); Alkaline Phosphatase 90 U/L (39-117); Bilirubin,Direct 0.2 mg/dL (0.0-0.3); Bilirubin,Total 0.9 mg/dL (0.0-1.0); Blood Urea Nitrogen 32 mg/dl (8-23); Calcium 8.9 mg/dl (8.6-10.4); Carbon Dioxide 25 mmol/L (22-30); Chloride 102 mmol/L (96-108); Globulin 1.9 gm/dL (2.2-3.7); Glomerular Filtration Rate 56; Glucose 138 mg/dL (70-105); Lactate Dehydrogenase 218 U/L (94-250); Phosphorous 4.4 mg/dL (2.7-4.5); Triglycerides 133 mg/dl (<150); Uric Acid 6.5 mg/dL (2.5-8.0)
[2019-05-14] MEDS ORDERED: FUROSEMIDE 40 MG/4 ML VIAL IV ONE (08:25)
[2019-05-14] MEDS ORDERED: LEVOFLOXACIN 750 MG/150 ML BAG IV SCH (09:00)
[2019-05-14 09:01] LABS: Band Neutrophils % 4 % (0-10); Eosinophils % (Manual) 1 % (0-7); Lymphocytes % 18 % (15-49); Monocytes % (Manual) 20 % (1-12); Myelocytes % 1 % (0-0); Nucleated Red Blood Cells 1 % (0-0); Platelet Estimate MK DECR (NORMAL); RBC Morphology NORMAL (NORMAL); Reactive Lymphocytes 1 % (0-2); Segmented Neutrophils % 55 % (38-78)
[2019-05-14] MEDS: FUROSEMIDE 80 MG TABLET PO SCH (09:33)
[2019-05-14] MEDS: BENZONATATE 100 MG CAPSULE PO PRN (09:33)
[2019-05-14] MEDS: SPIRONOLACTONE 25 MG TABLET PO SCH (09:33)
[2019-05-14] MEDS: POTASSIUM CHLORIDE 20 MEQ TABLET PO SCH (09:33)
[2019-05-14] MEDS: DOCUSATE SODIUM 100 MG CAPSULE PO SCH ×2 (09:34→20:34)
[2019-05-14] MEDS: MUPIROCIN OINT 2% 22GM NARES SCH ×2 (09:34→20:34)
[2019-05-14] MEDS: MULTIVIT,THER IRON,CA,FA & MIN 1 TABLET PO SCH (09:34)
[2019-05-14] MEDS: IPRATROPIUM/ALBUTEROL SULFATE 1 PUFF INHALER INH SCH ×2 (10:35→20:35)
--- NOTE | 2019-05-14 10:39 | Internal Med Progress Note ---
Medical - PN: Subj Patient information: Note initiated : 05/14/19 at 10:38 am Service Date, if different from initiated Date: [] Patient: Colt Flores 83 y/o M admitted on 05/09/19 for Weakness, Fever. Chief Complaint: [] Interval history: Mr. Flores is a 83 year old M with a history of right parietal CVA with left hemiparesis who lives at home along with his . Patient presents to the ER after he became very unsteady and weak, became nauseated while at shower. Symptoms have been progressing over the last couple of days. He was recently at the hospital with constipation where he was found to have bladder obstruction causing retained urine and associated constipation. subsequently a catheter was placed that led to his improvement in bowel symptoms. Following discharge from the ER he was evaluated by urology and catheter was discontinued few days ago however over the last couple of days he has noted increasing weakness, fever and becoming unsteady and a gradual decline in functional status. With worsening symptoms he presents to the ER. Initial work-up was consistent with sepsis with hypotension. Cultures revealed Pseudomonas on urine. Patient was started antibiotics and subsequently hospital service was consulted At the time evaluation patient is alert and respond to commands. He was able to endorse history as above. He denies shaking chills but endorses to fever weakness myalgia nausea and being very unsteady. He has residual deficits from previous CVA and uses a pull at home along with motor scooter to get around. He also follows up with Dr. Mercado poultry hatchery supervisor for thrombocytopenia. 05/10-patient in septic shock. Continue vasopressors to keep map at goal. White count in excess of 40,000. Leukemoid reaction. High risk mortality. No family at bedside. Renal function stable with creatinine 1.2. Continue cefepime and de-escalate based on sensitivities. Map at goal. T-max 101.6. No other concerns expressed with nursing staff 05/11-patient clinically improving. White count down to 22,000. On vasopressors. Critically ill. T-max 101.6. Had a visit with family yesterday and discussed clinical findings/labs/prognosis. Attempting to wean pressors. Continue antibiotic coverage. Pansensitive Pseudomonas on culture. De-escalate to Levaquin today. Creatinine at 1.1. 05/12-patient doing better. Continuing to wean vasopressors down to 3 mics. Systolics around mid 90s. Incontinence incontinent complains of lack of bowel movements. Afebrile. No other concerns per nursing staff. Net 6 pounds over baseline weight since admission. However in light of septic shock and need of pressors diuresis will be held. No family at bedside. Patient alert and cooperative and feels much better than previous day. 05/13-patient doing remarkably better. Off pressors. Generalized swelling with significant dependent edema. Started on diuretics. No overnight fever. White count down to 6.3. Hemoglobin 10.5. Creatinine 1. Pseudomonas on culture. 05/14-diuresing well. Incontinent of urine. However bed weight down 4 pounds. Much improved lymphedema. No anxiety. Feels a lot better. Tolerating diet. Tolerating physical therapy. Transferring to medical floor. Anticipate discharge in 24 hours with continued antibiotic for additional 48 hours. - Constitutional Vitals: Vital Signs Temp Pulse Resp BP Pulse Ox 97.0 F 64 21 107/46 94 05/14/19 08:01 05/14/19 10:23 05/14/19 10:23 05/14/19 10:16 05/14/19 10:23 Period Temp Pulse Resp BP Sys/Coreas Pulse Ox Last 24 Hr 97.0 F-98.8 F 51-91 16-31 55-135/35-120 92-100 Intake and Output 05/13/19 05/14/19 05/14/19 21:59 05:59 13:59 Intake Total 240 200 Output Total 501 5 2 Balance -261 195 -2 Weight 208 lb 1.6 oz 206 lb 9.6 oz Intake & Output: Intake & Output 05/13/19 05/14/19 05/14/19 21:59 05:59 13:59 Intake Total 240 200 Output Total 501 5 2 Balance -261 195 -2 Weight 208 lb 1.6 oz 206 lb 9.6 oz Intake: Oral 240 200 Output: Void Amount 500 # of times incontinent of urine 1 5 2 Other: Meal Dinner Percent of Meal Consumed 100% Stool Size Large Stool Color Brown Stool Consistency Loose # of times incontinent of 1 Bowels General appearance: no acute distress Exam: Alert oriented Nonlabored breathing No anxiety Nondistended abdomen Left-sided deficits Medical - PN: Obj Da - Labs CBC & Chem 7: 02/19/20 04:12 05/14/19 04:12 Labs: Abnormal Lab Results 05/14/19 05/14/19 05/13/19 04:12 04:12 05:08 RBC 3.10 L Hgb 10.6 L Hct 30.7 L MCH 34.2 H RDW 15.0 H Plt Count 47 L* MPV 11.8 H Lymphocytes % Monocytes % (Manual) 20 H Myelocytes % 1 H Nucleated RBCs 1 H Reactive Lymphocytes Platelet Estimate Mk decr A Carbon Dioxide 21 L BUN 32 H 29 H Creatinine Glucose 138 H 136 H Calcium 8.5 L Total Protein 4.9 L 5.0 L Albumin 3.0 L 2.8 L Globulin 1.9 L 05/13/19 05/12/19 05/12/19 05:08 04:32 04:32 RBC 3.07 L 2.94 L Hgb 10.5 L 9.9 L Hct 30.5 L 29.0 L MCH 34.2 H RDW 15.1 H 15.0 H Plt Count 50 L* 42 L* MPV 11.3 H 11.4 H Lymphocytes % 12 L 10 L Monocytes % (Manual) 31 H 27 H Myelocytes % Nucleated RBCs 2 H Reactive Lymphocytes 3 H 3 H Platelet Estimate Decreased A Decreased A Carbon Dioxide BUN 29 H Creatinine 1.3 H Glucose 146 H Calcium 8.2 L Total Protein 5.0 L Albumin 2.8 L Globulin Meds: Medications Acetaminophen (Tylenol) 650 mg PO Q4-6HP PRN; Protocol PRN Reason: Per Pain Protocol/Fever > 101 Last Admin: 05/13/19 20:34 Dose: 650 mg Documented by: Albuterol/Ipratropium (Combivent) 2 puff INH BID [facility] Last Admin: 05/14/19 10:35 Dose: 2 puff Documented by: Allopurinol (Zyloprim) 100 mg PO HS [facility] Last Admin: 05/13/19 20:34 Dose: 100 mg Documented by: Atorvastatin Calcium (Lipitor) 20 mg PO [facility] Last Admin: 05/13/19 20:34 Dose: 20 mg Documented by: Benzonatate (Tessalon) 100 mg PO TIDP PRN PRN Reason: Cough Last Admin: 05/14/19 09:33 Dose: 100 mg Documented by: Bisacodyl (Dulcolax) 10 mg DC Q2-3DAYS PRN PRN Reason: Constipation Last Admin: 05/13/19 16:43 Dose: 10 mg Documented by: Docusate Sodium (Colace) 100 mg PO BID [facility] Last Admin: 05/14/19 09:34 Dose: 100 mg Documented by: Furosemide (Lasix) 80 mg PO QDAY [facility] Last Admin: 05/14/19 09:33 Dose: 80 mg Documented by: Guaifenesin/Codeine Phosphate (Robitussin Ac) 10 ml PO Q4HP PRN PRN Reason: Cough Acetaminophen (Ofirmev) 650 mg in 65 mls @ 130 mls/hr IV Q6HP PRN; Protocol PRN Reason: Per Pain Protocol/Fever > 101 Last Infusion: 05/10/19 01:22 Dose: Infused Documented by: Magnesium Sulfate (Magnesium Sulfate) 2 gm in 50 mls @ 50 mls/hr IV UD PRN PRN Reason: MG = or < 1.7 Last Infusion: 05/10/19 09:50 Dose: Infused Documented by: Sodium Chloride (Sodium Chloride 0.9%) 250 mls @ 20 mls/hr IV .[id number] [facility] Last Admin: 05/14/19 01:52 Dose: Not Given Documented by: Levofloxacin (Levaquin) 750 mg in 150 mls @ 100 mls/hr IV Q24H [facility] Last Admin: 05/14/19 09:32 Dose: 100 mls/hr Documented by: Norepinephrine Bitartrate 16 (mg/ Sodium Chloride) 250 mls @ 9.375 mls/hr IV Q24HP PRN; Protocol PRN Reason: Hypotension Iron Carb/Multivit/[place]/Folic Acid (Multivitamin W/Minerals) 1 tab PO DAILY [facility] Last Admin: 05/14/19 09:34 Dose: 1 tab Documented by: Ketorolac Tromethamine (Ketorolac Tromethamine) 1 ml OP BIDP PRN PRN Reason: PAIN AND/OR INFLAMMATION Melatonin (Melatonin 3mg Tablet) 3 mg PO HSP PRN PRN Reason: Insomnia Last Admin: 05/13/19 20:34 Dose: 3 mg Documented by: Mupirocin (Bactroban Oint 2%) 1 dose NARES BID [facility] Last Admin: 05/14/19 09:34 Dose: 1 dose Documented by: Ondansetron HCl (Zofran Odt) 4 mg SL Q4-6HP PRN; Protocol PRN Reason: Nausea And Vomiting Ondansetron HCl (Zofran) 4 mg IV Q4-6HP PRN; Protocol PRN Reason: Nausea And Vomiting Oxazepam (Oxazepam) 15 mg PO QHS [facility] Last Admin: 05/13/19 20:35 Dose: 15 mg Documented by: Polyethylene Glycol (Miralax) 17 gm PO DAILYP PRN PRN Reason: Constipation Last Admin: 05/12/19 08:41 Dose: 17 gm Documented by: Potassium Chloride (Klor-Con) 40 meq PO DAILYP PRN PRN Reason: K+ < 3.5 Last Admin: 05/12/19 08:40 Dose: 40 meq Documented by: Potassium Chloride (Kdur) 20 meq PO QAC [facility] Last Admin: 05/14/19 09:33 Dose: 20 meq Documented by: Senna/Docusate Sodium (Senna Plus Tablet) 1 tab PO HS [facility] Last Admin: 05/13/19 20:34 Dose: 1 tab Documented by: Sodium Chloride (Saline Flush) 10 ml IV Q8 [facility] Last Admin: 05/14/19 04:29 Dose: 10 ml Documented by: Spironolactone (Aldactone) 12.5 mg PO QAM [facility] Last Admin: 05/14/19 09:33 Dose: 12.5 mg Documented by: Medical - PN: A/P - Time Spent With Patient Total time spent is greater than 50% in coordination of care (as documented) at patient's floor/unit and/or counseling patient: 25 - 35 minutes (1) Complicated UTI (urinary tract infection) Status: Acute Assessment and plan: * Complicated Pseudomonas UTI-continue Levaquin based on sensitivities. Renal ultrasound no evidence of obstructive uropathy. DC antibiotics in 48 hours * Septic shock -clinically resolved. Off vasopressors. * Leukemoid reaction secondary to complicated UTI. Resolved * History of CHF-Echocardiogram 2019 normal EF with moderate PA HTN. Follows up with Dr. Mehta at [place] [facility]. Currently in volume overload state due to sepsis management and crystalloid administration. Responding to diuresis.. 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 Continue statin. Not on anticoagulation or antiplatelets due to thrombocytopenia. Continue physical therapy * Chronic atrial fibrillation -rate controlled * History of ITP/thrombocytopenia chronic. Platelets at baseline. Follows up with hematology at [place] * History of hypertension -medications on hold in light of septic shock * CKD stage III at baseline. GFR around 40. Stable creatinine 1 * History of PATITO continue CPAP at home settings * History of gout continue allopurinol * Full code * DVT prophylaxis SCDs Plan * Continue antibiotic coverage * Continue IV diuretics for additional 24 hours followed by resumption of home diuretics * Continue PT OT/nutrition support * Transfer to medical floor * Continue pre-existing medical condition management as above * Discharge planning likely in 24 hours Current Visit: Yes Medical - PN: Qual - VTE Deep Vein Thrombosis/Pulmonary Embolism Present on Admission: No
[2019-05-14] MEDS ORDERED: ACETAMINOPHEN 325 MG TABLET PO PRN (13:21)
[2019-05-14] MEDS ORDERED: KETOROLAC TROMETHAMINE 3 ML DROPS OP PRN (13:21)
[2019-05-14] MEDS ORDERED: POTASSIUM CHLORIDE 20 MEQ PACKET PO PRN (13:21)
[2019-05-14] MEDS ORDERED: MELATONIN 3 MG TABLET PO PRN (13:21)
[2019-05-14] MEDS ORDERED: ONDANSETRON 4 MG/2 ML VIAL IV PRN (13:21)
[2019-05-14] MEDS ORDERED: BENZONATATE 100 MG CAPSULE PO PRN (13:21)
[2019-05-14] MEDS ORDERED: BISACODYL 10 MG SUPP.RECT PR PRN (13:21)
[2019-05-14] MEDS ORDERED: POLYETHYLENE GLYCOL 3350 17 GM PACKET PO PRN (13:21)
[2019-05-14] MEDS ORDERED: MAGNESIUM SULFATE 2 GM/50 ML BAG IV PRN (13:21)
[2019-05-14] MEDS ORDERED: ONDANSETRON 4 MG ODT TABLET SL PRN (13:21)
[2019-05-14] MEDS ORDERED: ACETAMINOPHEN 650 MG/65 ML BOTTLE IV PRN (13:21)
[2019-05-14] MEDS ORDERED: guaiFENesin/CODEINE 10 ML UDC PO PRN (13:21)
[2019-05-14] MEDS ORDERED: OXAZEPAM 15 MG CAPSULE PO SCH (21:00)
[2019-05-14] MEDS ORDERED: ATORVASTATIN 20 MG TABLET PO SCH (21:00)
[2019-05-14] MEDS ORDERED: ALLOPURINOL 100 MG TABLET PO SCH (21:00)
[2019-05-14] MEDS ORDERED: SENNOSIDES/DOCUSATE SODIUM 1 TAB TABLET PO SCH (21:00)
[2019-05-15] MEDS: 0.9 % SODIUM CHLORIDE 10 ML SYRINGE IV SCH (05:29)
[2019-05-15] MEDS ORDERED: POTASSIUM CHLORIDE 20 MEQ TABLET PO SCH (08:00)
[2019-05-15] MEDS: DOCUSATE SODIUM 100 MG CAPSULE PO SCH (08:53)
[2019-05-15] MEDS: KETOROLAC TROMETHAMINE 3 ML DROPS OP SCH (08:55)
[2019-05-15] MEDS: MUPIROCIN OINT 2% 22GM NARES SCH (08:55)
[2019-05-15] MEDS ORDERED: SPIRONOLACTONE 25 MG TABLET PO SCH (09:00)
[2019-05-15] MEDS ORDERED: LEVOFLOXACIN 750 MG TABLET PO SCH (09:00)
[2019-05-15] MEDS ORDERED: MULTIVIT,THER IRON,CA,FA & MIN 1 TABLET PO SCH (09:00)
[2019-05-15] MEDS ORDERED: FUROSEMIDE 80 MG TABLET PO SCH (09:00)
--- NOTE | 2019-05-15 09:51 | Discharge Summary ---
Medical - DS: Prov Patient information: Note initiated : 05/15/19 at 9:48 am Service Date, if different from initiated Date: [] Patient: Colt Flores 83 y/o M admitted on 05/09/19 for Weakness, Fever. Chief Complaint: [] Date of admission: 05/09/19 19:10 Discharge date: 05/15/19 Primary care physician: Suma Parker Consults: 05/09/19 Consult to Physician [CONS] Stat Comment: Consulting Provider: Salinas Teran Reason For Exam: Physician to Consult Medical - DS: Meds - Discharge Medications Prescriptions: Levofloxacin [Levaquin] 750 mg PO DAILY #1 tab Transmission Status: Pending to [facility] Active and Home Medications: Home Medications Allopurinol [Zyloprim] 100 mg PO HS 06/28/16 [History Confirmed 05/10/19 Last Taken 05/08/19] Oxazepam 15 mg PO QDAY 06/28/16 [History Confirmed 05/10/19 Last Taken 05/08/19] furosemide 80 mg tablet 80 mg PO QDAY #90 tab 07/12/17 [Rx Confirmed 05/10/19 Last Taken 05/08/19] potassium chloride 20 mEq tablet,extended release 20 meq PO QAMCC 07/12/17 [History Confirmed 05/10/19 Last Taken 05/08/19] Cholecalciferol (Vitamin D3) [Vitamin D3] 4,000 units PO DAILY 04/19/18 [History Confirmed 05/10/19 Last Taken 05/08/19] Ketorolac Tromethamine [Acular] 1 drp OU DAILY 07/03/18 [History Confirmed 05/10/19 Last Taken 05/08/19] spironolactone 25 mg tablet 12.5 mg PO QAM tab 12/02/18 [History Confirmed 05/10/19 Last Taken 05/08/19] doxycycline hyclate 100 mg capsule 100 mg PO BID #28 cap 05/08/19 [Rx Confirmed 05/09/19 Last Taken Unknown] prazosin 5 mg capsule 5 mg PO BID cap 05/08/19 [History Confirmed 05/10/19 Last Taken 05/08/19] Atorvastatin [Lipitor] 20 mg PO HS 05/09/19 [History Confirmed 05/10/19 Last Taken 05/08/19] Ipratropium/Albuterol Sulfate [Combivent] 2 puff INH BID 05/09/19 [History Confirmed 05/10/19 Last Taken Unknown] Omeprazole [Prilosec] 20 mg PO QAM 05/10/19 [History Confirmed 05/10/19 Last Taken 05/08/19] Levofloxacin [Levaquin] 750 mg PO DAILY #1 tab 05/15/19 [Rx Last Taken Unknown] Medical - DS: Hosp Hospital Course: Discharge diagnosis * Complicated Pseudomonas UTI-clinical resolution noted. Continue Levaquin for additional 24 hours. Renal ultrasound no evidence of obstructive uropathy. * Septic shock -clinically resolved. Off vasopressors. * Leukemoid reaction secondary to complicated UTI. Resolved with normalization of white count * History of CHF-Echocardiogram 2019 normal EF with moderate PA HTN. Follows up with Dr. Mehta at [facility]. 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 Continue statin. Not on anticoagulation or antiplatelets due to thrombocytopenia. Continue physical therapy OT at [facility] * Chronic atrial fibrillation -rate controlled * History of ITP/thrombocytopenia chronic. Platelets at baseline. Follows up with hematology at [facility] * History of hypertension -restart home medications * CKD stage III at baseline. GFR around 40. Stable creatinine 1 * History of PATITO continue CPAP at home settings * History of gout continue allopurinol. No acute flare Brief hospital course Mr. Flores is a 83 year old M with a history of right parietal CVA with left hemiparesis who lives at home along with his . Patient presents to the ER after he became very unsteady and weak, became nauseated while at shower. Symptoms have been progressing over the last couple of days. He was recently at the hospital with constipation where he was found to have bladder obstruction causing retained urine and associated constipation. subsequently a catheter was placed that led to his improvement in bowel symptoms. Following discharge from the ER he was evaluated by urology and catheter was discontinued few days ago however over the last couple of days he has noted increasing weakness, fever and becoming unsteady and a gradual decline in functional status. With worsening symptoms he presents to the ER. Initial work-up was consistent with sepsis with hypotension. Cultures revealed Pseudomonas on urine. Patient was started antibiotics and subsequently hospital service was consulted At the time evaluation patient is alert and respond to commands. He was able to endorse history as above. He denies shaking chills but endorses to fever weakness myalgia nausea and being very unsteady. He has residual deficits from previous CVA and uses a pull at home along with motor scooter to get around. He also follows up with Dr. Mercado general surgery physician assistant for thrombocytopenia. 05/10-patient in septic shock. Continue vasopressors to keep map at goal. White count in excess of 40,000. Leukemoid reaction. High risk mortality. No family at bedside. Renal function stable with creatinine 1.2. Continue cefepime and de-escalate based on sensitivities. Map at goal. T-max 101.6. No other concerns expressed with nursing staff 05/11-patient clinically improving. White count down to 22,000. On vasopressors. Critically ill. T-max 101.6. Had a visit with family yesterday and discussed clinical findings/labs/prognosis. Attempting to wean pressors. Continue antibiotic coverage. Pansensitive Pseudomonas on culture. De-escalate to Levaquin today. Creatinine at 1.1. 05/12-patient doing better. Continuing to wean vasopressors down to 3 mics. Systolics around mid 90s. Incontinence incontinent complains of lack of bowel movements. Afebrile. No other concerns per nursing staff. Net 6 pounds over baseline weight since admission. However in light of septic shock and need of pressors diuresis will be held. No family at bedside. Patient alert and cooperative and feels much better than previous day. 05/13-patient doing remarkably better. Off pressors. Generalized swelling with significant dependent edema. Started on diuretics. No overnight fever. White count down to 6.3. Hemoglobin 10.5. Creatinine 1. Pseudomonas on culture. 05/14-diuresing well. Incontinent of urine. However bed weight down 4 pounds. Much improved lymphedema. No anxiety. Feels a lot better. Tolerating diet. Tolerating physical therapy. Transferring to medical floor. Anticipate discharge in 24 hours with continued antibiotic for additional 48 hours. 05/15-patient doing well. No overnight events. Feels a lot better. On room air. Ongoing PT OT. Antibiotic to continue for additional 24 hours. Discharging to SNF for continued posthospitalization rehab. Continue aggressive therapies at SNF. Discharge diagnosis: . - Time Spent with Patient Total time spent providing and/or coordinating discharge services: Greater than 30 minutes Medical - DS: Exam - Constitutional Vitals: Vital Signs Temp Pulse Resp BP Pulse Ox 05/15/19 07:31 96.9 F L 20 120/48 99 05/15/19 04:00 98.2 F 65 18 124/68 05/14/19 23:29 97.5 F 65 18 126/60 97 05/14/19 20:00 95 05/14/19 18:47 98.1 F 72 18 102/53 94 05/14/19 15:13 67 92 05/14/19 15:12 97.9 F 85 20 85/57 92 05/14/19 14:00 92 05/14/19 12:15 21 05/14/19 12:01 64 24 H 95/42 94 05/14/19 11:46 59 L 23 H 116/48 93 05/14/19 11:31 64 24 H 107/43 95 05/14/19 11:16 70 26 H 102/52 94 05/14/19 11:09 69 24 H 94 05/14/19 11:01 72 24 H 112/86 97 05/14/19 10:46 50 L 22 99/56 95 05/14/19 10:31 134 H 26 H 94/69 95 05/14/19 10:23 64 21 94 05/14/19 10:16 70 22 107/46 93 05/14/19 10:04 22 97/70 96 05/14/19 10:02 61 19 79/35 96 Intake and Output 05/14/19 05/15/19 05/15/19 21:59 05:59 13:59 Intake Total 120 240 240 Output Total 3 2 Balance 117 238 240 Intake: Oral 120 240 240 Output: # of times incontinent of urine 3 2 Other: Meal Dinner Breakfast Percent of Meal Consumed 50% 100% Feeding Ability Assist with Tray Set Up Assist with Tray Set Up Stool Size Small Small Stool Color Brown Brown Stool Consistency Soft Soft Formed # of times incontinent of 1 Bowels Weight 196 lb 14.4 oz Medical - DS: A/P - Patient/Caregiver Discharge Instructions Activity: as per physical therapy, increase activity as tolerated Diet: Low Sodium (2gm) Additional Instructions: Follow-up PCP in 5 days Continue antibiotics for 24 hours I recommend SNF physician to check CBC BMP UA as a posthospital follow-up in 1 week. Continue aggressive bowel regimen to prevent constipation Continue CPAP at home settings Continue fall precautions Daily weights measurements and take additional 40 mg Lasix for 3 days if weight gain over 4 pounds over baseline or worsening SOB and call primary care physician if inadequate response to Lasix Continue aggressive PT OT evaluation and treatment at SNF. ST eval and treatment if indicated High protein calorie supplements All meals on chair sitting upright at 90 degrees to prevent aspiration Return to ER if worsening fever chills shortness of breath, diarrhea, bleeding Review risk and side effect profile of medications including antibiotics. Side effect may include mild to severe reaction including rash, diarrhea, cdiff and even which can be prevented by close follow-up with PCP and monitoring for side effects Continue diet and activity as advised Discussed importance of medication adherence Please review medication list with patient prior to discharge Please schedule follow-up with PCP/Providers prior to discharge and provide printouts Prescriptions: Levofloxacin [Levaquin] 750 mg PO DAILY #1 tab Transmission Status: Pending to [facility] - Problem Maintenance (1) Complicated UTI (urinary tract infection) Status: Acute - Follow up Plan Follow up with: Suma Parker MD [Primary Care Provider] - Disposition: Xf SNF Prognosis: Fair Rehab Potential: Fair I certify that the patient requires SNF services: Yes Overall status at discharge: patient is progressing back to baseline Medical - DS: Qual - VTE Deep Vein Thrombosis/Pulmonary Embolism Present on Admission: No
[2019-05-15] MEDS: IPRATROPIUM/ALBUTEROL SULFATE 1 PUFF INHALER INH SCH (11:22)
== END 2019-05-15 10:34 | DRG 871 ==
LOC: ED 09:45 → ICU 19:10
PROVIDERS: ADMIT Internal Medicine; ATTEND Internal Medicine